=== PATIENT | male | born 1940 | race Caucasian/White ===

== ENCOUNTER → 2017-11-13 16:41 | Outpatient (CLI) | payer MEDICARE, SELFPAY ==
[2017-11-13 18:03] LABS: Alanine Aminotransferase 49 IU/L (21-72); Albumin 4.5 g/dL (3.5-5.0); Albumin Globulin Ratio 1.7 (1.0-2.8); Alkaline Phosphatase 69 U/L (38-126); Aspartate Aminotransferase 45 IU/L (17-59); Bilirubin Total 0.6 mg/dL (0.2-1.3); Blood Urea Nitrogen 28 mg/dL (9-20); Calcium 9.8 mg/dL (8.4-10.2); Carbon Dioxide 28 mmol/L (22-32); Chloride 100 mmol/L (98-107); Cholesterol 135 mg/dL (140-199); Estimated Glomerular Filt Rate > 60.0 mL/min (>60); Globulin 2.6 g/dL (1.7-4.1); Glucose 83 mg/dL (80-110); HDL Cholesterol 57 mg/dL (40-60); HEMOLYSIS < 15 (0-50); LDL Cholesterol Calculated 62 mg/dL (<100); Potassium 4.9 mmol/L (3.4-5.1); Sodium 139 mmol/L (137-145); Total Protein 7.1 g/dL (6.3-8.2); Triglycerides 79 mg/dL (35-150)
[2017-11-13 18:20] LABS: Free T3, Triiodothyronine Free 5.54 pg/mL (2.77-5.27); Free T4, Direct Thyroxine 0.12 ng/dL (0.78-2.19)
[2017-11-13 18:34] LABS: Thyroid Stimulating Hormone < 0.02 uIU/mL (0.47-4.68)
[2017-11-13 18:36] LABS: Prostate Specific Antigen Scrn 1.91 ng/mL (0.1-4.0)
== END ==
PROVIDERS: Family Provider Internal Medicine; PCP Internal Medicine; Visit Provider Internal Medicine
DX: E03.9 Hypothyroidism, unspecified (principal); E78.00 Pure hypercholesterolemia, unspecified
CPT/HCPCS: 36415; 80053; 80061; 84439; 84443; 84481; G0103

== ENCOUNTER → 2018-01-22 10:06 | Outpatient (CLI) | payer MEDICARE, SELFPAY ==
--- NOTE | 2018-01-22 | DI.RAD.S_ITS ---
This blank DEXA report has been sent in error by the PACS system. The correct and complete report will be forthcoming in 1-2 days. Thank you for your patience and understanding. Dictated by: Laury Cormier MD, PhD on 01/22/2018 at 12:45 Approved by: Laury Cormier MD, PhD on 01/22/2018 at 12:46
--- NOTE | 2018-01-22 | DI.MRI.S_ITS ---
PROCEDURE: MR CERVICAL SPINE WO CON INDICATIONS: Other abnormalities of gait and mobility TECHNIQUE: Noncontrast sagittal T1 spin echo and T2 fast spin echo, sagittal STIR, foraminal oblique sagittal T2 fast spin echo, and axial gradient echo or T2 fast spin echo through the cervical spine. COMPARISON: None. FINDINGS: Image quality: Excellent. Alignment and Curvature: There is trace C7-T1 anterolisthesis.. Bone Marrow: Mild reactive endplate changes noted adjacent to the C3-C4, C4-C5, C5-C6, C6-C7 and C7-T1 discs. Spinal Cord: Visualized spinal cord has normal size and signal. No cerebellar tonsillar herniation. Paraspinous Soft Tissues: No paravertebral masses. Prevertebral soft tissues are normal in thickness. C2-C3: Loss of disc signal. Mild, diffuse disc bulge. Mild right and moderate left facet hypertrophy. No central stenosis. Mild right and moderate left neural foraminal narrowing. No neural impingement. C3-C4: Loss of disc signal and height. Moderate, diffuse disc bulge. Moderate narrowing of the central canal. Mild bilateral facet hypertrophy. Moderate bilateral uncovertebral joint hypertrophy. Severe bilateral neural foraminal narrowing with flattening deformity exiting C4 nerve roots. C4-C5: Loss of disc signal and height. Mild, diffuse disc bulge. Mild narrowing of the central canal. Mild right and moderate left facet hypertrophy. Mild bilateral uncovertebral joint hypertrophy. Severe bilateral neural foraminal narrowing with flattening deformity of the exiting C5 nerve roots. C5-C6: Loss of disc signal and height. Moderate, diffuse disc bulge. Moderate narrowing of the central canal. Mild right and moderate left facet hypertrophy. Mild bilateral uncovertebral joint hypertrophy. Severe bilateral neural foraminal narrowing with flattening deformity of the exiting C6 nerve roots. C6-C7: Loss of disc signal and height. Mild diffuse disc bulge. Mild narrowing of the central canal. Mild bilateral facet hypertrophy. Mild left uncovertebral joint hypertrophy. Moderate right and severe left neural foraminal narrowing with flattening deformity of the exiting left C7 nerve root. C7-T1: Loss of disc signal. Minimal, diffuse disc bulge. No central stenosis. No neural foraminal narrowing. No neural impingement. IMPRESSION: 1. Multilevel degenerative disc disease. 2. Multilevel facet arthropathy and uncovertebral joint hypertrophy. 3. Moderate C3-C4 and C5-C6 central canal narrowing. Mild C4-C5 and C6-C7 central canal narrowing. 4. Severe bilateral C3-C4, C4-C5 and C5-C6 neural foraminal narrowing. Severe left and moderate right C6-C7 neural foraminal narrowing. Mild right and moderate left C2-C3 neural foraminal narrowing. 5. Flattened deformity of the exiting bilateral C4 nerve roots, the exiting bilateral C5 nerve roots, the exiting bilateral C6 nerve roots and the exiting left C7 nerve root secondary to neural foraminal narrowing. Please correlate with clinical data. Dictated by: Laury Cormier MD, PhD on 01/22/2018 at 12:24 Approved by: Laury Cormier MD, PhD on 01/22/2018 at 12:41
--- NOTE | 2018-01-22 | DI.MRI.S_ITS ---
PROCEDURE: MR LUMBAR SPINE WO CON INDICATIONS: Other abnormalities of gait and mobility TECHNIQUE: Noncontrast sagittal T1 spin echo and T2 fast echo, sagittal STIR, axial T1 and T2 fast spin echo through the lumbar spine. In cases with scoliosis, additional coronal T2 fast spin echo may be performed. COMPARISON: None. FINDINGS: Image quality: Excellent. Alignment and Curvature: There is normal bony alignment. Mild, approximately 10? of convex right thoracolumbar spine curvature noted. Bone Marrow: Reactive endplate change is noted adjacent to the L1-L2, L2-L3, L3-L4, L4-L5 and L5-S1 discs. No acute vertebral body compression fractures. Spinal Cord: Conus medullaris terminates at the L2 level. Visualized cord demonstrates normal signal and size. Paraspinous Soft Tissues: No paravertebral masses. L1-L2: Loss of disc signal. Moderate, diffuse disc bulge. Mild bilateral facet hypertrophy. Moderate narrowing of the central canal. Moderate bilateral neural foraminal narrowing. No neural impingement. L2-L3: Loss of disc signal and slight loss of disc height. Mild, diffuse disc bulge. Mild bilateral facet hypertrophy. Mild to moderate narrowing of the central canal. Moderate right and severe left neural foraminal narrowing with slight flattening deformity of the exiting left L2 nerve root. L3-L4: Loss of disc signal and slight loss of disc height. Mild, diffuse disc bulge. Mild facet and mild ligamentum flavum hypertrophy. Moderate narrowing of the central canal. Moderate bilateral neural foraminal narrowing. No neural impingement. L4-L5: Loss of disc signal and slight loss of disc height. Mild, diffuse disc bulge. Mild bilateral facet hypertrophy. Mild ligamentum flavum hypertrophy. Moderate narrowing of the central canal. Severe bilateral neural foraminal narrowing with flattening deformity of the exiting L4 nerve roots. L5-S1: Loss of disc signal and height. Mild, diffuse disc bulge. Mild bilateral facet hypertrophy. Mild narrowing of the central canal. Severe right and mild left neural foraminal narrowing with flattening deformity the exiting right L5 nerve root. IMPRESSION: 1. Multilevel degenerative disc disease. 2. Multilevel facet arthropathy. 3. Moderate L1-L2, L3-L4 and L4-L5 central canal narrowing. Mild to moderate L2-L3 central canal narrowing. 4. Severe bilateral L4-L5 neural foraminal narrowing. Severe right and mild left L5-S1 neural foraminal narrowing. Mild right and severe left L2-L3 neural foraminal narrowing. Moderate bilateral L1-L2 at L3-L4 neural foraminal narrowing. 5. Flattened deformity of the exiting left L2 nerve root, the exiting bilateral L4 nerve roots and the exiting right L5 nerve root secondary to neural foraminal narrowing. Please correlate with clinical data. Dictated by: Laury Cormier MD, PhD on 01/22/2018 at 12:48 Approved by: Laury Cormier MD, PhD on 01/22/2018 at 12:55
== END ==
PROVIDERS: Family Provider Internal Medicine; PCP Internal Medicine; Visit Provider Internal Medicine
DX: M50.31 Other cervical disc degeneration, high cervical region (principal); M47.812 Spondylosis without myelopathy or radiculopathy, cervical region; M48.061 Spinal stenosis, lumbar region without neurogenic claudication; M85.832 Other specified disorders of bone density and structure, left forearm; M51.36 Other intervertebral disc degeneration, lumbar region; M51.37 Other intervertebral disc degeneration, lumbosacral region; M48.07 Spinal stenosis, lumbosacral region; M47.816 Spondylosis without myelopathy or radiculopathy, lumbar region; R26.89 Other abnormalities of gait and mobility; R39.15 Urgency of urination; Z82.62 Family history of osteoporosis
CPT/HCPCS: 72141; 72148; 77080; 77081

== ENCOUNTER 2018-02-06 09:19 | Emergency (ER) | payer MEDICARE, SELFPAY ==
[2018-02-06 09:23] VITALS: BP 121/71; PULSE 88; RESP 14; TEMP 36.3; O2SAT 100
--- NOTE | 2018-02-06 09:43 | DI.RAD.S_ITS ---
PROCEDURE: XR ACUTE ABDOMEN SERIES INDICATIONS: states no bowel movement x 2 weeks. TECHNIQUE: One view chest and two views of the abdomen were acquired. COMPARISON: None. FINDINGS: Surgical changes and devices: Right dynamic hip screw in left hip arthroplasty are noted with extensive heterotopic ossification bilaterally. Severe degenerative changes present within the thoracolumbar spine. Chest: Lungs are clear. Heart size is normal. No pleural effusions. No pneumoperitoneum. The lung volumes are large and the diaphragms are flattened suggesting emphysema. Abdomen: Bowel gas pattern is normal. No suspicious calcifications. Visualized solid organ contours appear normal. Bones: No suspicious bony lesions. IMPRESSION: 1. Emphysematous change. No acute cardiopulmonary findings. 2. No acute intra-abdominal findings. Dictated by: Linda Tarango M.D. on 02/06/2018 at 10:04 Approved by: Linda Tarango M.D. on 02/06/2018 at 10:04
--- NOTE | 2018-02-06 12:32 | ED.ABDPAIN ---
HPI - Abdominal Pain <Karen Braun, DRAFTING CLERK-BC - Last Filed: 02/06/18 15:01> General Chief Complaint: Abdominal Pain Stated Complaint: HASN'T POOPED IN 2 WEEKS Time Seen by Provider: 02/06/18 12:19 Source: patient and family Mode of arrival: ambulatory Limitations: no limitations History of Present Illness HPI narrative: Patient presents with chief complaint of not having had a bowel movement for 2 weeks. He states he usually has a bowel movement every 3 days or so. He states he is still passing gas, denies severe abdominal pain but does complain of slight abdominal cramping. He denies any nausea, vomiting, chest pain, shortness of breath fever or chills. Upon further increased, the patient states he had small ?rabbit turds? approximately 3-4 days ago. He states he is passing lots of gas, and states that his bowels were ?very gurgly and gassy? 2-3 days ago. also states that patient is not urinating as much as usual. Patient states he had a good urination when he arrived in the ER. Patient denies any burning frequency or urgency. Related Data Home Medications Medication Instructions Recorded Confirmed alendronate 70 mg PO TU 02/06/18 02/06/18 aspirin 81 mg PO BEDTIME 02/06/18 02/06/18 calcium carb-D3-mag ox-zinc ox 1 tab PO QPM 02/06/18 02/06/18 cholecalciferol (vitamin D3) 4,000 unit PO DAILY 02/06/18 02/06/18 [Vitamin D3] cyanocobalamin (vitamin B-12) 1,000 mcg PO QPM 02/06/18 02/06/18 [Vitamin B-12] liothyronine 75 mcg PO DAILY 02/06/18 02/06/18 mirabegron [Myrbetriq] 1 tab PO BEDTIME 02/06/18 02/06/18 multivitamin 1 tab PO QAM 02/06/18 02/06/18 nortriptyline 100 mg PO QPM 02/06/18 02/06/18 risperidone 1 mg PO BEDTIME 02/06/18 02/06/18 s-adenosylmethionine [Zurdo-E] 1 tab PO QNOON 02/06/18 02/06/18 s-adenosylmethionine [Zurdo-E] 2 tab PO QAM 02/06/18 02/06/18 sertraline 150 mg PO QAM 02/06/18 02/06/18 simvastatin 20 mg PO BEDTIME 02/06/18 02/06/18 vitamin E 400 unit PO QAM 02/06/18 02/06/18 Allergies Allergy/AdvReac Type Severity Reaction Status Date / Time No Known Drug Allergies Allergy Verified 02/06/18 09:25 Review of Systems <LAWSON Ablert - Last Filed: 02/06/18 15:01> Review of Systems GENERAL: Denies chills, fatigue, malaise, fever, sweats. HEENT: Denies sinus pain, ear pain, sore throat, difficulty swallowing, dizziness. RESPIRATORY: Denies dyspnea, cough, wheezing, hemoptysis, sputum. CARDIOVASCULAR: Denies chest pain, palpitations, orthopnea, edema, GASTROINTESTINAL: See HPI : Denies dysuria, frequency, incontinence, hematuria, urinary retention. MUSCULOSKELETAL: denies weakness, joint pain, or bony pain SKIN: Denies rash, skin lesions, or other NEUROLOGIC: Denies weakness, headache, numbness, change in speech, confusion, seizures, incoordination. PSYCHIATRIC: No concerning psychosocial issues. 12 point review of systems is negative except for those stated above Exam <PUJA AlbertBC - Last Filed: 02/06/18 15:01> Narrative Exam Narrative: GENERAL: Elderly male, at bedside. HEAD: Atraumatic. Normocephalic. No temporal or scalp tenderness. EYES: Pupils equal round and reactive. Extraocular motions intact. No scleral icterus. No injection or drainage. ENT: Nose without bleeding, purulent drainage or septal hematoma. Throat without erythema, tonsillar hypertrophy or exudate. Uvula midline. Airway patent. NECK: Trachea midline. No JVD or lymphadenopathy. Supple, nontender, no meningeal signs. CARDIOVASCULAR: Regular rate and rhythm RESPIRATORY: Clear to auscultation. Breath sounds equal bilaterally. No wheezes, rales, or rhonchi. No increased respiratory effort. No cough on exam. GASTROINTESTINAL: Abdomen soft, slight general tenderness, nondistended. No hepato-splenomegaly, or palpable masses. No guarding. No rigidity. Active bowel sounds all 4 quadrants. No pain at McBurney's point. Negative Paz sign. EXTREMITIES: No clubbing, cyanosis, or edema. No joint tenderness, effusion, or edema noted. BACK: Nontender without deformity or crepitance. No flank tenderness. NEURO: AOx3. Patient is noted to answer questions differently regarding his bowel habits every time I go into the room SKIN: No rash or erythema. Initial Vital Signs Initial Vital Signs: Vital Signs Temperature 97.4 F L 02/06/18 09:23 Pulse Rate 88 02/06/18 09:23 Respiratory Rate 14 02/06/18 09:23 Blood Pressure 121/71 02/06/18 09:23 Pulse Oximetry 100 02/06/18 09:23 <Kathy Love MD - Last Filed: 02/06/18 18:58> Initial Vital Signs Initial Vital Signs: Vital Signs Temperature 97.4 F L 02/06/18 09:23 Pulse Rate 88 02/06/18 09:23 Respiratory Rate 14 02/06/18 09:23 Blood Pressure 121/71 02/06/18 09:23 Pulse Oximetry 100 02/06/18 09:23 Course <LAWSON Albert - Last Filed: 02/06/18 15:01> Orders Ordered: Discontinued Medications Sodium Biphosphate/Sodium Phosphate (Fleet Enema) 1 each MI NOW ONE Stop: 02/06/18 12:45 I checked on the patient several times throughout his stay in the emergency department. Given the 's concern about urinary retention, a bladder scan and postvoid residual was also obtained. It was found to be 100 cc postvoid. Vital Signs - 8 hr 02/06/18 13:32 Temperature 98.1 F Pulse Rate 65 Respiratory Rate 17 Blood Pressure 126/69 Pulse Oximetry 98 <Kathy Love MD - Last Filed: 02/06/18 18:58> Orders Ordered: Discontinued Medications Sodium Biphosphate/Sodium Phosphate (Fleet Enema) 1 each MI NOW ONE Stop: 02/06/18 12:45 Vital Signs - 8 hr 02/06/18 13:32 Temperature 98.1 F Pulse Rate 65 Respiratory Rate 17 Blood Pressure 126/69 Pulse Oximetry 98 MDM - Abdominal Pain <LAWSON Albert - Last Filed: 02/06/18 15:01> Imaging Data abd xray: Radiologist's impression: [address] [address] XRay Report Signed Patient: Zachary Keane [facility]#: [id number] : 1940Acct:[id number] Age/Sex: 77 / MDate of Service: 02/06/18 Loc: ED Accession Number: [id number] Procedure: XR acute abdomen series Ordering Provider: Kathy Love MD PROCEDURE: XR ACUTE ABDOMEN SERIES INDICATIONS: states no bowel movement x 2 weeks. TECHNIQUE: One view chest and two views of the abdomen were acquired. COMPARISON: None. FINDINGS: Surgical changes and devices: Right dynamic hip screw in left hip arthroplasty are noted with extensive heterotopic ossification bilaterally. Severe degenerative changes present within the thoracolumbar spine. Chest: Lungs are clear. Heart size is normal. No pleural effusions. No pneumoperitoneum. The lung volumes are large and the diaphragms are flattened suggesting emphysema. Abdomen: Bowel gas pattern is normal. No suspicious calcifications. Visualized solid organ contours appear normal. Bones: No suspicious bony lesions. IMPRESSION: 1. Emphysematous change. No acute cardiopulmonary findings. 2. No acute intra-abdominal findings. Dictated by: Linda Tarango M.D. on 02/06/2018 at 10:04 Approved by: Linda Tarango M.D. on 02/06/2018 at 10:04 [facility] Narrative Medical decision making narrative: Patient presents with chief complaint of no bowel movement for 4 days. However he has a relatively benign abdominal exam, active bowel sounds and states he is passing gas. Further increase states he had some hard bowel movement to 3-4 days ago. His x-ray does not show any obstruction and shows a normal gas pattern. The abdomen is soft, nondistended. I question whether not the patient had a bowel movement and failed to remember having it, or had a bowel movement that his was not made aware of. I discussed at length a bowel regimen with the patient and his as well as return precautions to the emergency department including abdominal pain, not passing gas, etc. Discharge Plan Departure Patient Disposition: Home Clinical Impression: Constipation Discharge Date/Time: 02/06/18 13:34 Interventions: ED Discharge Assessment Last Done: 02/06/18 13:32 Instructions: Constipation (Alternative Therapy), DI for Constipation Activity Restrictions/Additional Instructions: Your abdominal x-ray showed a normal gas pattern today. Your abdominal exam is relatively benign overall. I suggest use of laxatives as needed. This can include senna which is a laxative, Colace as a stool softener. Magnesium citrate and enemas can also be purchased [id number]. I suggest a high-fiber high water diet. You may need to follow up with her primary care for continued management of her constipation. Come back to the emergency department if you and unable to take down fluids, are vomiting, or have severe abdominal pain. Prescriptions: No Action alendronate 70 mg tablet 70 mg PO TU RF: 0 sertraline 100 mg tablet 150 mg PO QAM RF: 0 risperidone 2 mg tablet 1 mg PO BEDTIME RF: 0 simvastatin 20 mg tablet 20 mg PO BEDTIME RF: 0 liothyronine 50 mcg tablet 75 mcg PO DAILY RF: 0 mirabegron [Myrbetriq] 25 mg tablet extended release 24 hr 1 tab PO BEDTIME RF: 0 multivitamin Tablet 1 tab PO QAM RF: 0 cyanocobalamin (vitamin B-12) [Vitamin B-12] 1,000 mcg Tablet 1,000 mcg PO QPM RF: 0 aspirin 81 mg Tablet,Delayed Release (Dr/Ec) 81 mg PO BEDTIME RF: 0 vitamin E 400 unit Capsule 400 unit PO QAM RF: 0 nortriptyline 50 mg Capsule 100 mg PO QPM RF: 0 s-adenosylmethionine [Zurdo-E] 400 mg Tablet 2 tab PO QAM RF: 0 s-adenosylmethionine [Zurdo-E] 400 mg Tablet 1 tab PO QNOON RF: 0 cholecalciferol (vitamin D3) [Vitamin D3] 2,000 unit Capsule 4,000 unit PO DAILY RF: 0 calcium carb-D3-mag ox-zinc ox 333 mg-133 unit -133 mg-5 mg Tablet 1 tab PO QPM RF: 0 Referrals: Aaron Alexis MD [Primary Care Provider] -
--- NOTE | 2018-02-06 13:12 | ED_ITS ---
HPI - Abdominal Pain <Karen Braun, ORTHOTIST/PROSTHETIST-BC - Last Filed: 02/06/18 15:01> General Chief Complaint: Abdominal Pain Stated Complaint: HASN'T POOPED IN 2 WEEKS Time Seen by Provider: 02/06/18 12:19 Source: patient and family Mode of arrival: ambulatory Limitations: no limitations History of Present Illness HPI narrative: Patient presents with chief complaint of not having had a bowel movement for 2 weeks. He states he usually has a bowel movement every 3 days or so. He states he is still passing gas, denies severe abdominal pain but does complain of slight abdominal cramping. He denies any nausea, vomiting, chest pain, shortness of breath fever or chills. Upon further increased, the patient states he had small ?rabbit turds? approximately 3-4 days ago. He states he is passing lots of gas, and states that his bowels were ?very gurgly and gassy? 2-3 days ago. also states that patient is not urinating as much as usual. Patient states he had a good urination when he arrived in the ER. Patient denies any burning frequency or urgency. Related Data Home Medications Medication Instructions Recorded Confirmed alendronate 70 mg PO TU 02/06/18 02/06/18 aspirin 81 mg PO BEDTIME 02/06/18 02/06/18 calcium carb-D3-mag ox-zinc ox 1 tab PO QPM 02/06/18 02/06/18 cholecalciferol (vitamin D3) 4,000 unit PO DAILY 02/06/18 02/06/18 [Vitamin D3] cyanocobalamin (vitamin B-12) 1,000 mcg PO QPM 02/06/18 02/06/18 [Vitamin B-12] liothyronine 75 mcg PO DAILY 02/06/18 02/06/18 mirabegron [Myrbetriq] 1 tab PO BEDTIME 02/06/18 02/06/18 multivitamin 1 tab PO QAM 02/06/18 02/06/18 nortriptyline 100 mg PO QPM 02/06/18 02/06/18 risperidone 1 mg PO BEDTIME 02/06/18 02/06/18 s-adenosylmethionine [Zurdo-E] 1 tab PO QNOON 02/06/18 02/06/18 s-adenosylmethionine [Zurdo-E] 2 tab PO QAM 02/06/18 02/06/18 sertraline 150 mg PO QAM 02/06/18 02/06/18 simvastatin 20 mg PO BEDTIME 02/06/18 02/06/18 vitamin E 400 unit PO QAM 02/06/18 02/06/18 Allergies Allergy/AdvReac Type Severity Reaction Status Date / Time No Known Drug Allergies Allergy Verified 02/06/18 09:25 Review of Systems <LAWSON Albert - Last Filed: 02/06/18 15:01> Review of Systems GENERAL: Denies chills, fatigue, malaise, fever, sweats. HEENT: Denies sinus pain, ear pain, sore throat, difficulty swallowing, dizziness. RESPIRATORY: Denies dyspnea, cough, wheezing, hemoptysis, sputum. CARDIOVASCULAR: Denies chest pain, palpitations, orthopnea, edema, GASTROINTESTINAL: See HPI : Denies dysuria, frequency, incontinence, hematuria, urinary retention. MUSCULOSKELETAL: denies weakness, joint pain, or bony pain SKIN: Denies rash, skin lesions, or other NEUROLOGIC: Denies weakness, headache, numbness, change in speech, confusion, seizures, incoordination. PSYCHIATRIC: No concerning psychosocial issues. 12 point review of systems is negative except for those stated above Exam <PUJA AlbertBC - Last Filed: 02/06/18 15:01> Narrative Exam Narrative: GENERAL: Elderly male, at bedside. HEAD: Atraumatic. Normocephalic. No temporal or scalp tenderness. EYES: Pupils equal round and reactive. Extraocular motions intact. No scleral icterus. No injection or drainage. ENT: Nose without bleeding, purulent drainage or septal hematoma. Throat without erythema, tonsillar hypertrophy or exudate. Uvula midline. Airway patent. NECK: Trachea midline. No JVD or lymphadenopathy. Supple, nontender, no meningeal signs. CARDIOVASCULAR: Regular rate and rhythm RESPIRATORY: Clear to auscultation. Breath sounds equal bilaterally. No wheezes , rales, or rhonchi. No increased respiratory effort. No cough on exam. GASTROINTESTINAL: Abdomen soft, slight general tenderness, nondistended. No hepato-splenomegaly, or palpable masses. No guarding. No rigidity. Active bowel sounds all 4 quadrants. No pain at McBurney's point. Negative Paz sign. EXTREMITIES: No clubbing, cyanosis, or edema. No joint tenderness, effusion, or edema noted. BACK: Nontender without deformity or crepitance. No flank tenderness. NEURO: AOx3. Patient is noted to answer questions differently regarding his bowel habits every time I go into the room SKIN: No rash or erythema. Initial Vital Signs Initial Vital Signs: Vital Signs Temperature 97.4 F L 02/06/18 09:23 Pulse Rate 88 02/06/18 09:23 Respiratory Rate 14 02/06/18 09:23 Blood Pressure 121/71 02/06/18 09:23 Pulse Oximetry 100 02/06/18 09:23 <Kathy Love MD - Last Filed: 02/06/18 18:58> Initial Vital Signs Initial Vital Signs: Vital Signs Temperature 97.4 F L 02/06/18 09:23 Pulse Rate 88 02/06/18 09:23 Respiratory Rate 14 02/06/18 09:23 Blood Pressure 121/71 02/06/18 09:23 Pulse Oximetry 100 02/06/18 09:23 Course <LAWSON Albert - Last Filed: 02/06/18 15:01> Orders Ordered: Discontinued Medications Sodium Biphosphate/Sodium Phosphate (Fleet Enema) 1 each RI NOW ONE Stop: 02/06/18 12:45 I checked on the patient several times throughout his stay in the emergency department. Given the 's concern about urinary retention, a bladder scan and postvoid residual was also obtained. It was found to be 100 cc postvoid. Vital Signs - 8 hr 02/06/18 13:32 Temperature 98.1 F Pulse Rate 65 Respiratory Rate 17 Blood Pressure 126/69 Pulse Oximetry 98 <Kathy Love MD - Last Filed: 02/06/18 18:58> Orders Ordered: Discontinued Medications Sodium Biphosphate/Sodium Phosphate (Fleet Enema) 1 each RI NOW ONE Stop: 02/06/18 12:45 Vital Signs - 8 hr 02/06/18 13:32 Temperature 98.1 F Pulse Rate 65 Respiratory Rate 17 Blood Pressure 126/69 Pulse Oximetry 98 MDM - Abdominal Pain <LAWSON Albert - Last Filed: 02/06/18 15:01> Imaging Data abd xray: Radiologist's impression: [address] [address] XRay Report Signed Patient: Zachary Keane [facility]#: [id number] : 1940Acct:[id number] Age/Sex: 77 / MDate of Service: 02/06/18 Loc: ED Accession Number: [id number] Procedure: XR acute abdomen series Ordering Provider: Kathy Love MD PROCEDURE: XR ACUTE ABDOMEN SERIES INDICATIONS: states no bowel movement x 2 weeks. TECHNIQUE: One view chest and two views of the abdomen were acquired. COMPARISON: None. FINDINGS: Surgical changes and devices: Right dynamic hip screw in left hip arthroplasty are noted with extensive heterotopic ossification bilaterally. Severe degenerative changes present within the thoracolumbar spine. Chest: Lungs are clear. Heart size is normal. No pleural effusions. No pneumoperitoneum. The lung volumes are large and the diaphragms are flattened suggesting emphysema. Abdomen: Bowel gas pattern is normal. No suspicious calcifications. Visualized solid organ contours appear normal. Bones: No suspicious bony lesions. IMPRESSION: 1. Emphysematous change. No acute cardiopulmonary findings. 2. No acute intra-abdominal findings. Dictated by: Linda Tarango M.D. on 02/06/2018 at 10:04 Approved by: Linda Tarango M.D. on 02/06/2018 at 10:04 [facility] Narrative Medical decision making narrative: Patient presents with chief complaint of no bowel movement for 4 days. However he has a relatively benign abdominal exam, active bowel sounds and states he is passing gas. Further increase states he had some hard bowel movement to 3-4 days ago. His x-ray does not show any obstruction and shows a normal gas pattern. The abdomen is soft, nondistended. I question whether not the patient had a bowel movement and failed to remember having it, or had a bowel movement that his was not made aware of. I discussed at length a bowel regimen with the patient and his as well as return precautions to the emergency department including abdominal pain, not passing gas, etc. Discharge Plan Departure Patient Disposition: Home Clinical Impression: Constipation Discharge Date/Time: 02/06/18 13:34 Interventions: ED Discharge Assessment Last Done: 02/06/18 13:32 Instructions: Constipation (Alternative Therapy), DI for Constipation Activity Restrictions/Additional Instructions: Your abdominal x-ray showed a normal gas pattern today. Your abdominal exam is relatively benign overall. I suggest use of laxatives as needed. This can include senna which is a laxative, Colace as a stool softener. Magnesium citrate and enemas can also be purchased [id number]. I suggest a high- fiber high water diet. You may need to follow up with her primary care for continued management of her constipation. Come back to the emergency department if you and unable to take down fluids, are vomiting, or have severe abdominal pain. Prescriptions: No Action alendronate 70 mg tablet 70 mg PO TU RF: 0 sertraline 100 mg tablet 150 mg PO QAM RF: 0 risperidone 2 mg tablet 1 mg PO BEDTIME RF: 0 simvastatin 20 mg tablet 20 mg PO BEDTIME RF: 0 liothyronine 50 mcg tablet 75 mcg PO DAILY RF: 0 mirabegron [Myrbetriq] 25 mg tablet extended release 24 hr 1 tab PO BEDTIME RF: 0 multivitamin Tablet 1 tab PO QAM RF: 0 cyanocobalamin (vitamin B-12) [Vitamin B-12] 1,000 mcg Tablet 1,000 mcg PO QPM RF: 0 aspirin 81 mg Tablet,Delayed Release (Dr/Ec) 81 mg PO BEDTIME RF: 0 vitamin E 400 unit Capsule 400 unit PO QAM RF: 0 nortriptyline 50 mg Capsule 100 mg PO QPM RF: 0 s-adenosylmethionine [Zurdo-E] 400 mg Tablet 2 tab PO QAM RF: 0 s-adenosylmethionine [Zurdo-E] 400 mg Tablet 1 tab PO QNOON RF: 0 cholecalciferol (vitamin D3) [Vitamin D3] 2,000 unit Capsule 4,000 unit PO DAILY RF: 0 calcium carb-D3-mag ox-zinc ox 333 mg-133 unit -133 mg-5 mg Tablet 1 tab PO QPM RF: 0 Referrals: Aaron Alexis MD [Primary Care Provider] -
--- NOTE | 2018-02-06 13:21 | PC.NURSE ---
Bladder scan pre void is 400 cc post void is less than 100 cc
[2018-02-06 13:32] VITALS: BP 126/69; PULSE 65; RESP 17; TEMP 36.7; O2SAT 98
== END 2018-02-06 13:34 | disposition home or self-care (01) ==
PROVIDERS: Emergency Provider Nurse Practitioner Family; Family Provider Internal Medicine; PCP Internal Medicine
DX: K59.00 Constipation, unspecified (principal)
CPT/HCPCS: 74022; 99282; 99283

== ENCOUNTER → 2018-03-27 06:55 | Outpatient (CLI) | payer MEDICARE, SELFPAY ==
--- NOTE | 2018-03-27 | DI.MRI.S_ITS ---
PROCEDURE: MR LUMBAR SPINE WO CON INDICATIONS: IMPAIRED GAIT AND MOBILITY TECHNIQUE: Noncontrast sagittal T1 spin echo and T2 fast echo, sagittal STIR, axial T1 and T2 fast spin echo through the lumbar spine. In cases with scoliosis, additional coronal T2 fast spin echo may be performed. COMPARISON: [facility], MR, MR LUMBAR SPINE WO CON, 01/22/2018, 10:44. FINDINGS: Image quality: Excellent. Alignment and Curvature: Straightening of the normal lumbar lordosis with trace retrolisthesis of L5 on S1. Bone Marrow: Diffuse endplate spurring and degenerative signal changes. There are scattered small Schmorl's nodes as before with mild adjacent marrow edema at the inferior endplate of L2, the superior and inferior endplate of L3 and the superior and inferior plate of L4. Chronic appearing Schmorl's node at the inferior endplate of L1, and T12. These are grossly unchanged since 01/22/18 No acute vertebral body compression fractures. Spinal Cord: Conus medullaris terminates at the L2-L3 level. Visualized cord demonstrates normal signal and size. Paraspinous Soft Tissues: No paravertebral masses. L1-L2: Broad-based posterior disc bulge and mild canal narrowing appears grossly unchanged. Partial effacement of the lateral recesses although left greater than right. This is likely unchanged. Moderate right and left foraminal narrowing with unchanged appearance L2-L3: Broad-based posterior disc bulge and bilateral facet arthropathy. Mild canal narrowing which appears unchanged. There is also symmetric partial effacement of the lateral recesses also unchanged. Moderate bilateral foraminal stenoses, as before. L3-L4: Broad-based posterior disc bulge bilateral facet arthropathy. Mild canal narrowing. Symmetric partial effacement of the left and right lateral recesses. Moderate left and mild right foraminal narrowing. L4-L5: Broad-based posterior disc bulge bilateral facet disease. Ligamentum flavum hypertrophy. Mild/moderate central canal narrowing, which is slightly progressed since the prior study. Bilaterally symmetric appearing partial effacement of the lateral recesses. Moderate bilateral foraminal narrowing, grossly unchanged L5-S1: Broad-based posterior disc bulge bilateral facet disease. Mild central canal narrowing. There is asymmetric partial effacement of the lateral recesses, right greater than left however the appearance is similar to the 01/22/18 examination. Severe right and no definite left foraminal stenosis. No interval change IMPRESSION: Slight progression in central canal narrowing at the L4-L5 level otherwise, remainder the examination appears grossly unchanged as detailed above by spinal level. Redemonstration of bilateral asymmetric subarticular narrowing at L5-S1, right greater than left although this appears unchanged. Multiple small Schmorl's nodes as detailed above. These also appear unchanged. Dictated by: Eugene De Santiago M.D. on 03/27/2018 at 9:45 Approved by: Eugene De Santiago M.D. on 03/27/2018 at 9:56
--- NOTE | 2018-03-27 | DI.MRI.S_ITS ---
PROCEDURE: MR CERVICAL SPINE WO CON INDICATIONS: IMPAIRED GAIT AND MOBILITY TECHNIQUE: Noncontrast sagittal T1 spin echo and T2 fast spin echo, sagittal STIR, foraminal oblique sagittal T2 fast spin echo, and axial gradient echo or T2 fast spin echo through the cervical spine. COMPARISON: [facility], MR, MR CERVICAL SPINE WO CON, 01/22/2018, 10:13. FINDINGS: Image quality: Degraded by motion artifact. Alignment and Curvature: There is normal bony alignment. Bone Marrow: Marrow demonstrates normal overall signal. There is mild reactive signal within the endplates adjacent to the C3-C4, C4-C5, C5-C6, C6-C7, and C7-T1 intervertebral discs. Spinal Cord: Visualized spinal cord has normal size and signal. No cerebellar tonsillar herniation. Paraspinous Soft Tissues: No paravertebral masses. Prevertebral soft tissues are normal in thickness. C2-C3: Mild disc height loss. Moderate disc desiccation. Mild diffuse disc bulge. Bilateral facet and uncovertebral hypertrophy. Moderate left and mild right foraminal stenosis. Mild canal stenosis. No change. C3-C4: Moderate disc height loss and desiccation. Mild diffuse disc bulge. Left greater than right facet and uncovertebral hypertrophy. Moderate canal stenosis. Moderate bilateral foraminal stenosis. No change. C4-C5: Moderate disc desiccation. Mild disc height loss. Mild diffuse disc bulge. Left greater than right facet and uncovertebral hypertrophy. Mild canal stenosis. Severe left and moderate right foraminal stenosis. Flattening of the left C5 nerve root. Suboptimal evaluation of the right C5 nerve root. No change. C5-C6: Moderate disc height loss and desiccation. Mild diffuse disc bulge/osteophyte. Bilateral facet and uncovertebral hypertrophy. Moderate canal stenosis. Severe bilateral foraminal stenosis with bilateral C6 nerve root flattening. No change. C6-C7: Severe disc loss and desiccation. Mild diffuse disc bulge/osteophyte with superimposed broad-based left far lateral protrusion/osteophyte. Bilateral facet and uncovertebral hypertrophy. Moderate canal stenosis. Severe left and mild right foraminal stenosis. Flattening deformity of the left C7 nerve root within the neural foramen. No change. C7-T1: Moderate disc desiccation. Mild diffuse disc bulge. Mild bilateral facet and uncovertebral hypertrophy. Mild canal stenosis. Mild bilateral foraminal stenosis. No change. IMPRESSION: 1. Multilevel degenerative disc and facet disease, as well as uncovertebral hypertrophy. 2. Multilevel canal stenoses, worst at C3-C4, C5-C6, and C6-C7, where there are moderate canal stenoses present. 3. Multilevel foraminal stenoses, worst at C4-C5 on the left, at C6-C7 bilaterally, and at C6-C7 on the left, where there is associated intraforaminal neural flattening as described above. Recommend correlation with clinical symptoms to ascertain relevance of these findings. Dictated by: Lio Camarillo M.D. on 03/27/2018 at 8:43 Approved by: Lio Camarillo M.D. on 03/27/2018 at 8:49
== END ==
PROVIDERS: Family Provider Internal Medicine; PCP Internal Medicine; Visit Provider Internal Medicine Endocrinology, Diabetes & Metabolism
DX: R26.89 Other abnormalities of gait and mobility (principal); R39.15 Urgency of urination; M50.31 Other cervical disc degeneration, high cervical region; M48.061 Spinal stenosis, lumbar region without neurogenic claudication; M51.26 Other intervertebral disc displacement, lumbar region; M51.27 Other intervertebral disc displacement, lumbosacral region; M48.07 Spinal stenosis, lumbosacral region; M51.46 Schmorl's nodes, lumbar region; M51.44 Schmorl's nodes, thoracic region
CPT/HCPCS: 72141; 72148

== ENCOUNTER 2018-06-10 12:30 | Outpatient (RCR) | payer MEDICARE, SELFPAY ==
--- NOTE | 2018-04-16 14:54 | ST.OPIE ---
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 Peña Pascual, Neurosurgery Reason for Referral Dementia, newly diagnosed Evaluation Assessment Type Cognitive Communication Past Medical History Patient History 77-yr-old right-handed male with history of ventriculomegaly and memory problems. MRI was conducted on 08/22/17 (see pt chart for details), and MoCA administrated on 12/14/17 with score of 24/30, below normal limits. The pt was referred to Dr. Tino Sharma, Clinical Psychologist, at [facility] , and was seen for neuropsychological testing on 03/14/18. This case history is compiled from Dr. Sharma's evaluation report. Test findings indicated moderate-severe deficits in verbal and visual memory, semantic verbal fluency, speed of mental processing; mild deficits in basic auditory attention, phonemic verbal fluency, higher-level visuospatial processing, and, possibly, abstract verbal and nonverbal reasoning. The pt scored at or very near expected historical baseline on confrontation object naming test; fund of information and word knowledge were in the superior range (91st percentile). The pt had undergone similar testing in 2007, and general comparisons between that and the current evaluation indicated mild to moderate declines in performances, with greater decline seen on tests of verbal and visual memory. Per medical records, ... elements in [the pt's] cognitive findings, when combined with the declines seen in test performances since the 2007 evaluation, raise concerns for the possible presence of a neurodegenerative disorder, e. g., Alzheimer's. The pt has a hx of emotional factors, including depression and anxiety; however, they were not throught to be sufficient to account for a substantial portion of current cognitive functioning. Speech Therapy was recommended , focusing on the development and use of compensatory systems/strategies to enhance [the pt's] everyday memory. Examination of executive functions in his everyday life is recommended as part of treatment, with particular focus given to problem-solving and organization and planning of complex tasks. The pt provided supplemental case history including difficulty formulating thoughts, taking in what I hear, following directions, remembering names and parts of stories, and recalling sequences of tasks. He also reported getting stuck on something, which was consistent with reports of difficulty transitioning to new tasks during neuropsychological evaluation, perseverating on the previous task instructions. The pt identified his goals: Being able to respond faster, to follow directions, and to be more independent than he is now. To compensate for cognitive difficulties, the pt uses his phone calendar to track appointments and events, a pill box and routine to self- manage his medications, and written To-Do lists to complete tasks. [place] Language Language(s) Spoken in the Home [place] Educational Status Education Level Master's degree in law without passing bar Occupational Status Occupation Status Retired Previous Therapy Previous Speech-Language Therapy No Subjective Subjective The pt arrived on time unaccompanied. 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 He provided case history information supplemental to medical records. - Formal Assessment Standardized Test Scales of Cognitive & Communicative Ability for Neurorehabilitation (SCCAN) Administration Initiated Incomplete Results Raw scores for Sub-Tests Administered: Oral Expression/Repetition & Immediate Recall, 4/5 Orientation, /12 Speech Comprehension, / Oral Expression/Naming, 5/6 Connected Speech & Problem Solving, 8/8 Immediate Recall, 0/3 Attention, 7/7 Visual Problem Solving, 2/3 Numeric Problem Solving, 6/6 Delayed Recall, 4/6 (Sub-Test not administered in completion ) The following Sub-Tests will be administered in the next session to complete the exam: Reading, Writing, Delayed Recall - Cognition Orientation Skill Level WNL Attention Skill Level Mildly Impaired Problem Solving/Reasoning/Judgment Skill Level WFL Category Naming/Identification Skill Level Mildly Impaired Clock Drawing Skill Level WNL Cognitive Assessment Cognitive Assessment The pt presents with apparent deficits in areas of attention and short-term and working memory, per pt report, medical records, and results of testing completed to date. The pt reports difficulty with processing speeds, as well, which will be further evaluated at the next session. Testing results and pt complaints are consistent with diagnosis of dementia and interfere with the pt's ability to perform ADLs and interact with others as desired and as per PLOF. Skilled intervention is medically necessary to establish modifications in the pt's functional environment and training in skills and compensatory strategies to assist him to maintain highest level of independence and quality of life in the presence of a progressive disease. - Memory Short Term Memory Skill Level Moderately Impaired Immediate Recall Skill Level Moderately Impaired Word Recall Skill Level Mildly Impaired Comment 4 animals in 60 sec; 9 words beginning with F in 60 sec Long-Term Memory Comment Not tested; appears to be WFL in conversation. Memory Assessment Memory Assessment The pt exhibited greatest difficulty with memory items on sub-tests administered today. Simple repetition of information or task had little benefit. Skilled intervention to target memory training via errorless learning technique, use of compensatory strategies, memory notebook and environmental adaptations. - Treatment Goals Short Term Goals 1. The pt will participate in further assessment of cognitive communication skills to identify deficits and strengths and guide POC. 2. The pt will participate in establishment of a memory notebook and other external memory tools to increase his independence and maintain highest quality of life in presence of progressive disease. Renal Dialysis Rn Goals 1. The pt will use external memory tools, including memory notebook, with 80% accuracy to increase his independence and maintain highest quality of life in presence of progressive disease. 2. The pt will perform ADLs that are important to him and to his in 80% of opportunities with use of modifications to his functional environment and verbal cues, as measured by pt /family reports and clinical judgement. Total Time Full Evaluation Time 90
== END 2018-09-17 11:56 ==
LOC: SP 12:30
PROVIDERS: Family Provider Internal Medicine; PCP Internal Medicine; Visit Provider Internal Medicine Endocrinology, Diabetes & Metabolism
DX: F03.90 Unspecified dementia, unspecified severity, without behavioral disturbance, psychotic disturbance, mood disturbance, and anxiety (principal)
CPT/HCPCS: 96125

== ENCOUNTER → 2018-10-18 11:24 | Outpatient (CLI) | payer MEDICARE, SELFPAY ==
[2018-10-18 11:33] LABS: Bacteria Urine None Seen; WBC Urine None Seen (0-5/HPF)
[2018-10-18 11:53] LABS: Appearance Urine UA CLEAR; Bilirubin Urine UA NEGATIVE (NEGATIVE); Color Urine UA YELLOW; Glucose Urine UA NEGATIVE (Negative); Ketones Urine UA NEGATIVE (NEGATIVE); Leukocyte Esterase Urine UA NEGATIVE (NEGATIVE); Nitrite Urine UA NEGATIVE (Negative); Occult Blood Urine UA TRACE-INTACT (Negative); Protein Urine UA NEGATIVE (Negative); Urobilinogen Urine UA 0.2 E.U./dL (0.2); pH Urine UA 5.5 (4.5-8.0)
[2018-10-18 12:11] LABS: RBC Urine 1-5/HPF (0-5/HPF)
== END ==
PROVIDERS: PCP Internal Medicine; Visit Provider Psychiatry & Neurology Psychiatry
DX: N39.0 Urinary tract infection, site not specified (principal)
CPT/HCPCS: 81001

== ENCOUNTER 2019-01-06 15:17 | Emergency (ER) | payer MEDICARE, SELFPAY ==
[2019-01-06 15:23] VITALS: BP 139/72; PULSE 70; RESP 16; TEMP 36.4; O2SAT 96; BMI 23.7
--- NOTE | 2019-01-06 15:33 | ED.FALL ---
HPI - Fall General Chief Complaint: Fall Stated Complaint: GLF, head lac Time Seen by Provider: 01/06/19 15:17 Source: patient and EMS Mode of arrival: EMS Limitations: no limitations History of Present Illness HPI Narrative: 78-year-old male. Not on blood thinners. 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 Also has balance issues was standing at the grocery store unloading his cart into his car when he slipped on a empty plastic grocery bag that was on the ground. He fell backwards hitting his head. There was no loss of consciousness. He reports no other injuries from the event. He states that he remembers the entire event. Does have bleeding to the back of his head. Arrive not on a backboard not in a cervical collar by EMS. Related Data Home Medications Medication Instructions Recorded Confirmed alendronate 70 mg PO TU 02/06/18 02/06/18 aspirin 81 mg PO BEDTIME 02/06/18 02/06/18 calcium carb-D3-mag ox-zinc ox 1 tab PO QPM 02/06/18 02/06/18 cholecalciferol (vitamin D3) 4,000 unit PO DAILY 02/06/18 02/06/18 [Vitamin D3] cyanocobalamin (vitamin B-12) 1,000 mcg PO QPM 02/06/18 02/06/18 [Vitamin B-12] liothyronine 75 mcg PO DAILY 02/06/18 02/06/18 mirabegron [Myrbetriq] 1 tab PO BEDTIME 02/06/18 02/06/18 multivitamin 1 tab PO QAM 02/06/18 02/06/18 nortriptyline 100 mg PO QPM 02/06/18 02/06/18 risperidone 1 mg PO BEDTIME 02/06/18 02/06/18 s-adenosylmethionine [Zurdo-E] 1 tab PO QNOON 02/06/18 02/06/18 s-adenosylmethionine [Zurdo-E] 2 tab PO QAM 02/06/18 02/06/18 sertraline 150 mg PO QAM 02/06/18 02/06/18 simvastatin 20 mg PO BEDTIME 02/06/18 02/06/18 vitamin E 400 unit PO QAM 02/06/18 02/06/18 Allergies Allergy/AdvReac Type Severity Reaction Status Date / Time No Known Drug Allergies Allergy Verified 02/06/18 09:25 Review of Systems Constitutional Constitutional: Denies fever(s) and Denies headache(s) Eyes Eyes: Denies change in vision and Denies loss of vision ENT Ears, Nose, Mouth, and Throat: Denies vertigo, Denies dizziness, Denies headache(s) and Reports disequilibrium Cardiovascular Cardiovascular: Denies chest pain, Denies palpitations and Denies dyspnea Respiratory Respiratory: Denies dyspnea Gastrointestinal Gastrointestinal: Denies abdominal pain, Denies nausea and Denies vomiting Musculoskeletal Musculoskeletal: Denies myalgias, Denies arthralgias, Denies numbness and Denies tingling Integumentary/Breasts Comments: Bleeding to back of head Neurologic Neurologic: Denies behavioral changes, Denies confusion, Denies vertigo, Denies dizziness, Denies headache(s), Denies loss of vision, Denies numbness, Denies tingling and Reports disequilibrium Psychiatric Psychiatric: Denies behavioral changes and Denies confusion Endocrine Endocrine: Denies palpitations Hematologic/Lymphatic Hematologic/Lymphatic: Denies easy bleeding and Denies easy bruising Exam Initial Vital Signs Initial Vital Signs: Vital Signs Temperature 97.6 F 01/06/19 15:23 Pulse Rate 70 01/06/19 15:23 Respiratory Rate 16 01/06/19 15:23 Blood Pressure 139/72 01/06/19 15:23 Pulse Oximetry 96 01/06/19 15:23 Const General: cooperative and well developed Orientation: alert, awake and oriented x3 HENMT Head: abrasion Nose: external nose normal Face and sinus: normal facial exam Mouth: oral mucosae normal Resp Effort & Inspection: normal respiratory effort Cardio Rate: regular rate GI Inspection: non-distended Palpation: soft Skin Other: Patient with a quarter-size abrasion to the occipital portion of his scalp. No active bleeding. Neuro General: alert, awake and oriented x3 Cognition: normal cognition Speech: speech normal Motor: muscle tone normal throughout Sensory Exam: no sensory deficits noted Extrem General: normal to inspection and capillary refill normal Psych Appearance: grossly normal and well ket [facility] Medical History BPH (benign prostatic hyperplasia) (Inactive) Social History Smoking Status: Never smoker Social History Smoking Status: Never smoker Course Orders Ordered: ED Orders 01/06/19 15:32 CT head/brain wo con Stat Vital Signs Vital signs: Vital Signs - 8 hr 01/06/19 15:23 Temperature 97.6 F Pulse Rate 70 Respiratory Rate 16 Blood Pressure 139/72 Pulse Oximetry 96 MDM - Fall Imaging Data CT scan - head: Radiologist's impression: [address] [address] [address] Scan Report Signed Patient: Zachary Keane [facility]#: [id number] : 1940Acct:[id number] Age/Sex: 78 / MDate of Service: 01/06/19 Loc: ED Accession Number: [id number] Procedure: CT head/brain wo con Ordering Provider: Peña Devine D.O. PROCEDURE: CT HEAD/BRAIN WO CON INDICATIONS: Fall, not on blood thinners, occipital contusion TECHNIQUE: Noncontrast 4.5 mm thick angled axial sections acquired from the foramen magnum to the vertex, with coronal and sagittal reformats. For radiation dose reduction, the following was used: automated exposure control, adjustment of mA and/or kV according to patient size. COMPARISON: [facility], MR, BRAIN WITH AND WITHOUT CONTRAS, 02/07/2008, 13:21. FINDINGS: Image quality: Excellent. CSF spaces: Basal cisterns are patent. No extra-axial fluid collections. The ventricles are symmetric in size and shape. Brain: No intracranial bleeds or masses. There is cerebral volume loss for age, with resultant ventricular and sulcal prominence. There are periventricular and deep white matter chronic small vessel ischemic changes. There is intracranial internal carotid artery atherosclerosis. Skull and face: There is a mild scalp hematoma seen posteriorly and superiorly, just to the right of the midline. No underlying calvarial fracture is seen. Calvarium and visualized facial bones appear intact, without suspicious lesions. Sinuses: Moderate mucosal thickening is seen within the ethmoid air cells. The paranasal sinuses are otherwise unremarkable. No abnormal fluid is seen within the mastoid air cells or within the middle ear cavities. IMPRESSION: No acute intracranial hemorrhage is seen. Right posterior superior scalp contusion, without an underlying calvarial fracture. Note is made of age-appropriate brain parenchymal volume loss and chronic small vessel ischemic changes. Dictated by: Washington Tillman M.D. on 01/06/2019 at 15:02 Approved by: Washington Tillman M.D. on 01/06/2019 at 15:05 [facility] Narrative Medical decision making narrative: Patient is up-to-date on his tetanus. The CT scan shows no signs of skull fracture or intracranial hemorrhage. The wound on the back of his head is an abrasion. There is no need for intervention here in the emergency department. We discussed care instructions and return precautions. No other injuries reported from the event or found on his exam. Will hold on further radiologic studies for now. Patient is expressed understanding and agreement plan Discharge Plan Departure Patient Disposition: Home Clinical Impression: Abrasion of scalp Qualifiers: Encounter type: initial encounter Qualified Code(s): S00.01XA - Abrasion of scalp, initial encounter Fall Qualifiers: Encounter type: initial encounter Qualified Code(s): W19.XXXA - Unspecified fall, initial encounter Instructions: How to Prevent Falls, DI for Abrasion Activity Restrictions/Additional Instructions: You can shower like normal. You can use soap and water like normal. Do not scrub the back of your head because it may cause some bleeding. Return to the emergency department for any new or worsening symptoms. You can continue all of your medications as directed Prescriptions: No Action alendronate 70 mg tablet 70 mg PO TU RF: 0 sertraline 100 mg tablet 150 mg PO QAM RF: 0 risperidone 2 mg tablet 1 mg PO BEDTIME RF: 0 simvastatin 20 mg tablet 20 mg PO BEDTIME RF: 0 liothyronine 50 mcg tablet 75 mcg PO DAILY RF: 0 mirabegron [Myrbetriq] 25 mg tablet extended release 24 hr 1 tab PO BEDTIME RF: 0 multivitamin Tablet 1 tab PO QAM RF: 0 cyanocobalamin (vitamin B-12) [Vitamin B-12] 1,000 mcg Tablet 1,000 mcg PO QPM RF: 0 aspirin 81 mg Tablet,Delayed Release (Dr/Ec) 81 mg PO BEDTIME RF: 0 vitamin E 400 unit Capsule 400 unit PO QAM RF: 0 nortriptyline 50 mg Capsule 100 mg PO QPM RF: 0 s-adenosylmethionine [Zurdo-E] 400 mg Tablet 2 tab PO QAM RF: 0 s-adenosylmethionine [Zurdo-E] 400 mg Tablet 1 tab PO QNOON RF: 0 cholecalciferol (vitamin D3) [Vitamin D3] 2,000 unit Capsule 4,000 unit PO DAILY RF: 0 calcium carb-D3-mag ox-zinc ox 333 mg-133 unit -133 mg-5 mg Tablet 1 tab PO QPM RF: 0 Referrals: Aaron Alexis MD [Primary Care Provider] -
[2019-01-06 16:27] VITALS: BP 144/81; PULSE 70; RESP 18; TEMP 37; O2SAT 95
== END 2019-01-06 16:28 | disposition home or self-care (01) ==
PROVIDERS: Emergency Provider Emergency Medicine; PCP Internal Medicine
DX: S00.01XA Abrasion of scalp, initial encounter (principal); W01.0XXA Fall on same level from slipping, tripping and stumbling without subsequent striking against object, initial encounter
CPT/HCPCS: 70450; 99282; 99284

== ENCOUNTER → 2020-02-12 15:38 | Outpatient (ROUT) | payer MEDICARE, SELFPAY ==
[2020-02-12 16:03] LABS: Add Manual Diff / Slide Review NO; Basophils Absolute Auto 0 /uL (0-100); Basophils Percent Auto 0.2 % (0-2); Eosinophils Absolute Auto 100 /uL (0-450); Eosinophils Percent Auto 1.7 % (2-4); Hematocrit 37.9 % (41-53); Hemoglobin 12.8 g/dL (13.5-17.5); Lymphocytes Absolute Auto 800 /uL (1100-4500); Lymphocytes Percent Auto 19.1 % (25-40); Mean Corpuscular HGB Conc 33.9 % (30-36); Mean Corpuscular Hemoglobin 30.9 PG (26-34); Mean Corpuscular Volume 91.4 fL (80-100); Monocytes Absolute Auto 400 /uL (0-900); Neutrophils Absolute Auto 2800 /uL (1500-7000); Platelet Count 144 X10^3/uL (150-400); Red Blood Cell Count 4.15 X10^6/uL (4.5-5.9); Red Cell Distribution Width 13.6 % (11.6-14.8)
[2020-02-12 16:17] LABS: Alanine Aminotransferase 25 IU/L (<50); Albumin 4.2 g/dL (3.5-5.0); Albumin Globulin Ratio 1.5 (1.0-2.8); Alkaline Phosphatase 75 U/L (38-126); Aspartate Aminotransferase 41 IU/L (17-59); BUN Creatinine Ratio 26.3 (6-22); Bilirubin Total 0.6 mg/dL (0.2-1.3); Blood Urea Nitrogen 26 mg/dL (9-20); Calcium 9.3 mg/dL (8.4-10.2); Carbon Dioxide 31 mmol/L (22-32); Chloride 101 mmol/L (98-107); Cholesterol 129 mg/dL (140-199); Estimated Glomerular Filt Rate > 60.0 mL/min (>60); Globulin 2.8 g/dL (1.7-4.1); Glucose 84 mg/dL (80-110); HDL Cholesterol 59 mg/dL (40-60); HEMOLYSIS < 15 (0-50); LDL Cholesterol Calculated 57 mg/dL (<100); Sodium 137 mmol/L (137-145); Triglycerides 67 mg/dL (35-150)
[2020-02-12 16:47] LABS: TSH w/ Reflex to FT4 < 0.02 uIU/mL (0.47-4.68)
[2020-02-12 17:37] LABS: Free T4, Direct Thyroxine 0.14 ng/dL (0.78-2.19)
== END ==
PROVIDERS: PCP Internal Medicine; Visit Provider Internal Medicine
DX: F31.9 Bipolar disorder, unspecified (principal); E78.2 Mixed hyperlipidemia
CPT/HCPCS: 80053; 80061; 84439; 84443; 85025

== ENCOUNTER → 2020-02-26 13:23 | Outpatient (ROUT) | payer MEDICARE, SELFPAY ==
[2020-02-26 14:00] LABS: Free T3, Triiodothyronine Free 9.69 pg/mL (2.77-5.27); Free T4, Direct Thyroxine 0.13 ng/dL (0.78-2.19); T4 Total Thyroxine 1.09 ug/dL (5.5-11.0); T7 (Free Thyroxine Index) 0.35 (1.65-3.89); Triiodothryronine T3 Uptake 32.1 % (23.5-40.5)
[2020-02-26 14:14] LABS: TSH w/ Reflex to FT4 < 0.02 uIU/mL (0.47-4.68)
== END ==
PROVIDERS: PCP Internal Medicine; Visit Provider Physician Assistant
DX: R94.6 Abnormal results of thyroid function studies (principal)
CPT/HCPCS: 84436; 84439; 84443; 84479; 84481

== ENCOUNTER → 2020-08-19 16:09 | Outpatient (ROUT) | payer MEDICARE, SELFPAY ==
[2020-08-19 16:36] LABS: Add Manual Diff / Slide Review NO; Basophils Absolute Auto 0 /uL (0-100); Basophils Percent Auto 0.2 % (0-2); Eosinophils Absolute Auto 100 /uL (0-450); Eosinophils Percent Auto 3.5 % (2-4); Hematocrit 38.6 % (41-53); Hemoglobin 12.8 g/dL (13.5-17.5); Lymphocytes Absolute Auto 900 /uL (1100-4500); Lymphocytes Percent Auto 25.6 % (25-40); Mean Corpuscular HGB Conc 33.1 % (30-36); Mean Corpuscular Hemoglobin 29.4 PG (26-34); Mean Corpuscular Volume 88.9 fL (80-100); Monocytes Absolute Auto 400 /uL (0-900); Monocytes Percent Auto 11.9 % (3-14); Neutrophils Absolute Auto 2100 /uL (1500-7000); Neutrophils Percent Auto 58.8 % (50-75); Platelet Count 147 X10^3/uL (150-400); Red Blood Cell Count 4.34 X10^6/uL (4.5-5.9); Red Cell Distribution Width 13.8 % (11.6-14.8); White Blood Cell Count 3.6 X10^3/uL (4.5-11.0)
[2020-08-19 16:43] LABS: Alanine Aminotransferase 22 IU/L (<50); Albumin 4.1 g/dL (3.5-5.0); Albumin Globulin Ratio 1.5 (1.0-2.8); Alkaline Phosphatase 68 U/L (38-126); Aspartate Aminotransferase 35 IU/L (17-59); BUN Creatinine Ratio 24.2 (6-22); Bilirubin Total 0.4 mg/dL (0.2-1.3); Blood Urea Nitrogen 24 mg/dL (9-20); Calcium 9.7 mg/dL (8.4-10.2); Carbon Dioxide 30 mmol/L (22-32); Chloride 101 mmol/L (98-107); Estimated Glomerular Filt Rate > 60.0 mL/min (>60); Globulin 2.8 g/dL (1.7-4.1); Glucose 97 mg/dL (80-110); HEMOLYSIS < 15 (0-50); Potassium 4.7 mmol/L (3.4-5.1); Sodium 136 mmol/L (137-145); Total Protein 6.9 g/dL (6.3-8.2)
[2020-08-19 16:52] LABS: Hemoglobin A1C% w Est Avg Glu 5.3 % (4.0-6.0)
[2020-08-19 17:00] LABS: Free T4, Direct Thyroxine 0.14 ng/dL (0.78-2.19); T4 Total Thyroxine 1.09 ug/dL (5.5-11.0)
[2020-08-19 17:34] LABS: Vitamin B12 > 1000 pg/mL (239-931)
[2020-08-23 15:08] LABS: Albumin 3.8 g/dL (2.9-4.4); Alpha 1 Globulin 0.2 g/dL (0.0-0.4); Alpha 2 Globulin 0.8 g/dL (0.4-1.0); Beta 1 Globulin 1.1 g/dL (0.7-1.3); Gamma Globulin 0.9 g/dL (0.4-1.8); Protein, Total 6.8 g/dL (6.0-8.5)
== END ==
PROVIDERS: PCP Internal Medicine; Visit Provider Internal Medicine
DX: R94.6 Abnormal results of thyroid function studies (principal); R63.4 Abnormal weight loss
CPT/HCPCS: 80053; 82607; 83036; 84155; 84165; 84436; 84439; 84443; 85025

== ENCOUNTER → 2020-11-17 09:33 | Outpatient (CLI) | payer MEDICARE, SELFPAY ==
--- NOTE | 2020-11-17 | DI.MRI.S_ITS ---
PROCEDURE: MR HEAD/BRAIN WO CON INDICATIONS: Other frontotemporal dementia TECHNIQUE: Non-contrast axial T1 spin echo, axial T2 fast spin echo, sagittal and axial FLAIR, coronal T2 fast spin echo, axial gradient echo, axial diffusion and ADC through the brain. COMPARISON: [facility], MR, BRAIN WITHOUT CONTRAST, 11/09/2006, 13:34. CT, HEAD WITHOUT CONTRAST, 08/22/2007, 10:02. [facility], CT, CT HEAD/BRAIN WO CON, 01/06/2019, 15:33. MR, BRAIN WITH AND WITHOUT CONTRAS, 02/07/2008, 13:21. FINDINGS: Image quality: Excellent. CSF spaces: Ventricles appear symmetric in size and shape. Basal cisterns are patent. No extra-axial fluid collections. Brain: No intracranial bleeds or mass effects. There is mild, diffuse cerebral volume loss for age. There are moderate periventricular and deep white matter chronic small vessel ischemic changes. Brainstem appears normal. Diffusion-weighted images show no acute ischemic insults. Small chronic lacunar infarct in the left cerebellar hemisphere. Normal intravascular flow voids are present. Skull and face: Calvarial bone marrow is normal in signal. Orbits are normal. Sinuses: Mucous retention cyst versus polyp noted in the right maxillary sinus. Mild mucosal thickening in the maxillary sinuses bilaterally, ethmoid air cells bilaterally and right frontal sinus. The mastoids are clear. IMPRESSION: 1. No acute intracranial disease process. 2. Chronic, small left cerebellar hemisphere lacunar infarct. 3. No abnormal intracranial mass or mass effect. 4. Mild, diffuse cerebral volume loss. Volume loss is symmetric without preferential frontal-temporal volume loss 5. Moderate periventricular and subcortical white matter chronic microvascular ischemic changes. Dictated by: Laury Cormier MD, PhD on 11/17/2020 at 10:17 Approved by: Laury Cormier MD, PhD on 11/17/2020 at 10:37
== END ==
PROVIDERS: PCP Internal Medicine; Referring Provider Internal Medicine; Visit Provider Internal Medicine
DX: G31.09 Other frontotemporal neurocognitive disorder (principal); I63.81 Other cerebral infarction due to occlusion or stenosis of small artery
CPT/HCPCS: 70551

== ENCOUNTER 2020-12-29 12:30 | Outpatient (RCR) | payer MEDICARE, SELFPAY ==
--- NOTE | 2020-11-03 17:09 | ST.OPIE ---
Visit Care Team Role Provider Type Neeraj Pearce MD Attending Provider Physician Primary Care Provider Referring Provider Specialty: Internal Medicine Address: [address] [place] [address], [id number] Email: [email or web address] Speech-Language Pathology Initial Evaluation [facility] Adult Cognitive Linguistic Eval Start: 11/03/20 17:47 Freq: Status: Active Protocol: Document 11/03/20 17:47 OLIVE (Rec: 11/03/20 17:53 OLIVE [email or web address]) Adult Cognitive Linguistic Evaluation Session Time Visit Start Time 08:30 Visit Stop Time 09:30 Total Visit Minutes 60 Visit Information Visit Number Initial Evaluation Plan of Care Dates 11/03/20 - 02/03/21 Insurance Information Medicare Referral Referring Provider Dr. Neeraj Pearce Reason for Referral Dysarthria Setting Assessment Location Outpatient Care Visit Type Note Type Initial evaluation Next Note Type Next Note Type Treatment Note Patient Information Medical History The pt is an 79-yr-old male familiar to this C[place] HOISTER from previous treatment targeting cognitive communication skills , primarily memory. The pt returns with c/o slowed speech . Upon further interviewing, pt also noted slowed expressive language processing , difficulty formulating thoughts into verbal expression, and word recall challenges. These impairments have caused him to be less participatory in conversation and less likely to initiate conversations. Symptoms were first noticed by the pt's , Mary Kate, which brought them to the pt's awareness. Language(s) Spoken in the Home [place] Education Level College degree Occupation Status Retired Hearing Hearing Level Impaired Vision Vision Status Impaired Comments wears glasses Previous Therapy Previous Speech-Language Therapy Yes: targeting memory/ cognitive communication Subjective Patient Report The pt arrived on time and provided case history. Assessment Oral Motor Examination Completed No Informal Assessment Receptive Language Normal No: slowed processing Expressive Language Normal No: Slowed processing Pragmatic Language Normal Yes Speech Normal No Speech Impairment(s) Slow speech rate,Decreased volume/intensity,Poor breath support Cognition Normal Did not assess; Hx of deficits Cognitive Impairment(s) Short-term memory,Thought organization Findings/Results Language Function Mildly impaired Findings SPEECH: The pt presents with mild dysarthria secondary to mildly weak oral motor musculature and respiratory support for speech. Speech was 100% intelligible but characterized by slow rate, reduced breath support (~4-6 words/breath) and decreased loudness. Mildly monotone voice was also noted. LANGUAGE: Pt presents with mild expressive and receptive language deficits primarily characterized by slow processing skills that impact word recall and ability to participate in conversations. The pt reports that his has noticed he does not initiate conversations, and the pt agrees with this observation. As a result, he has become more isolated and withdrawn. During assessment, the pt scored within normal or functional limits in following yes/no questions; discriminating left and right body parts; picture identification and confrontational naming; automatic speech (counting, alphabet, etc.); phrase completion; imitation of words and sentences; responsive naming; and following 1- and 2-step directions. Mildly extended time consistently was required for responses, indicating reduced language processing, both expressively and receptively. Cognitive Communication Deficits Self-awareness of Cognitive- Situational awareness ( Communication Deficits recognition of problem in context;in real time) Impact on Functioning Activity Limits/Particip.Rest. Mild: Household Tasks Mod: General Tasks and Demands Interpersonal Interactions Community Prognosis Prognosis Good Based on Family support,Comorbidities, Duration of symptoms/severity, Time since onset Plan of Care Speech-Language Treatment Yes Frequency 1x/wk Duration 12 wks Patient/Caregiver Education Described results of evaluation,Patient expressed understanding of evaluation, Patient expressed agreement with goals and treatment plans Short Term Goals 1. The pt will perform exercises to increase breath support for speech with min prompt to increase pt's ability to be heard and understood by others. 2. The pt will will name 12 or more items in concrete categories in 60 seconds to improve word recall and expressive language processing speeds. 3. The pt will answer open- ended questions related to familiar topics with response latency of 5 sec or less to increase receptive language processing speeds necessary to effectively participate in functional conversations. 4. The pt will complete picture description tasks with 80% accuracy of appropriate content and latency of responses to improve word recall and expressive language processing speeds. [employer] Direction Specialist Goals 1. The pt will demonstrate improved breath support for speech by producing 10 or more words per breath in spontaneous conversation to increase his ability to effectively participate in functional/social conversations. 2. The pt will name 8 or more items in abstract categories to improve word recall and expressive language processing speeds. 3. The pt will demonstrate response times WFL in conversation about familiar topics to increase his ability to participate in functional conversations and improve quality of life.
--- NOTE | 2020-11-24 17:26 | ST.OPTN ---
Visit Care Team Role Provider Type Neeraj Pearce MD Attending Provider Physician Primary Care Provider Referring Provider Address: [address] [place] [address], [id number] AUTOMOTIVE DRIVABILITY TECHNICIAN Treatment Note AUTOMOTIVE DRIVABILITY TECHNICIAN Treatment Note Start: 11/03/20 17:47 Freq: Status: Active Protocol: Document 11/24/20 17:07 OLIVE (Rec: 11/24/20 17:22 OLIVE [email or web address]) Speech Pathology Treatment Note Session Time Visit Start Time 12:30 Visit Stop Time 13:15 Total Visit Minutes 45 Visit Information Visit Number 05/16 Plan of Care Dates 11/03/20 - 02/03/21 Insurance Information Medicare Setting Treatment Setting Outpatient Care Visit Type Note Type Treatment Note Next Note Type Next Note Type Treatment Note General Information General Information The pt is an 79-yr-old male familiar to this AUTOMOTIVE DRIVABILITY TECHNICIAN from previous treatment targeting cognitive communication skills , primarily memory. The pt returns with c/o slowed speech . Upon further interviewing, pt also noted slowed expressive language processing , difficulty formulating thoughts into verbal expression, and word recall challenges. These impairments have caused him to be less participatory in conversation and less likely to initiate conversations. Symptoms were first noticed by the pt's , Mary Kate, which brought them to the pt's awareness. Subjective Observations/Patient Presentation The pt arrived on time. No new complaints. Review of medical records after the session revealed recent brain MRI that showed: 1. No acute intracranial disease process; 2. Chronic, small left cerebellar hemisphere lacunar infarct; 3. No abnormal intracranial mass or mass effect; 4. Mild, diffuse cerebral volume loss. Volume loss is symmetric without preferential frontal- temporal volume loss; 5. Moderate periventricular and subcortical white matter chronic microvascular ischemic changes. Chief Complaint(s) Speech,Language,Cognitive Rehab Expectation/Goals: Patient Goals Improve ability to put thoughts into words and participate in conversations Patient Knowledge/Awareness of AUTOMOTIVE DRIVABILITY TECHNICIAN Role Good in Treatment Objective Short Term Goals 1. The pt will perform exercises to increase breath support for speech with min prompt to increase pt's ability to be heard and understood by others. 2. The pt will will name 12 or more items in concrete categories in 60 seconds to improve word recall and expressive language processing speeds. 3. The pt will answer open- ended questions related to familiar topics with response latency of 5 sec or less to increase receptive language processing speeds necessary to effectively participate in functional conversations. 4. The pt will complete picture description tasks with 80% accuracy of appropriate content and latency of responses to improve word recall and expressive language processing speeds. 5. With AUTOMOTIVE DRIVABILITY TECHNICIAN collaboration, the pt will develop and recite scripts for initiating conversations about familiar topics with 80% accuracy. Medical Assistant Dermatology Goals 1. The pt will demonstrate improved breath support for speech by producing 10 or more words per breath in spontaneous conversation to increase his ability to effectively participate in functional/social conversations. 2. The pt will name 8 or more items in abstract categories to improve word recall and expressive language processing speeds. 3. The pt will employ conversation starter scripts in 75% of opportunities in functional conversations, using visual aids as needed. 4. The pt will demonstrate response times WFL in conversation about familiar topics to increase his ability to participate in functional conversations and improve quality of life. Treatment Activities Consulted with pt in development of goals. Pt identified common topics of conversation with which he would like to be more engaged with his as: kids, grandkids, and movies they have watched together. He again expressed desire to read aloud better to increase his ability to participate with his [employer] study small group. Given written text from the Bible (~4 short paragraphs), the pt read the text with 4 errors (e.g., in for on, beach for boat). Reading rate was mildly slow. Vocal loudness was significantly reduced (not instrumentally measured), which would impede his ability to be heard by other senior small group participants in a home and group environment. After reading the text, the pt assessed his reading as disjointed and not very smooth. He reported moderate effort required to complete the task. Initiated training of oral motor exercises to improve speech articulation, as well as sustained phonation and breathing tasks to increase breath support for speech intelligibility. The pt returned demonstration of all exercises and verbalized understanding. Instructions were provided in writing for home practice. Assessment Patient Response to Treatment Good Rehab Potential Good Impairments Identified Auditory Processing,Cognitive- Linguistic Skills,Dementia, Dysarthria,Expressive Language ,Memory - Short Term,Memory - Working,Oral Motor,Receptive Language,Speech Intelligibility,Vocal Quality Assessment of Improvement The pt presented with significantly reduced breath support for speech, demonstrated by low vocal loudness and varying numbers of words per breath. Reading rate was mildly slow. Expressive and receptive language processing was slow throughout all conversation and in responses to tasks. The pt was participatory in goal development and receptive to all treatment activities and feedback. He performed oral motor and breathing exercises as instructed. Reviewed with Patient Goals,Progress Being Made,Home Exercise Program Patient/Caregiver Understanding Good Plan Treatment Emphasis Next Session Oral motor exercise training for speech; Scripts for initiating conversation Therapeutic Contents Client Education,Cognitive- Linguistic Training,Expressive Language Training,Home Exercise Program,Information Processing,Intelligibility, Oral Motor Training,Receptive Language Training,Voice Training Provided Patient/Caregiver Instruction Home Exercise Program,Plan of Care,Questions/Concerns Therapy Recommendations Continue with Current Program
--- NOTE | 2020-12-01 13:25 | ST.OPTN ---
Visit Care Team Role Provider Type Neeraj Pearce MD Attending Provider Physician Primary Care Provider Referring Provider Address: [address] [place] [address], [id number] HIGH SCHOOL HISTORY TEACHER Treatment Note HIGH SCHOOL HISTORY TEACHER Treatment Note Start: 11/03/20 17:47 Freq: Status: Active Protocol: Document 12/01/20 09:09 OLIVE (Rec: 12/02/20 09:13 OLIVE [email or web address]) Speech Pathology Treatment Note Session Time Visit Start Time 12:30 Visit Stop Time 13:20 Total Visit Minutes 50 Visit Information Visit Number 06/16 Plan of Care Dates 11/03/20 - 02/03/21 Insurance Information Medicare Setting Treatment Setting Outpatient Care Visit Type Note Type Treatment Note Next Note Type Next Note Type Treatment Note General Information General Information The pt is an 79-yr-old male familiar to this HIGH SCHOOL HISTORY TEACHER from previous treatment targeting cognitive communication skills , primarily memory. The pt returns with c/o slowed speech . Upon further interviewing, pt also noted slowed expressive language processing , difficulty formulating thoughts into verbal expression, and word recall challenges. These impairments have caused him to be less participatory in conversation and less likely to initiate conversations. Symptoms were first noticed by the pt's , Mary Kate, which brought them to the pt's awareness. Subjective Others Present Student Observations/Patient Presentation The pt arrived on time. No new complaints. No questions RE HEP, has been completing as prescribed. Chief Complaint(s) Speech,Language,Cognitive Rehab Expectation/Goals: Patient Goals Improve ability to put thoughts into words and participate in conversations Patient Knowledge/Awareness of HIGH SCHOOL HISTORY TEACHER Role Good in Treatment Objective Short Term Goals 1. The pt will perform exercises to increase breath support for speech with min prompt to increase pt's ability to be heard and understood by others. 2. The pt will will name 12 or more items in concrete categories in 60 seconds to improve word recall and expressive language processing speeds. 3. The pt will answer open- ended questions related to familiar topics with response latency of 5 sec or less to increase receptive language processing speeds necessary to effectively participate in functional conversations. 4. The pt will complete picture description tasks with 80% accuracy of appropriate content and latency of responses to improve word recall and expressive language processing speeds. 5. With HIGH SCHOOL HISTORY TEACHER collaboration, the pt will develop and recite scripts for initiating conversations about familiar topics with 80% accuracy. Jail Goals 1. The pt will demonstrate improved breath support for speech by producing 10 or more words per breath in spontaneous conversation to increase his ability to effectively participate in functional/social conversations. 2. The pt will name 8 or more items in abstract categories to improve word recall and expressive language processing speeds. 3. The pt will employ conversation starter scripts in 75% of opportunities in functional conversations, using visual aids as needed. 4. The pt will demonstrate response times WFL in conversation about familiar topics to increase his ability to participate in functional conversations and improve quality of life. Treatment Activities Pt completed oral motor exercises with min assist. MPT = 13 sec Initiated training of pacing board use to improve speech intelligibility and rate of speech/reading aloud. Given short to moderate-length sentences written on pacing board, the pt read sentences while tapping at each word. Readings were recorded and played back for pt, who evaluated performance, frequently noting reduced loudness and prosodic features . He repeated trials until he was satisfied with loudness, inflection, and clarity of articulation, demonstrating good awareness and ability to self-monitor and correct. By end of session, he maintained improved speech intelligibility without use of tapping; however, tapping will be continued to reinforce rate and clarity of speech and promote carryover in functional speaking tasks. Assessment Patient Response to Treatment Good Rehab Potential Good Impairments Identified Auditory Processing,Cognitive- Linguistic Skills,Dementia, Dysarthria,Expressive Language ,Memory - Short Term,Memory - Working,Oral Motor,Receptive Language,Speech Intelligibility,Vocal Quality Progress Towards Goals Good Progress Assessment of Overall Progress Improving Assessment of Improvement Pt exhibited mildly improved MPT, particularly with HIGH SCHOOL HISTORY TEACHER coaching during task. Speech intelligibility and loudness improved with use of pacing board. The pt was highly responsive to this tool and exhibited good self-monitoring and correcting skills. He demonstrated good understanding and ability to perform oral motor exercises, which appear to be improving speech intelligibility, as well, as the pt's conversational speech was perceived by HIGH SCHOOL HISTORY TEACHER and student HIGH SCHOOL HISTORY TEACHER to be mildly improved. Reviewed with Patient Goals,Progress Being Made,Home Exercise Program Patient/Caregiver Understanding Good Plan Amount of Therapy Recommended 2-3 Months Frequency of Treatment Once a Week Length of Session 45 Minutes Treatment Emphasis Next Session Cont pacing board; Scripts for initiating conversation Therapeutic Contents Client Education,Cognitive- Linguistic Training,Expressive Language Training,Home Exercise Program,Information Processing,Intelligibility, Oral Motor Training,Receptive Language Training,Voice Training Provided Patient/Caregiver Instruction Home Exercise Program,Plan of Care,Questions/Concerns Therapy Recommendations Continue with Current Program
--- NOTE | 2020-12-08 15:28 | ST.OPTN ---
Visit Care Team Role Provider Type Neeraj Pearce MD Attending Provider Physician Primary Care Provider Referring Provider Address: [address] [place] [address], [id number] ROUTE SALES ASSOCIATE Treatment Note ROUTE SALES ASSOCIATE Treatment Note Start: 11/03/20 17:47 Freq: Status: Active Protocol: Document 12/08/20 15:04 OLIVE (Rec: 12/08/20 15:28 OLIVE [email or web address]) Speech Pathology Treatment Note Session Time Visit Start Time 12:30 Visit Stop Time 13:20 Total Visit Minutes 50 Visit Information Visit Number 07/14 Plan of Care Dates 11/03/20 - 02/03/21 Insurance Information Medicare Setting Treatment Setting Outpatient Care Visit Type Note Type Treatment Note Next Note Type Next Note Type Treatment Note General Information General Information The pt is an 79-yr-old male familiar to this ROUTE SALES ASSOCIATE from previous treatment targeting cognitive communication skills , primarily memory. The pt returns with c/o slowed speech . Upon further interviewing, pt also noted slowed expressive language processing , difficulty formulating thoughts into verbal expression, and word recall challenges. These impairments have caused him to be less participatory in conversation and less likely to initiate conversations. Symptoms were first noticed by the pt's , Mary Kate, which brought them to the pt's awareness. Subjective Others Present Student Observations/Patient Presentation The pt arrived on time. No new complaints. No questions RE HEP, has been completing as prescribed. Chief Complaint(s) Speech,Language,Cognitive Rehab Expectation/Goals: Patient Goals Improve ability to put thoughts into words and participate in conversations Patient Knowledge/Awareness of ROUTE SALES ASSOCIATE Role Good in Treatment Objective Short Term Goals 1. The pt will perform exercises to increase breath support for speech with min prompt to increase pt's ability to be heard and understood by others. 2. The pt will will name 12 or more items in concrete categories in 60 seconds to improve word recall and expressive language processing speeds. 3. The pt will answer open- ended questions related to familiar topics with response latency of 5 sec or less to increase receptive language processing speeds necessary to effectively participate in functional conversations. 4. The pt will complete picture description tasks with 80% accuracy of appropriate content and latency of responses to improve word recall and expressive language processing speeds. 5. With ROUTE SALES ASSOCIATE collaboration, the pt will develop and recite scripts for initiating conversations about familiar topics with 80% accuracy. Residential Goals 1. The pt will demonstrate improved breath support for speech by producing 10 or more words per breath in spontaneous conversation to increase his ability to effectively participate in functional/social conversations. 2. The pt will name 8 or more items in abstract categories to improve word recall and expressive language processing speeds. 3. The pt will employ conversation starter scripts in 75% of opportunities in functional conversations, using visual aids as needed. 4. The pt will demonstrate response times WFL in conversation about familiar topics to increase his ability to participate in functional conversations and improve quality of life. Treatment Activities Continued training speech intelligibility with use of pacing board. Sentences were used that allowed for a variety of inflection. Recordings of the pt's performances were made for playback for pt self- assessment. Visual data of pitch inflection and loudness levels were also used for training and feedback purposes . The pt read sentences while tapping his finger with each word, first on the pacing board directly, then tapering to table and then leg. Accuracy with tapping decreased across tasks but the pt did self-employ the strategy when unhappy with his performance with positive results, demonstrating benefit of the strategy. The pt provided good self-assessments , noting when vocal loudness declined. Loudness was measured objectively with averages ranging from 66-69 dB during picture description tasks, and 62 dB initially in conversation, then increasing to 64 dB with visual biofeedback (Voice Wound Care Technician basil ). Skilled feedback and education provided RE home practice, particularly RE sustained phonation. MPT today was 11.47 sec with max verbal prompting. Assessment Patient Response to Treatment Good Rehab Potential Good Impairments Identified Auditory Processing,Cognitive- Linguistic Skills,Dementia, Dysarthria,Expressive Language ,Memory - Short Term,Memory - Working,Oral Motor,Receptive Language,Speech Intelligibility,Vocal Quality Progress Towards Goals Good Progress Assessment of Overall Progress Improving Assessment of Improvement Significant improvement in speech intelligibility noted with use of finger tapping with and without pacing board, and with visual and audio biofeedback. The pt exhibits good self-monitoring and - correcting skills in structured tasks, especially, and is able to increase loudness, which naturally improves enunciation. Loudness and intelligibility drop notably in conversation, but again the pt was responsive to biofeedback, which will be continued. Mild improvement made in sustained phonation time. Reviewed with Patient Goals,Progress Being Made,Home Exercise Program Patient/Caregiver Understanding Good Plan Amount of Therapy Recommended 2-3 Months Frequency of Treatment Once a Week Length of Session 45 Minutes Treatment Emphasis Next Session Cont pacing board & v/a biofeedback; Scripts for initiating conversation Therapeutic Contents Client Education,Cognitive- Linguistic Training,Expressive Language Training,Home Exercise Program,Information Processing,Intelligibility, Oral Motor Training,Receptive Language Training,Voice Training Provided Patient/Caregiver Instruction Home Exercise Program,Plan of Care,Questions/Concerns Therapy Recommendations Continue with Current Program
--- NOTE | 2020-12-15 13:45 | ST.OPTN ---
Visit Care Team Role Provider Type Neeraj Pearce MD Attending Provider Physician Primary Care Provider Referring Provider Address: [address] [place] [address], [id number] GIS ANALYST DEVELOPER Treatment Note GIS ANALYST DEVELOPER Treatment Note Start: 11/03/20 17:47 Freq: Status: Active Protocol: Document 12/15/20 13:36 OLIVE (Rec: 12/15/20 13:45 OLIVE [email or web address]) Speech Pathology Treatment Note Session Time Visit Start Time 12:30 Visit Stop Time 13:20 Total Visit Minutes 50 Visit Information Visit Number 08/14 Plan of Care Dates 11/03/20 - 02/03/21 Insurance Information Medicare Setting Treatment Setting Outpatient Care Visit Type Note Type Treatment Note Next Note Type Next Note Type Treatment Note General Information General Information The pt is an 79-yr-old male familiar to this GIS ANALYST DEVELOPER from previous treatment targeting cognitive communication skills , primarily memory. The pt returns with c/o slowed speech . Upon further interviewing, pt also noted slowed expressive language processing , difficulty formulating thoughts into verbal expression, and word recall challenges. These impairments have caused him to be less participatory in conversation and less likely to initiate conversations. Symptoms were first noticed by the pt's , Mary Kate, which brought them to the pt's awareness. Subjective Observations/Patient Presentation The pt arrived on time. No new complaints. No questions RE HEP, has been completing as prescribed. Chief Complaint(s) Speech,Language,Cognitive Rehab Expectation/Goals: Patient Goals Improve ability to put thoughts into words and participate in conversations Patient Knowledge/Awareness of GIS ANALYST DEVELOPER Role Good in Treatment Objective Short Term Goals 1. The pt will perform exercises to increase breath support for speech with min prompt to increase pt's ability to be heard and understood by others. 2. The pt will will name 12 or more items in concrete categories in 60 seconds to improve word recall and expressive language processing speeds. 3. The pt will answer open- ended questions related to familiar topics with response latency of 5 sec or less to increase receptive language processing speeds necessary to effectively participate in functional conversations. 4. The pt will complete picture description tasks with 80% accuracy of appropriate content and latency of responses to improve word recall and expressive language processing speeds. 5. With GIS ANALYST DEVELOPER collaboration, the pt will develop and recite scripts for initiating conversations about familiar topics with 80% accuracy. [facility] Goals 1. The pt will demonstrate improved breath support for speech by producing 10 or more words per breath in spontaneous conversation to increase his ability to effectively participate in functional/social conversations. 2. The pt will name 8 or more items in abstract categories to improve word recall and expressive language processing speeds. 3. The pt will employ conversation starter scripts in 75% of opportunities in functional conversations, using visual aids as needed. 4. The pt will demonstrate response times WFL in conversation about familiar topics to increase his ability to participate in functional conversations and improve quality of life. Treatment Activities Pt performed sustained phonation with MPT = 14.5, avg loudness across 3 trials was 72.7 dB (range = 65-77 dB). Prompts were made for increased loudness and open throat for laryngeal relaxation and to reduce vocal strain. Trained pt in yawn/ sigh, which assissted in reducing strain. Continued training of vocal loudness and speech intelligibility using counting aloud, reciting familiar poems, and reading aloud, often accompanied by visual biofeedback via Voice Instructional Technology Director basil, which measured loudness. Avg loudness in countin.5 dB; readin dB; and conversation: 67 dB Assessment Patient Response to Treatment Good Rehab Potential Good Impairments Identified Auditory Processing,Cognitive- Linguistic Skills,Dementia, Dysarthria,Expressive Language ,Memory - Short Term,Memory - Working,Oral Motor,Receptive Language,Speech Intelligibility,Vocal Quality Progress Towards Goals Good Progress Assessment of Overall Progress Improving Assessment of Improvement Significant improvement in speech intelligibility noted with increased loudness. Pt benefits from visual biofeedback and intentionally maintains appropriate prosodic features. Reviewed with Patient Goals,Progress Being Made,Home Exercise Program Patient/Caregiver Understanding Good Plan Amount of Therapy Recommended 2-3 Months Frequency of Treatment Once a Week Length of Session 45 Minutes Treatment Emphasis Next Session Categorical naming; Scripts for initiating conversation Therapeutic Contents Client Education,Cognitive- Linguistic Training,Expressive Language Training,Home Exercise Program,Information Processing,Intelligibility, Oral Motor Training,Receptive Language Training,Voice Training Provided Patient/Caregiver Instruction Home Exercise Program,Plan of Care,Questions/Concerns Therapy Recommendations Continue with Current Program
--- NOTE | 2020-12-22 13:30 | ST.OPTN ---
Visit Care Team Role Provider Type Neeraj Pearce MD Attending Provider Physician Primary Care Provider Referring Provider Address: [address] [place] [address], [id number] STEAM SHOVEL OPERATOR Treatment Note STEAM SHOVEL OPERATOR Treatment Note Start: 11/03/20 17:47 Freq: Status: Active Protocol: Document 12/22/20 13:22 OLIVE (Rec: 12/22/20 13:30 OLIVE [email or web address]) Speech Pathology Treatment Note Session Time Visit Start Time 12:30 Visit Stop Time 13:15 Total Visit Minutes 45 Visit Information Visit Number 09/13 Plan of Care Dates 11/03/20 - 02/03/21 Insurance Information Medicare Setting Treatment Setting Outpatient Care Visit Type Note Type Treatment Note Next Note Type Next Note Type Treatment Note General Information General Information The pt is an 79-yr-old male familiar to this STEAM SHOVEL OPERATOR from previous treatment targeting cognitive communication skills , primarily memory. The pt returns with c/o slowed speech . Upon further interviewing, pt also noted slowed expressive language processing , difficulty formulating thoughts into verbal expression, and word recall challenges. These impairments have caused him to be less participatory in conversation and less likely to initiate conversations. Symptoms were first noticed by the pt's , Mary Kate, which brought them to the pt's awareness. Subjective Observations/Patient Presentation The pt arrived on time. No new complaints. Noted at end of session that spouse has not observed improvement in inflection. Pt requested to work on this next session. STEAM SHOVEL OPERATOR in agreement. Chief Complaint(s) Speech,Language,Cognitive Rehab Expectation/Goals: Patient Goals Improve ability to put thoughts into words and participate in conversations Patient Knowledge/Awareness of STEAM SHOVEL OPERATOR Role Good in Treatment Objective Short Term Goals 1. The pt will perform exercises to increase breath support for speech with min prompt to increase pt's ability to be heard and understood by others. 2. The pt will will name 12 or more items in concrete categories in 60 seconds to improve word recall and expressive language processing speeds. 3. The pt will answer open- ended questions related to familiar topics with response latency of 5 sec or less to increase receptive language processing speeds necessary to effectively participate in functional conversations. 4. The pt will complete picture description tasks with 80% accuracy of appropriate content and latency of responses to improve word recall and expressive language processing speeds. 5. With STEAM SHOVEL OPERATOR collaboration, the pt will develop and recite scripts for initiating conversations about familiar topics with 80% accuracy. [facility]way Goals 1. The pt will demonstrate improved breath support for speech by producing 10 or more words per breath in spontaneous conversation to increase his ability to effectively participate in functional/social conversations. 2. The pt will name 8 or more items in abstract categories to improve word recall and expressive language processing speeds. 3. The pt will employ conversation starter scripts in 75% of opportunities in functional conversations, using visual aids as needed. 4. The pt will demonstrate response times WFL in conversation about familiar topics to increase his ability to participate in functional conversations and improve quality of life. Treatment Activities Collaborated with pt to generate conversation starter scripts to increase pt's participation in and initiation of conversations and to reduce cognitive demands for such in real time. Thirty-one starter scripts were developed for 6 functional settings (e.g., general conversation, conversations about books/ movies, at Bible study, etc.). Instructed pt to practice reading scripts aloud with a strong voice with good inflection to target both speedy recall of scripts as well as vocal loudness and prosody. Also instructed pt to review lists and choose 1-3 starters prior to entering a targeted conversation setting and intentionally use them. He is to report back next week on at least one such intentional use of scripts between today and next session . Pt agreeable. Assessment Patient Response to Treatment Good Rehab Potential Good Impairments Identified Auditory Processing,Cognitive- Linguistic Skills,Dementia, Dysarthria,Expressive Language ,Memory - Short Term,Memory - Working,Oral Motor,Receptive Language,Speech Intelligibility,Vocal Quality Progress Towards Goals Good Progress Assessment of Overall Progress Improving Assessment of Improvement Pt was participatory and engaged with script generation and agreeable to home practice with functional use. Reviewed with Patient Goals,Progress Being Made,Home Exercise Program Patient/Caregiver Understanding Good Plan Amount of Therapy Recommended 2-3 Months Frequency of Treatment Once a Week Length of Session 45 Minutes Treatment Emphasis Next Session Read scripts w/ optimal voicing; Prosody & exp lang processing exercises Therapeutic Contents Client Education,Cognitive- Linguistic Training,Expressive Language Training,Home Exercise Program,Information Processing,Intelligibility, Oral Motor Training,Receptive Language Training,Voice Training Provided Patient/Caregiver Instruction Home Exercise Program,Plan of Care,Questions/Concerns Therapy Recommendations Continue with Current Program
--- NOTE | 2020-12-29 17:03 | ST.OPDS ---
Visit Care Team Role Provider Type Neeraj Pearce MD Attending Provider Physician Primary Care Provider Referring Provider Address: [address] [place] [address], [id number] ENGRAVER LETTERING Treatment Note ENGRAVER LETTERING Treatment Note Start: 11/03/20 17:47 Freq: Status: Active Protocol: Document 12/29/20 16:45 OLIVE (Rec: 12/29/20 17:03 OLIVE [id number]) Speech Pathology Treatment Note Session Time Visit Start Time 12:30 Visit Stop Time 13:25 Total Visit Minutes 55 Visit Information Visit Number [id number] Plan of Care Dates 11/03/20 - 02/03/21 Insurance Information Medicare Setting Treatment Setting Outpatient Care Visit Type Note Type Discharge Summary General Information General Information The pt is a now 80-yr-old male familiar to this ENGRAVER LETTERING from previous treatment targeting cognitive communication skills , primarily memory. The pt returns with c/o slowed speech . Upon further interviewing, pt also noted slowed expressive language processing , difficulty formulating thoughts into verbal expression, and word recall challenges. These impairments have caused him to be less participatory in conversation and less likely to initiate conversations. Symptoms were first noticed by the pt's , Mary Kate, which brought them to the pt's awareness. Subjective Observations/Patient Presentation The pt arrived on time. No new complaints. Pt stated he found conversation starter scripts developed at last session to be helpful and requested more to be developed . Chief Complaint(s) Speech,Language,Cognitive Rehab Expectation/Goals: Patient Goals Improve ability to put thoughts into words and participate in conversations Patient Knowledge/Awareness of ENGRAVER LETTERING Role Good in Treatment Objective Short Term Goals 1. The pt will perform exercises to increase breath support for speech with min prompt to increase pt's ability to be heard and understood by others. GOAL MET 2. The pt will will name 12 or more items in concrete categories in 60 seconds to improve word recall and expressive language processing speeds. PROGRESS MADE; GOAL NOT MET 3. The pt will answer open- ended questions related to familiar topics with response latency of 5 sec or less to increase receptive language processing speeds necessary to effectively participate in functional conversations. GOAL MET 4. The pt will complete picture description tasks with 80% accuracy of appropriate content and latency of responses to improve word recall and expressive language processing speeds. GOAL MET 5. With ENGRAVER LETTERING collaboration, the pt will develop and recite scripts for initiating conversations about familiar topics with 80% accuracy. GOAL MET 6. Pt will demonstrate appropriate and varied prosodic features in structured tasks to improve expressive communication skills. GOAL MET Stamp Classifier Goals 1. The pt will demonstrate improved breath support for speech by producing 10 or more words per breath in spontaneous conversation to increase his ability to effectively participate in functional/social conversations. GOAL MET 2. The pt will name 8 or more items in abstract categories to improve word recall and expressive language processing speeds. PROGRESS MADE; GOAL NOT MET 3. The pt will employ conversation starter scripts in 75% of opportunities in functional conversations, using visual aids as needed. GOAL MET IN LIMITED NUMBER OF OPPORTUNITIES 4. The pt will demonstrate response times WFL in conversation about familiar topics to increase his ability to participate in functional conversations and improve quality of life. GOAL MET IN STRUCTURED TASKS Treatment Activities Continued to develop conversation starters, in collaboration with the pt. An extensive list was generated. The pt then read the starters targeting loud voice (avg loudness improved from 67 dB to 72 dB) and varied intonation. A set of the starters was provided in writing with multiple presentations of each sentence with different words bolded in each example, indicating emphasis. The pt read sentences with targeted emphasis, frequently adding appropriate facial expression, as well. Skilled feedback was provided. POC and HEP were discussed. The pt expressed being pleased with progress made to date and with HEP tasks and requested to be discharged from skilled intervention. ENGRAVER LETTERING in agreement. Assessment Patient Response to Treatment Good Rehab Potential Good Impairments Identified Auditory Processing,Cognitive- Linguistic Skills,Dementia, Dysarthria,Expressive Language ,Memory - Short Term,Memory - Working,Oral Motor,Receptive Language,Speech Intelligibility,Vocal Quality Progress Towards Goals Good Progress Assessment of Overall Progress Improving Assessment of Improvement Over the course of treatment, the pt has demonstrated improved vocal loudness and greater range of intonation in structured tasks. He exhibits good awareness of deficits and ability to self-monitor and correct. He has been participatory in all tasks and has demonstrated motivation to improve and a proactive attitude toward improving skills. He has been responsive to prompts and strategies to improve communication skills and speech intelligibility, good compliance with HEP tasks and implementation of strategies into functional opportunities. While not all goals have been met, the pt has expressed satisfaction with treatment progress and outcomes and is appropriate for discharge at this time. Reviewed with Patient Goals,Progress Being Made,Home Exercise Program Patient/Caregiver Understanding Good Plan Frequency of Treatment No Further Therapy Therapeutic Contents Client Education,Cognitive- Linguistic Training,Expressive Language Training,Home Exercise Program,Information Processing,Intelligibility, Oral Motor Training,Receptive Language Training,Voice Training Provided Patient/Caregiver Instruction Home Exercise Program,Plan of Care,Questions/Concerns Therapy Recommendations Discharge from Speech Therapy
== END 2020-12-30 08:37 | disposition home or self-care (01) ==
LOC: SP 12:30
PROVIDERS: PCP Internal Medicine; Referring Provider Internal Medicine; Visit Provider Internal Medicine
DX: R47.1 Dysarthria and anarthria (principal)
CPT/HCPCS: 92507; 92523

== ENCOUNTER 2020-12-31 17:21 | Emergency (ER) | payer MEDICARE, SELFPAY ==
[2020-12-31 17:36] VITALS: BP 141/75; PULSE 76; RESP 18; TEMP 36.6; O2SAT 96; BMI 21.7
--- NOTE | 2020-12-31 18:06 | DI.CT.S_ITS ---
PROCEDURE: CT HEAD/BRAIN WO CON INDICATIONS: GLF head injury TECHNIQUE: Noncontrast 4.5 mm thick angled axial sections acquired from the foramen magnum to the vertex, with coronal and sagittal reformats. For radiation dose reduction, the following was used: automated exposure control, adjustment of mA and/or kV according to patient size. COMPARISON: [facility], CT, CT HEAD/BRAIN WO CON, 01/06/2019, 15:33. FINDINGS: Image quality: Excellent. CSF spaces: Basal cisterns are patent. No extra-axial fluid collections. The ventricles are symmetric in size and shape. Brain: No intracranial bleeds or masses. There is cerebral volume loss for age, with resultant ventricular and sulcal prominence. There are periventricular and deep white matter chronic small vessel ischemic changes. There is intracranial internal carotid artery atherosclerosis. Skull and face: Calvarium and visualized facial bones appear intact, without suspicious lesions. Sinuses: Visualized sinuses and mastoids are clear. IMPRESSION: No acute intracranial disease process. Dictated by: Laury Cormier MD, PhD on 12/31/2020 at 18:31 Approved by: Laury Cormier MD, PhD on 12/31/2020 at 18:33
--- NOTE | 2020-12-31 19:12 | ED_ITS ---
HPI - Head Injury <Huan Hines PA-C - Last Filed: 12/31/20 19:21> General Chief complaint: Head Injury Stated complaint: Fall, Head Laceration Time Seen by Provider: 12/31/20 18:06 Source: patient and family Mode of arrival: Ambulatory Limitations: no limitations History of Present Illness HPI Narrative: Zachary presents today with his for chief complaint of ground level fall that occurred earlier this afternoon while he was going to the [facility]. He reports that he tripped over the curb after he got out of his car and fell forward hitting the side of his head on the cement. He denies any loss of consciousness, headache, vision changes, chest pain, shortness of breath, palpitations, abdominal pain, upper back pain, neck pain, neck stiffness or any other acute concerns or complaints at this time. He takes a baby aspirin daily. Related Data Home Medications Medication Instructions Recorded Confirmed alendronate 70 mg tablet 70 mg PO TU 02/06/18 02/06/18 aspirin 81 mg tablet,delayed 81 mg PO BEDTIME 02/06/18 02/06/18 release calcium carb 333 mg-vit D3 133 1 tab PO QPM 02/06/18 02/06/18 unit-mag ox 133 mg-zinc oxide 5 mg tab cholecalciferol (vitamin D3) 50 4,000 unit PO DAILY 02/06/18 02/06/18 mcg (2,000 unit) capsule (Vitamin D3) cyanocobalamin (vitamin B-12) 1,000 mcg PO QPM 02/06/18 02/06/18 1,000 mcg tablet (Vitamin B-12) liothyronine 50 mcg tablet 75 mcg PO DAILY 02/06/18 02/06/18 mirabegron 25 mg tablet,extended 1 tab PO BEDTIME 02/06/18 02/06/18 release 24 hr multivitamin 1 tab PO QAM 02/06/18 02/06/18 nortriptyline 50 mg capsule 100 mg PO QPM 02/06/18 02/06/18 risperidone 2 mg tablet 1 mg PO BEDTIME 02/06/18 02/06/18 s-adenosylmethionine 400 mg tablet 1 tab PO QNOON 02/06/18 02/06/18 (Zurdo-E) s-adenosylmethionine 400 mg tablet 2 tab PO QAM 02/06/18 02/06/18 (Zurdo-E) sertraline 100 mg tablet 150 mg PO QAM 02/06/18 02/06/18 simvastatin 20 mg tablet 20 mg PO BEDTIME 02/06/18 02/06/18 vitamin E 400 unit capsule 400 unit PO QAM 02/06/18 02/06/18 Allergies Allergy/AdvReac Type Severity Reaction Status Date / Time No Known Drug Allergies Allergy Verified 02/06/18 09:25 Review of Systems <Huan Hines PA-C - Last Filed: 12/31/20 19:21> Review of Systems Narrative: As per HPI Patient History <Huan Hines PA-C - Last Filed: 12/31/20 19:21> Medical History (Updated 12/31/20 @ 19:20 by Huan Hines PA-C) BPH (benign prostatic hyperplasia) Social History Smoking Status: Never smoker Smoking Status: Never smoker alcohol intake frequency: holidays/special occasions only Substance Use Type: does not use Exam <Huan Hines PA-C - Last Filed: 12/31/20 19:21> Narrative Exam Narrative: Exam Narrative: Const General: cooperative, healthy appearing, comfortable, no acute distress, well developed and well groomed Nutritional Appearance: average body habitus Orientation: alert and oriented x3 HENOH Head: normal to inspection , small abrasion noted with some bruising to the right forehead. No significant underlying bony tenderness noted. no bony step- offs or crepitus. Ears: hearing grossly normal bilaterally, no hemotympanum Nose: external nose normal and nares normal Face and sinus: normal facial exam, normal jaw movement with no tenderness. Eyes: PERRLA, EOMI bilaterally. No conjunctival injection. Neck Neck: normal visual inspection and supple, no midline spinal tenderness. Resp Effort & Inspection: normal respiratory effort, able to speak in complete sentences, no audible wheezes, not labored, no nasal flaring and no respiratory distress Neuro General: alert, oriented x3, gait normal, tone normal and moves all extremities Cognition: normal cognition Speech: speech normal Gait: normal gait Psych Appearance: grossly normal and well kempt Mental Status: mental status grossly normal Speech and Movement: speech and movement normal Mood: congruent mood Affect: normal affect Initial Vital Signs Initial Vital Signs: Vital Signs Temperature 98 F 12/31/20 17:36 Pulse Rate 76 12/31/20 17:36 Respiratory Rate 18 12/31/20 17:36 Blood Pressure 141/75 H 12/31/20 17:36 Pulse Oximetry 96 12/31/20 17:36 <DO Marina Jean Baptiste Last Filed: 01/01/21 04:04> Initial Vital Signs Initial Vital Signs: Vital Signs Temperature 98 F 12/31/20 17:36 Pulse Rate 76 12/31/20 17:36 Respiratory Rate 18 12/31/20 17:36 Blood Pressure 141/75 H 12/31/20 17:36 Pulse Oximetry 96 12/31/20 17:36 Course <Huan Hines PA-C - Last Filed: 12/31/20 19:21> Orders Ordered: ED Orders 12/31/20 18:06 CT head/brain wo con Stat Vital Signs Vital signs: Vital Signs - 8 hr 12/31/20 17:36 Temperature 98 F Pulse Rate 76 Respiratory Rate 18 Blood Pressure 141/75 H Pulse Oximetry 96 <DO Marina Jean Baptiste Last Filed: 01/01/21 04:04> Orders Ordered: ED Orders 12/31/20 18:06 CT head/brain wo con Stat Vital Signs Vital signs: Vital Signs - 8 hr 12/31/20 17:36 Temperature 98 F Pulse Rate 76 Respiratory Rate 18 Blood Pressure 141/75 H Pulse Oximetry 96 MDM - Head Injury <KIMBERLY Rose Last Filed: 12/31/20 19:21> MDM Narrative Medical decision making narrative: Physical examination is reassuring at this time. Differentials considered includes facial fracture, subdural hematoma, epidural hematoma, basilar skull fracture, syncope, seizure. Patient denies any loss of consciousness, headache, vision changes, palpitations, chest pain or any preceding symptoms prior to his fall. History is convincing for mechanical fall. CT scan is reassuring for no significant bleed or other intracranial abnormality. He does not have any significant bony tenderness as on palpation of his face. Strict ER return precautions were discussed with the patient. Patient verbalizes understanding and agrees to plan and has no further concerns at this time. Thank you A [id number] system was used with the dictation of this note. Please disregard any spelling or grammatical errors. Discharge Plan Departure Patient Disposition: Home Clinical Impression: Fall Qualifiers: Encounter type: initial encounter Qualified Code(s): W19.XXXA - Unspecified fall, initial encounter Contusion of face Qualifiers: Encounter type: initial encounter Qualified Code(s): S00.83XA - Contusion of other part of head, initial encounter Instructions: DI for Closed Head Injury Activity Restrictions/Additional Instructions: It was very nice to meet you both this evening. Please give your PCP a call on Sunday to schedule a follow-up. If you experience worsening headache, confusion, vision changes, neck pain or any other acute concerns or complaints do not hesitate to return immediately for re-evaluation. Thank you Huan Hines PA-C Prescriptions: No Action alendronate 70 mg tablet 70 mg PO TU RF: 0 sertraline 100 mg tablet 150 mg PO QAM RF: 0 risperidone 2 mg tablet 1 mg PO BEDTIME RF: 0 simvastatin 20 mg tablet 20 mg PO BEDTIME RF: 0 liothyronine 50 mcg tablet 75 mcg PO DAILY RF: 0 mirabegron [Myrbetriq] 25 mg tablet extended release 24 hr 1 tab PO BEDTIME RF: 0 multivitamin Tablet 1 tab PO QAM RF: 0 cyanocobalamin (vitamin B-12) [Vitamin B-12] 1,000 mcg Tablet 1,000 mcg PO QPM RF: 0 aspirin 81 mg Tablet,Delayed Release (Dr/Ec) 81 mg PO BEDTIME RF: 0 vitamin E 400 unit Capsule 400 unit PO QAM RF: 0 nortriptyline 50 mg Capsule 100 mg PO QPM RF: 0 s-adenosylmethionine [Zurdo-E] 400 mg Tablet 2 tab PO QAM RF: 0 s-adenosylmethionine [Zurdo-E] 400 mg Tablet 1 tab PO QNOON RF: 0 cholecalciferol (vitamin D3) [Vitamin D3] 2,000 unit Capsule 4,000 unit PO DAILY RF: 0 calcium carb-D3-mag ox-zinc ox 333 mg-133 unit -133 mg-5 mg Tablet 1 tab PO QPM RF: 0 Referrals: Neeraj Pearce MD [Primary Care Provider] - <Seven Hewitt DO - Last Filed: 01/01/21 04:04> Cosign ED Attending Darekature Attestation: I was immediately available in the department for consultation. This documentation has been reviewed and I agree with assessment and plan. Supervised by Seven Hewitt DO
[2020-12-31 19:59] VITALS: BP 136/63; PULSE 72; RESP 16; O2SAT 99
== END 2020-12-31 20:00 | disposition home or self-care (01) ==
PROVIDERS: Emergency Provider Physician Assistant; PCP Internal Medicine
DX: S00.83XA Contusion of other part of head, initial encounter (principal); W19.XXXA Unspecified fall, initial encounter
CPT/HCPCS: 70450; 99281; 99284

== ENCOUNTER → 2021-07-06 10:44 | Outpatient (CLI) | payer OTHER, SELFPAY ==
[2021-07-06 12:36] LABS: Add Manual Diff / Slide Review NO; Basophils Absolute Auto 0 /uL (0-100); Basophils Percent Auto 0.3 % (0-2); Eosinophils Absolute Auto 100 /uL (0-450); Eosinophils Percent Auto 2.6 % (2-4); Hematocrit 40.1 % (41-53); Hemoglobin 13.7 g/dL (13.5-17.5); Lymphocytes Absolute Auto 1000 /uL (1100-4500); Lymphocytes Percent Auto 25.2 % (25-40); Mean Corpuscular HGB Conc 34.1 % (30-36); Mean Corpuscular Hemoglobin 31.2 PG (26-34); Mean Corpuscular Volume 91.5 fL (80-100); Monocytes Absolute Auto 400 /uL (0-900); Monocytes Percent Auto 10.1 % (3-14); Neutrophils Absolute Auto 2400 /uL (1500-7000); Neutrophils Percent Auto 61.8 % (50-75); Platelet Count 157 X10^3/uL (150-400); Red Blood Cell Count 4.39 X10^6/uL (4.5-5.9); White Blood Cell Count 3.9 X10^3/uL (4.5-11.0)
[2021-07-06 12:53] LABS: Alanine Aminotransferase 26 IU/L (<50); Albumin 4.4 g/dL (3.5-5.0); Albumin Globulin Ratio 1.3 (1.0-2.8); Alkaline Phosphatase 91 U/L (38-126); Aspartate Aminotransferase 40 IU/L (17-59); BUN Creatinine Ratio 28.3 (6-22); Bilirubin Total 0.7 mg/dL (0.2-1.3); Blood Urea Nitrogen 32 mg/dL (9-20); Calcium 9.4 mg/dL (8.4-10.2); Carbon Dioxide 30 mmol/L (22-32); Chloride 99 mmol/L (98-107); Cholesterol 163 mg/dL (140-199); Estimated Glomerular Filt Rate > 60.0 mL/min (>60); Globulin 3.4 g/dL (1.7-4.1); Glucose 82 mg/dL (80-110); HDL Cholesterol 67 mg/dL (40-60); HEMOLYSIS < 15 (0-50); LDL Cholesterol Calculated 82 mg/dL (<100); Potassium 4.2 mmol/L (3.4-5.1); Sodium 135 mmol/L (137-145); Total Protein 7.8 g/dL (6.3-8.2); Triglycerides 68 mg/dL (35-150)
[2021-07-06 13:08] LABS: Free T3, Triiodothyronine Free 3.05 pg/mL (2.77-5.27); Free T4, Direct Thyroxine 1.01 ng/dL (0.78-2.19)
[2021-07-06 13:21] LABS: Thyroid Stimulating Hormone 1.89 uIU/mL (0.47-4.68)
== END ==
PROVIDERS: PCP Internal Medicine; Referring Provider Internal Medicine; Visit Provider Internal Medicine
DX: D64.9 Anemia, unspecified (principal); E78.5 Hyperlipidemia, unspecified; E03.9 Hypothyroidism, unspecified; F32.A Depression, unspecified; F41.9 Anxiety disorder, unspecified
CPT/HCPCS: 36415; 80053; 80061; 84439; 84443; 84481; 85025

== ENCOUNTER → 2022-05-18 16:15 | Outpatient (CLI) | payer MEDICARE, SELFPAY ==
[2022-05-18 18:23] LABS: Alanine Aminotransferase 25 IU/L (<50); Albumin 4.3 g/dL (3.5-5.0); Albumin Globulin Ratio 1.4 (1.0-2.8); Alkaline Phosphatase 67 U/L (38-126); Aspartate Aminotransferase 35 IU/L (17-59); Bilirubin Total 0.6 mg/dL (0.2-1.3); Blood Urea Nitrogen 33 mg/dL (9-20); Calcium 9.2 mg/dL (8.4-10.2); Carbon Dioxide 29 mmol/L (22-32); Chloride 101 mmol/L (98-107); Estimated Glomerular Filt Rate > 60 mL/min (>60); Globulin 3.1 g/dL (1.7-4.1); Glucose 102 mg/dL (80-110); HEMOLYSIS < 15 (0-50); Potassium 4.5 mmol/L (3.4-5.1); Sodium 141 mmol/L (137-145); Total Protein 7.4 g/dL (6.3-8.2)
[2022-05-18 18:42] LABS: Free T4, Direct Thyroxine 1.11 ng/dL (0.78-2.19)
[2022-05-18 18:56] LABS: Thyroid Stimulating Hormone 1.15 uIU/mL (0.47-4.68)
== END ==
PROVIDERS: PCP Internal Medicine; Referring Provider Internal Medicine; Visit Provider Internal Medicine
DX: E03.9 Hypothyroidism, unspecified (principal); E78.2 Mixed hyperlipidemia
CPT/HCPCS: 36415; 80053; 84439; 84443

== ENCOUNTER 2022-07-04 10:21 | Emergency (ER) | payer MEDICARE, SELFPAY ==
[2022-07-04 10:32] VITALS: BP 160/76; PULSE 81; RESP 19; TEMP 36.5; O2SAT 97; BMI 24.1
[2022-07-04] MEDS: LIDOCAINE 2% (GLYDO) 6 ML GEL TOP (10:59)
[2022-07-04 11:06] LABS: Add Manual Diff / Slide Review NO; Appearance Urine UA CLEAR; Basophils Absolute Auto 0 /uL (0-100); Basophils Percent Auto 0.3 % (0-2); Bilirubin Urine UA NEGATIVE (NEGATIVE); Color Urine UA YELLOW; Eosinophils Absolute Auto 0 /uL (0-450); Eosinophils Percent Auto 0.4 % (2-4); Glucose Urine UA NEGATIVE (Negative); Hemoglobin 14.7 g/dL (13.5-17.5); Ketones Urine UA TRACE (NEGATIVE); Leukocyte Esterase Urine UA NEGATIVE (NEGATIVE); Lymphocytes Absolute Auto 900 /uL (1100-4500); Lymphocytes Percent Auto 9.1 % (25-40); Mean Corpuscular HGB Conc 34.2 % (30-36); Mean Corpuscular Hemoglobin 31.1 PG (26-34); Mean Corpuscular Volume 90.8 fL (80-100); Monocytes Absolute Auto 800 /uL (0-900); Monocytes Percent Auto 7.8 % (3-14); Neutrophils Absolute Auto 8400 /uL (1500-7000); Neutrophils Percent Auto 82.4 % (50-75); Nitrite Urine UA NEGATIVE (Negative); Occult Blood Urine UA NEGATIVE (Negative); Platelet Count 154 X10^3/uL (150-400); Protein Urine UA NEGATIVE (Negative); Red Blood Cell Count 4.74 X10^6/uL (4.5-5.9); Red Cell Distribution Width 13.4 % (11.6-14.8); Specific Gravity Urine UA 1.015 (1.000-1.035); Urobilinogen Urine UA 0.2 E.U./dL (0.2); White Blood Cell Count 10.2 X10^3/uL (4.5-11.0)
[2022-07-04 11:11] LABS: Alanine Aminotransferase 28 IU/L (<50); Albumin 4.4 g/dL (3.5-5.0); Albumin Globulin Ratio 1.3 (1.0-2.8); Alkaline Phosphatase 72 U/L (38-126); Aspartate Aminotransferase 50 IU/L (17-59); BUN Creatinine Ratio 24.5 (6-22); Bilirubin Total 0.8 mg/dL (0.2-1.3); Blood Urea Nitrogen 24 mg/dL (9-20); Calcium 8.9 mg/dL (8.4-10.2); Carbon Dioxide 25 mmol/L (22-32); Chloride 99 mmol/L (98-107); Estimated Glomerular Filt Rate > 60 mL/min (>60); Globulin 3.4 g/dL (1.7-4.1); Glucose 117 mg/dL (80-110); HEMOLYSIS 43 (0-50); Lipase 36 U/L (23-300); Potassium 4.3 mmol/L (3.4-5.1); Sodium 136 mmol/L (137-145); Total Protein 7.8 g/dL (6.3-8.2)
[2022-07-04 11:15] LABS: Bacteria Urine None Seen; Culture Indicated Urine Cult Not Indicated; RBC Urine None Seen (0-5/HPF); Squamous Epithelial Cell Urine None Seen (0-5/HPF); WBC Urine None Seen (0-5/HPF)
--- NOTE | 2022-07-04 11:35 | DI.CT.S_ITS ---
PROCEDURE: CT ABDOMEN PELVIS W CON INDICATIONS: IV contrast only/lower abdominal pain/constipation TECHNIQUE: After the administration of intravenous contrast, axial sections acquired from the lung bases to the pubic symphysis. Coronal and sagittal reformats were performed. For radiation dose reduction, the following was used: automated exposure control, adjustment of mA and/or kV according to patient size. COMPARISON: None. FINDINGS: Image quality: Excellent. Lung bases: Bibasilar dependent atelectasis is seen.. Heart: Heart size is mildly enlarged, no pericardial effusion. ABDOMEN: Liver: Small calcified granuloma are seen in posterior segment of right hepatic lobe. Mild hepatic steatosis is also seen. No discrete hepatic lesion.. Gallbladder: Unremarkable. Biliary ducts: Unremarkable. Pancreas: Unremarkable. Spleen: Unremarkable. Adrenal Glands: Unremarkable. Kidneys and Ureters: Bilateral kidneys are normal in size and show normal enhancement. Bilateral extrarenal pelvis is seen. No renal stones or hydronephrosis. No hydroureter. Stomach and Bowel: There is no evidence of bowel obstruction. Moderate amount of fecal matter is seen throughout the colon with large amount of fecal matter distending distal sigmoid colon and rectum. No abnormal bowel wall thickening or mesenteric fat stranding is seen. Appendix is visualized and is within normal limits. No abscess collection. Peritoneum: No abnormal intraperitoneal fluid. No free air. Ventral Wall: No hernias. Abdominal Nodes: No retroperitoneal or mesenteric adenopathy by size criteria. Vessels: Aorta and inferior vena cava are normal in size. Tortuous thoracic aorta is seen with moderate atherosclerotic disease. PELVIS: Pelvic Organs: Unremarkable. Bladder: Daomn catheter is seen in a decompressed urinary bladder.. Pelvic Nodes: No enlarged lymph nodes. Miscellaneous: No hernias are seen. Bones: Patient is status post prior left total hip arthroplasty and prior right femoral neck fixation. Significant beam hardening artifacts are seen. No gross suspicious bony lesions or acute vertebral body compression fracture. Degenerative disc disease throughout lumbar spine is seen. IMPRESSION: 1. Suggestion of moderate to severe constipation and fecal impaction. No gross free air. No abnormal bowel wall thickening. No abscess collection. 2. Bilateral extrarenal pelvis. No renal stones or hydronephrosis. No hydroureter. Damon catheter in decompressed urinary bladder. 3. Hepatic steatosis. No discrete hepatic lesion. 4. Prior bilateral hip surgery with postsurgical changes and beam hardening artifacts. No suspicious bony lesions. No acute vertebral body compression fracture. Dictated by: Jay Gaspar M.D. on 07/04/2022 at 12:15 Approved by: Jay Gaspar M.D. on 07/04/2022 at 12:27
--- NOTE | 2022-07-04 11:36 | ED.MALEGU ---
HPI - Male Genitourinary General Chief complaint: Abdominal Pain Stated complaint: ingrown hernia Time Seen by Provider: 07/04/22 10:53 Source: patient Mode of arrival: Family Vehicle History of Present Illness HPI Narrative: Patient here with for complaints of urinary retention and constipation. Patient states last urination was over 24 hours ago. Never had this problem before. Patient had a TURP done 6 years ago. Has been doing well. Patient usually has problems with constipation with hard stools but in the last 24 hours has had watery stools and now with urinary retention. Patient had 1.5 L of urine out on Damon catheterization. Damon catheter in place. Patient does feel better with suprapubic discomfort. Related Data Home Medications Medication Instructions Recorded Confirmed aspirin 81 mg tablet,delayed 81 mg PO BEDTIME 02/06/18 05/18/22 release cholecalciferol (vitamin D3) 50 4,000 unit PO DAILY 02/06/18 05/18/22 mcg (2,000 unit) capsule (Vitamin D3) cyanocobalamin (vitamin B-12) 1,000 mcg PO QPM 02/06/18 05/18/22 1,000 mcg tablet (Vitamin B-12) multivitamin 1 tab PO QAM 02/06/18 05/18/22 nortriptyline 50 mg capsule 100 mg PO QPM 02/06/18 05/18/22 s-adenosylmethionine 400 mg tablet 2 tab PO QAM 02/06/18 05/18/22 (Zurdo-E) sertraline 100 mg tablet 150 mg PO QAM 02/06/18 05/18/22 vitamin E 268 mg (400 unit) capsule 400 unit PO QAM 02/06/18 05/18/22 Magnesium 1 tab PO DAILY 06/24/21 05/18/22 Zinc 1 tab PO DAILY 06/24/21 05/18/22 alendronate 70 mg tablet 70 mg PO QWEEK 06/24/21 05/18/22 ascorbate calcium (vitamin C) 500 500 mg PO DAILY 06/24/21 05/18/22 mg tablet dorzolamide 2 % eye drops 1 drp EYE-BOTH QPM 06/24/21 05/18/22 latanoprost 0.005 % eye drops 1 drp EYE-BOTH DAILY 06/24/21 05/18/22 Previous Rx's Medication Instructions Recorded triamcinolone acetonide 0.1 % 1 applic topical BID #60 mL 11/06/21 lotion levothyroxine 50 mcg tablet 50 mcg PO DAILY #90 tabs 12/08/21 Disabled Parking #1 ea 01/05/22 simvastatin 20 mg tablet 20 mg PO BEDTIME #90 tabs 06/26/22 docusate sodium 100 mg capsule 100 mg PO BID #30 caps 07/04/22 (Colace) Allergies Allergy/AdvReac Type Severity Reaction Status Date / Time No Known Drug Allergies Allergy Verified 07/04/22 10:30 Review of Systems Review of Systems Narrative: GENERAL: negative chills, fatigue, malaise, fever, sweats. HEENT: negative sinus pain, ear pain, sore throat RESPIRATORY: negative dyspnea, cough CARDIOVASCULAR: negative chest pain, palpitations GASTROINTESTINAL: negative nausea, vomiting, positive abdominal pain : negative dysuria, frequency, hematuria, positive urinary retention MUSCULOSKELETAL: negative muscle or bony pain SKIN: negative rash, skin lesions NEUROLOGIC: negative weakness, numbness ROS Unobtainable: All systems reviewed & are unremarkable except as noted in HPI and below Patient History Medical History Anemia Anxiety and depression Bipolar affective disorder in remission BPH (benign prostatic hyperplasia) Cataracts, bilateral (~2001) GERD with esophagitis Glaucoma (~2019) Hearing loss (~2014) Hyperlipidemia Hypothyroidism Osteoporosis Retinal detachment (~1960) Slow transit constipation Unspecified abnormalities of gait and mobility Vision disorder Surgical History Anesthesia History of foot surgery (~11/1959) History of hip surgery (~10/2014) History of hip surgery (~03/2011) S/P total knee arthroplasty (~08/2015) S/P TURP (~12/2013) Tibia fracture (~08/1974) Family History Father Cancer Mother Congestive heart failure Brother Stroke Grandmother History of heart disease Grandmother History of heart disease Social History Smoking Status: Former smoker Smoking Status: Former smoker tobacco type: cigarettes alcohol intake frequency: holidays/special occasions only Substance Use Type: does not use Exam Narrative Exam Narrative: GENERAL: in no distress, not toxic not dyspneic HEAD: Normocephalic. EYES: Pupils equal round ENT: Mucous membranes moist. NECK: Trachea midline. CARDIOVASCULAR: Regular rate and rhythm without murmurs RESPIRATORY: Clear to auscultation. Breath sounds equal bilaterally. No wheezes, rales, or rhonchi. GASTROINTESTINAL: Abdomen soft, non-tender, no peritoneal signs, patient is tympanic on percussion. No pain out of proportion to exam. Bowel sounds are present. EXTREMITIES: No gross deformities. BACK: No flank tenderness. NEURO: AOx4. SKIN: Warm and dry PSYCH: Not anxious, is cooperative Initial Vital Signs Initial Vital Signs: Vital Signs Temperature 97.7 F 07/04/22 10:32 Pulse Rate 81 07/04/22 10:32 Respiratory Rate 19 07/04/22 10:32 Blood Pressure 160/76 H 07/04/22 10:32 Pulse Oximetry 97 07/04/22 10:32 Oxygen Delivery Method 07/04/22 10:32 Course Orders Ordered: ED Orders 07/04/22 10:45 Complete Blood Count AUTO DIFF Stat Comprehensive Metabolic Panel Stat Lipase Stat Urinalysis and Microscopic Stat 07/04/22 11:35 CT abdomen pelvis w con Stat Discontinued Medications Sodium Chloride (Normal Saline 0.9%) 500 mls @ 1,000 mls/hr IV BOLUS ONE Stop: 07/04/22 12:04 Last Infusion: 07/04/22 12:54 Dose: 0 mls/hr Documented By: Admin: 07/04/22 12:12 Dose: 1,000 mls/hr Documented By: NR Lidocaine HCl (Lidocaine 2% (Glydo) 6 Ml Gel) 6 ml TOP NOW ONE Stop: 07/04/22 10:37 Last Admin: 07/04/22 10:59 Dose: 6 ml Documented By: KLS Polyethylene Glycol/Electrolytes ([id number]/Sod Sulf,Bicarb,Cl/Kcl 4,000 Ml Solution) 2,000 ml PO NOW ONE Stop: 07/04/22 13:11 Last Admin: 07/04/22 14:04 Dose: 2,000 ml Documented By: NR Vital Signs Vital signs: Vital Signs - 8 hr 07/04/22 10:32 07/04/22 12:04 02/28/23 12:05 Temperature 97.7 F Pulse Rate 81 56 L Respiratory Rate 19 Blood Pressure 160/76 H 119/62 Pulse Oximetry 97 99 Oxygen Delivery Method Room Air 07/04/22 12:05 07/04/22 12:30 07/04/22 12:30 Temperature Pulse Rate 59 L 56 L Respiratory Rate Blood Pressure 135/64 Pulse Oximetry 99 100 Oxygen Delivery Method 07/04/22 13:00 07/04/22 13:00 07/04/22 13:30 Temperature Pulse Rate 61 Respiratory Rate Blood Pressure 125/61 137/61 Pulse Oximetry 99 Oxygen Delivery Method 07/04/22 13:30 Temperature Pulse Rate 58 L Respiratory Rate Blood Pressure Pulse Oximetry 99 Oxygen Delivery Method MDM - Male Genitourinary Lab Data 07/04/22 10:45 07/04/22 10:45 Labs: Lab Results 07/04/22 07/04/22 07/04/22 Range/Units 10:45 10:45 10:45 WBC 10.2 (4.5-11.0) X10^3/uL RBC 4.74 (4.5-5.9) X10^6/uL Hgb 14.7 (13.5-17.5) g/dL Hct 43.0 (41-53) % MCV 90.8 (80-100) fL MCH 31.1 (26-34) PG MCHC 34.2 (30-36) % RDW 13.4 (11.6-14.8) % Plt Count 154 (150-400) X10^3/uL Neut % (Auto) 82.4 H (50-75) % Lymph % (Auto) 9.1 L (25-40) % [place] % (Auto) 7.8 (3-14) % Eos % (Auto) 0.4 L (2-4) % Baso % (Auto) 0.3 (0-2) % Neut # (Auto) 8400 H (6915-1719) /uL Lymph # (Auto) 900 L (7276-7933) /uL [place] # (Auto) 800 (0-900) /uL Eos # (Auto) 0 (0-450) /uL Baso # (Auto) 0 (0-100) /uL Sodium 136 L (137-145) mmol/L Potassium 4.3 (3.4-5.1) mmol/L Chloride 99 (98-107) mmol/L Carbon Dioxide 25 (22-32) mmol/L BUN 24 H (9-20) mg/dL Creatinine 0.98 (0.66-1.25) mg/dL Estimated GFR > 60 (>60) mL/min BUN/Creatinine Ratio 24.5 H (6-22) Glucose 117 H (80-110) mg/dL Calcium 8.9 (8.4-10.2) mg/dL Total Bilirubin 0.8 (0.2-1.3) mg/dL AST 50 (17-59) IU/L ALT 28 (<50) IU/L Alkaline Phosphatase 72 (38-126) U/L Total Protein 7.8 (6.3-8.2) g/dL Albumin 4.4 (3.5-5.0) g/dL Globulin 3.4 (1.7-4.1) g/dL Albumin/Globulin Ratio 1.3 (1.0-2.8) Lipase 36 (23-300) U/L Urine Color Yellow Urine Appearance Clear Urine pH 6.0 (4.5-8.0) Ur Specific [place] 1.015 (1.000-1.035) Urine Protein Negative (Negative) Urine Glucose (UA) Negative (Negative) g/dL Urine Ketones Trace H (NEGATIVE) Urine Occult Blood Negative (Negative) Urine Nitrate Negative (Negative) Urine Bilirubin Negative (NEGATIVE) Urine Urobilinogen 0.2 (0.2) E.U./dL Ur Leukocyte Esterase Negative (NEGATIVE) Urine RBC None seen (0-5/HPF) Urine WBC None seen (0-5/HPF) Ur Squamous Epith Cells None seen (0-5/HPF) Urine Bacteria None seen (None) Ur Culture Indicated? Cult not indicated Imaging Data CT scan - abdomen/pelvis: Radiologist's Impression: [address] [address] [address] Scan Report Signed Patient: Zachary Keane MR#: [id number] : 1940 Acct:[id number] Age/Sex: 81 / M Date of Service: 07/04/22 Loc: ED Accession Number: [id number] ?? Procedure: CT abdomen pelvis w con Ordering Provider: David Samuel MD PROCEDURE:? CT ABDOMEN PELVIS W CON ? INDICATIONS:? IV contrast only/lower abdominal pain/constipation ? TECHNIQUE:? After the administration of intravenous contrast, axial sections acquired from the lung bases to the pubic symphysis.? Coronal and sagittal reformats were performed.? For radiation dose reduction, the following was used:? automated exposure control, adjustment of mA and/or kV according to patient size.? ? COMPARISON:? None. ? FINDINGS:? Image quality:? Excellent.? ? Lung bases:? Bibasilar dependent atelectasis is seen.. Heart:? Heart size is mildly enlarged, no pericardial effusion. ? ABDOMEN: Liver:? Small calcified granuloma are seen in posterior segment of right hepatic lobe.? Mild hepatic steatosis is also seen.? No discrete hepatic lesion..? ? Gallbladder:? Unremarkable. Biliary ducts:? Unremarkable.? ? Pancreas:? Unremarkable.? ? Spleen:? Unremarkable.? ? Adrenal Glands:? Unremarkable.? ? Kidneys and Ureters:? Bilateral kidneys are normal in size and show normal enhancement.? Bilateral extrarenal pelvis is seen.? No renal stones or hydronephrosis.? No hydroureter. ? Stomach and Bowel:? There is no evidence of bowel obstruction.? Moderate amount of fecal matter is seen throughout the colon with large amount of fecal matter distending distal sigmoid colon and rectum.? No abnormal bowel wall thickening or mesenteric fat stranding is seen.? Appendix is visualized and is within normal limits.? No abscess collection. Peritoneum:? No abnormal intraperitoneal fluid.? No free air.? ? Ventral Wall: ? No hernias.? Abdominal Nodes:? No retroperitoneal or mesenteric adenopathy by size criteria.? Vessels:? Aorta and inferior vena cava are normal in size.? Tortuous thoracic aorta is seen with moderate atherosclerotic disease.? ? PELVIS: Pelvic Organs:? Unremarkable. Bladder:? Damon catheter is seen in a decompressed urinary bladder..? ? Pelvic Nodes: No enlarged lymph nodes.? Miscellaneous: No hernias are seen. ? ? ? Bones:? Patient is status post prior left total hip arthroplasty and prior right femoral neck fixation.? Significant beam hardening artifacts are seen.? No gross suspicious bony lesions or acute vertebral body compression fracture.? Degenerative disc disease throughout lumbar spine is seen. ? ? IMPRESSION:? 1. Suggestion of moderate to severe constipation and fecal impaction.? No gross free air. ?No abnormal bowel wall thickening.? No abscess collection. ? 2. Bilateral extrarenal pelvis.? No renal stones or hydronephrosis.? No hydroureter.? Damon catheter in decompressed urinary bladder. ? 3. Hepatic steatosis.? No discrete hepatic lesion. ? 4.? Prior bilateral hip surgery with postsurgical changes and beam hardening artifacts.? No suspicious bony lesions.? No acute vertebral body compression fracture.? ? ? Dictated by: Jay Gaspar M.D. on 07/04/2022 at 12:15 ? ? Approved by: Jay Gaspar M.D. on 07/04/2022 at 12:27 ? [facility] Narrative Medical decision making narrative: Patient here with for complaints of urinary retention and constipation. Patient states last urination was over 24 hours ago. Never had this problem before. Patient had a TURP done 6 years ago. Has been doing well. Patient usually has problems with constipation with hard stools but in the last 24 hours has had watery stools and now with urinary retention. Patient had 1.5 L of urine out on Damon catheterization. Damon catheter in place. Patient does feel better with suprapubic discomfort. After history and exam CBC CMP urinalysis CT abdomen pelvis IV fluids ordered MDM CC: Urinary retention/abdominal pain Complicating co-morbidities: History of constipation, however is not on any laxatives daily. Data collected from: Patient and Medical records reviewed: Previous visits here for constipation but not urinary retention Differential considered: Includes but not limited to bowel obstruction constipation urinary retention ischemic bowel Exam documented above, pertinent findings include: Nontender abdomen Lab Test results independently reviewed as above. Pertinent findings: Urinalysis negative leukocytes negative nitrates , WBC 10.2 hemoglobin 14.7 hematocrit 43 platelets 154 Sodium 136 potassium 4.3 BUN 24 creatinine 0.98 GFR greater than 60 Imaging studies independently reviewed: CT abdomen pelvis impression suggests a moderate to severe constipation and fecal impaction. No gross free air. No bowel wall thickening. No hydronephrosis or hydroureter Treatments: IV fluids/Damon catheter/take home GoLYTELY Re-evaluations: 1:15 p.m.. Reviewed results with patient and . Referral for Urology provided. Take home GoLYTELY given. Instructions given for hydration and dietary changes for stool softening and fiber in the diet. Prescription for Colace provided. Return precautions reviewed with him. They desire discharge home. Discussion: Appropriate for discharge home. Patient likely had urinary retention secondary to large stool volume that may have caused mechanical obstruction for urinary outflow. Patient feeling much better after Damon catheter. Urology referral given. Return precautions reviewed. Patient prefers home treatment with GoLYTELY for constipation relief. Not toxic at discharge. Urinalysis reassuring. No antibiotics indicated this time. Diagnosis: Constipation urinary retention Discharge Plan Departure Patient Disposition: Home Clinical Impression: Constipation, Acute urinary retention Instructions: How to Care for Your Damon Catheter -- Male, DI for Constipation, DI for Urinary Retention in Men Activity Restrictions/Additional Instructions: Please take provided oral laxative to help for bowel movement. Prescription for Colace stool softener has been sent to your [facility] pharmacy. Please see family doctor this week for re-evaluation and the schedule for outpatient scheduling of colonoscopy. Please call provided urology office regarding urinary retention and your Damon catheter removal this week. Keep well hydrated. Return if worse or for any questions or concerns Prescriptions: New docusate sodium [Colace] 100 mg capsule 100 mg PO BID Qty: 30 0RF No Action triamcinolone acetonide 0.1 % lotion 1 applic topical BID Qty: 60 0RF Rx Instructions: apply to affected area for up to 2 weeks levothyroxine 50 mcg tablet 50 mcg PO DAILY Qty: 90 3RF (DME) Disabled Parking See Rx Instructions .ROUTE .MEDSUPPLY Qty: 1 0RF Rx Instructions: Patient qualifies for disabled parking as per the attached form. simvastatin 20 mg tablet 20 mg PO BEDTIME Qty: 90 3RF dorzolamide 2 % drops 1 drp EYE-BOTH QPM latanoprost 0.005 % drops 1 drp EYE-BOTH DAILY ascorbate calcium (vitamin C) 500 mg tablet 500 mg PO DAILY Zinc 10 mg 1 tab PO DAILY Magnesium 80 mg 1 tab PO DAILY sertraline 100 mg tablet 150 mg PO QAM multivitamin Tablet 1 tab PO QAM cyanocobalamin (vitamin B-12) [Vitamin B-12] 1,000 mcg Tablet 1,000 mcg PO QPM aspirin 81 mg Tablet,Delayed Release (Dr/Ec) 81 mg PO BEDTIME vitamin E 400 unit Capsule 400 unit PO QAM nortriptyline 50 mg Capsule 100 mg PO QPM Label Comments: dinner s-adenosylmethionine [Zurdo-E] 400 mg Tablet 2 tab PO QAM Label Comments: breakfast cholecalciferol (vitamin D3) [Vitamin D3] 2,000 unit Capsule 4,000 unit PO DAILY alendronate 70 mg tablet 70 mg PO QWEEK Label Comments: once a week on sunday Rx Instructions: once a week on sunday Referrals: Saulo Diane MD [Primary Care Provider] - David Rene MD [Physician] - Stand Alone Forms: Patient Portal/API
[2022-07-04 12:04] VITALS: PULSE 56; O2SAT 99
[2022-07-04 12:05] VITALS: BP 119/62; PULSE 59; O2SAT 99
[2022-07-04] MEDS: SODIUM CHLORIDE 0.9% 500 ML 1000 ML IV (12:12)
[2022-07-04 12:30] VITALS: BP 135/64; PULSE 56; O2SAT 100
[2022-07-04 13:00] VITALS: BP 125/61; PULSE 61; O2SAT 99
[2022-07-04 13:30] VITALS: BP 137/61; PULSE 58; O2SAT 99
[2022-07-04] MEDS: PEG3350/SOD SULF,BICARB,CL/KCL 4,000 ML SOLUTION 2000 ML PO (14:04)
== END 2022-07-04 14:07 | disposition home or self-care (01) ==
PROVIDERS: Emergency Provider Emergency Medicine; PCP Internal Medicine
DX: R33.8 Other retention of urine (principal); K59.00 Constipation, unspecified
CPT/HCPCS: 36415; 51798; 74177; 80053; 81001; 83690; 85025; 99284; 99285

== ENCOUNTER 2022-07-08 08:48 | Emergency (ER) | payer MEDICARE, SELFPAY ==
[2022-07-08 08:50] VITALS: BP 152/67; PULSE 59; RESP 18; TEMP 36.6; O2SAT 96; BMI 24.4
[2022-07-08 08:59] VITALS: PULSE 63; O2SAT 98
[2022-07-08 09:00] VITALS: BP 152/67; PULSE 64; O2SAT 98
[2022-07-08 09:30] VITALS: BP 115/56; PULSE 65; RESP 18; O2SAT 97
[2022-07-08 09:31] LABS: Appearance Urine UA CLOUDY; Bilirubin Urine UA NEGATIVE (NEGATIVE); Color Urine UA RED; Glucose Urine UA NEGATIVE (Negative); Ketones Urine UA TRACE (NEGATIVE); Leukocyte Esterase Urine UA 1+ (NEGATIVE); Nitrite Urine UA NEGATIVE (Negative); Occult Blood Urine UA 3+ (Negative); Protein Urine UA 2+ (Negative)
[2022-07-08 09:37] LABS: Culture Indicated Urine Specimen Cultured
[2022-07-08 09:39] LABS: Bacteria Urine None Seen; RBC Urine >100/HPF (0-5/HPF); Squamous Epithelial Cell Urine 0-1 /HPF (0-5/HPF); WBC Urine 0-1/HPF (0-5/HPF)
[2022-07-08 10:00] VITALS: BP 135/65; PULSE 58; RESP 18; O2SAT 95
--- NOTE | 2022-07-08 10:23 | ED_ITS ---
HPI - Male Genitourinary General Chief complaint: Urogenital-Male Stated complaint: Catheter issue - was placed on Sunday Time Seen by Provider: 07/08/22 09:06 Source: patient and family Mode of arrival: Ambulatory History of Present Illness HPI Narrative: Patient is an 81-year-old male history of some cognitive disorder, hyperlipidemia girl presenting today with Damon catheter problem for proper placed on 07/04/2022 for urinary retention. Thought to be secondary to constipation. Reports that he had a large bowel movement after some laxative he is only had a couple small bowel movements after that. No nausea vomiting no fever no change in behavior. is at bedside she is the primary historian she reports that she would difficulty getting the catheter to work she came here to have it checked out. She is noticed that it has been quite pink but no blood. He is not on any antiplatelet or anticoagulation medication. He reports no significant abdominal pain or vomiting. Related Data Home Medications Medication Instructions Recorded Confirmed aspirin 81 mg tablet,delayed 81 mg PO BEDTIME 02/06/18 05/18/22 release cholecalciferol (vitamin D3) 50 4,000 unit PO DAILY 02/06/18 05/18/22 mcg (2,000 unit) capsule (Vitamin D3) cyanocobalamin (vitamin B-12) 1,000 mcg PO QPM 02/06/18 05/18/22 1,000 mcg tablet (Vitamin B-12) multivitamin 1 tab PO QAM 02/06/18 05/18/22 nortriptyline 50 mg capsule 100 mg PO QPM 02/06/18 05/18/22 s-adenosylmethionine 400 mg tablet 2 tab PO QAM 02/06/18 05/18/22 (Zurdo-E) sertraline 100 mg tablet 150 mg PO QAM 02/06/18 05/18/22 vitamin E 268 mg (400 unit) capsule 400 unit PO QAM 02/06/18 05/18/22 Magnesium 1 tab PO DAILY 06/24/21 05/18/22 Zinc 1 tab PO DAILY 06/24/21 05/18/22 alendronate 70 mg tablet 70 mg PO QWEEK 06/24/21 05/18/22 ascorbate calcium (vitamin C) 500 500 mg PO DAILY 06/24/21 05/18/22 mg tablet dorzolamide 2 % eye drops 1 drp EYE-BOTH QPM 06/24/21 05/18/22 latanoprost 0.005 % eye drops 1 drp EYE-BOTH DAILY 06/24/21 05/18/22 Previous Rx's Medication Instructions Recorded triamcinolone acetonide 0.1 % 1 applic topical BID #60 mL 11/06/21 lotion levothyroxine 50 mcg tablet 50 mcg PO DAILY #90 tabs 12/08/21 Disabled Parking #1 ea 01/05/22 simvastatin 20 mg tablet 20 mg PO BEDTIME #90 tabs 06/26/22 docusate sodium 100 mg capsule 100 mg PO BID #30 caps 07/04/22 (Colace) cephalexin 500 mg capsule 500 mg PO BID 7 days #14 caps 07/08/22 Allergies Allergy/AdvReac Type Severity Reaction Status Date / Time No Known Drug Allergies Allergy Verified 07/04/22 10:30 Review of Systems Review of Systems ROS Unobtainable: All systems reviewed & are unremarkable except as noted in HPI and below Patient History Medical History Anemia Anxiety and depression Bipolar affective disorder in remission BPH (benign prostatic hyperplasia) Cataracts, bilateral (~2001) GERD with esophagitis Glaucoma (~2019) Hearing loss (~2014) Hyperlipidemia Hypothyroidism Osteoporosis Retinal detachment (~1960) Slow transit constipation Unspecified abnormalities of gait and mobility Vision disorder Surgical History Anesthesia History of foot surgery (~11/1959) History of hip surgery (~10/2014) History of hip surgery (~03/2011) S/P total knee arthroplasty (~08/2015) S/P TURP (~12/2013) Tibia fracture (~08/1974) Family History Father Cancer Mother Congestive heart failure Brother Stroke Grandmother History of heart disease Grandmother History of heart disease Social History Smoking Status: Former smoker Smoking Status: Former smoker tobacco type: cigarettes alcohol intake frequency: holidays/special occasions only Substance Use Type: does not use Exam Initial Vital Signs Initial Vital Signs: Vital Signs Temperature 98 F 07/08/22 08:50 Pulse Rate 59 L 07/08/22 08:50 Respiratory Rate 18 07/08/22 08:50 Blood Pressure 152/67 H 07/08/22 08:50 Pulse Oximetry 96 07/08/22 08:50 Oxygen Delivery Method Room Air 07/08/22 08:50 GENERAL: Alert pleasant 81-year-old male and in no acute distress. HEENT: Head atraumatic,EOMI, pupils reactive, face symmetric, moist mucous membranes CARDIOVASCULAR: Regular rate and rhythm without murmurs, rubs or gallops. RESPIRATORY: Breath sounds equal bilaterally, no wheezes rales or rhonchi. ABDOMEN: Soft, nontender. Normoactive bowel sounds all 4 quadrants. No guarding or rebound. : No CVA tenderness, Damon catheter draining in place slightly pink serosanguineous no gross blood no blood EXTREMITIES: Normal range of motion, no clubbing or edema. Neurovascularly intact NEUROLOGICAL: Alert and oriented x4. SKIN: Warm, dry, no laceration, no petechiae, no rashes or lesions. Course Orders Ordered: ED Orders 07/08/22 09:10 UA Complete [Urinalysis and Microscopic] Stat Urine Culture Stat Vital Signs Vital signs: Vital Signs - 8 hr 07/08/22 08:50 07/08/22 08:59 07/08/22 09:00 Temperature 98 F Pulse Rate 59 L 63 Respiratory Rate 18 Blood Pressure 152/67 H 152/67 H Pulse Oximetry 96 98 Oxygen Delivery Method Room Air 07/08/22 09:00 07/08/22 09:30 07/08/22 09:30 Temperature Pulse Rate 64 65 Respiratory Rate 18 Blood Pressure 115/56 L Pulse Oximetry 98 97 Oxygen Delivery Method 07/08/22 10:00 07/08/22 10:00 Temperature Pulse Rate 58 L Respiratory Rate 18 Blood Pressure 135/65 Pulse Oximetry 95 Oxygen Delivery Method MDM - Male Genitourinary Lab Data Labs: Lab Results 07/08/22 Range/Units 09:10 Urine Color Red Urine Appearance Cloudy Urine pH 5.0 (4.5-8.0) Ur Specific [place] 1.020 (1.000-1.035) Urine Protein 2+ H (Negative) Urine Glucose (UA) Negative (Negative) g/dL Urine Ketones Trace H (NEGATIVE) Urine Occult Blood 3+ H (Negative) Urine Nitrate Negative (Negative) Urine Bilirubin Negative (NEGATIVE) Urine Urobilinogen 1.0 (0.2) E.U./dL Ur Leukocyte Esterase 1+ H (NEGATIVE) Urine RBC >100/hpf H (0-5/HPF) Urine WBC 0-1/hpf (0-5/HPF) Ur Squamous Epith Cells 0-1 /hpf (0-5/HPF) Urine Bacteria None seen (None) Ur Culture Indicated? Specimen cultured MDM Narrative Medical decision making narrative: Patient 81-year-old male with indwelling Damon catheter recently placed presents today with some mild hematuria. No gross blood. He does have some leukocytes will treat him for UTI. He is not hypotensive tachycardic febrile or feel any other signs of severe sepsis. He is an appointment with his PCP in 2 days. Really has no complaints at this time able to start on antibiotics. Discharge Plan Departure Patient Disposition: Home Clinical Impression: UTI (urinary tract infection) due to urinary indwelling catheter Instructions: How to Care for Your Damon Catheter -- Male, DI for Urinary Tract Infection (UTI) Activity Restrictions/Additional Instructions: *You have been diagnosed with UTI *What to do: At this time please monitor output. [place] is okay. I suspect that the pink color is from an infection. However if there is gross blood or catheter is not working or multiple blood clots you need to return to the emergency department to be evaluated *Continue to take medications as directed Keflex 500 mg twice a day for 7 days-->SENT TO [facility] *Follow up with your primary care provider in 2-3 days or call [phone] *Return to ER if you should have increasing blood, confusion, Damon catheter not working or any new, worsening or concerning symptoms Prescriptions: New cephalexin 500 mg capsule 500 mg PO BID 7 Days Qty: 14 0RF No Action triamcinolone acetonide 0.1 % lotion 1 applic topical BID Qty: 60 0RF Rx Instructions: apply to affected area for up to 2 weeks levothyroxine 50 mcg tablet 50 mcg PO DAILY Qty: 90 3RF (DME) Disabled Parking See Rx Instructions .ROUTE .MEDSUPPLY Qty: 1 0RF Rx Instructions: Patient qualifies for disabled parking as per the attached form. simvastatin 20 mg tablet 20 mg PO BEDTIME Qty: 90 3RF dorzolamide 2 % drops 1 drp EYE-BOTH QPM latanoprost 0.005 % drops 1 drp EYE-BOTH DAILY ascorbate calcium (vitamin C) 500 mg tablet 500 mg PO DAILY Zinc 10 mg 1 tab PO DAILY Magnesium 80 mg 1 tab PO DAILY sertraline 100 mg tablet 150 mg PO QAM multivitamin Tablet 1 tab PO QAM cyanocobalamin (vitamin B-12) [Vitamin B-12] 1,000 mcg Tablet 1,000 mcg PO QPM aspirin 81 mg Tablet,Delayed Release (Dr/Ec) 81 mg PO BEDTIME vitamin E 400 unit Capsule 400 unit PO QAM nortriptyline 50 mg Capsule 100 mg PO QPM Patient Comments: dinner s-adenosylmethionine [Zurdo-E] 400 mg Tablet 2 tab PO QAM Patient Comments: breakfast cholecalciferol (vitamin D3) [Vitamin D3] 2,000 unit Capsule 4,000 unit PO DAILY alendronate 70 mg tablet 70 mg PO QWEEK Patient Comments: once a week on sunday Rx Instructions: once a week on sunday docusate sodium [Colace] 100 mg capsule 100 mg PO BID Qty: 30 0RF Referrals: Saulo Diane MD [Primary Care Provider] - Stand Alone Forms: Patient Portal/API
[2022-07-08 10:30] VITALS: BP 124/59; PULSE 56; RESP 18; O2SAT 95
--- NOTE | 2022-07-08 10:46 | PC.NURSE ---
pt sent home with large catheter bag and leg bag, barber leg strap, pt barber switched back to leg bag and secured barber into [place]. instructed on barber care, draining, and changing bags. RX for cephalexin for uti instructions given by provider.
== END 2022-07-08 10:47 | disposition home or self-care (01) ==
PROVIDERS: Emergency Provider Emergency Medicine; PCP Internal Medicine
DX: R33.8 Other retention of urine (principal); T83.511A Infection and inflammatory reaction due to indwelling urethral catheter, initial encounter
CPT/HCPCS: 81001; 87077; 87086; 87186; 99282

== ENCOUNTER 2022-07-10 19:14 | Inpatient (IN) | payer MEDICARE, SELFPAY ==
--- NOTE | 2022-07-10 19:27 | DI.RAD.S_ITS ---
PROCEDURE: XR CHEST 1V INDICATIONS: suspected sepsis TECHNIQUE: One view of the chest was acquired. COMPARISON: None. FINDINGS: Surgical changes and devices: None. Lungs and pleura: Lungs are clear. No pleural effusions or pneumothorax. Mediastinum: Mediastinal contours appear normal. Heart size is normal. Bones and chest wall: No suspicious bony lesions. Overlying soft tissues appear unremarkable. IMPRESSION: No acute cardiopulmonary disease. Dictated by: Darrel Carcamo M.D. on 07/10/2022 at 20:07 Approved by: Darrel Carcamo M.D. on 07/10/2022 at 20:07
[2022-07-10 19:28] VITALS: BP 137/63; PULSE 73; RESP 24; TEMP 37.7; O2SAT 98; BMI 24.3
--- NOTE | 2022-07-10 19:31 | ED.GENADULT ---
HPI - General Adult General Chief complaint: Weakness Stated complaint: fever, weakness Time Seen by Provider: 07/10/22 19:24 Source: patient, family and EMS Mode of arrival: EMS Limitations: no limitations History of Present Illness HPI narrative: Patient is an 81-year-old male who is brought in for evaluation of a fever and weakness and confusion. Patient's is at bedside. She states that he does have a history of dementia but really only has trouble with remembering year it is. She states he was seen here in the emergency department a couple days ago for urinary retention. Was also diagnosed with a urinary tract infection. Was placed on antibiotics. Was sent home with a Damon catheter in place. She states that today she noticed that he was much more confused and slow to answer questioning. She states this is different from his baseline mental status. He has been taking all of his antibiotics and other medications as directed. Upon my evaluation the patient did not have any specific symptoms. He knew that he was in the hospital. Was little confused as to why he was here in the hospital. He denied any specific discomfort to include chest pain and shortness of breath abdominal pain. There was no reported falls. Related Data Home Medications Medication Instructions Recorded Confirmed aspirin 81 mg tablet,delayed 81 mg PO BEDTIME 02/06/18 07/10/22 release cholecalciferol (vitamin D3) 50 4,000 unit PO DAILY 02/06/18 07/10/22 mcg (2,000 unit) capsule (Vitamin D3) cyanocobalamin (vitamin B-12) 1,000 mcg PO QPM 02/06/18 07/10/22 1,000 mcg tablet (Vitamin B-12) multivitamin 1 tab PO QAM 02/06/18 07/10/22 nortriptyline 50 mg capsule 100 mg PO QPM 02/06/18 07/10/22 s-adenosylmethionine 400 mg tablet 2 tab PO QAM 02/06/18 07/10/22 (Zurdo-E) sertraline 100 mg tablet 150 mg PO QAM 02/06/18 07/10/22 vitamin E 268 mg (400 unit) capsule 400 unit PO QAM 02/06/18 07/10/22 ascorbate calcium (vitamin C) 500 500 mg PO DAILY 06/24/21 07/10/22 mg tablet dorzolamide 2 % eye drops 1 drp EYE-BOTH QPM 06/24/21 07/10/22 latanoprost 0.005 % eye drops 1 drp EYE-BOTH DAILY 06/24/21 07/10/22 Previous Rx's Medication Instructions Recorded levothyroxine 50 mcg tablet 50 mcg PO DAILY #90 tabs 12/08/21 simvastatin 20 mg tablet 20 mg PO BEDTIME #90 tabs 06/26/22 docusate sodium 100 mg capsule 100 mg PO BID #30 caps 07/04/22 (Colace) Allergies Allergy/AdvReac Type Severity Reaction Status Date / Time No Known Drug Allergies Allergy Verified 07/10/22 10:36 Review of Systems Review of Systems ROS Unobtainable: All systems reviewed & are unremarkable except as noted in HPI and below Patient History Medical History Anemia Anxiety and depression Bipolar affective disorder in remission BPH (benign prostatic hyperplasia) Cataracts, bilateral (~2001) GERD with esophagitis Glaucoma (~2019) Hearing loss (~2014) Hyperlipidemia Hypothyroidism Osteoporosis Retinal detachment (~1960) Slow transit constipation Unspecified abnormalities of gait and mobility Vision disorder Surgical History Anesthesia History of foot surgery (~11/1959) History of hip surgery (~10/2014) History of hip surgery (~03/2011) S/P total knee arthroplasty (~08/2015) S/P TURP (~12/2013) Tibia fracture (~08/1974) Family History Father Cancer Mother Congestive heart failure Brother Stroke Grandmother History of heart disease Grandmother History of heart disease Social History household members: spouse Smoking Status: Former smoker alcohol intake: current Smoking Status: Former smoker tobacco type: cigarettes alcohol intake frequency: holidays/special occasions only Substance Use Type: does not use Exam Initial Vital Signs Initial Vital Signs: Vital Signs Temperature 99.9 F H 07/10/22 19:28 Pulse Rate 73 07/10/22 19:28 Respiratory Rate 24 07/10/22 19:28 Blood Pressure 137/63 07/10/22 19:28 Pulse Oximetry 98 07/10/22 19:28 Oxygen Delivery Method Room Air 07/10/22 19:28 Const General: cooperative, comfortable and No ill appearing HENMT Head: normal to inspection and normocephalic Resp Effort & Inspection: normal respiratory effort Auscultation: clear to auscultation bilaterally Cardio Rate: regular rate Rhythm: regular rhythm GI Inspection: normal to inspection Palpation: soft and No tender Other: Damon catheter in place draining clear urine Skin General: no rashes or lesions noted Neuro General: patient alert, patient awake and moves all extremities Speech: speech normal Motor: muscle tone normal throughout Extrem General: normal to inspection and capillary refill normal Psych Appearance: grossly normal and well kempt Scores GCS Dannie coma scale eye opening: Spontaneous Dannie coma scale verbal response: Orientated Dannie coma scale motor response: Obey commands [place] coma scale total score: 15 Course Orders Ordered: ED Orders 07/10/22 19:24 Troponin & CK Cardiac Panel Stat UA Complete [Urinalysis and Microscopic] Stat Urine Culture Stat 07/10/22 19:25 Complete Blood Count AUTO DIFF Stat Comprehensive Metabolic Panel Stat Lactate (Lactic Acid) Stat Lipase Stat PTT Partial Thromboplastin Konrad Stat Procalcitonin Stat Prothrombin Time INR Stat 07/10/22 19:27 XR chest 1V Stat EKG-12 Lead Stat RT Consult Eval and Treat NOW 07/10/22 19:35 CT head/brain wo con Stat 07/10/22 19:40 Blood Culture Stat 07/10/22 19:58 COVID19 -Nasal RAPID Stat Acetaminophen (Acetaminophen 325 Mg Tablet) 650 mg PO Q6H PRN PRN Reason: Fever/Mild Pain (1-3) Aspirin (Aspirin Ec 81 Mg Tablet) 81 mg PO BEDTIME [facility] Atorvastatin Calcium (Atorvastatin 20 Mg Tablet) 10 mg PO BEDTIME [facility] Docusate Sodium (Docusate 100 Mg Capsule) 100 mg PO BID [facility] Enoxaparin Sodium (Enoxaparin 40 Mg/0.4 Ml Syringe) 40 mg SUBCUT DAILY [facility] Sodium Chloride (Normal Saline 0.9%) 1,000 mls @ 100 mls/hr IV CONT NORAH Last Admin: 07/11/22 00:47 Dose: 100 mls/hr Documented By: CT Ceftriaxone Sodium 1,000 mg/ (Sodium Chloride) 100 mls @ 200 mls/hr IV Q24H [facility] Latanoprost (Latanoprost 0.005% Ophth 2.5 Ml) 1 drops EYE-BOTH DAILY [facility] Levothyroxine Sodium (Levothyroxine 50 Mcg Tablet) 50 mcg PO 0600 [facility]AH Naloxone HCl (Naloxone 0.4 Mg/Ml Vial) 0.2 mg IV Q2MIN PRN PRN Reason: Opiate Reversal Ondansetron HCl (Ondansetron 4 Mg/2 Ml Inj) 4 mg IV Q8HR PRN PRN Reason: Nausea And Vomiting Discontinued Medications Sodium Chloride (Normal Saline 0.9%) 1,000 mls @ 1,000 mls/hr IV BOLUS ONE Stop: 07/10/22 20:26 Last Infusion: 07/10/22 21:09 Dose: 0 mls/hr Documented By: Admin: 07/10/22 19:48 Dose: 1,000 mls/hr Documented By: JOHN Ceftriaxone Sodium 1,000 mg/ (Sodium Chloride) 100 mls @ 200 mls/hr IV NOW ONE Stop: 07/10/22 19:37 Last Infusion: 07/10/22 20:45 Dose: 0 mls/hr Documented By: Admin: 07/10/22 19:48 Dose: 200 mls/hr Documented By: JOHN Ondansetron HCl (Ondansetron 4 Mg Odt) 4 mg SL NOW PRN PRN Reason: Nausea And Vomiting Ondansetron HCl (Ondansetron 4 Mg/2 Ml Inj) 4 mg IV NOW PRN PRN Reason: Nausea And Vomiting Medical Decision Making Medical Records Medical records reviewed: Yes I reviewed the patient's medical records. Lab Data Lab results reviewed: Yes I reviewed the patient's lab results. 07/10/22 19:25 07/10/22 19:25 Labs: Lab Results 07/10/22 07/10/22 07/10/22 Range/Units 19:24 19:24 19:25 WBC 13.1 H (4.5-11.0) X10^3/uL RBC 4.57 (4.5-5.9) X10^6/uL Hgb 14.0 (13.5-17.5) g/dL Hct 41.5 (41-53) % MCV 90.8 (80-100) fL MCH 30.7 (26-34) PG MCHC 33.8 (30-36) % RDW 13.6 (11.6-14.8) % Plt Count 134 L (150-400) X10^3/uL Neut % (Auto) 87.7 H (50-75) % Lymph % (Auto) 5.5 L (25-40) % [place] % (Auto) 6.3 (3-14) % Eos % (Auto) 0.3 L (2-4) % Baso % (Auto) 0.2 (0-2) % Neut # (Auto) 13743 H (5288-2443) /uL Lymph # (Auto) 700 L (6627-4122) /uL [place] # (Auto) 800 (0-900) /uL Eos # (Auto) 0 (0-450) /uL Baso # (Auto) 0 (0-100) /uL PT (10.1-12.7) SECONDS INR (0.9-1.3) APTT (26-36) SECONDS Sodium (137-145) mmol/L Potassium (3.4-5.1) mmol/L Chloride (98-107) mmol/L Carbon Dioxide (22-32) mmol/L BUN (9-20) mg/dL Creatinine (0.66-1.25) mg/dL Estimated GFR (>60) mL/min BUN/Creatinine Ratio (6-22) Glucose (80-110) mg/dL Lactate (0.7-2.1) mmol/L Calcium (8.4-10.2) mg/dL Total Bilirubin (0.2-1.3) mg/dL AST (17-59) IU/L ALT (<50) IU/L Alkaline Phosphatase (38-126) U/L Total Creatine Kinase 67 (55-170) U/L CK-MB (CK-2) TNP CK-MB (CK-2) Rel Index TNP Troponin I < 0.012 (0.01-0.034) ng/mL Total Protein (6.3-8.2) g/dL Albumin (3.5-5.0) g/dL Globulin (1.7-4.1) g/dL Albumin/Globulin Ratio (1.0-2.8) Lipase (23-300) U/L Procalcitonin (<0.5) ng/mL Urine Color Yellow Urine Appearance Clear Urine pH 5.0 (4.5-8.0) Ur Specific [place] >=1.030 H (1.000-1.035) Urine Protein 3+ H (Negative) Urine Glucose (UA) Negative (Negative) g/dL Urine Ketones Trace H (NEGATIVE) Urine Occult Blood 3+ H (Negative) Urine Nitrate Positive H (Negative) Urine Bilirubin Negative (NEGATIVE) Urine Urobilinogen 1.0 (0.2) E.U./dL Ur Leukocyte Esterase 1+ H (NEGATIVE) Urine RBC >100/hpf H (0-5/HPF) Urine WBC 5-10/hpf H (0-5/HPF) Urine Bacteria Occasional (0-1) (None) Ur Culture Indicated? Specimen cultured SARS-CoV-2 (PCR) (Negative) 07/10/22 07/10/22 07/10/22 Range/Units 19:25 19:25 19:25 WBC (4.5-11.0) X10^3/uL RBC (4.5-5.9) X10^6/uL Hgb (13.5-17.5) g/dL Hct (41-53) % MCV (80-100) fL MCH (26-34) PG MCHC (30-36) % RDW (11.6-14.8) % Plt Count (150-400) X10^3/uL Neut % (Auto) (50-75) % Lymph % (Auto) (25-40) % [place] % (Auto) (3-14) % Eos % (Auto) (2-4) % Baso % (Auto) (0-2) % Neut # (Auto) (1934-0171) /uL Lymph # (Auto) (4277-1487) /uL [place] # (Auto) (0-900) /uL Eos # (Auto) (0-450) /uL Baso # (Auto) (0-100) /uL PT 12.2 (10.1-12.7) SECONDS INR 1.1 (0.9-1.3) APTT 31 (26-36) SECONDS Sodium 134 L (137-145) mmol/L Potassium 4.9 (3.4-5.1) mmol/L Chloride 100 (98-107) mmol/L Carbon Dioxide 26 (22-32) mmol/L BUN 31 H (9-20) mg/dL Creatinine 0.95 (0.66-1.25) mg/dL Estimated GFR > 60 (>60) mL/min BUN/Creatinine Ratio 32.6 H (6-22) Glucose 112 H (80-110) mg/dL Lactate 1.4 (0.7-2.1) mmol/L Calcium 8.9 (8.4-10.2) mg/dL Total Bilirubin 1.0 (0.2-1.3) mg/dL AST 36 (17-59) IU/L ALT 24 (<50) IU/L Alkaline Phosphatase 65 (38-126) U/L Total Creatine Kinase (55-170) U/L CK-MB (CK-2) CK-MB (CK-2) Rel Index Troponin I (0.01-0.034) ng/mL Total Protein 7.4 (6.3-8.2) g/dL Albumin 4.4 (3.5-5.0) g/dL Globulin 3.0 (1.7-4.1) g/dL Albumin/Globulin Ratio 1.5 (1.0-2.8) Lipase 34 (23-300) U/L Procalcitonin 0.08 (<0.5) ng/mL Urine Color Urine Appearance Urine pH (4.5-8.0) Ur Specific [place] (1.000-1.035) Urine Protein (Negative) Urine Glucose (UA) (Negative) g/dL Urine Ketones (NEGATIVE) Urine Occult Blood (Negative) Urine Nitrate (Negative) Urine Bilirubin (NEGATIVE) Urine Urobilinogen (0.2) E.U./dL Ur Leukocyte Esterase (NEGATIVE) Urine RBC (0-5/HPF) Urine WBC (0-5/HPF) Urine Bacteria (None) Ur Culture Indicated? SARS-CoV-2 (PCR) (Negative) 07/10/22 Range/Units 19:58 WBC (4.5-11.0) X10^3/uL RBC (4.5-5.9) X10^6/uL Hgb (13.5-17.5) g/dL Hct (41-53) % MCV (80-100) fL MCH (26-34) PG MCHC (30-36) % RDW (11.6-14.8) % Plt Count (150-400) X10^3/uL Neut % (Auto) (50-75) % Lymph % (Auto) (25-40) % [place] % (Auto) (3-14) % Eos % (Auto) (2-4) % Baso % (Auto) (0-2) % Neut # (Auto) (7393-9082) /uL Lymph # (Auto) (6493-4441) /uL [place] # (Auto) (0-900) /uL Eos # (Auto) (0-450) /uL Baso # (Auto) (0-100) /uL PT (10.1-12.7) SECONDS INR (0.9-1.3) APTT (26-36) SECONDS Sodium (137-145) mmol/L Potassium (3.4-5.1) mmol/L Chloride (98-107) mmol/L Carbon Dioxide (22-32) mmol/L BUN (9-20) mg/dL Creatinine (0.66-1.25) mg/dL Estimated GFR (>60) mL/min BUN/Creatinine Ratio (6-22) Glucose (80-110) mg/dL Lactate (0.7-2.1) mmol/L Calcium (8.4-10.2) mg/dL Total Bilirubin (0.2-1.3) mg/dL AST (17-59) IU/L ALT (<50) IU/L Alkaline Phosphatase (38-126) U/L Total Creatine Kinase (55-170) U/L CK-MB (CK-2) CK-MB (CK-2) Rel Index Troponin I (0.01-0.034) ng/mL Total Protein (6.3-8.2) g/dL Albumin (3.5-5.0) g/dL Globulin (1.7-4.1) g/dL Albumin/Globulin Ratio (1.0-2.8) Lipase (23-300) U/L Procalcitonin (<0.5) ng/mL Urine Color Urine Appearance Urine pH (4.5-8.0) Ur Specific [place] (1.000-1.035) Urine Protein (Negative) Urine Glucose (UA) (Negative) g/dL Urine Ketones (NEGATIVE) Urine Occult Blood (Negative) Urine Nitrate (Negative) Urine Bilirubin (NEGATIVE) Urine Urobilinogen (0.2) E.U./dL Ur Leukocyte Esterase (NEGATIVE) Urine RBC (0-5/HPF) Urine WBC (0-5/HPF) Urine Bacteria (None) Ur Culture Indicated? SARS-CoV-2 (PCR) Negative (Negative) Imaging Data Chest x-ray: Radiologist's Impression: PROCEDURE:? XR CHEST 1V ? INDICATIONS:? suspected sepsis ? TECHNIQUE:? One view of the chest was acquired.? ? COMPARISON:? None. ? FINDINGS:? ? Surgical changes and devices:? None.? ? Lungs and pleura:? Lungs are clear.? No pleural effusions or pneumothorax.? ? Mediastinum:? Mediastinal contours appear normal.? Heart size is normal.? ? Bones and chest wall:? No suspicious bony lesions.? Overlying soft tissues appear unremarkable.? ? IMPRESSION:? No acute cardiopulmonary disease. CT scan - head: Radiologist's Impression: PROCEDURE:? CT HEAD/BRAIN WO CON ? INDICATIONS:? acute confusion ? TECHNIQUE:? Noncontrast 4.5 mm thick angled axial sections acquired from the foramen magnum to the vertex, with coronal and sagittal reformats.? For radiation dose reduction, the following was used:? automated exposure control, adjustment of mA and/or kV according to patient size.? ? COMPARISON:? [facility], CT, CT HEAD/BRAIN WO CON, 01/06/2019, 15:33.? MR, MR HEAD/BRAIN WO CON, 11/17/2020, 9:53.? [facility], CT, CT HEAD/BRAIN WO CON, 12/31/2020, 18:22. ? FINDINGS:? Image quality:? Excellent.? ? CSF spaces:? Basal cisterns are patent.? No extra-axial fluid collections.? The ventricles are symmetric in size and shape.? ? Brain:? No intracranial bleeds or masses.? There is moderate cerebral volume loss for age, with resultant ventricular and sulcal prominence.? There are severe periventricular and deep white matter chronic small vessel ischemic changes.? There is intracranial internal carotid artery atherosclerosis.? ? Skull and face:? Calvarium and visualized facial bones appear intact, without suspicious lesions.? ? Sinuses:? There is a mucous retention cyst or polyp in the right maxillary sinus.? The mastoids are clear.? ? IMPRESSION:? ? 1. No acute intracranial abnormalities. ? 2. Cerebral volume loss and chronic microvascular ischemic changes. ECG Data Attestation: I personally reviewed and interpreted this ECG as follows: Interpretation: Sinus rhythm Ventricular rate is 76 First-degree AV block with a CO interval of 2-4 milliseconds Normal axis No ST T wave changes MDM Narrative Medical decision making narrative: Here in the emergency department the patient was alert to person and place. He was somewhat confused about why he was here. He followed all commands. No respiratory distress. No specific complaints from the patient. His head CT showed no acute pathology. Chest x-ray is unremarkable. Patient does have a leukocytosis. He was not hypotensive. For review of his prior ED visit did show a urinary tract infection however the culture did show bacteria that should have been susceptible to the Keflex he was sent home on. His urinalysis today is now nitrite positive which is new compared to prior. Patient was given Rocephin. Given his age and normal lactate and normal blood pressure there is no indication for 30 cc/kilogram of fluids. Blood cultures were obtained. Patient has failed oral outpatient treatment. I suspect that his symptoms are related to his worsening urinary tract infection. I did discuss the case with Dr. Johnson who is on-call for the patient's primary doctor. We will admit for further evaluation and treatment. Did discuss all this with the patient and his who is at bedside. They expressed understanding and agreement with plan. Discharge Plan Departure Patient Disposition: Admitted As Inpatient Clinical Impression: Urinary tract infection, Acute confusion Admit Date/Time: 07/10/22 21:25 Admit Provider: Saulo Diane
--- NOTE | 2022-07-10 19:35 | DI.CT.S_ITS ---
PROCEDURE: CT HEAD/BRAIN WO CON INDICATIONS: acute confusion TECHNIQUE: Noncontrast 4.5 mm thick angled axial sections acquired from the foramen magnum to the vertex, with coronal and sagittal reformats. For radiation dose reduction, the following was used: automated exposure control, adjustment of mA and/or kV according to patient size. COMPARISON: [facility], CT, CT HEAD/BRAIN WO CON, 01/06/2019, 15:33. MR, MR HEAD/BRAIN WO CON, 11/17/2020, 9:53. [facility], CT, CT HEAD/BRAIN WO CON, 12/31/2020, 18:22. FINDINGS: Image quality: Excellent. CSF spaces: Basal cisterns are patent. No extra-axial fluid collections. The ventricles are symmetric in size and shape. Brain: No intracranial bleeds or masses. There is moderate cerebral volume loss for age, with resultant ventricular and sulcal prominence. There are severe periventricular and deep white matter chronic small vessel ischemic changes. There is intracranial internal carotid artery atherosclerosis. Skull and face: Calvarium and visualized facial bones appear intact, without suspicious lesions. Sinuses: There is a mucous retention cyst or polyp in the right maxillary sinus. The mastoids are clear. IMPRESSION: 1. No acute intracranial abnormalities. 2. Cerebral volume loss and chronic microvascular ischemic changes. Dictated by: Darrel Carcamo M.D. on 07/10/2022 at 20:07 Approved by: Darrel Carcamo M.D. on 07/10/2022 at 20:09
[2022-07-10 19:36] LABS: Add Manual Diff / Slide Review NO; Basophils Absolute Auto 0 /uL (0-100); Basophils Percent Auto 0.2 % (0-2); Eosinophils Absolute Auto 0 /uL (0-450); Eosinophils Percent Auto 0.3 % (2-4); Hematocrit 41.5 % (41-53); Lymphocytes Absolute Auto 700 /uL (1100-4500); Lymphocytes Percent Auto 5.5 % (25-40); Mean Corpuscular HGB Conc 33.8 % (30-36); Mean Corpuscular Hemoglobin 30.7 PG (26-34); Mean Corpuscular Volume 90.8 fL (80-100); Monocytes Absolute Auto 800 /uL (0-900); Monocytes Percent Auto 6.3 % (3-14); Neutrophils Absolute Auto 11500 /uL (1500-7000); Neutrophils Percent Auto 87.7 % (50-75); Platelet Count 134 X10^3/uL (150-400); Red Blood Cell Count 4.57 X10^6/uL (4.5-5.9); Red Cell Distribution Width 13.6 % (11.6-14.8); White Blood Cell Count 13.1 X10^3/uL (4.5-11.0)
[2022-07-10 19:43] LABS: INR 1.1 (0.9-1.3); Prothrombin Time 12.2 SECONDS (10.1-12.7)
[2022-07-10 19:46] LABS: PTT Partial Thromboplastin Tim 31 SECONDS (26-36)
[2022-07-10 19:47] LABS: Appearance Urine UA CLEAR; Bilirubin Urine UA NEGATIVE (NEGATIVE); Color Urine UA YELLOW; Glucose Urine UA NEGATIVE (Negative); Ketones Urine UA TRACE (NEGATIVE); Leukocyte Esterase Urine UA 1+ (NEGATIVE); Nitrite Urine UA POSITIVE (Negative); Occult Blood Urine UA 3+ (Negative); Protein Urine UA 3+ (Negative); Specific Gravity Urine UA >=1.030 (1.000-1.035)
[2022-07-10] MEDS: SODIUM CHLORIDE 0.9% 1,000 ML 1000 ML IV (19:48)
[2022-07-10] MEDS: cefTRIAXone 1,000 MG in SODIUM CHLORIDE 0.9% 100 ML 200 MG IV (19:48)
[2022-07-10 19:57] LABS: Lactate (Lactic Acid) 1.4 mmol/L (0.7-2.1)
[2022-07-10 19:57] LABS: Creatine Kinase 67 U/L (55-170)
[2022-07-10 19:59] LABS: RBC Urine >100/HPF (0-5/HPF); WBC Urine 5-10/HPF (0-5/HPF)
[2022-07-10 20:00] LABS: Bacteria Urine Occasional (0-1); Culture Indicated Urine Specimen Cultured
[2022-07-10 20:02] LABS: Alanine Aminotransferase 24 IU/L (<50); Albumin 4.4 g/dL (3.5-5.0); Albumin Globulin Ratio 1.5 (1.0-2.8); Alkaline Phosphatase 65 U/L (38-126); Aspartate Aminotransferase 36 IU/L (17-59); BUN Creatinine Ratio 32.6 (6-22); Blood Urea Nitrogen 31 mg/dL (9-20); Calcium 8.9 mg/dL (8.4-10.2); Carbon Dioxide 26 mmol/L (22-32); Chloride 100 mmol/L (98-107); Estimated Glomerular Filt Rate > 60 mL/min (>60); Glucose 112 mg/dL (80-110); Lipase 34 U/L (23-300); Sodium 134 mmol/L (137-145); Total Protein 7.4 g/dL (6.3-8.2)
[2022-07-10 20:10] LABS: Troponin I < 0.012 ng/mL (0.01-0.034)
[2022-07-10 20:13] LABS: HEMOLYSIS 53 (0-50); Potassium 4.9 mmol/L (3.4-5.1)
[2022-07-10 20:17] LABS: COVID19 -Nasal RAPID Negative (Negative)
[2022-07-10 20:19] LABS: Procalcitonin 0.08 ng/mL (<0.5)
[2022-07-10 21:40] VITALS: BP 162/70; PULSE 72; RESP 16; O2SAT 99
[2022-07-10 21:58] VITALS: BMI 24.3
[2022-07-10 22:30] VITALS: BP 146/58; PULSE 62; RESP 20; TEMP 37.5; O2SAT 95
[2022-07-11] VITALS (9 sets, daily range): BP systolic 110–127; BP diastolic 49–60; PULSE 62–79; RESP 12–19; TEMP 36.3–37.5; O2SAT 93–100
[2022-07-11] MEDS: SODIUM CHLORIDE 0.9% 1,000 ML 100 ML IV ×2 (00:47→11:41)
[2022-07-11] MEDS: LEVOTHYROXINE 50 MCG TABLET PO (05:18)
[2022-07-11 06:46] LABS: Add Manual Diff / Slide Review NO; Basophils Absolute Auto 0 /uL (0-100); Basophils Percent Auto 0.1 % (0-2); Eosinophils Absolute Auto 100 /uL (0-450); Eosinophils Percent Auto 0.4 % (2-4); Hematocrit 38.2 % (41-53); Hemoglobin 12.8 g/dL (13.5-17.5); Lymphocytes Absolute Auto 700 /uL (1100-4500); Lymphocytes Percent Auto 4.9 % (25-40); Mean Corpuscular HGB Conc 33.5 % (30-36); Mean Corpuscular Hemoglobin 30.5 PG (26-34); Mean Corpuscular Volume 91.2 fL (80-100); Monocytes Absolute Auto 1000 /uL (0-900); Monocytes Percent Auto 6.9 % (3-14); Neutrophils Absolute Auto 12800 /uL (1500-7000); Neutrophils Percent Auto 87.7 % (50-75); Platelet Count 141 X10^3/uL (150-400); Red Blood Cell Count 4.19 X10^6/uL (4.5-5.9); Red Cell Distribution Width 13.4 % (11.6-14.8); White Blood Cell Count 14.6 X10^3/uL (4.5-11.0)
[2022-07-11 06:57] LABS: Alanine Aminotransferase 21 IU/L (<50); Albumin 3.8 g/dL (3.5-5.0); Albumin Globulin Ratio 1.3 (1.0-2.8); Alkaline Phosphatase 70 U/L (38-126); Aspartate Aminotransferase 29 IU/L (17-59); Bilirubin Total 0.8 mg/dL (0.2-1.3); Blood Urea Nitrogen 24 mg/dL (9-20); Carbon Dioxide 22 mmol/L (22-32); Chloride 101 mmol/L (98-107); Estimated Glomerular Filt Rate > 60 mL/min (>60); Globulin 2.9 g/dL (1.7-4.1); Glucose 102 mg/dL (80-110); HEMOLYSIS < 15 (0-50); Potassium 3.9 mmol/L (3.4-5.1); Sodium 132 mmol/L (137-145); Total Protein 6.7 g/dL (6.3-8.2)
--- NOTE | 2022-07-11 07:20 | PM.HP.1 ---
History of Present Illness History of Present Illness Date Patient Seen: 07/11/22 Time Patient Seen: 07:21 Chief complaint: fever, weakness Narrative: 81-year-old male admitted via emergency department with complicated urinary tract infection, possible sepsis. Patient was actually seen in the clinic on day of admission for ER follow-up. He had been seen in the ER initially because of urinary retention had a catheter placed and then developed blood in the urine and returned to the ER for evaluation. Diagnosed with a UTI placed on oral cephalexin. Subsequently cultures grew a Proteus species which was sensitive to the cephalexin. He was seen in follow-up by me on the 10 of July. He was instructed to continue his antibiotic therapy given the sensitivities which were reviewed. Apparently upon returning home spouse noted increasing lethargy and had subjective fever. Patient reports he felt increasingly weak and increasing the unable to do the basics of day-to-day activities. Patient's spouse brought him back to the emergency department for evaluation where he was found to have a leukocytosis as well as persistent abnormalities of the urine and it was elected to admit him to the hospital for parental antibiotics assuming he had failed outpatient oral antibiotic therapy. He had no hemodynamic abnormalities. Renal function remained stable. Patient with a complicated mental health issues including bipolar affective disorder anxiety and depression. Patient on medication for same. The maybe an underlying low-level of dementia or mild cognitive dysfunction all of which seems to be somewhat exacerbated with his current illness Patient History Medical History Anemia Anxiety and depression Bipolar affective disorder in remission BPH (benign prostatic hyperplasia) Cataracts, bilateral (~2001) GERD with esophagitis Glaucoma (~2019) Hearing loss (~2014) Hyperlipidemia Hypothyroidism Osteoporosis Retinal detachment (~1960) Slow transit constipation Unspecified abnormalities of gait and mobility Vision disorder Surgical History Anesthesia History of foot surgery (~11/1959) History of hip surgery (~10/2014) History of hip surgery (~03/2011) S/P total knee arthroplasty (~08/2015) S/P TURP (~12/2013) Tibia fracture (~08/1974) Family & Social History Family History Father Cancer Mother Congestive heart failure Brother Stroke Grandmother History of heart disease Grandmother History of heart disease Social History: household members spouse Prior Living Arrangements House Safety & Behavioral: Feels Safe in Current Yes Environment Been Physically Hurt or No Threatened By a Person Tobacco & Substance use: Smoking Status Former smoker alcohol intake current alcohol intake frequency holiday/special occasion Substance Use Type does not use Meds Home Medications and Allergies Home Medications Medication Instructions Recorded Confirmed Type aspirin 81 mg tablet,delayed 81 mg PO BEDTIME 02/06/18 07/10/22 History release cholecalciferol (vitamin D3) 50 4,000 unit PO DAILY 02/06/18 07/10/22 History mcg (2,000 unit) capsule (Vitamin D3) cyanocobalamin (vitamin B-12) 1,000 mcg PO QPM 02/06/18 07/10/22 History 1,000 mcg tablet (Vitamin B-12) multivitamin 1 tab PO QAM 02/06/18 07/10/22 History nortriptyline 50 mg capsule 100 mg PO QPM 02/06/18 07/10/22 History s-adenosylmethionine 400 mg tablet 2 tab PO QAM 02/06/18 07/10/22 History (Zurdo-E) sertraline 100 mg tablet 150 mg PO QAM 02/06/18 07/10/22 History vitamin E 268 mg (400 unit) capsule 400 unit PO QAM 02/06/18 07/10/22 History ascorbate calcium (vitamin C) 500 500 mg PO DAILY 06/24/21 07/10/22 History mg tablet dorzolamide 2 % eye drops 1 drp EYE-BOTH QPM 06/24/21 07/10/22 History latanoprost 0.005 % eye drops 1 drp EYE-BOTH DAILY 06/24/21 07/10/22 History levothyroxine 50 mcg tablet 50 mcg PO DAILY #90 tabs 12/08/21 07/10/22 Rx simvastatin 20 mg tablet 20 mg PO BEDTIME #90 tabs 06/26/22 07/10/22 Rx docusate sodium 100 mg capsule 100 mg PO BID #30 caps 07/04/22 07/10/22 Rx (Colace) Allergies Allergy/AdvReac Type Severity Reaction Status Date / Time No Known Drug Allergies Allergy Verified 07/10/22 10:36 Review of Systems Review of Systems ROS: Yes All systems reviewed with the patient and are negative except as otherwise documented Exam Vital Signs (past 8 hours): - 07/11/22 00:00 07/11/22 03:00 Temperature 99.4 F Pulse Rate 62 69 Respiratory Rate 19 Blood Pressure 125/55 L Pulse Oximetry 93 Oxygen Flow Rate 0 Oxygen Delivery Method Room Air Oxygen Flow Rate 0 Narrative Exam Narrative: Non acutely ill elderly male sitting in his hospital bed in no obvious distress able to hold normal conversation describing how he felt after I saw him in the clinic yesterday HEENT unremarkable Lungs-clear with good breath sounds Heart-regular rate and rhythm Abdomen-benign Extremities-no cyanosis clubbing or edema Neuro-alert orient x3 no cranial nerve defects no focal findings gait not tested Objective Labs 07/11/22 06:10 07/11/22 06:10 Labs: Laboratory Results - last 24 hr 07/10/22 07/10/22 07/10/22 19:24 19:24 19:25 WBC 13.1 H RBC 4.57 Hgb 14.0 Hct 41.5 MCV 90.8 MCH 30.7 MCHC 33.8 RDW 13.6 Plt Count 134 L Neut % (Auto) 87.7 H Lymph % (Auto) 5.5 L Hock[place] % (Auto) 6.3 Eos % (Auto) 0.3 L Baso % (Auto) 0.2 Neut # (Auto) 84349 H Lymph # (Auto) 700 L [place] # (Auto) 800 Eos # (Auto) 0 Baso # (Auto) 0 PT INR APTT Sodium Potassium Chloride Carbon Dioxide BUN Creatinine Estimated GFR BUN/Creatinine Ratio Glucose Lactate Calcium Total Bilirubin AST ALT Alkaline Phosphatase Total Creatine Kinase 67 CK-MB (CK-2) TNP CK-MB (CK-2) Rel Index TNP Troponin I < 0.012 Total Protein Albumin Globulin Albumin/Globulin Ratio Lipase Procalcitonin Urine Color Yellow Urine Appearance Clear Urine pH 5.0 Ur Specific Simpson >=1.030 H Urine Protein 3+ H Urine Glucose (UA) Negative Urine Ketones Trace H Urine Occult Blood 3+ H Urine Nitrate Positive H Urine Bilirubin Negative Urine Urobilinogen 1.0 Ur Leukocyte Esterase 1+ H Urine RBC >100/hpf H Urine WBC 5-10/hpf H Urine Bacteria Occasional (0-1) Ur Culture Indicated? Specimen cultured SARS-CoV-2 (PCR) 07/10/22 07/10/2207/10/23 19:25 19:25 19:25 WBC RBC Hgb Hct MCV MCH MCHC RDW Plt Count Neut % (Auto) Lymph % (Auto) Hock[place] % (Auto) Eos % (Auto) Baso % (Auto) Neut # (Auto) Lymph # (Auto) [place] # (Auto) Eos # (Auto) Baso # (Auto) PT 12.2 INR 1.1 APTT 31 Sodium 134 L Potassium 4.9 Chloride 100 Carbon Dioxide 26 BUN 31 H Creatinine 0.95 Estimated GFR > 60 BUN/Creatinine Ratio 32.6 H Glucose 112 H Lactate 1.4 Calcium 8.9 Total Bilirubin 1.0 AST 36 ALT 24 Alkaline Phosphatase 65 Total Creatine Kinase CK-MB (CK-2) CK-MB (CK-2) Rel Index Troponin I Total Protein 7.4 Albumin 4.4 Globulin 3.0 Albumin/Globulin Ratio 1.5 Lipase 34 Procalcitonin 0.08 Urine Color Urine Appearance Urine pH Ur Specific Simpson Urine Protein Urine Glucose (UA) Urine Ketones Urine Occult Blood Urine Nitrate Urine Bilirubin Urine Urobilinogen Ur Leukocyte Esterase Urine RBC Urine WBC Urine Bacteria Ur Culture Indicated? SARS-CoV-2 (PCR) 07/10/22 07/11/22 07/11/22 19:58 06:10 06:10 WBC 14.6 H RBC 4.19 L Hgb 12.8 L Hct 38.2 L MCV 91.2 MCH 30.5 MCHC 33.5 RDW 13.4 Plt Count 141 L Neut % (Auto) 87.7 H Lymph % (Auto) 4.9 L H[place] % (Auto) 6.9 Eos % (Auto) 0.4 L Baso % (Auto) 0.1 Neut # (Auto) 89683 H Lymph # (Auto) 700 L [place] # (Auto) 1000 H Eos # (Auto) 100 Baso # (Auto) 0 PT INR APTT Sodium 132 L Potassium 3.9 Chloride 101 Carbon Dioxide 22 BUN 24 H Creatinine 0.89 Estimated GFR > 60 BUN/Creatinine Ratio 27.0 H Glucose 102 Lactate Calcium 8.0 L Total Bilirubin 0.8 AST 29 ALT 21 Alkaline Phosphatase 70 Total Creatine Kinase CK-MB (CK-2) CK-MB (CK-2) Rel Index Troponin I Total Protein 6.7 Albumin 3.8 Globulin 2.9 Albumin/Globulin Ratio 1.3 Lipase Procalcitonin Urine Color Urine Appearance Urine pH Ur Specific Simpson Urine Protein Urine Glucose (UA) Urine Ketones Urine Occult Blood Urine Nitrate Urine Bilirubin Urine Urobilinogen Ur Leukocyte Esterase Urine RBC Urine WBC Urine Bacteria Ur Culture Indicated? SARS-CoV-2 (PCR) Negative Assessment & Plan Assessment & Plan narrative: 1. UTI with altered mental status/metabolic encephalopathy and leukocytosis-patient does indeed seem to have failed oral outpatient antibiotic therapy which was inappropriate therapy based on organism identified with culture and sensitivities. He was placed on third generation cephalosporin in the ER. I am actually going to discontinue that and place him on Zosyn given that he failed a first generation cephalosporin as an outpatient. Culture results and sensitivities do not seem to be fully telling the whole story which is not surprising given the species is Proteus which I find to be somewhat more resistant to treatment than other organisms. Fortunately does not show evidence beyond some encephalopathic changes of any significant illness. Mild leukocytosis but hemodynamically stable. Continue to monitor carefully 2. Metabolic encephalopathy-this is on top of patient's underlying mild cognitive dysfunction/dementia as well as his mental health disorders. Continue patient's usual medications and provide supportive care. Hopefully as we treat his infection this will improve significantly 3. Hypothyroidism-continue patient's usual dose thyroid 4. Constipation-patient longstanding constipation which was a contributing factor to his urinary outlet obstruction. Obviously has catheter in place at this time but will need stool softeners and multiple GI meds available 5. VTE prophylaxis-Lovenox appropriate and has been ordered 6. Code status-patient with POLST form on file stating do not resuscitate. He will be made a no code for the purposes of this hospitalization, which is confirmed with patient I believe patient qualifies for inpatient hospitalization given his failure to be treated as an outpatient with oral antibiotic therapy etcetera. He will more likely than not be in the hospital greater than 48 hours that will span 2 separate midnights COVID-19 COVID-19 status: Negative Result date/Date tested (Pos, Neg/Pending): 07/10/22 Quality VTE Deep Vein Thrombosis/Pulmonary Embolism Present on Admission: No
[2022-07-11] MEDS: PIPERACILLIN/TAZO 4.5 GM in SODIUM CHLORIDE 0.9% 100 ML IV (09:18)
[2022-07-11] MEDS: ACETAMINOPHEN 325 MG TABLET 650 MG PO (09:18)
[2022-07-11] MEDS: SERTRALINE 50 MG TABLET 150 MG PO (09:19)
[2022-07-11] MEDS: DOCUSATE 100 MG CAPSULE 200 MG PO ×2 (09:20→20:30)
[2022-07-11] MEDS: MAGNESIUM HYDROXIDE 30 ML UDC PO (09:21)
[2022-07-11] MEDS: ENOXAPARIN 40 MG/0.4 ML SYRINGE SUBCUT (09:21)
--- NOTE | 2022-07-11 13:45 | PT.IIE ---
Current Diagnoses Urinary tract infection, site not specified (07/10/22) Surgical History (Last Reviewed 07/11/22 @ 07:23 by Saulo Diane MD) Anesthesia History of foot surgery (~11/1959) History of hip surgery (~10/2014) History of hip surgery (~03/2011) S/P total knee arthroplasty (~08/2015) S/P TURP (~12/2013) Tibia fracture (~08/1974) Medical History (Last Reviewed 07/11/22 @ 07:23 by Saulo Diane MD) Anemia Anxiety and depression Bipolar affective disorder in remission BPH (benign prostatic hyperplasia) Cataracts, bilateral (~2001) GERD with esophagitis Glaucoma (~2019) Hearing loss (~2014) Hyperlipidemia Hypothyroidism Osteoporosis Retinal detachment (~1960) Slow transit constipation Unspecified abnormalities of gait and mobility Vision disorder Physical Therapy Inpatient Evaluation/Re-Eval M1 PT/OT-IP Prior Functional Status Start: 07/11/22 08:24 Freq: NEEDED Status: Active Protocol: Document 07/11/22 14:21 [facility] (Rec: 07/11/22 15:22 [facility] [id number]) Medical Review Prior Functional Status Medical History Reviewed Yes Diet/Fluid Consistency Regular Communication KIANA Mobility and Gait Pt typically amb in house w/o AD and uses walking sticks or 4WW for their outdoor walks. pt typically goes to the gym to use the bike during the week w/his Activities of Daily Living and IADL's normally indep w/ADLs Social History Household Members spouse Living Arrangements House Number of Floors (Floors) One Floor Number of Stairs To Enter/Railing? 1 BANDAR Home Environment Standard Height Toilet,Tub/ Shower Home Equipment Four Wheel Walker,Straight Cane,Grab Bars Near Toilet, Grab Bars In Shower Employment Status Retired Additional Social History Comment adjustable bed M2 PT-IP Current Condition Start: 07/11/22 08:24 Freq: NEEDED Status: Active Protocol: Document 07/11/22 14:21 [facility] (Rec: 07/11/22 15:22 [facility] [id number]) Physical Therapy Current Condition Current Condition Evaluation Date 07/11/22 Treatment Diagnosis UTI, weakness, difficulty in walking M3 PT-IP Subjective Start: 07/11/22 08:24 Freq: NEEDED Status: Active Protocol: Document 07/11/22 14:21 [facility] (Rec: 07/11/22 15:22 [facility] [id number]) Subjective Physical Therapy Visit Type Type Initial Evaluation Visit Start Time 13:06 Visit Stop Time 13:40 Total Visit Minutes 34 Number of DIVISION DIRECTOR Visits 0 M4 PT-IP Mobility and Gait Start: 07/11/22 08:24 Freq: NEEDED Status: Active Protocol: Document 07/11/22 14:21 [facility] (Rec: 07/11/22 15:22 [facility] [id number]) PT-Bed Mobility Assessment Supine to Sit Supine to Sit Minimal Assistance,Head of Bed Elevated Scooting Scooting to Edge of Bed Moderate Assistance PT-Transfer Assessment Sit to and From Stand Sit to and from Stand Minimal Assistance,Use of Upper Extremities Equipment Transfer Assistive Device Bed Rail,Front Wheeled Walker Orthotic/Prosthetic Devices or Brace: No Gait Assessment Gait Gait Assistance Required: Minimum Assistance Distance (Feet) 35 Able to Maintain Weight Bearing Status No During Gait Assistive Devices Assistive Device Gait Belt,Front Wheeled Walker Gait Deviations General Gait Pattern Decreased Stride Length, Decreased Feet Clearance, Flexed Trunk Factors Limiting Gait Function Factors Limiting Gait Function Decreased Activity Tolerance, Decreased Strength, Incoordination,Poor Balance Stair Climbing Assessment Comments Stair Climbing Comments n/t PT-Balance Assessment Sitting Balance and Reactions Static Sitting Balance Ability Fair Dynamic Sitting Balance Ability Poor Standing Balance and Reactions Static Standing Balance Ability Poor Dynamic Standing Balance Ability Poor Device Used FWW M5 PT-IP Objective Assessments Start: 07/11/22 08:24 Freq: NEEDED Status: Active Protocol: Document 07/11/22 14:21 [facility] (Rec: 07/11/22 15:22 [facility] [id number]) Orientation Orientation/Cognition Level of Alertness Confusional State Language Function Ability Hard of Hearing Safety Awareness Decreased Safety Awareness Gross Range of Motion Upper Extremity ROM Assessment Within Functional Limits Lower Extremity ROM Assessment Within Functional Limits Strength Upper Extremity Strength Shoulder grossly 4/5 B Lower Extremity Strength Hip R grossly 3/5 LE; L grossly 4- 5/ LLE M6 PT-IP Treatment Start: 07/11/22 08:24 Freq: NEEDED Status: Active Protocol: Document 07/11/22 14:21 [facility] (Rec: 07/11/22 15:22 [facility] [id number]) Physical Therapy Treatment Education Education Provided Safety M7 PT-IP Assessment and Plan Start: 07/11/22 08:24 Freq: NEEDED Status: Active Protocol: Document 07/11/22 14:21 [facility] (Rec: 07/11/22 15:22 [facility] [id number]) PT Summary Assessment and Plan Potential Rehabilitation Potential Good Status of Condition at Evaluation Evolving Summary Impairments Strength,Balance,Bed Mobility, Transfers,Gait,Activity Tolerance Assessment Summary Pt was able to mobilize better w/PT today than he was at home prior to admission per who was present during session. He did requier min A with all mobility though and required max cues throughout gait in order to work on longer strides and not a shuffling gait. At this time, he is a major fall risk and at this current mobility, will require SNF rehab. If he continues to improve w/ hospitalization, he may be able to return home w/ assist and HH. Cont to assess during pt's stay for appropriate DC. Goals Bed Mobility Goal Standby Assistance Transfer Goal Standby Assistance Gait Goal Standby Assistance Gait Distance 150ft Other Goals up/down 1 step SBA Days to Meet Goals 8 Frequency of Treatment Frequency Of Treatment Once a Day Treatment Plan Physical Therapy Treatment Plan Bed Mobility Training,Transfer Training,Gait Training, Therapeutic Exercise,Balance Retraining,Discharge Planning, Neuromuscular Re-ed, Coordination Retraining Recommendations To Nursing Amount of Assist Needed 1 Person Assist Discharge Recommendations PT Discharge Recommendations Home vs SNF Other Discharge Recommendations home w/hh vs SNF rehab Transportation Needs at Discharge Private Vehicle,Wheelchair/ Cabulance
--- NOTE | 2022-07-11 13:45 | CM.DPNOTE ---
DCP Note According to PT Claudine- dispo rec is currently home vs SNF. OT orders requested and placed Patient hopeful to return home w/spouse CM team following closely. Complete assessment of need and discussion w/patient and spouse about dispo options to follow JW
[2022-07-11] MEDS: PIPERACILLIN/TAZO 3.375 GM in SODIUM CHLORIDE 0.9% 100 ML IV ×2 (14:12→20:32)
--- NOTE | 2022-07-11 14:25 | OT.IP.EVAL ---
Current Diagnoses Urinary tract infection, site not specified (07/10/22) Past Medical History (Last Reviewed 07/11/22 @ 07:23 by Saulo Diane MD) Anemia Anxiety and depression Bipolar affective disorder in remission BPH (benign prostatic hyperplasia) Cataracts, bilateral (~2001) GERD with esophagitis Glaucoma (~2019) Hearing loss (~2014) Hyperlipidemia Hypothyroidism Osteoporosis Retinal detachment (~1960) Slow transit constipation Unspecified abnormalities of gait and mobility Vision disorder Surgical History (Last Reviewed 07/11/22 @ 07:23 by Saulo Diane MD) Anesthesia History of foot surgery (~11/1959) History of hip surgery (~10/2014) History of hip surgery (~03/2011) S/P total knee arthroplasty (~08/2015) S/P TURP (~12/2013) Tibia fracture (~08/1974) Occupational Therapy Inpatient Evaluation/Re-Eval M1 PT/OT-IP Prior Functional Status Start: 07/11/22 08:24 Freq: NEEDED Status: Active Protocol: Document 07/11/22 14:21 [facility] (Rec: 07/11/22 15:22 [facility] [id number]) Medical Review Prior Functional Status Medical History Reviewed Yes Diet/Fluid Consistency Regular Communication [facility] Mobility and Gait Pt typically amb in house w/o AD and uses walking sticks or 4WW for their outdoor walks. pt typically goes to the gym to use the bike during the week w/his Activities of Daily Living and IADL's normally indep w/ADLs Social History Household Members spouse Living Arrangements House Number of Floors (Floors) One Floor Number of Stairs To Enter/Railing? 1 BANDAR Home Environment Standard Height Toilet,Tub/ Shower Home Equipment Four Wheel Walker,Straight Cane,Grab Bars Near Toilet, Grab Bars In Shower Employment Status Retired Additional Social History Comment adjustable bed M2 OT-IP Current Condition Start: 07/11/22 15:04 Freq: Status: Active Protocol: Document 07/11/22 14:10 [facility] (Rec: 07/11/22 15:25 [facility] [id number]) Occupational Therapy Current Condition Current Condition Evaluation Date 07/11/22 Treatment Diagnosis UTI Diagnosis Onset Date 07/10/22 M3 OT- IP Subjective and Pain Start: 07/11/22 15:04 Freq: Status: Active Protocol: Document 07/11/22 14:10 [facility] (Rec: 07/11/22 15:25 [facility] [id number]) OT- Subjective Occupational Therapy Visit Type Type Initial Evaluation Visit Start Time 14:10 Visit Stop Time 14:35 Total Visit Minutes 25 Occupational Therapy Visit Comments Patient Comments Pt agreed to get up and pt's in the room. Patient/Caregiver Goals To get better and go home. OT Pain Assessment Pain When Pain Assessed At Rest Pain Present Pain Present Denied Pain M4 OT- IP ADL's Start: 07/11/22 15:04 Freq: Status: Active Protocol: Document 07/11/22 14:10 [facility] (Rec: 07/11/22 15:25 [facility] [id number]) OT [id number] Comments OT Self-Feeding Comments not at meal time OT ADL-Grooming General Evaluation Grooming Ability Standby Assistance Areas Needing Assistance Retrieving/Set-up of Grooming Items Comments OT Grooming Comments set-up assist OT ADL-Oral Care General Eval Oral Care Ability Independent Comments Oral Care Comments set-up to put the toothpaste on the toothbrush OT ADL-Dressing General Eval Lower Body Dressing Ability Minimal Assistance Comments OT Dressing Comments Pt able to bed forwards but needing assist to for his RLE. OT ADL-Toileting General Evaluation Toileting Ability Total Assistance Comments OT Toileting Comments Damon in place. OT ADL-Bathing Comments OT Bathing Comments Not performed. M5 OT- IP IADL's Start: 07/11/22 15:04 Freq: Status: Active Protocol: Document 07/11/22 14:10 [facility] (Rec: 07/11/22 15:25 [facility] [id number]) OT-Instrumental Activities of Daily Living Deficits IADL Deficits Identified Deficits Home Safety Awareness Awareness of Need for Assistance at Home Good Awareness Ability to Problem Solve Emergency Able to Problem Solve Situations Home Safety Comments Pt able to answer home safety questions with good accuracy but forgetful or where he gets his medications filled. Route Sales Associate Route Sales Associate Caregiver Provides Assist Driving Driving Caregiver Provides Assist M6 OT- IP Functional Cognition Start: 07/11/22 15:04 Freq: Status: Active Protocol: Document 07/11/22 14:10 [facility] (Rec: 07/11/22 15:25 [facility] [id number]) Cognitive Factors Limiting Selfcare Function Cognitive Ability Level of Alertness Alert Patient Orientation Name,Place,Situation Attention Span Ability Capable of Focused Attention, Capable of Sustained Attention Ability to Follow Commands Able to Follow One Step Commands Memory Description Short Term Impaired Safety Awareness Underestimates Need for Assistance Cognitive Comments Cognitive Assessment Comments Pt not able to recall name of his pharmacy and thinking the FWW was a 4ww as trying to use the brakes by pushing on closure buttons on the FWW. Pt needing reminders to keep the FWW close to him at all times due to his decreased balance. OT- Vision and Hearing OT- Vision Assessment Vision History Cataracts M7 OT- IP Mobility and Balance Start: 07/11/22 15:04 Freq: Status: Active Protocol: Document 07/11/22 14:10 [facility] (Rec: 07/11/22 15:25 [facility] [id number]) OT-Transfer Assessment Sit to and From Stand Sit to and from Stand Moderate Assistance Transfers Transfer Ability Minimal Assistance,Moderate Assistance Technique Transfer Destination Chair Transfer Technique Stand Step Pivot Devices Transfer Assistive Devices Gait Belt,Front Wheeled Walker Comments Mobility Comments MODA to come to stand from the recliner and once on his fet DACIA with FWW and at the end of the session needing MODA due to assist to help guide the FWW and for his balance as pt tired. OT- Balance Assessment Sitting Balance and Reactions Static Sitting Balance Ability Normal Dynamic Sitting Balance Ability Good Standing Balance and Reactions Static Standing Balance Ability Fair Dynamic Standing Balance Ability Poor Comments Other Balance Tests/Deviations/Treatment Pt leans on his heels while : standing and needing CGA for balance while brushing his teeth. Pt tends to lean to the right as well. M8 OT- IP Objective Assessments Start: 07/11/22 15:04 Freq: Status: Active Protocol: Document 07/11/22 14:10 [facility] (Rec: 07/11/22 15:25 [facility] [id number]) OT Gross Range of Motion Upper Extremity Range of Motion Assessment Bilaterally Impaired ROM Impairments Pt has flexed trunk and neck and therefore decreased AROM for shoulder flexion. OT Strength Comments Strength Comments BUE elbow to distal 4/5 to 4-/ 5 OT- Coordination Assessment Upper Extremity Finger to Nose Test Within Functional Limits OT-Muscle Tone Assessment Muscle Tone WNL Yes M9 OT- IP Assessment and Plan Start: 07/11/22 15:04 Freq: Status: Active Protocol: Document 07/11/22 14:10 [facility] (Rec: 07/11/22 15:25 [facility] [id number]) OT Summary Assessment and Plan Potential Rehabilitation Potential Good Analytic Complexity at Evaluation Moderate Summary OT Impairments Range of Motion,Strength, Balance,Functional Cognition, Functional Mobility,Self- Feeding,Grooming,Dressing, Toileting,Bathing,Toilet Transfers,Shower Transfers, Activity Tolerance Progress Towards Goals Slow Progress due to Medical Issues,Slow Progress due to Activity Tolerance,Slow Progress due to Cognition Assessment Summary Pt MOD complexity and here due to UTI and main barriers are a step , decreased dynamic balance and now needing use of FWW for ambulation needs as prior able to walk in the house without a device and able to take on the trash on his own. Pt now needing steadying balance assist while standing at the sink and for ADl needs. Pt would greatly benefit from skilled rehab at this time. Pt is very motivated and cooperative. Goals Grooming Goal Independent Dressing Goal Independent Toileting Goal Independent Bathing Goal Independent Toilet Transfer Goal Independent Shower Transfer Goal Independent Days to Meet Goals 10 Frequency of Treatment Frequency Of Treatment Once a Day Treatment Plan OT Treatment Plan ADL Training,Functional Cognition Training,Functional Mobility,Patient/Family Education,Discharge Planning Other Treatment Recommendations and Next shower Treatment Focus Discharge Recommendations OT Discharge Recommendations SNF Rehab Transportation Needs at Discharge Wheelchair/Cabulance
--- NOTE | 2022-07-11 17:12 | CM.DANOTE ---
DCP/Assessment: Reviewed chart. Patient is a 81yrold male admitted with UTI/confusion. PCP is Dr. Diane. Primary payor is 1) [employer]. Patient seen by therapy and current recommendation is SNF. Met with patient and spouse/Mary Kate at bedside. First choice is [facility]. Placed call to October at [facility] to review for admit. Authorization will need to be obtained for SNF. P: Pending. KJS Discharge Planning/Care Management Advanced directive, confirm from FAMILY Start: 07/10/22 22:51 Freq: Q24H Status: Active Protocol: Document 07/10/22 22:51 [facility] (Rec: 07/10/22 22:57 [facility] [id number]) Advance Directive, confirm on record Time 22:57 Person contacted Mary Kate (spouse) Copy received No CM Discharge Assessment Start: 07/11/22 17:09 Freq: Status: Active Protocol: Document 07/11/22 17:09 [facility] (Rec: 07/11/22 17:12 [facility] [id number]) Discharge Planning Assessment Assigned Detective And Intelligence Analyst PREET Duong Contact Information Mary Kate Keane () # [phone] Advance Directives? Yes Advance Directives on File No History Provided By Patient,Family Member,Medical Record Prior Living Arrangements House Household Members spouse Type of transporation used prior to Relies on Others admit Caregiver for Another No Patient/Family Preference Care Home Facility Discharge Plan Care Home Facility Transportation Arrangement Accepting agency when medically stable. Referrals Initiated Care Home Medicare Choice List Provided Yes SNF/HH Preference First SNF choice is [facility]. Referral provided to October at [facility]. Authorization will need to be obtained prior to acceptance. Has Agency SNF been contacted Yes Whiteboard Updated in Patient Room with Yes name and ext. # of Detective And Intelligence Analyst Review Status In Process Next Review Type Continued Stay Review
[2022-07-11] MEDS: CYANOCOBALAMIN (VITAMIN B-12) 500 MCG TABLET 1000 MCG PO (17:50)
[2022-07-11] MEDS: NORTRIPTYLINE HCL 25 MG CAPSULE 100 MG PO (17:50)
[2022-07-11] MEDS: DORZOLAMIDE 2% OPHTH 10 ML 1 DROPS EYE-BOTH (17:54)
[2022-07-11] MEDS: ASPIRIN EC 81 MG TABLET PO (20:28)
[2022-07-11] MEDS: ATORVASTATIN 20 MG TABLET 10 MG PO (20:29)
[2022-07-11] MEDS: SENNOSIDES 8.6 MG TABLET PO (20:30)
[2022-07-12] VITALS (8 sets, daily range): BP systolic 118–138; BP diastolic 52–62; PULSE 57–80; RESP 16–20; TEMP 35.8–37.4; O2SAT 94–99
[2022-07-12] MEDS: SODIUM CHLORIDE 0.9% 1,000 ML 100 ML IV ×2 (00:50→11:10)
[2022-07-12] MEDS: PIPERACILLIN/TAZO 3.375 GM in SODIUM CHLORIDE 0.9% 100 ML IV ×3 (04:33→21:02)
[2022-07-12] MEDS: LEVOTHYROXINE 50 MCG TABLET PO (05:57)
[2022-07-12 06:52] LABS: BUN Creatinine Ratio 20.2 (6-22); Blood Urea Nitrogen 19 mg/dL (9-20); Calcium 7.7 mg/dL (8.4-10.2); Carbon Dioxide 22 mmol/L (22-32); Chloride 105 mmol/L (98-107); Estimated Glomerular Filt Rate > 60 mL/min (>60); Glucose 108 mg/dL (80-110); HEMOLYSIS < 15 (0-50); Potassium 3.7 mmol/L (3.4-5.1); Sodium 133 mmol/L (137-145)
--- NOTE | 2022-07-12 08:05 | PM.PN.1 ---
Subjective Subjective Date Patient Seen: 07/12/22 Time Patient Seen: 08:05 Interval history: Pretty uneventful day yesterday. Patient remained afebrile. Seem to be somewhat stronger than described upon admission for physical therapy but still fairly weak and depending on clinical course fci is probably recommended Patient reports this morning he feels like his thinking is some better. Realizes now that he was kind of out of it. He talks about how surprised he was he was too weak to even get up out of bed but feels like he is better Exam Vital Signs (past 8 hours): - 07/12/22 00:22 07/12/22 05:00 Temperature 99.3 F 98.6 F Pulse Rate 79 80 Respiratory Rate 16 18 Blood Pressure 118/55 L 138/58 L Pulse Oximetry 95 95 Oxygen Flow Rate 0 0 Oxygen Delivery Method Room Air Oxygen Flow Rate 0 Objective Labs 07/11/22 06:10 07/12/22 06:15 Labs: Laboratory Results - last 24 hr 07/12/22 06:15 Sodium 133 L Potassium 3.7 Chloride 105 Carbon Dioxide 22 BUN 19 Creatinine 0.94 Estimated GFR > 60 BUN/Creatinine Ratio 20.2 Glucose 108 Calcium 7.7 L [facility] Medical History Anemia Anxiety and depression Bipolar affective disorder in remission BPH (benign prostatic hyperplasia) Cataracts, bilateral (~2001) GERD with esophagitis Glaucoma (~2019) Hearing loss (~2014) Hyperlipidemia Hypothyroidism Osteoporosis Retinal detachment (~1960) Slow transit constipation Unspecified abnormalities of gait and mobility Vision disorder Surgical History Anesthesia History of foot surgery (~11/1959) History of hip surgery (~10/2014) History of hip surgery (~03/2011) S/P total knee arthroplasty (~08/2015) S/P TURP (~12/2013) Tibia fracture (~08/1974) Family History Father Cancer Mother Congestive heart failure Brother Stroke Grandmother History of heart disease Grandmother History of heart disease Social History household members: spouse Smoking Status: Former smoker alcohol intake: current Assessment & Plan Assessment & Plan narrative: 1. Complicated UTI-patient remains on parental antibiotics tailored to his organism identified as an outpatient. Continue with parental antibiotics until patient ready for discharge 2. Metabolic encephalopathy-seem somewhat improved. Much more alert oriented for me and seemingly gaining some strength. Continue to monitor, and expect improvement to continue 3. Hypothyroidism-continues on usual medication 4. Constipation-continue with GI meds 5. Disposition-depending on clinical course who the day today maybe able to go home with home health services verses fci. Discussion with spouse yesterday suggested she would prefer fci unless patient improved significantly which may well happened but is yet to be determined COVID-19 COVID-19 status: Negative Result date/Date tested (Pos, Neg/Pending): 07/10/22 Quality VTE Deep Vein Thrombosis/Pulmonary Embolism Present on Admission: No
[2022-07-12] MEDS: DOCUSATE 100 MG CAPSULE 200 MG PO ×2 (08:46→21:01)
[2022-07-12] MEDS: ENOXAPARIN 40 MG/0.4 ML SYRINGE SUBCUT (08:47)
[2022-07-12] MEDS: SERTRALINE 50 MG TABLET 150 MG PO (08:47)
--- NOTE | 2022-07-12 10:16 | PT.IPTN ---
Current Diagnoses Urinary tract infection, site not specified (07/10/22) Physical Therapy Treatment Note M2 PT-IP Current Condition Start: 07/11/22 08:24 Freq: NEEDED Status: Active Protocol: Document 07/11/22 14:21 [facility] (Rec: 07/11/22 15:22 [facility] [id number]) Physical Therapy Current Condition Current Condition Evaluation Date 07/11/22 Treatment Diagnosis UTI, weakness, difficulty in walking M3 PT-IP Subjective Start: 07/11/22 08:24 Freq: NEEDED Status: Active Protocol: Document 07/12/22 10:09 [facility] (Rec: 07/12/22 10:16 [facility] [id number]) Subjective Physical Therapy Visit Type Type Treatment Note Visit Start Time 09:25 Visit Stop Time 10:04 Total Visit Minutes 38 Number of HAIR CLIPPER POWER Visits 0 Physical Therapy Visit Comments Patient Comments Patient supine in bed, Mary Kate in the room. Patient reports feeling a little better, willing to work with PT. Therapy Pain Assessment Pain When Pain Assessed At Rest Pain Present Pain Present Denied Pain M4 PT-IP Mobility and Gait Start: 07/11/22 08:24 Freq: NEEDED Status: Active Protocol: Document 07/12/22 10:09 [facility] (Rec: 07/12/22 10:16 [facility] [id number]) PT-Bed Mobility Assessment Supine to Sit Supine to Sit Minimal Assistance,Head of Bed Elevated Scooting Scooting to Edge of Bed Minimal Assistance PT-Transfer Assessment Sit to and From Stand Sit to and from Stand Minimal Assistance,Use of Upper Extremities Equipment Transfer Assistive Device Bed Rail,Front Wheeled Walker Orthotic/Prosthetic Devices or Brace: No Gait Assessment Gait Gait Assistance Required: Minimum Assistance Distance (Feet) 40 Able to Maintain Weight Bearing Status No During Gait Assistive Devices Assistive Device Gait Belt,Front Wheeled Walker Gait Deviations General Gait Pattern Decreased Stride Length, Decreased Feet Clearance, Flexed Trunk Factors Limiting Gait Function Factors Limiting Gait Function Decreased Activity Tolerance, Decreased Strength, Incoordination,Poor Balance, Poor Safety Awareness Stair Climbing Assessment Comments Stair Climbing Comments n/t PT-Balance Assessment Sitting Balance and Reactions Static Sitting Balance Ability Fair Dynamic Sitting Balance Ability Fair Standing Balance and Reactions Static Standing Balance Ability Fair Dynamic Standing Balance Ability Poor Device Used FWW M5 PT-IP Objective Assessments Start: 07/11/22 08:24 Freq: NEEDED Status: Active Protocol: Document 07/12/22 10:09 [facility] (Rec: 07/12/22 10:16 [facility] [id number]) Orientation Orientation/Cognition Level of Alertness Alert Orientation Name,Situation Language Function Ability Hard of Hearing Safety Awareness Decreased Safety Awareness M6 PT-IP Treatment Start: 07/11/22 08:24 Freq: NEEDED Status: Active Protocol: Document 07/12/22 10:09 [facility] (Rec: 07/12/22 10:16 [facility] [id number]) Physical Therapy Treatment Other Treatments Other Treatment Performed shallow knee bends x 3 with FWW, CGA PT assisted pt to toilet, assisted patient with sit to stand from toilet with mod assist, CG to min assist during patient clean up from loose stool; pt stood for at least 5 min with PT assist. Gait back to bed, assisted supine with min to mod assist. At this time still recommend SNF rehab, but will continue to assess. M7 PT-IP Assessment and Plan Start: 07/11/22 08:24 Freq: NEEDED Status: Active Protocol: Document 07/12/22 10:09 [facility] (Rec: 07/12/22 10:16 [facility] [id number]) PT Summary Assessment and Plan Potential Rehabilitation Potential Good Summary Impairments Strength,Balance,Bed Mobility, Transfers,Gait,Activity Tolerance Assessment Summary Patient more alert today, decreased assistance for scooting in bed Goals Bed Mobility Goal Standby Assistance Transfer Goal Standby Assistance Gait Goal Standby Assistance Gait Distance 150ft Other Goals up/down 1 step SBA Days to Meet Goals 8 Frequency of Treatment Frequency Of Treatment Once a Day Treatment Plan Physical Therapy Treatment Plan Bed Mobility Training,Transfer Training,Gait Training, Therapeutic Exercise,Balance Retraining,Discharge Planning, Neuromuscular Re-ed, Coordination Retraining Recommendations To Nursing Amount of Assist Needed 1 Person Assist Discharge Recommendations PT Discharge Recommendations Home vs SNF Other Discharge Recommendations home w/hh vs SNF rehab Transportation Needs at Discharge Private Vehicle,Wheelchair/ Cabulance
--- NOTE | 2022-07-12 15:18 | OT.IP.TRT ---
Current Diagnoses Urinary tract infection, site not specified (07/10/22) Occupational Therapy Treatment Note M2 OT-IP Current Condition Start: 07/11/22 15:04 Freq: Status: Active Protocol: Document 07/11/22 14:10 [facility] (Rec: 07/11/22 15:25 [facility] [id number]) Occupational Therapy Current Condition Current Condition Evaluation Date 07/11/22 Treatment Diagnosis UTI Diagnosis Onset Date 07/10/22 M3 OT- IP Subjective and Pain Start: 07/11/22 15:04 Freq: Status: Active Protocol: Document 07/12/22 15:18 [facility] (Rec: 07/12/22 16:56 [facility] [id number]) OT- Subjective Occupational Therapy Visit Type Type Treatment Note Visit Start Time 15:18 Visit Stop Time 15:42 Total Visit Minutes 24 Occupational Therapy Visit Comments Patient Comments Pt agreed to get up to use the bathroom and pt's present for caregiver training . Patient/Caregiver Goals TO get better and go home OT Pain Assessment Pain When Pain Assessed At Rest Pain Present Pain Present Denied Pain M4 OT- IP ADL's Start: 07/11/22 15:04 Freq: Status: Active Protocol: Document 07/12/22 15:18 [facility] (Rec: 07/12/22 16:56 [facility] [id number]) OT [id number] Comments OT Self-Feeding Comments not at meal time OT ADL-Grooming General Evaluation Grooming Ability Standby Assistance Areas Needing Assistance Retrieving/Set-up of Grooming Items Comments OT Grooming Comments set-up assist OT ADL-Oral Care General Eval Oral Care Ability Independent Comments Oral Care Comments set-up to put the toothpaste on the toothbrush OT ADL-Dressing General Eval Lower Body Dressing Ability Moderate Assistance Comments OT Dressing Comments Assist to help bryan/doff the brief. OT ADL-Toileting General Evaluation Toileting Ability Moderate Assistance Areas Needing Assistance Manage Clothing Comments OT Toileting Comments Pt's able to assist pt with brief management needs. OT ADL-Bathing Comments OT Bathing Comments Not performed. OT- Vision and Hearing OT- Vision Assessment Vision History Cataracts M7 OT- IP Mobility and Balance Start: 07/11/22 15:04 Freq: Status: Active Protocol: Document 07/12/22 15:18 [facility] (Rec: 07/12/22 16:56 [facility] [id number]) OT- Bed Mobility Assessment Supine to Sit Supine to Sit Assist Standby Assistance Scooting Scooting to Edge of Bed Standby Assistance OT-Transfer Assessment Sit to and From Stand Sit to and from Stand Minimal Assistance,Moderate Assistance Transfers Transfer Ability Minimal Assistance Technique Transfer Destination Bed,Chair Transfer Technique Stand Step Pivot Devices Transfer Assistive Devices Gait Belt,Front Wheeled Walker Comments Mobility Comments Able to train pt's to bryan/ doff gait belt and and how to assist pt for transfers with the FWW and walking into the bathroom to use the toilet. Initially, pt needing more assist for steadying and assist to guide the FWW. OT having to assist pt's but at the end of the session, pt's able to comfortable assist pt to walk in the room. OT- Balance Assessment Sitting Balance and Reactions Static Sitting Balance Ability Normal Dynamic Sitting Balance Ability Good Standing Balance and Reactions Static Standing Balance Ability Good Dynamic Standing Balance Ability Fair Comments Other Balance Tests/Deviations/Treatment Pt doing a bit better with his : balance and his able to safely assist him during caregiver training for transfers and bed mobility. Initially OT having to assist pt's as pt a little more unsteady on his feet initially .pt's to benefit from more training if deciding feels capable to take pt home. M9 OT- IP Assessment and Plan Start: 07/11/22 15:04 Freq: Status: Active Protocol: Document 07/12/22 15:18 [facility] (Rec: 07/12/22 16:56 [facility] [id number]) OT Summary Assessment and Plan Potential Rehabilitation Potential Good Analytic Complexity at Evaluation Moderate Summary OT Impairments Range of Motion,Strength, Balance,Functional Cognition, Functional Mobility,Self- Feeding,Grooming,Dressing, Toileting,Bathing,Toilet Transfers,Shower Transfers, Activity Tolerance Progress Towards Goals Progressing Toward Goals Assessment Summary Pt doing better today but still a little unsteady on his feet and needing assist for LB dressing needs. Pt would benefit from short skilled rehab versus home with 27/11 assist and home health if pt's feeling comfortable to assist the pt, pending more caregiver training. Goals Grooming Goal Independent Dressing Goal Independent Toileting Goal Independent Bathing Goal Independent Toilet Transfer Goal Independent Shower Transfer Goal Independent Days to Meet Goals 9 Frequency of Treatment Frequency Of Treatment Once a Day Treatment Plan OT Treatment Plan ADL Training,Functional Cognition Training,Functional Mobility,Patient/Family Education,Discharge Planning Other Treatment Recommendations and Next shower Treatment Focus Discharge Recommendations OT Discharge Recommendations Home with 24/ Assist Available,Home Health,SNF Rehab,Home vs SNF Transportation Needs at Discharge Private Vehicle,Wheelchair/ Cabulance
--- NOTE | 2022-07-12 15:47 | CM.DPC ---
DCP/continued: Reviewed chart. Patient progressing well with therapy and after OT session today it was suggested that patient might be able to d/c home with HH pending progress? FRUIT DUMPER met with patient and spouse/Mary Kate at bedside. Patient continues to complain of weakness and as of right now they are considering SNF but that may change pending improvement. Placed call to [facility], spoke with Patricia and they do not accept [employer]. Therefore discussed second SNF choice with patient and second choice is [facility]. Placed call to Evie at [facility], faxed clinical and she will review and start authorization if approved. P: CM team to f/u with patient/Mary Kate (spouse) ph# [phone] tomorrow. Anticipate SNF ([facility]) vs. home with HH. [facility] needed and/or F2F. [facility]
[2022-07-12] MEDS: NORTRIPTYLINE HCL 25 MG CAPSULE 100 MG PO (18:09)
[2022-07-12] MEDS: CYANOCOBALAMIN (VITAMIN B-12) 500 MCG TABLET 1000 MCG PO (18:09)
[2022-07-12] MEDS: DORZOLAMIDE 2% OPHTH 10 ML 1 DROPS EYE-BOTH (18:10)
[2022-07-12] MEDS: SENNOSIDES 8.6 MG TABLET PO (21:01)
[2022-07-12] MEDS: ATORVASTATIN 20 MG TABLET 10 MG PO (21:01)
[2022-07-12] MEDS: ASPIRIN EC 81 MG TABLET PO (21:01)
[2022-07-13] VITALS (8 sets, daily range): BP systolic 131–141; BP diastolic 54–68; PULSE 56–74; RESP 17–22; TEMP 36–36.7; O2SAT 93–99
[2022-07-13] MEDS: SODIUM CHLORIDE 0.9% 1,000 ML 100 ML IV ×2 (00:12→16:14)
[2022-07-13] MEDS: PIPERACILLIN/TAZO 3.375 GM in SODIUM CHLORIDE 0.9% 100 ML IV ×3 (03:16→18:33)
[2022-07-13] MEDS: LEVOTHYROXINE 50 MCG TABLET PO (05:57)
--- NOTE | 2022-07-13 07:35 | PM.PN.1 ---
Subjective Subjective Date Patient Seen: 07/13/22 Time Patient Seen: 07:35 Interval history: Patient with a better day yesterday Still feeling weak but improved. Somewhat dismayed by how quickly he went downhill but does note that he is improved from where he was at his worst upon admission Continues to be without evidence of active infection he is afebrile etcetera Exam Vital Signs (past 8 hours): - 07/13/22 01:00 07/13/22 05:00 Temperature 98.0 F 97.9 F Pulse Rate 74 61 Respiratory Rate 20 21 Blood Pressure 141/68 H 131/54 L Pulse Oximetry 93 93 Oxygen Flow Rate 0 0 Oxygen Delivery Method Room Air Oxygen Flow Rate 0 Objective Labs 07/11/22 06:10 07/12/22 06:15 [facility] Medical History Anemia Anxiety and depression Bipolar affective disorder in remission BPH (benign prostatic hyperplasia) Cataracts, bilateral (~2001) GERD with esophagitis Glaucoma (~2019) Hearing loss (~2014) Hyperlipidemia Hypothyroidism Osteoporosis Retinal detachment (~1960) Slow transit constipation Unspecified abnormalities of gait and mobility Vision disorder Surgical History Anesthesia History of foot surgery (~11/1959) History of hip surgery (~10/2014) History of hip surgery (~03/2011) S/P total knee arthroplasty (~08/2015) S/P TURP (~12/2013) Tibia fracture (~08/1974) Family History Father Cancer Mother Congestive heart failure Brother Stroke Grandmother History of heart disease Grandmother History of heart disease Social History household members: spouse Smoking Status: Former smoker alcohol intake: current Assessment & Plan Assessment & Plan narrative: 1. Complicated UTI-patient remains on parental antibiotics tailored to his organism identified as an outpatient. Continue with parental antibiotics until patient ready for discharge 2. Metabolic encephalopathy-continues to improve. Approaching baseline if not already there. Almost certainly secondary to his infectious issues which are of course being treated 3. Hypothyroidism-continues on usual medication 4. Constipation-continue with GI meds 5. Disposition-still unclear whether he will require [facility] placement. Hopefully will have a definitive answer by this time tomorrow. I would expect he could possibly be discharged tomorrow if going home may take longer to find accepting facility he is felt to require placement in chcf. COVID-19 COVID-19 status: Negative Result date/Date tested (Pos, Neg/Pending): 07/10/22 Quality VTE Deep Vein Thrombosis/Pulmonary Embolism Present on Admission: No
[2022-07-13] MEDS: SERTRALINE 50 MG TABLET 150 MG PO (08:47)
[2022-07-13] MEDS: ENOXAPARIN 40 MG/0.4 ML SYRINGE SUBCUT (08:48)
[2022-07-13] MEDS: DORZOLAMIDE 2% OPHTH 10 ML 1 DROPS EYE-BOTH ×2 (10:11→20:26)
--- NOTE | 2022-07-13 10:33 | PT.IPTN ---
Current Diagnoses Urinary tract infection, site not specified (07/10/22) Physical Therapy Treatment Note M2 PT-IP Current Condition Start: 07/11/22 08:24 Freq: NEEDED Status: Active Protocol: Document 07/13/22 09:55 SP (Rec: 07/13/22 16:31 SP [id number]) Physical Therapy Current Condition Current Condition Evaluation Date 07/11/22 Treatment Diagnosis UTI, weakness, difficulty in walking M3 PT-IP Subjective Start: 07/11/22 08:24 Freq: NEEDED Status: Active Protocol: Document 07/13/22 09:55 SP (Rec: 07/13/22 16:31 SP [id number]) Subjective Physical Therapy Visit Type Type Treatment Note Visit Start Time 09:55 Visit Stop Time 10:33 Total Visit Minutes 38 Notes Vitals: seated in chair BP 105/54 HR 62 SaO2 94% on RA. * Mary Kate complete caregiver training including don gait belt and all physical support required throughout tx, cues when needed from HIM ANALYST. Number of HIM ANALYST Visits 1 Physical Therapy Visit Comments Patient Comments Patient supine in chair, Mary Kate in the room, pt willing to work with therapy. Patient Goals Return home with and additional help to assist him. Therapy Pain Assessment Pain When Pain Assessed At Rest Pain Present Pain Present Denied Pain M4 PT-IP Mobility and Gait Start: 07/11/22 08:24 Freq: NEEDED Status: Active Protocol: Document 07/13/22 09:55 SP (Rec: 07/13/22 16:31 SP [id number]) PT-Transfer Assessment Sit to and From Stand Sit to and from Stand Contact Guard Assistance, Minimal Assistance,1 Person Assistance,Use of Upper Extremities Equipment Transfer Assistive Device Gait Belt,Front Wheeled Walker ,4 Wheeled Walker Orthotic/Prosthetic Devices or Brace: No Transfers Transfer Destination Chair,Wheelchair Transfer Technique pt ambulated using FWW Transfer Ability Level of Assist Contact Guard Assistance, Minimal Assistance,1 Person Assistance,Use of Upper Extremities Comments Mobility Comments Scoot EOchair redirect cues BUE on chair arms, STS CG/ Min A with cues push from chair arms, wt shift forward, straighten BLEs to full stand, noted little retro lean, Gait around room w/ FWW 10 ft stagger step then provided 4WW with cues for proper brake mgt ed (squeeze/lock duirng mob/transfers, requires occasional cues for carryover) 10ft to w/c in hallway cued full back up to chair/brake applied and reach back slow sit, Min A. wheeled down to stairs, demonstration ascend/ descend 3 stairs L HR and positioning support. Pt completed asc/desc step to patterning CG-10%A via , occasional cues to for positioning follow up with one her UE support on rail/other on gait belt good carryover and safety throughout. Pt walked further into hallway to room approx 120 ft w/4WW, occaional cues proximity/ slight slower pacing squeeze brake if needed, w/c follow but not needed. Pt returned to chair CG/Min A, cues pt fully step back/ HP reach back /slow descent sit. Pt had call light and all needs in reach before left. HIM ANALYST suggested use of FWW at this time due to many cues and stated will get from [employer]. Pt is ok to return home with to assisst pt 27/11 HHPT when medically clearaed. Pt/ requested care mgt provide more information of caregiver agencies to assist them. HIM ANALYST notified nursing and CM. Gait Assessment Gait Gait Assistance Required: Contact Guard Assist,Minimum Assistance,1 Person Assist Distance (Feet) 120 Able to Maintain Weight Bearing Status No During Gait Assistive Devices Assistive Device Gait Belt,Front Wheeled Walker Orthotic/Prosthetic Devices or Brace: No Gait Deviations General Gait Pattern Antalgic,Decreased Stride Length,Decreased Feet Clearance,Flexed Trunk Factors Limiting Gait Function Factors Limiting Gait Function Decreased Activity Tolerance, Decreased Strength,Poor Balance,Poor Safety Awareness Comments Gait Comments Cues for forward wt shift at times coming to standing due to noted slight retro lean and during pivot turn x1 no LOB cued COG over RUSS, improved foot clearance/stride stagger step increased with distance, min safety cues for proper hand placement brake mgt 4WW, suggested use of FWW, pt/ in agreement. Stair Climbing Assessment Evaluation Level of Assist On Stairs Contact Guard Assistance, Minimal Assistance,1 Person Assistance Devices Stair Climbing Assistive Devices Left Railing Technique/Endurance Stair Climbing Direction Ascend and Descend Stair Climbing Technique Step to Step Number of Steps Climbed 3 Stair Climbing Set # Repetitions (reps) 1 Comments Stair Climbing Comments step to patterning, BUE on L HR asc/descend, little trunk sway noted self recovery, CG- 10%A. PT-Balance Assessment Sitting Balance and Reactions Static Sitting Balance Ability Good Dynamic Sitting Balance Ability Fair Standing Balance and Reactions Static Standing Balance Ability Good Dynamic Standing Balance Ability Fair Device Used FWW/4WW Comments Other Balance Tests/Deviations/Treatment Pt doing a bit better with his : balance and his able to safely assist him during caregiver traininng for transers, gait, stair mgt M5 PT-IP Objective Assessments Start: 07/11/22 08:24 Freq: NEEDED Status: Active Protocol: Document 07/12/22 10:09 SAK (Rec: 07/12/22 10:16 SAK [id number]) Orientation Orientation/Cognition Level of Alertness Alert Orientation Name,Situation Language Function Ability Hard of Hearing Safety Awareness Decreased Safety Awareness M6 PT-IP Treatment Start: 07/11/22 08:24 Freq: NEEDED Status: Active Protocol: Document 07/13/22 09:55 SP (Rec: 07/13/22 16:31 SP [id number]) Physical Therapy Treatment Education Education Provided Safety M7 PT-IP Assessment and Plan Start: 07/11/22 08:24 Freq: NEEDED Status: Active Protocol: Document 07/13/22 09:55 SP (Rec: 07/13/22 16:31 SP [id number]) PT Summary Assessment and Plan Potential Rehabilitation Potential Good Status of Condition at Evaluation Evolving Summary Impairments Strength,Balance,Bed Mobility, Transfers,Gait,Activity Tolerance Progress Towards Goals Progressing Toward Goals,Slow Progress due to Activity Tolerance Assessment Summary Pt CG/Min A for all mobility FWW safer than 4WW, will acquire FWW. Completed CGT including proper use gait belt for safe support trunk stability, completed stair mgt CG/[place]. [facility] when medically clearaed. Goals Bed Mobility Goal Standby Assistance Transfer Goal Standby Assistance Gait Goal Standby Assistance Gait Distance 150ft Other Goals up/down 1 step SBA Days to Meet Goals 8 Frequency of Treatment Frequency Of Treatment Once a Day Treatment Plan Physical Therapy Treatment Plan Bed Mobility Training,Transfer Training,Gait Training, Therapeutic Exercise,Balance Retraining,Discharge Planning, Neuromuscular Re-ed, Coordination Retraining Other Recommendations and Next Treatment Bed mob, transfers/gait w/ FWW Focus further distance, balance activities. Recommendations To Nursing Amount of Assist Needed 1 Person Assist Discharge Recommendations PT Discharge Recommendations Home with / Assist Available,Home Health Other Discharge Recommendations wants information on paid caregivers to assist pt/her if she needs to do errands. Equipment Needed for Home Before FWW Discharge Transportation Needs at Discharge Private Vehicle
--- NOTE | 2022-07-13 11:28 | CM.DPC ---
Addendum entered by Melissa Su R.N. 07/14/22 11:18: Brought in a [facility] brochure, and discussed with patient's spouse, Mary Kate, since patient is discharging home today. Reminded her that this is covered by her insurance, and that nursing is usually the first to do start of care. Asked about bath aide, patient declined, and spouse thinks that she can manage at this time. Let her know that this can always be added later if he or she changes their mind. Let spouse also know that [facility] will contact before visit. Addendum entered by Melissa Su R.N. 07/13/22 13:31: Evie at [facility] did get auth. Updated her on home health, she will keep referral in case patient and spouse change their mind, can accept tomorrow. Faxed [facility] over the face sheet, H&P, today's progress note, P.T, and O.T. notes, along with face to face. Will just need orders and DC Summary upon discharge. Addendum entered by Melissa Su R.N. 07/13/22 13:20: Met with patient's spouse, Mary Kate. Went over home health agencies per Medicare.gov and she would like [facility]. Explained to her what home health services do, and that they are covered by insurance. Mentioned private caregivers for home so spouse can have some respite, she plays Bridge on Tuesdays. Gave her the list of agencies in the [employer] Book. She does not want patient going to [facility], for concerns of him getting COVID. Patient also wants to go home. Will order RN, P.T, and O.T. Called Jesse at [facility] and let him know about referral. He has access to [employer], and will review, does not think that there will be a problem.Will go ahead and complete face to face. Addendum entered by Melissa Su R.N. 07/13/22 11:55: Met briefly with patient, introduced self and role, he was sitting up in his chair, alert and oriented. Left some resources for spouse, she went to lunch, and will return. Original Note: DCP Cont: Spoke to P.T, may be able to go home with home health, spouse is wanting to go over some caregiving resources, which this DC Provider Scribe can do. If patient were to need to go to skilled, [facility] would not be able to accept until tomorrow or Sunday, he needs insurance auth. This DC Provider Scribe can go over home health agencies with spouse, and [employer], with names of private caregivers. P: DCP to continue to follow. At this time, home health may be the best option for patient, and will go over list of home health agencies and private caregivers. Melissa Su RN/Analysis Director
[2022-07-13] MEDS: NORTRIPTYLINE HCL 25 MG CAPSULE 100 MG PO (16:14)
[2022-07-13] MEDS: CYANOCOBALAMIN (VITAMIN B-12) 500 MCG TABLET 1000 MCG PO (16:15)
--- NOTE | 2022-07-13 16:43 | OT.IPNOTE ---
Pt with a friend and to be going to have an EKG soon. Pt agreed to do showering for caregiver training with his tomorrow morning.
[2022-07-13] MEDS: LATANOPROST 0.005% OPHTH 2.5 ML 1 DROPS EYE-BOTH (20:19)
[2022-07-13] MEDS: ASPIRIN EC 81 MG TABLET PO (20:24)
[2022-07-13] MEDS: ATORVASTATIN 20 MG TABLET 10 MG PO (20:24)
[2022-07-14] MEDS: PIPERACILLIN/TAZO 3.375 GM in SODIUM CHLORIDE 0.9% 100 ML IV (02:31)
[2022-07-14] MEDS: SODIUM CHLORIDE 0.9% 1,000 ML 100 ML IV (02:43)
[2022-07-14 03:30] VITALS: BP 166/72; PULSE 68; RESP 18; TEMP 36.1; O2SAT 97
[2022-07-14] MEDS: LEVOTHYROXINE 50 MCG TABLET PO (05:31)
[2022-07-14 07:25] VITALS: BP 149/56; PULSE 60; RESP 18; TEMP 36.5; O2SAT 94
--- NOTE | 2022-07-14 07:27 | P.DS_ITS ---
History of Present Illness History of Present Illness Date Patient Seen: 07/14/22 Time Patient Seen: 07:27 Chief complaint: fever, weakness Narrative: 81-year-old male admitted via emergency department with complicated urinary tract infection, possible sepsis. Patient was actually seen in the clinic on day of admission for ER follow-up. He had been seen in the ER initially because of urinary retention had a catheter placed and then developed blood in the urine and returned to the ER for evaluation. Diagnosed with a UTI placed on oral cephalexin. Subsequently cultures grew a Proteus species which was sensitive to the cephalexin. He was seen in follow-up by me on the 10 of July. He was instructed to continue his antibiotic therapy given the sensitivities which were reviewed. Apparently upon returning home spouse noted increasing lethargy and had subjective fever. Patient reports he felt increasingly weak and increasing the unable to do the basics of day-to-day activities. Patient's spouse brought him back to the emergency department for evaluation where he was found to have a leukocytosis as well as persistent abnormalities of the urine and it was elected to admit him to the hospital for parental antibiotics assuming he had failed outpatient oral antibiotic therapy. He had no hemodynamic abnormalities. Renal function remained stable. Patient with a complicated mental health issues including bipolar affective disorder anxiety and depression. Patient on medication for same. The maybe an underlying low-level of dementia or mild cognitive dysfunction all of which seems to be somewhat exacerbated with his current illness Discharge Providers Provider Date of admission: 07/10/22 21:25 Discharge Date: 07/14/22 Primary care physician: Saulo Diane MD Consults: 07/11/22 07:17 Consult to Physical Therapy Evaluate & Treat Comment: weakness Physician Instructions: Evaluate and Treat 07/11/22 13:44 Consult to Occupational Therapy Evaluate & Treat Comment: Physician Instructions: Evaluate and treat Discharge provider: Saulo Diane MD Summary Hospital Course Discharge Diagnosis: 1. Complicated UTI growing Enterococcus and Proteus species 2. Bladder outlet obstruction requiring Damon catheter placement 3. Metabolic encephalopathy, resolved 4. Global weakness secondary to encephalopathy and infection, improving 5. Anxiety and depression 6. Bipolar affective disorder in remission 7. Hyperlipidemia 8. Hypothyroidism 9. Borderline hypertension Hospital Course: Patient was admitted as above. With broad-spectrum antibiotic therapy he improved within the first 24 hours although had yet to return to baseline upon discharge. He was improving day by day. Urine culture subsequently grew Enterococcus species in addition to the previously identified Proteus species. He was continued on parental antibiotics during the course of his hospitaliz ation and switch to an oral antibiotic upon discharge, ampicillin, that should be effective on both organisms based on sensitivities Patient was seen by skilled therapy given his global weakness etcetera. He was much improved after the initial 24 hours been was still progressing toward baseline upon discharge. He will have the addition of home health services including PT OT at home. His other medical problems were stable without active issue at this time he was continued on his usual medications Status at Discharge Cognitive/behavioral status at discharge: at baseline, oriented Functional status at discharge: uses cane/walker Overall status at discharge: patient is progressing back to baseline Time Spent with Patient Time spent: Greater than 30 minutes Exam Vital Signs (past 8 hours): - 07/14/22 03:30 Temperature 96.9 F L Pulse Rate 68 Respiratory Rate 18 Blood Pressure 166/72 H Pulse Oximetry 97 Oxygen Flow Rate 0 Oxygen Delivery Method Room Air Oxygen Flow Rate 0 Objective Labs 07/11/22 06:10 07/12/22 06:15 [facility] Medical History Anemia Anxiety and depression Bipolar affective disorder in remission BPH (benign prostatic hyperplasia) Cataracts, bilateral (~2001) GERD with esophagitis Glaucoma (~2019) Hearing loss (~2014) Hyperlipidemia Hypothyroidism Osteoporosis Retinal detachment (~1960) Slow transit constipation Unspecified abnormalities of gait and mobility Vision disorder Surgical History Anesthesia History of foot surgery (~11/1959) History of hip surgery (~10/2014) History of hip surgery (~03/2011) S/P total knee arthroplasty (~08/2015) S/P TURP (~12/2013) Tibia fracture (~08/1974) Family History Father Cancer Mother Congestive heart failure Brother Stroke Grandmother History of heart disease Grandmother History of heart disease Social History household members: spouse Smoking Status: Former smoker alcohol intake: current Discharge Plan Discharge Plan Patient Disposition: Home Discharge orders & Medications Prescriptions: New ampicillin 500 mg capsule 1 g PO TID 7 Days Qty: 42 0RF Continued levothyroxine 50 mcg tablet 50 mcg PO DAILY Qty: 90 3RF simvastatin 20 mg tablet 20 mg PO BEDTIME Qty: 90 3RF dorzolamide 2 % drops 1 drp EYE-BOTH BID latanoprost 0.005 % drops 1 drp EYE-BOTH BEDTIME ascorbate calcium (vitamin C) 500 mg tablet 500 mg PO DAILY sertraline 100 mg tablet 150 mg PO QAM multivitamin Tablet 1 tab PO QAM cyanocobalamin (vitamin B-12) [Vitamin B-12] 1,000 mcg Tablet 1,000 mcg PO QPM aspirin 81 mg Tablet,Delayed Release (Dr/Ec) 81 mg PO BEDTIME vitamin E 400 unit Capsule 400 unit PO QAM nortriptyline 50 mg Capsule 100 mg PO QPM Patient Comments: dinner Zurdo-E 400 mg Tablet 1 tab PO QAM Patient Comments: breakfast cholecalciferol (vitamin D3) [Vitamin D3] 2,000 unit Capsule 4,000 unit PO DAILY docusate sodium [Colace] 100 mg capsule 100 mg PO BID Qty: 30 0RF magnesium 500 mg Tablet 400 mg PO QPM aripiprazole [Abilify] 15 mg Tablet 15 mg PO BEDTIME Refresh Plus 3 drp QID alendronate 70 mg Tablet 70 mg PO QWEEK Follow up/Referrals: Saulo Daine MD [Primary Care Provider] - 2 Weeks (*Appt on Tuesday, July 25 at 10:30am with . Please chech-in at 10:15am. [phone].) Discharge Health Status Multidrug resistant organism: No MDRO Diet/Activity/Treatments Diet: Diet as Tolerated Skin/Wound/Dressing Care Report to your healthcare provider any signs of infection, such as:: chills, fever and night sweats Visit Report/Discharge Packet Instructions: DI for Urinary Tract Infection (UTI) Stand Alone Forms: Patient Portal/API Discharge Data Primary Care Provider: Saulo Diane Quality VTE Deep Vein Thrombosis/Pulmonary Embolism Present on Admission: No
[2022-07-14 07:45] VITALS: O2SAT 96
[2022-07-14] MEDS: ENOXAPARIN 40 MG/0.4 ML SYRINGE SUBCUT (09:11)
[2022-07-14] MEDS: DORZOLAMIDE 2% OPHTH 10 ML 1 DROPS EYE-BOTH (09:11)
[2022-07-14] MEDS: SERTRALINE 50 MG TABLET 150 MG PO (09:11)
--- NOTE | 2022-07-14 09:42 | OT.IP.TRT ---
Current Diagnoses Urinary tract infection, site not specified (07/10/22) Occupational Therapy Treatment Note M2 OT-IP Current Condition Start: 07/11/22 15:04 Freq: Status: Discharge Protocol: Document 07/11/22 14:10 [facility] (Rec: 07/11/22 15:25 [facility] [id number]) Occupational Therapy Current Condition Current Condition Evaluation Date 07/11/22 Treatment Diagnosis UTI Diagnosis Onset Date 07/10/22 M3 OT- IP Subjective and Pain Start: 07/11/22 15:04 Freq: Status: Discharge Protocol: Document 07/14/22 09:12 [facility] (Rec: 07/14/22 10:37 [facility] [id number]) OT- Subjective Occupational Therapy Visit Type Type Treatment Note Visit Start Time 09:12 Visit Stop Time 09:42 Total Visit Minutes 30 Occupational Therapy Visit Comments Patient Comments Pt agreed to shower and pt's in the room for caregiver training. Patient/Caregiver Goals TO go home. OT Pain Assessment Pain When Pain Assessed At Rest Pain Present Pain Present Denied Pain M4 OT- IP ADL's Start: 07/11/22 15:04 Freq: Status: Discharge Protocol: Document 07/14/22 09:12 [facility] (Rec: 07/14/22 10:37 [facility] [id number]) OT [id number] Comments OT Self-Feeding Comments not at meal time OT ADL-Dressing General Eval Lower Body Dressing Ability Moderate Assistance,Maximum Assistance Comments OT Dressing Comments Assist to get the catheter througth his brief and pants. OT ADL-Bathing Bathing Type Bathing Type Shower General Evaluation Bathing Ability Moderate Assistance Areas Needing Assistance Wash/Dry Back,Wash/Dry Perineal Area,Wash/Dry Lower Extremities Comments OT Bathing Comments Pt needing assist for completeness for pericare needs and for his back . Assist for his feet as well. Pt will benefit from home health shower aid. M5 OT- IP IADL's Start: 07/11/22 15:04 Freq: Status: Discharge Protocol: Document 07/11/22 14:10 [facility] (Rec: 07/11/22 15:25 [facility] [id number]) OT-Instrumental Activities of Daily Living Deficits IADL Deficits Identified Deficits Home Safety Awareness Awareness of Need for Assistance at Home Good Awareness Ability to Problem Solve Emergency Able to Problem Solve Situations Home Safety Comments Pt able to answer home safety questions with good accuracy but forgetful or where he gets his medications filled. Sustain Engineer Sustain Engineer Caregiver Provides Assist Driving Driving Caregiver Provides Assist M6 OT- IP Functional Cognition Start: 07/11/22 15:04 Freq: Status: Discharge Protocol: Document 07/14/22 09:12 [facility] (Rec: 07/14/22 10:37 [facility] [id number]) Cognitive Factors Limiting Selfcare Function Cognitive Comments Cognitive Assessment Comments Pt a little forgetful and needing reminders to keep her FWW close to him. M7 OT- IP Mobility and Balance Start: 07/11/22 15:04 Freq: Status: Discharge Protocol: Document 07/14/22 09:12 [facility] (Rec: 07/14/22 10:37 [facility] [id number]) OT-Transfer Assessment Sit to and From Stand Sit to and from Stand Minimal Assistance Transfers Transfer Ability Standby Assistance,Minimal Assistance Technique Transfer Destination Bed,Chair Transfer Technique Stand Step Pivot Devices Transfer Assistive Devices Gait Belt,Front Wheeled Walker Comments Mobility Comments Pt's able to assist pt with the FWW to the shower and in the room with good safety. OT- Balance Assessment Sitting Balance and Reactions Static Sitting Balance Ability Normal Dynamic Sitting Balance Ability Good Standing Balance and Reactions Static Standing Balance Ability Good Dynamic Standing Balance Ability Fair Comments Other Balance Tests/Deviations/Treatment Pt steadier on his feet today : and able to assist pt. M8 OT- IP Objective Assessments Start: 07/11/22 15:04 Freq: Status: Discharge Protocol: Document 07/11/22 14:10 [facility] (Rec: 07/11/22 15:25 [facility] [id number]) OT Gross Range of Motion Upper Extremity Range of Motion Assessment Bilaterally Impaired ROM Impairments Pt has felxed trunk and neck and therefore decreased AROM for shoulder flexion. OT Strength Comments Strength Comments BUE elbow to distal 4/5 to 4-/ 5 OT- Coordination Assessment Upper Extremity Finger to Nose Test Within Functional Limits OT-Muscle Tone Assessment Muscle Tone WNL Yes M9 OT- IP Assessment and Plan Start: 07/11/22 15:04 Freq: Status: Discharge Protocol: Document 07/14/22 09:12 [facility] (Rec: 07/14/22 10:37 [facility] [id number]) OT Summary Assessment and Plan Potential Rehabilitation Potential Good Analytic Complexity at Evaluation Moderate Summary OT Impairments Range of Motion,Strength, Balance,Functional Cognition, Functional Mobility,Self- Feeding,Grooming,Dressing, Toileting,Bathing,Toilet Transfers,Shower Transfers, Activity Tolerance Progress Towards Goals Progressing Toward Goals Assessment Summary Pt's able to safely assist pt for ADl and mobility needs with FWW. Pt looking to go home with 24/7 available assist and home health. Discharge Recommendations OT Discharge Recommendations Home with 24/7 Assist Available,Home Health Transportation Needs at Discharge Private Vehicle
--- NOTE | 2022-07-14 10:10 | PT-OP ANOTE ---
PT DC: Spoke with Pt and his . They have 4WW, raised toilet seat at home. Pt's stated she was confident they could manage at home. Pt was up with PT yesterday and feels confident with steps and 4WW. Pt's agrees. Pt was in process of preparing to dc from hospital at time of visit. He waived rx this AM as he wanted to conserve energy. Pt. has been d/c from PT.
== END 2022-07-14 10:30 | disposition home or self-care (01) | DRG 689 ==
LOC: ED 21:25 → AC 21:26
PROVIDERS: Family Medicine; Admitting Provider Internal Medicine; Emergency Provider Emergency Medicine; PCP Internal Medicine; Referring Provider Emergency Medicine; Visit Provider Internal Medicine
DX: N39.0 Urinary tract infection, site not specified (principal); G93.41 Metabolic encephalopathy; E03.9 Hypothyroidism, unspecified; F03.90 Unspecified dementia, unspecified severity, without behavioral disturbance, psychotic disturbance, mood disturbance, and anxiety; K59.00 Constipation, unspecified; B96.4 Proteus (mirabilis) (morganii) as the cause of diseases classified elsewhere; B95.2 Enterococcus as the cause of diseases classified elsewhere; N32.0 Bladder-neck obstruction; F41.9 Anxiety disorder, unspecified; F31.70 Bipolar disorder, currently in remission, most recent episode unspecified; I10 Essential (primary) hypertension; E78.5 Hyperlipidemia, unspecified; H40.9 Unspecified glaucoma; Z20.822 Contact with and (suspected) exposure to COVID-19; Z87.891 Personal history of nicotine dependence; R33.8 Other retention of urine; T83.511A Infection and inflammatory reaction due to indwelling urethral catheter, initial encounter
CPT/HCPCS: 36415; 51798; 70450; 71045; 80048; 80053; 81001; 82550; 83605; 83690; 84145; 84484; 85025; 85610; 85730; 87040; 87077; 87086; 87186; 87635; 93005; 96365; 97116; 97162; 97166; 97530; 97535; 99223; 99232; 99238; 99282; 99284; C9803; J0696; J1650; J2543

== ENCOUNTER 2022-07-28 17:19 | Emergency (ER) | payer MEDICARE, SELFPAY ==
[2022-07-28 17:26] VITALS: BP 164/80; PULSE 56; RESP 16; TEMP 36.2; O2SAT 100; BMI 24.5
[2022-07-28 18:17] LABS: Appearance Urine UA CLOUDY; Bilirubin Urine UA 1+ (NEGATIVE); Color Urine UA RED; Glucose Urine UA NEGATIVE (Negative); Ketones Urine UA NEGATIVE (NEGATIVE); Leukocyte Esterase Urine UA 3+ (NEGATIVE); Nitrite Urine UA POSITIVE (Negative); Occult Blood Urine UA 3+ (Negative); Protein Urine UA 2+ (Negative); pH Urine UA 7.5 (4.5-8.0)
[2022-07-28 18:28] LABS: Bacteria Urine Many (>30); Culture Indicated Urine Specimen Cultured; Ictotest Urine Negative (Negative); RBC Urine >100/HPF (0-5/HPF); Squamous Epithelial Cell Urine 5-10 /HPF (0-5/HPF); Transitional Epi Cells Urine 1-5/HPF (0-5/HPF); WBC Urine >100/HPF (0-5/HPF)
--- NOTE | 2022-07-28 19:33 | ED_ITS ---
HPI - Male Genitourinary General Chief complaint: Urogenital-Male Stated complaint: Blood in urine Time Seen by Provider: 07/28/22 18:06 Source: patient Mode of arrival: Ambulatory History of Present Illness HPI Narrative: 81-year-old male with urinary retention and recently placed Damon catheter, prior TURP presents with his in the chief complaint of some blood-tinged urine in his Damon catheter bag which was 1st noticed today. He would recently been seen for urinary retention had a Damon catheter placed and was started on Keflex on 07/08. Patient re-presented to the emergency department on 07/10 with the chief complaint of fever, weakness and confusion and was subsequently admitted into the hospital. He was switched over to ampicillin 500 t.i.d. which he finished a few days ago and has had no ongoing fever, chills, confusion. He has no back pain, nausea or vomiting and no suprapubic discomfort. He still has yet to see the urologist but has an appointment next week. Only complaint today is of some blood-tinged urine that was noted this morning. Related Data Home Medications Medication Instructions Recorded Confirmed aspirin 81 mg tablet,delayed 81 mg PO BEDTIME 02/06/18 07/25/22 release cholecalciferol (vitamin D3) 50 4,000 unit PO DAILY 02/06/18 07/25/22 mcg (2,000 unit) capsule (Vitamin D3) cyanocobalamin (vitamin B-12) 1,000 mcg PO QPM 02/06/18 07/25/22 1,000 mcg tablet (Vitamin B-12) multivitamin 1 tab PO QAM 02/06/18 07/25/22 nortriptyline 50 mg capsule 100 mg PO QPM 02/06/18 07/25/22 s-adenosylmethionine 400 mg tablet 1 tab PO QAM 02/06/18 07/25/22 (Zurdo-E) sertraline 100 mg tablet 150 mg PO QAM 02/06/18 07/25/22 vitamin E 268 mg (400 unit) capsule 400 unit PO QAM 02/06/18 07/25/22 ascorbate calcium (vitamin C) 500 500 mg PO DAILY 06/24/21 07/25/22 mg tablet dorzolamide 2 % eye drops 1 drp EYE-BOTH BID 06/24/21 07/25/22 latanoprost 0.005 % eye drops 1 drp EYE-BOTH BEDTIME 06/24/21 07/25/22 Refresh Plus 3 drp QID dry eyes 07/11/22 07/25/22 alendronate 70 mg tablet 70 mg PO QWEEK 07/11/22 07/25/22 aripiprazole 15 mg tablet (Abilify) 15 mg PO BEDTIME 07/11/22 07/25/22 magnesium 500 mg tablet 400 mg PO QPM 07/11/22 07/25/22 Previous Rx's Medication Instructions Recorded levothyroxine 50 mcg tablet 50 mcg PO DAILY #90 tabs 12/08/21 simvastatin 20 mg tablet 20 mg PO BEDTIME #90 tabs 06/26/22 docusate sodium 100 mg capsule 100 mg PO BID #30 caps 07/04/22 (Colace) ampicillin 500 mg capsule 1 g PO TID 10 days #60 caps 07/28/22 Allergies Allergy/AdvReac Type Severity Reaction Status Date / Time No Known Drug Allergies Allergy Verified 07/25/22 10:49 Review of Systems Review of Systems Narrative: GENERAL: Denies chills, fatigue, malaise, fever, sweats. HEENT: Denies sinus pain, ear pain, sore throat, difficulty swallowing, dizziness. RESPIRATORY: Denies dyspnea, cough, wheezing, hemoptysis, sputum. CARDIOVASCULAR: Denies chest pain, palpitations, orthopnea, edema, GASTROINTESTINAL: Denies nausea, vomiting, abdominal pain, diarrhea, constipation, melena. : See HPI MUSCULOSKELETAL: denies weakness, joint pain, or bony pain SKIN: Denies rash, skin lesions, or other NEUROLOGIC: Denies weakness, headache, numbness, change in speech, confusion, seizures, incoordination. PSYCHIATRIC: No concerning psychosocial issues. 12 point review of systems is negative except for those stated above Patient History Medical History Anemia Anxiety and depression Bipolar affective disorder in remission BPH (benign prostatic hyperplasia) Cataracts, bilateral (~2001) GERD with esophagitis Glaucoma (~2019) Hearing loss (~2014) Hyperlipidemia Hypothyroidism Osteoporosis Retinal detachment (~1960) Slow transit constipation Unspecified abnormalities of gait and mobility Vision disorder Surgical History Anesthesia History of foot surgery (~11/1959) History of hip surgery (~10/2014) History of hip surgery (~03/2011) S/P total knee arthroplasty (~08/2015) S/P TURP (~12/2013) Tibia fracture (~08/1974) Family History Father Cancer Mother Congestive heart failure Brother Stroke Grandmother History of heart disease Grandmother History of heart disease Social History household members: spouse Smoking Status: Former smoker alcohol intake: current Smoking Status: Former smoker tobacco type: cigarettes alcohol intake frequency: holidays/special occasions only Substance Use Type: does not use Exam Narrative Exam Narrative: GEN: AOx3 and in no obvious distress EYES: Pupils are equal, round, and reactive to light and accommodation. Extrao ccular muscles are intact bilaterally. There is no subconjunctival hemorrhage or exudate. CHEST: Lungs are clear to auscultation bilaterally and free of wheezes, rales, or rhonchi. Heart rate is regular rhythm, there are no murmurs, clicks, rubs, or gallops. There is no chest wall tenderness. ABD: Abdomen is soft and nontender. There is no guarding or rebound. Bowel sounds are normal in all 4 quadrants. There is no mass or organomegaly. : Damon catheter in placed, blood-tinged urine in bag, no clots, no gross hematuria EXT: Full painless ROM of all extremities with no loss of sensation or strength. SKIN: Warm, pink, and dry. No erythema or rash Initial Vital Signs Initial Vital Signs: Vital Signs Temperature 97.2 F L 07/28/22 17:26 Pulse Rate 56 L 07/28/22 17:26 Respiratory Rate 16 07/28/22 17:26 Blood Pressure 164/80 H 07/28/22 17:26 Pulse Oximetry 100 07/28/22 17:26 Oxygen Delivery Method Room Air 07/28/22 17:26 Course Orders Ordered: ED Orders 07/28/22 17:36 Ictotest Urine Stat Urinalysis and Microscopic Stat Urine Culture Stat Discontinued Medications Ampicillin Sodium 1,000 mg/ (Sodium Chloride) 100 mls @ 200 mls/hr IV NOW ONE Stop: 07/28/22 20:18 Last Infusion: 07/28/22 20:58 Dose: 0 mls/hr Documented By: Admin: 07/28/22 20:26 Dose: 200 mls/hr Documented By: DARIO Vital Signs Vital signs: Vital Signs - 8 hr 07/28/22 19:45 07/28/22 21:15 Pulse Rate 56 L 57 L Respiratory Rate 16 18 Blood Pressure 172/76 H 141/65 H Pulse Oximetry 98 99 Oxygen Delivery Method Room Air Room Air MDM - Male Genitourinary Lab Data Labs: Lab Results 07/28/22 Range/Units 17:36 Urine Color Red Urine Appearance Cloudy Urine pH 7.5 (4.5-8.0) Ur Specific Napoleon 1.020 (1.000-1.035) Urine Protein 2+ H (Negative) Urine Glucose (UA) Negative (Negative) g/dL Urine Ketones Negative (NEGATIVE) Urine Occult Blood 3+ H (Negative) Urine Nitrate Positive H (Negative) Urine Bilirubin 1+ H (NEGATIVE) Ur Bilirubin Confirm Negative (Negative) Urine Urobilinogen 1.0 (0.2) E.U./dL Ur Leukocyte Esterase 3+ H (NEGATIVE) Urine RBC >100/hpf H (0-5/HPF) Urine WBC >100/hpf H (0-5/HPF) Ur Squamous Epith Cells 5-10 /hpf H (0-5/HPF) Ur Transition Epith Cell 1-5/hpf (0-5/HPF) Urine Bacteria Many (>30) H (None) Ur Culture Indicated? Specimen cultured [facility] Narrative Medical decision making narrative: [81] year old patient presents with hematuria Multiple etiologies for patient's symptoms considered including, but not limited to: [UTI, kidney stone versus other] Prior Charts reviewed in our EMR Primary Historian: patient Labs reviewed and interpreted by myself: Urine demonstrates signs of UTI along hematuria, prior records and sensitivities reviewed, ampicillin likely to cover both organisms Patient with blood-tinged urine in the absence of dizziness, weakness, lightheadedness, no fever or chills, no pain, nausea, vomiting or CVA tenderness. No evidence of gross hematuria. Urine suggestive of infectious process, no indications for hospitalization at this time, will prescribe ampicillin given prior sensitivities, though he did just take a week of this his symptoms state completely clear, will extend the duration and encouraged close follow-up Findings and discharge diagnosis discussed with patient/family followed by verbalization of understanding Return precautions discussed with patient/family whom verbalize understanding of diagnosis and plan Discharge Plan Departure Patient Disposition: Home Clinical Impression: Acute UTI Instructions: DI for Urinary Tract Infection (UTI) Activity Restrictions/Additional Instructions: *You have been diagnosed with [UTI with hematuria] *What to do: *Please continue to take your regular medications as directed. [x ] New medication prescriptions sent to your pharmacy: [ [facility]] [ ] New medication written as a paper prescription [ ] No new medications given * please follow-up with your urologist next week as planned. I will electronically transmitted a copy of today's note *Return to Emergency Department if you should have any new, worsening or concerning symptoms, such as [fever greater than 101 F, shaking chills, worsening pain, persistent vomiting or other bothersome symptoms] Prescriptions: New ampicillin 500 mg capsule 1 g PO TID 10 Days Qty: 60 0RF No Action levothyroxine 50 mcg tablet 50 mcg PO DAILY Qty: 90 3RF simvastatin 20 mg tablet 20 mg PO BEDTIME Qty: 90 3RF dorzolamide 2 % drops 1 drp EYE-BOTH BID latanoprost 0.005 % drops 1 drp EYE-BOTH BEDTIME ascorbate calcium (vitamin C) 500 mg tablet 500 mg PO DAILY sertraline 100 mg tablet 150 mg PO QAM multivitamin Tablet 1 tab PO QAM cyanocobalamin (vitamin B-12) [Vitamin B-12] 1,000 mcg Tablet 1,000 mcg PO QPM aspirin 81 mg Tablet,Delayed Release (Dr/Ec) 81 mg PO BEDTIME vitamin E 400 unit Capsule 400 unit PO QAM nortriptyline 50 mg Capsule 100 mg PO QPM Patient Comments: dinner Zurdo-E 400 mg Tablet 1 tab PO QAM Patient Comments: breakfast cholecalciferol (vitamin D3) [Vitamin D3] 2,000 unit Capsule 4,000 unit PO DAILY docusate sodium [Colace] 100 mg capsule 100 mg PO BID Qty: 30 0RF magnesium 500 mg Tablet 400 mg PO QPM aripiprazole [Abilify] 15 mg Tablet 15 mg PO BEDTIME Refresh Plus 3 drp QID alendronate 70 mg Tablet 70 mg PO QWEEK Referrals: Saulo Diane MD [Primary Care Provider] - Stand Alone Forms: Patient Portal/API
[2022-07-28 19:45] VITALS: BP 172/76; PULSE 56; RESP 16; O2SAT 98
[2022-07-28] MEDS: AMPICILLIN 1,000 MG in SODIUM CHLORIDE 0.9% 100 ML 200 MG IV (20:26)
[2022-07-28 21:15] VITALS: BP 141/65; PULSE 57; RESP 18; O2SAT 99
== END 2022-07-28 21:19 | disposition home or self-care (01) ==
PROVIDERS: Emergency Medicine; Emergency Provider Emergency Medicine; PCP Internal Medicine
DX: N39.0 Urinary tract infection, site not specified (principal); B96.4 Proteus (mirabilis) (morganii) as the cause of diseases classified elsewhere; Z79.899 Other long term (current) drug therapy
CPT/HCPCS: 81001; 87077; 87086; 87186; 96365; 99283; 99284; J0290

== ENCOUNTER → 2022-08-01 17:27 | Outpatient (CLI) | payer MEDICARE, SELFPAY ==
[2022-07-10 21:58] VITALS: BMI 24.3
== END ==
PROVIDERS: PCP Internal Medicine; Visit Provider Urology
DX: N39.0 Urinary tract infection, site not specified (principal); R33.9 Retention of urine, unspecified; T83.511A Infection and inflammatory reaction due to indwelling urethral catheter, initial encounter; R26.9 Unspecified abnormalities of gait and mobility
CPT/HCPCS: 51702; 87077; 87086; 87186; 99214

== ENCOUNTER 2022-09-14 13:32 | Emergency (ER) | payer MEDICARE, OTHER, SELFPAY ==
[2022-08-23 10:30] VITALS: BMI 24.3
[2022-09-14] VITALS (13 sets, daily range): BP systolic 121–177; BP diastolic 58–88; PULSE 52–73; RESP 16–18; TEMP 36.5; O2SAT 97–100; BMI 24.0
--- NOTE | 2022-09-14 13:48 | DI.CT.S_ITS ---
PROCEDURE: CT CHEST ABD PEL WO CON INDICATIONS: fall, lethargy TECHNIQUE: After the administration of oral contrast, 5 mm thick sections acquired from the lung apices to the symphysis pubis. 5 mm thick coronal and sagittal reformats acquired, with additional 7 mm coronal MIP reformats through the lungs. For radiation dose reduction, the following was used: automated exposure control, adjustment of mA and/or kV according to patient size. COMPARISON: CT 07/04/2022. FINDINGS: Image quality: Excellent. CHEST: Lungs and pleura: No acute pulmonary opacities. No pleural effusions or pneumothorax. Mild central bronchiectasis. Mediastinum: Heart size is normal. No pericardial effusion. No mediastinal adenopathy by CT size criteria. Thoracic aorta and central pulmonary arteries are normal in size. Esophagus is normal in caliber. Small hiatal hernia. Chest wall: No axillary or supraclavicular adenopathy by size criteria. Thyroid gland is unremarkable . ABDOMEN: Solid organs: Liver is normal in size. Coarse calcification along the posterior right hepatic lobe, benign. Gallbladder contains sludge, but no wall thickening. Pancreas is normal in contours. Spleen is normal in size. New 3.2 cm nodularity of the right adrenal gland, with hyperattenuation. Both kidneys are normal in size, without hydronephrosis or nephrolithiasis. Peritoneum and bowel: Small and large bowel loops are normal in caliber and wall thickness. No free fluid or air. Colonic diverticulosis without evidence of diverticulitis. Nodes and vessels: No retroperitoneal or mesenteric adenopathy by size criteria. Aorta and inferior vena cava are normal in size. Miscellaneous: No ventral hernias. PELVIS: Genitourinary: Bladder wall thickness is normal. Miscellaneous: Bilateral small inguinal hernias containing nonobstructed small bowel Bones: Age indeterminate nondisplaced fracture of the posterolateral left 9th rib. Healing subacute and chronic bilateral rib fractures. Left total hip arthroplasty and jude and screw fixation of the right femur. IMPRESSION: New 3.2 cm nodularity of the right adrenal gland, with hyperattenuation. Adrenal hemorrhage not excluded, nor is malignancy. Age indeterminate left posterolateral 9th rib fracture deformity. Healing bilateral rib fractures. Dictated by: Suhas Magaña M.D. on 09/14/2022 at 14:31 Approved by: Suhas Magaña M.D. on 09/14/2022 at 14:37
--- NOTE | 2022-09-14 13:48 | DI.CT.S_ITS ---
PROCEDURE: CT CERVICAL SPINE WO CON INDICATIONS: fall, lethargy TECHNIQUE: Noncontrast 3 mm thick sections acquired from the skull base to the T4 level. Sagittal and coronal reformats were then constructed. For radiation dose reduction, the following was used: automated exposure control, adjustment of mA and/or kV according to patient size. COMPARISON: None. FINDINGS: Image quality: Excellent. Bones: No fractures or dislocations. Visualized superior ribs are intact. Moderate disc height loss at C3 through T1. Moderate facet arthrosis, multilevel, most prominent at C3-4 and C4-5. Soft tissues: Prevertebral soft tissues are normal in thickness. No paravertebral hematomas. No apical pneumothoraces. IMPRESSION: No acute, displaced fracture or traumatic subluxation. Dictated by: Suhas Magaña M.D. on 09/14/2022 at 14:40 Approved by: Suhas Magaña M.D. on 09/14/2022 at 14:44
--- NOTE | 2022-09-14 13:48 | DI.CT.S_ITS ---
PROCEDURE: CT HEAD/BRAIN WO CON INDICATIONS: fall, lethargy TECHNIQUE: Noncontrast 4.5 mm thick angled axial sections acquired from the foramen magnum to the vertex, with coronal and sagittal reformats. For radiation dose reduction, the following was used: automated exposure control, adjustment of mA and/or kV according to patient size. COMPARISON: [facility], CT, CT HEAD/BRAIN WO CON, 07/10/2022, 19:36. FINDINGS: Image quality: Excellent. CSF spaces: Basal cisterns are patent. No extra-axial fluid collections. The ventricles are symmetric in size and shape. Brain: No intracranial bleeds or masses. There is cerebral volume loss for age, with resultant ventricular and sulcal prominence. There are periventricular and deep white matter chronic small vessel ischemic changes. There is intracranial internal carotid artery atherosclerosis. Skull and face: Calvarium and visualized facial bones appear intact, without suspicious lesions. Sinuses: Visualized sinuses and mastoids are clear. IMPRESSION: No acute intracranial pathology. Dictated by: Suhas Magaña M.D. on 09/14/2022 at 14:38 Approved by: Suhas Magaña M.D. on 09/14/2022 at 14:40
--- NOTE | 2022-09-14 17:07 | PC.NURSE ---
Patient frequently standing outside of room, states she is frustrated with wait time. Educated and apologized to pt and concerning wait times, pt verbalizes understanding. states He needs to be drinking more water to fix his urinary problems, we ran out of the water bottle we came with. Neither nor pt had previously requested water. Water cup provided to pt. states He needs more water than that. Educated and pt ER only has single size cup but can refill as needed. Pt call light remains in reach.
[2022-09-14 17:23] LABS: Mucus Urine 2+ (Negative); RBC Urine 0-1/HPF (0-5/HPF); Squamous Epithelial Cell Urine 0-1 /HPF (0-5/HPF); WBC Urine 5-10/HPF (0-5/HPF)
[2022-09-14 17:24] LABS: Bacteria Urine Few (2-10); Culture Indicated Urine Specimen Cultured
--- NOTE | 2022-09-14 18:17 | ED.FALL ---
HPI - Fall General Chief Complaint: Fall Stated Complaint: Fell several days ago Time Seen by Provider: 09/14/22 17:54 Source: patient Mode of arrival: Ambulatory History of Present Illness HPI Narrative: Patient is an 81-year-old male history of mild cognitive disorder, hyperlipidemia, presents today with increasing weakness. He recently was admitted in July for UTI sepsis. He had an indwelling catheter catheter is now out. He actually fell 4 days ago. Last weekend he went to a grandson's graduation over did it ended up with cold. He was feeling good he went out for a walk with his walking sticks and not his walker when he fell. To pass her Natalie found him helped him up and brought him. Since then reports that he has been sleeping he has no energy. No reported falls since his initial. Just generally feeling weak. Having neck pain back pain. He is not on antiplatelet or anticoagulation medication. No nausea or vomiting. Related Data Home Medications Medication Instructions Recorded Confirmed aspirin 81 mg tablet,delayed 81 mg PO BEDTIME 02/06/18 09/04/22 release cholecalciferol (vitamin D3) 50 4,000 unit PO DAILY 02/06/18 09/04/22 mcg (2,000 unit) capsule (Vitamin D3) cyanocobalamin (vitamin B-12) 1,000 mcg PO QPM 02/06/18 09/04/22 1,000 mcg tablet (Vitamin B-12) multivitamin 1 tab PO QAM 02/06/18 09/04/22 nortriptyline 50 mg capsule 100 mg PO QPM 02/06/18 09/04/22 s-adenosylmethionine 400 mg tablet 1 tab PO QAM 02/06/18 09/04/22 (Zurdo-E) sertraline 100 mg tablet 150 mg PO QAM 02/06/18 09/04/22 vitamin E 268 mg (400 unit) capsule 400 unit PO QAM 02/06/18 09/04/22 ascorbate calcium (vitamin C) 500 500 mg PO DAILY 06/24/21 09/04/22 mg tablet dorzolamide 2 % eye drops 1 drp EYE-BOTH BID 06/24/21 09/04/22 latanoprost 0.005 % eye drops 1 drp EYE-BOTH BEDTIME 06/24/21 09/04/22 Refresh Plus 3 drp QID dry eyes 07/11/22 09/04/22 alendronate 70 mg tablet 70 mg PO QWEEK 07/11/22 09/04/22 aripiprazole 15 mg tablet (Abilify) 15 mg PO BEDTIME 07/11/22 09/04/22 magnesium 500 mg tablet 400 mg PO QPM 07/11/22 09/04/22 Previous Rx's Medication Instructions Recorded levothyroxine 50 mcg tablet 50 mcg PO DAILY #90 tabs 12/08/21 simvastatin 20 mg tablet 20 mg PO BEDTIME #90 tabs 06/26/22 levofloxacin 500 mg tablet 500 mg PO DAILY #4 tabs 09/14/22 Allergies Allergy/AdvReac Type Severity Reaction Status Date / Time No Known Drug Allergies Allergy Verified 09/14/22 13:45 Review of Systems Review of Systems ROS Unobtainable: All systems reviewed & are unremarkable except as noted in HPI and below Patient History Medical History Anemia Anxiety and depression Bipolar affective disorder in remission BPH (benign prostatic hyperplasia) Cataracts, bilateral (~2001) GERD with esophagitis Glaucoma (~2019) Hearing loss (~2014) Hyperlipidemia Hypothyroidism Osteoporosis Retinal detachment (~1960) Slow transit constipation Unspecified abnormalities of gait and mobility Vision disorder Surgical History Anesthesia History of foot surgery (~11/1959) History of hip surgery (~10/2014) History of hip surgery (~03/2011) S/P total knee arthroplasty (~08/2015) S/P TURP (~12/2013) Tibia fracture (~08/1974) Family History Father Cancer Mother Congestive heart failure Brother Stroke Grandmother History of heart disease Grandmother History of heart disease Social History household members: spouse Smoking Status: Former smoker alcohol intake: current Smoking Status: Former smoker tobacco type: cigarettes alcohol intake frequency: holidays/special occasions only Substance Use Type: does not use Exam Initial Vital Signs Initial Vital Signs: Vital Signs Temperature 97.7 F 09/14/22 13:41 Pulse Rate 73 09/14/22 13:41 Respiratory Rate 18 09/14/22 13:41 Blood Pressure 121/58 L 09/14/22 13:41 Pulse Oximetry 99 09/14/22 13:41 Oxygen Delivery Method Room Air 09/14/22 13:41 GENERAL: Awake alert weak 81-year-old male HEENT: Head atraumatic,EOMI, pupils reactive, face symmetric, moist mucous membranes CARDIOVASCULAR: Regular rate and rhythm without murmurs, rubs or gallops. RESPIRATORY: Breath sounds equal bilaterally, no wheezes rales or rhonchi. ABDOMEN: Soft, nontender. Normoactive bowel sounds all 4 quadrants. No guarding or rebound. BACK: No vertebral tenderness no step-off EXTREMITIES: Normal range of motion, no clubbing or edema. Neurovascularly intact NEUROLOGICAL: Alert and oriented x4.Normal gait and speech. SKIN: Warm, dry, no laceration, no petechiae, no rashes or lesions. Course Orders Ordered: Discontinued Medications Sodium Chloride (Normal Saline 0.9%) 1,000 mls @ 1,000 mls/hr IV BOLUS ONE Stop: 09/14/22 19:16 Last Infusion: 09/14/22 19:30 Dose: 0 mls/hr Documented By: Admin: 09/14/22 18:34 Dose: 1,000 mls/hr Documented By: KOLBY Levofloxacin (Levofloxacin 250 Mg Tablet) 500 mg PO NOW ONE Stop: 09/14/22 19:05 Last Admin: 09/14/22 19:12 Dose: 500 mg Documented By: Vital Signs Vital signs: Vital Signs - 8 hr 09/14/22 19:23 09/14/22 19:23 09/14/22 19:30 Pulse Rate 60 54 L Respiratory Rate 16 Blood Pressure 167/75 H 167/75 H Pulse Oximetry 98 97 Oxygen Delivery Method Room Air MDM - Fall Lab Data 09/14/22 18:25 09/14/22 18:25 Labs: Lab Results 09/14/22 09/14/22 09/14/22 Range/Units 16:31 18:25 18:25 WBC 6.3 (4.5-11.0) X10^3/uL RBC 4.77 (4.5-5.9) X10^6/uL Hgb 14.6 (13.5-17.5) g/dL Hct 42.4 (41-53) % MCV 89.0 (80-100) fL MCH 30.7 (26-34) PG MCHC 34.5 (30-36) % RDW 14.0 (11.6-14.8) % Plt Count 144 L (150-400) X10^3/uL Neut % (Auto) 72.8 (50-75) % Lymph % (Auto) 16.6 L (25-40) % Dickens % (Auto) 8.7 (3-14) % Eos % (Auto) 1.6 L (2-4) % Baso % (Auto) 0.3 (0-2) % Neut # (Auto) 4600 (2446-5210) /uL Lymph # (Auto) 1100 (6409-9434) /uL Dickens # (Auto) 600 (0-900) /uL Eos # (Auto) 100 (0-450) /uL Baso # (Auto) 0 (0-100) /uL Sodium 132 L (137-145) mmol/L Potassium 4.7 (3.4-5.1) mmol/L Chloride 96 L (98-107) mmol/L Carbon Dioxide 27 (22-32) mmol/L BUN 28 H (9-20) mg/dL Creatinine 1.03 (0.66-1.25) mg/dL Estimated GFR > 60 (>60) mL/min BUN/Creatinine Ratio 27.2 H (6-22) Glucose 98 (80-110) mg/dL Lactate (0.7-2.1) mmol/L Calcium 9.2 (8.4-10.2) mg/dL Total Bilirubin 0.7 (0.2-1.3) mg/dL AST 37 (17-59) IU/L ALT 27 (<50) IU/L Alkaline Phosphatase 96 (38-126) U/L Total Protein 7.9 (6.3-8.2) g/dL Albumin 4.6 (3.5-5.0) g/dL Globulin 3.3 (1.7-4.1) g/dL Albumin/Globulin Ratio 1.4 (1.0-2.8) Procalcitonin (<0.5) ng/mL Urine RBC 0-1/hpf D (0-5/HPF) Urine WBC 5-10/hpf H (0-5/HPF) Ur Squamous Epith Cells 0-1 /hpf (0-5/HPF) Urine Bacteria Few (2-10) H (None) Urine Mucus 2+ H (Negative) Ur Culture Indicated? Specimen cultured 09/14/22 09/14/22 Range/Units 18:25 18:25 WBC (4.5-11.0) X10^3/uL RBC (4.5-5.9) X10^6/uL Hgb (13.5-17.5) g/dL Hct (41-53) % MCV (80-100) fL MCH (26-34) PG MCHC (30-36) % RDW (11.6-14.8) % Plt Count (150-400) X10^3/uL Neut % (Auto) (50-75) % Lymph % (Auto) (25-40) % Dickens % (Auto) (3-14) % Eos % (Auto) (2-4) % Baso % (Auto) (0-2) % Neut # (Auto) (1807-6022) /uL Lymph # (Auto) (4775-7692) /uL Dickens # (Auto) (0-900) /uL Eos # (Auto) (0-450) /uL Baso # (Auto) (0-100) /uL Sodium (137-145) mmol/L Potassium (3.4-5.1) mmol/L Chloride (98-107) mmol/L Carbon Dioxide (22-32) mmol/L BUN (9-20) mg/dL Creatinine (0.66-1.25) mg/dL Estimated GFR (>60) mL/min BUN/Creatinine Ratio (6-22) Glucose (80-110) mg/dL Lactate 0.8 (0.7-2.1) mmol/L Calcium (8.4-10.2) mg/dL Total Bilirubin (0.2-1.3) mg/dL AST (17-59) IU/L ALT (<50) IU/L Alkaline Phosphatase (38-126) U/L Total Protein (6.3-8.2) g/dL Albumin (3.5-5.0) g/dL Globulin (1.7-4.1) g/dL Albumin/Globulin Ratio (1.0-2.8) Procalcitonin 0.07 (<0.5) ng/mL Urine RBC (0-5/HPF) Urine WBC (0-5/HPF) Ur Squamous Epith Cells (0-5/HPF) Urine Bacteria (None) Urine Mucus (Negative) Ur Culture Indicated? Urine Dip Bedside Urine Glucose Negative Bedside Urine Bilirubin - Negative Bedside Urine Ketone - Negative Urine Specific [place] 1.015 Bedside Urine Occult Blood - Negative Bedside Urine pH 5.5 Bedside Urine Protein - Negative Bedside Urine Urobilinogen - Negative Bedside Urine Nitrite - Negative Bedside Urine Leukocytes +/- [address] scan - head: Radiologist's Impression: PROCEDURE:? CT HEAD/BRAIN WO CON ? INDICATIONS:? fall, lethargy ? TECHNIQUE:? Noncontrast 4.5 mm thick angled axial sections acquired from the foramen magnum to the vertex, with coronal and sagittal reformats.? For radiation dose reduction, the following was used:? automated exposure control, adjustment of mA and/or kV according to patient size.? ? COMPARISON:? [facility], CT, CT HEAD/BRAIN WO CON, 07/10/2022, 19:36. ? FINDINGS:? Image quality:? Excellent.? ? CSF spaces:? Basal cisterns are patent.? No extra-axial fluid collections.? The ventricles are symmetric in size and shape.? ? Brain:? No intracranial bleeds or masses.? There is cerebral volume loss for age, with resultant ventricular and sulcal prominence.? There are periventricular and deep white matter chronic small vessel ischemic changes.? There is intracranial internal carotid artery atherosclerosis.? ? Skull and face:? Calvarium and visualized facial bones appear intact, without suspicious lesions.? ? Sinuses:? Visualized sinuses and mastoids are clear.? ? IMPRESSION:? No acute intracranial pathology.? ? ? Dictated by: Suhas Magaña M.D. on 09/14/2022 at 14:38? CT scan - chest: Radiologist's Impression: PROCEDURE:? CT CHEST ABD PEL WO CON ? INDICATIONS:? fall, lethargy ? TECHNIQUE:? After the administration of oral contrast, 5 mm thick sections acquired from the lung apices to the symphysis pubis.? 5 mm thick coronal and sagittal reformats acquired, with additional 7 mm coronal MIP reformats through the lungs.? For radiation dose reduction, the following was used:? automated exposure control, adjustment of mA and/or kV according to patient size.? ? COMPARISON:? CT 07/04/2022. ? FINDINGS:? Image quality:? Excellent.? ? CHEST:? Lungs and pleura:? No acute pulmonary opacities.? No pleural effusions or pneumothorax.? Mild central bronchiectasis. ? Mediastinum:? Heart size is normal.? No pericardial effusion.? No mediastinal adenopathy by CT size criteria.? Thoracic aorta and central pulmonary arteries are normal in size.? Esophagus is normal in caliber.? Small hiatal hernia.? ? Chest wall:? No axillary or supraclavicular adenopathy by size criteria.? Thyroid gland is unremarkable .? ? ? ABDOMEN:? Solid organs:? Liver is normal in size.? Coarse calcification along the posterior right hepatic lobe, benign.? Gallbladder contains sludge, but no wall thickening.? Pancreas is normal in contours.? Spleen is normal in size.? New 3.2 cm nodularity of the right adrenal gland, with hyperattenuation.? Both kidneys are normal in size, without hydronephrosis or nephrolithiasis.? ? Peritoneum and bowel:? Small and large bowel loops are normal in caliber and wall thickness.? No free fluid or air. Colonic diverticulosis without evidence of diverticulitis. ? Nodes and vessels:? No retroperitoneal or mesenteric adenopathy by size criteria.? Aorta and inferior vena cava are normal in size.? ? Miscellaneous:? No ventral hernias.? ? ? PELVIS:? Genitourinary:? Bladder wall thickness is normal.? ? Miscellaneous:? Bilateral small inguinal hernias containing nonobstructed small bowel ? Bones:? Age indeterminate nondisplaced fracture of the posterolateral left 9th rib.? Healing subacute and chronic bilateral rib fractures.? Left total hip arthroplasty and jude and screw fixation of the right femur.? ? IMPRESSION:? New 3.2 cm nodularity of the right adrenal gland, with hyperattenuation.? Adrenal hemorrhage not excluded, nor is malignancy. ? Age indeterminate left posterolateral 9th rib fracture deformity.? Healing bilateral rib fractures. ? Dictated by: Suhas Magaña M.D. on 09/14/2022 at 14:31 CT - cervical spine: Radiologist's Impression: PROCEDURE:? CT CERVICAL SPINE WO CON ? INDICATIONS:? fall, lethargy ? TECHNIQUE:? Noncontrast 3 mm thick sections acquired from the skull base to the T4 level.? Sagittal and coronal reformats were then constructed.? For radiation dose reduction, the following was used:? automated exposure control, adjustment of mA and/or kV according to patient size.? ? COMPARISON:? None. ? FINDINGS:? Image quality:? Excellent.? ? Bones:? No fractures or dislocations.? Visualized superior ribs are intact.? Moderate disc height loss at C3 through T1.? Moderate facet arthrosis, multilevel, most prominent at C3-4 and C4-5. ? Soft tissues:? Prevertebral soft tissues are normal in thickness.? No paravertebral hematomas.? No apical pneumothoraces.? ? ? IMPRESSION:? No acute, displaced fracture or traumatic subluxation. ? ? ? Dictated by: Suhas Magaña M.D. on 09/14/2022 at 14:40? [facility] Narrative Medical decision making narrative: The patient 81-year-old male presents 4 days after a fall new sign of injury. He had head CT C-spine CT chest abdomen pelvis CT without contrast which did not show any injury. Still overall very sleepy is sick with upper respiratory symptoms. Blood work is overall reassuring no evidence of leukocytosis anemia electrolyte abnormality or MANSI, it is at baseline and stable without clinical significance. Urinalysis does show some leukocytes and bacteria, he does have history of UTIs he has no painful or frequent urination. However based on increased sleepiness I think reasonable to treat. He has had past infections with Pseudomonas and Proteus. Given Levaquin. Overall he appears stable vitals are stable. Both he and feel comfortable going home. Discharge Plan Departure Patient Disposition: Home Clinical Impression: Acute UTI Instructions: DI for Urinary Tract Infection (UTI) Activity Restrictions/Additional Instructions: *You have been diagnosed with UTI *What to do: At this time it looks like a mild UTI blood work is overall reassuring, imaging today was negative for injury for follow though there does appear to be a left old rib fracture *Continue to take medications as directed Levaquin 500 mg once a day for 5 days --> SENT TO [facility] *Follow up with your primary care provider in 2-3 days or call [phone] *Return to ER if you should have increasing weakness falling confusion or any new, worsening or concerning symptoms Prescriptions: New levofloxacin 500 mg tablet 500 mg PO DAILY Qty: 4 0RF No Action levothyroxine 50 mcg tablet 50 mcg PO DAILY Qty: 90 3RF simvastatin 20 mg tablet 20 mg PO BEDTIME Qty: 90 3RF dorzolamide 2 % drops 1 drp EYE-BOTH BID latanoprost 0.005 % drops 1 drp EYE-BOTH BEDTIME ascorbate calcium (vitamin C) 500 mg tablet 500 mg PO DAILY sertraline 100 mg tablet 150 mg PO QAM multivitamin Tablet 1 tab PO QAM cyanocobalamin (vitamin B-12) [Vitamin B-12] 1,000 mcg Tablet 1,000 mcg PO QPM aspirin 81 mg Tablet,Delayed Release (Dr/Ec) 81 mg PO BEDTIME vitamin E 400 unit Capsule 400 unit PO QAM nortriptyline 50 mg Capsule 100 mg PO QPM Patient Comments: dinner Zurdo-E 400 mg Tablet 1 tab PO QAM Patient Comments: breakfast cholecalciferol (vitamin D3) [Vitamin D3] 2,000 unit Capsule 4,000 unit PO DAILY magnesium 500 mg Tablet 400 mg PO QPM aripiprazole [Abilify] 15 mg Tablet 15 mg PO BEDTIME Refresh Plus 3 drp QID alendronate 70 mg Tablet 70 mg PO QWEEK Referrals: Saulo Diane MD [Primary Care Provider] - Stand Alone Forms: Patient Portal/API
[2022-09-14] MEDS: SODIUM CHLORIDE 0.9% 1,000 ML 1000 ML IV (18:34)
[2022-09-14 18:39] LABS: Add Manual Diff / Slide Review NO; Basophils Absolute Auto 0 /uL (0-100); Basophils Percent Auto 0.3 % (0-2); Eosinophils Absolute Auto 100 /uL (0-450); Eosinophils Percent Auto 1.6 % (2-4); Hematocrit 42.4 % (41-53); Hemoglobin 14.6 g/dL (13.5-17.5); Lymphocytes Absolute Auto 1100 /uL (1100-4500); Lymphocytes Percent Auto 16.6 % (25-40); Mean Corpuscular HGB Conc 34.5 % (30-36); Mean Corpuscular Hemoglobin 30.7 PG (26-34); Monocytes Absolute Auto 600 /uL (0-900); Monocytes Percent Auto 8.7 % (3-14); Neutrophils Absolute Auto 4600 /uL (1500-7000); Neutrophils Percent Auto 72.8 % (50-75); Platelet Count 144 X10^3/uL (150-400); Red Blood Cell Count 4.77 X10^6/uL (4.5-5.9); White Blood Cell Count 6.3 X10^3/uL (4.5-11.0)
[2022-09-14 18:54] LABS: Lactate (Lactic Acid) 0.8 mmol/L (0.7-2.1)
[2022-09-14 18:55] LABS: Alanine Aminotransferase 27 IU/L (<50); Albumin 4.6 g/dL (3.5-5.0); Albumin Globulin Ratio 1.4 (1.0-2.8); Alkaline Phosphatase 96 U/L (38-126); Aspartate Aminotransferase 37 IU/L (17-59); BUN Creatinine Ratio 27.2 (6-22); Bilirubin Total 0.7 mg/dL (0.2-1.3); Blood Urea Nitrogen 28 mg/dL (9-20); Calcium 9.2 mg/dL (8.4-10.2); Carbon Dioxide 27 mmol/L (22-32); Chloride 96 mmol/L (98-107); Estimated Glomerular Filt Rate > 60 mL/min (>60); Globulin 3.3 g/dL (1.7-4.1); Glucose 98 mg/dL (80-110); HEMOLYSIS < 15 (0-50); Potassium 4.7 mmol/L (3.4-5.1); Sodium 132 mmol/L (137-145); Total Protein 7.9 g/dL (6.3-8.2)
[2022-09-14 19:12] LABS: Procalcitonin 0.07 ng/mL (<0.5)
[2022-09-14] MEDS: levoFLOXacin 250 MG TABLET 500 MG PO (19:12)
== END 2022-09-14 20:18 | disposition home or self-care (01) ==
PROVIDERS: Emergency Medicine; Emergency Provider Emergency Medicine; PCP Internal Medicine
DX: N39.0 Urinary tract infection, site not specified (principal); M54.2 Cervicalgia; M54.6 Pain in thoracic spine; R29.6 Repeated falls; W18.30XA Fall on same level, unspecified, initial encounter
CPT/HCPCS: 36415; 70450; 71250; 72125; 74176; 80053; 81003; 81015; 83605; 84145; 85025; 87040; 87086; 96360; 99284

== ENCOUNTER 2022-10-26 11:49 | Outpatient (RCR) | payer MEDICARE, SELFPAY ==
[2022-08-23 10:30] VITALS: BMI 24.3
--- NOTE | 2022-10-26 12:45 | PT.OIE ---
Current Diagnoses Unsteadiness on feet (10/26/22) Unspecified abnormalities of gait and mobility (10/26/22) Weakness (10/26/22) History of falling (10/26/22) Past Medical History (Last Updated 10/25/22 @ 14:02 by David Rene MD) Anemia Anxiety and depression Bipolar affective disorder in remission BPH (benign prostatic hyperplasia) Cataracts, bilateral (~2001) GERD with esophagitis Glaucoma (~2019) Hearing loss (~2014) History of urinary retention Hyperlipidemia Hypothyroidism Incomplete emptying of bladder Osteoporosis Retinal detachment (~1960) Slow transit constipation Unspecified abnormalities of gait and mobility Vision disorder Past Surgical History (Last Reviewed 09/14/22 @ 18:27 by Shahrzad Rai DO) Anesthesia History of foot surgery (~11/1959) History of hip surgery (~10/2014) History of hip surgery (~03/2011) S/P total knee arthroplasty (~08/2015) S/P TURP (~12/2013) Tibia fracture (~08/1974) Visit Care Team Role Provider Type Saulo Diane MD Attending Provider Physician Family Provider Primary Care Provider Referring Provider Specialty: Internal Medicine Address: [address] [place] [address], [address], [facility] Email: [email or web address] Physical Therapy Initial Evaluation PT-OP-A Visit Information Start: 10/26/22 17:37 Freq: Status: Active Protocol: Document 10/26/22 12:00 DCW (Rec: 10/26/22 17:48 DC [id number]) Out-Patient Physical Therapy Visit Information Visit Information Visit Type Initial Evaluation Visit Start Time 12:00 Visit Stop Time 12:45 Total Visit Minutes 45 Visit Number 1 Number of FLOATMAN Visits 0 Evaluation Information Evaluation Date 10/26/22 PT-OP-B Current Condition Start: 10/26/22 17:37 Freq: Status: Active Protocol: Document 10/26/22 12:00 DCW (Rec: 10/26/22 17:48 DCW [id number]) Current Condition History of Current Condition Onset Date One month Current Complaints Recent falls, feeling of weakness and fatigue History of Current Condition Pt is an 81 year old male presenting with complaints of a one month history of weakness, fatigue, and increased fear of falling following a recent fall. Feels like he has just experienced general deconditioning and loss of muscle mass. Reports he uses a FWW or trekking poles when out on uneven surfaces. Notes a history of multiple bilateral knee surgeries, most recently ~ three years ago. Treatment Goals Patient/Caregiver Goals I want to get back to walking without a walker or poles. Personal Factors Other Personal Factors That May Effect BPH, Bipolar, Depression, Therapy/Recovery Osteoporosis, TKA PT-OP-C Subjective Start: 10/26/22 17:37 Freq: Status: Active Protocol: Document 10/26/22 12:00 DCW (Rec: 10/26/22 17:48 DCW [id number]) OP-PT Subjective Patient Comments Patient Comments I've been a little dizzy recently. Describes dizziness as more of a pain in my head and loss of stability. OP-PT Pain Assessment Pain Assessment Grid Paper Pain Assessment Grid Completed No PT-OP-D Balance Start: 10/26/22 17:37 Freq: Status: Active Protocol: Document 10/26/22 12:00 DCW (Rec: 10/26/22 17:48 DCW [id number]) Balance Tests Ross Balance Test Ross Balance Test Score 42/56 Ross Impairment Rating 20 to 39% Impaired (Score 34- 44) Ross Balance Assessment Evaluation Sitting to Standing Ability Independent w/out Hands Unsupported Stance Supervision- 2 minutes Sitting Unsupported, Feet on Floor Safely- 2 minutes Standing to Sitting Ability Safely, Minimal Hand Use Transfer Ability Safely, Minimal Hand Use Unsupported Stance- Eyes Closed Supervision, 10 seconds Unsupported Stance- Eyes Open Supervision to maintain Reaching Forward Standing Safely, 5 inches Pick- Up Object From Floor Supervision Look Behind Shoulder - Standing Turns Sideways Only Turning 360 Degrees Turns slowly, but safely Unsupported Stance, Alternating Feet on (I)- 8 Steps in 20 secs Stair Unsupported Tandem Stance Small Step- 30 seconds Unilateral Leg Stance Lifts Leg/Unable to Hold Total Score Ross Total Score (out of 56 points) 42 Ross Impairment Rating 20 to 39% Impaired (Score 34- 44) PT-OP-E Functional Tests Start: 10/26/22 17:37 Freq: Status: Active Protocol: Document 10/26/22 12:00 DCW (Rec: 10/26/22 17:48 DCW [id number]) Functional Tests Dynamic Gait Index (DGI) Score 13/24 DGI Impairment Rating 40 to <60% Impaired (Score 10- 14) Five Times Sit to Stand Test Score 15.27 PT-OP-M Strength Start: 10/26/22 17:37 Freq: Status: Active Protocol: Document 10/26/22 12:00 DCW (Rec: 10/26/22 17:48 DCW [id number]) Hip Strength Hip Manual Muscle Testing Right Flexion (L2) 4+ Good+ Abduction 4 Good Adduction 4+ Good+ External Rotation 4 Good Internal Rotation 4- Good- Left Flexion (L2) 4+ Good+ Abduction 4 Good Adduction 4+ Good+ External Rotation 4+ Good+ Internal Rotation 4- Good- Knee Strength Knee Manual Muscle Testing Right Flexion (S2) 4+ Good+ Extension (L3) 4+ Good+ Left Flexion (S2) 4+ Good+ Extension (L3) 4+ Good+ Ankle/Foot Strength Ankle and Foot Manual Muscle Testing Right Dorsiflexion (L4) 4- Good- Left Dorsiflexion (L4) 4- Good- PT-OP-T Assessment and Plan Start: 10/26/22 17:37 Freq: Status: Active Protocol: Document 10/26/22 12:00 DCW (Rec: 10/27/22 08:45 DCW [id number]) Physical Therapy Assessment Rehab Potential Rehabilitation Potential Good Evaluation Complexity Number of Personal Factors/Comorbidities 1-2 Number of Body Systems Impaired 1-2 Clinical Presentation at Evaluation Unstable Impairments Impairments Activity Tolerance,Balance, Functional Activities, Functional Mobility,Soft Tissue Mobility,Strength Goals Two Impairment Pt has an increased fall risk, per Ross (42/56) and DGI (13/ 24) scores Production Cook Goal (LTG) Pt to increase DGI score by at least 7 points to 2024 to exhibit a decreased risk of falls LTG Duration 12/26/22 One Impairment Pt does not have an appropriate home exercise program Short Term Goal (STG) Pt to be independent and compliant with an appropriate HEP STG Duration 11/25/22 Assessment Summary Assessment Pt presents with signs and symptoms consistent with general weakness and deconditioning. Pt has been experiencing instability and a decreased tolerance to activity, which has led to a decrease in overall activity. Pt presents with an increased risk of falling, per Ross (42/ 56) and DGI (13/24) scores. Five time Sit to Stand score of 15.27 is, however, fairly close to age-matched norm of 14.8, although pt did have one instance of a backward fall into the chair alf into standing on one of his attempts. Overall, pt should benefit from skilled therapy focusing on LE strengthening, improved activity tolerance, gait training, and balance challenges in order to improve functional mobility and decrease falls risk. Physical Therapy Plan Frequency and Duration Frequency of Treatment 1-2x/week Plan of Care Start Date 10/26/22 Plan of Care End Date 12/26/22 Therapeutic Interventions Therapeutic Interventions Balance Training,Gait Training ,Home Exercise Program,Manual Therapy,Neuromuscular Re- education,Patient/Caregiver Education,Self-Care/Home Management,Soft Tissue Mobilization,Therapeutic Activities,Therapeutic Exercises Next Visit Focus/Plan Next Note Type Treatment Note Next Visit Plan Activity tolerance, balance challenges, gait training.
--- NOTE | 2022-10-26 12:45 | PT.OPPOC ---
Physical, Occupational & Speech Therapy At [facility] Current Diagnoses Unsteadiness on feet (10/26/22) Unspecified abnormalities of gait and mobility (10/26/22) Weakness (10/26/22) History of falling (10/26/22) Visit Care Team Role Provider Type Saulo Diane MD Attending Provider Physician Family Provider Primary Care Provider Referring Provider Specialty: Internal Medicine Address: [address] [place] [address], [facility] [address], [place], [address] Email: [email or web address] Plan Of Care PT-OP-T Assessment and Plan Start: 10/26/22 17:37 Freq: Status: Active Protocol: Document 10/26/22 12:00 DCW (Rec: 10/27/22 08:45 DCW [id number]) Physical Therapy Assessment Rehab Potential Rehabilitation Potential Good Evaluation Complexity Number of Personal Factors/Comorbidities 1-2 Number of Body Systems Impaired 1-2 Clinical Presentation at Evaluation Unstable Impairments Impairments Activity Tolerance,Balance, Functional Activities, Functional Mobility,Soft Tissue Mobility,Strength Goals Two Impairment Pt has an increased fall risk, per Ross (42/56) and DGI (13/ 24) scores Nursing Home Goal (LTG) Pt to increase DGI score by at least 7 points to to exhibit a decreased risk of falls LTG Duration 12/26/22 One Impairment Pt does not have an appropriate home exercise program Short Term Goal (STG) Pt to be independent and compliant with an appropriate HEP STG Duration 11/25/22 Assessment Summary Assessment Pt presents with signs and symptoms consistent with general weakness and deconditioning. Pt has been experiencing instability and a decreased tolerance to activity, which has led to a decrease in overall activity. Pt presents with an increased risk of falling, per Ross (42/ 56) and DGI (13/24) scores. Five time Sit to Stand score of 15.27 is, however, fairly close to age-matched norm of 14.8, although pt did have one instance of a backward fall into the chair shelter into standing on one of his attempts. Overall, pt should benefit from skilled therapy focusing on LE strengthening, improved activity tolerance, gait training, and balance challenges in order to improve functional mobility and decrease falls risk. Physical Therapy Plan Frequency and Duration Frequency of Treatment 1-2x/week Plan of Care Start Date 10/26/22 Plan of Care End Date 12/26/22 Therapeutic Interventions Therapeutic Interventions Balance Training,Gait Training ,Home Exercise Program,Manual Therapy,Neuromuscular Re- education,Patient/Caregiver Education,Self-Care/Home Management,Soft Tissue Mobilization,Therapeutic Activities,Therapeutic Exercises Next Visit Focus/Plan Next Note Type Treatment Note Next Visit Plan Activity tolerance, balance challenges, gait training. Plan of Care Dates Plan of Care Start Date 10/26/22 Plan of Care End Date 12/26/22 Electronically Signed by: Tom Dill, PT 10/27/22 0846 If you are in agreement with this Plan of Care, please return a signed and dated copy. I have reviewed this Plan of Care and certify that the skilled therapy services above are required to meet the patient?s needs. Physician Signature Date Printed Name and Credentials Clinical Instructor Signature Printed Name and Credentials
--- NOTE | 2022-10-30 17:52 | PT.OPDS ---
Current Diagnoses Unsteadiness on feet (10/26/22) Unspecified abnormalities of gait and mobility (10/26/22) Weakness (10/26/22) History of falling (10/26/22) Visit Care Team Role Provider Type Saulo Diane MD Attending Provider Physician Family Provider Primary Care Provider Referring Provider Specialty: Internal Medicine Address: [address] [place] [address], [address], [facility] Email: [email or web address] Visit Number Visit Number 1 Discharge Summary PT-OP-B Current Condition Start: 10/26/22 17:37 Freq: Status: Active Protocol: Document 10/26/22 12:00 DCW (Rec: 10/26/22 17:48 DCW [id number]) Current Condition History of Current Condition Onset Date One month Current Complaints Recent falls, feeling of weakness and fatigue History of Current Condition Pt is an 81 year old male presenting with complaints of a one month history of weakness, fatigue, and increased fear of falling following a recent fall. Feels like he has just experienced general deconditioning and loss of muscle mass. Reports he uses a FWW or trekking poles when out on uneven surfaces. Notes a history of multiple bilateral knee surgeries, most recently ~ three years ago. Treatment Goals Patient/Caregiver Goals I want to get back to walking without a walker or poles. Personal Factors Other Personal Factors That May Effect BPH, Bipolar, Depression, Therapy/Recovery Osteoporosis, TKA PT-OP-C Subjective Start: 10/26/22 17:37 Freq: Status: Active Protocol: Document 10/26/22 12:00 DCW (Rec: 10/26/22 17:48 DCW [id number]) OP-PT Subjective Patient Comments Patient Comments I've been a little dizzy recently. Describes dizziness as more of a pain in my head and loss of stability. OP-PT Pain Assessment Pain Assessment Grid Paper Pain Assessment Grid Completed No PT-OP-D Balance Start: 10/26/22 17:37 Freq: Status: Active Protocol: Document 10/26/22 12:00 DCW (Rec: 10/26/22 17:48 DCW [id number]) Balance Tests Ross Balance Test Ross Balance Test Score 42/56 Ross Impairment Rating 20 to 39% Impaired (Score 34- 44) Ross Balance Assessment Evaluation Sitting to Standing Ability Independent w/out Hands Unsupported Stance Supervision- 2 minutes Sitting Unsupported, Feet on Floor Safely- 2 minutes Standing to Sitting Ability Safely, Minimal Hand Use Transfer Ability Safely, Minimal Hand Use Unsupported Stance- Eyes Closed Supervision, 10 seconds Unsupported Stance- Eyes Open Supervision to maintain Reaching Forward Standing Safely, 5 inches Pick- Up Object From Floor Supervision Look Behind Shoulder - Standing Turns Sideways Only Turning 360 Degrees Turns slowly, but safely Unsupported Stance, Alternating Feet on (I)- 8 Steps in 20 secs Stair Unsupported Tandem Stance Small Step- 30 seconds Unilateral Leg Stance Lifts Leg/Unable to Hold Total Score Ross Total Score (out of 56 points) 42 Ross Impairment Rating 20 to 39% Impaired (Score 34- 44) PT-OP-E Functional Tests Start: 10/26/22 17:37 Freq: Status: Active Protocol: Document 10/26/22 12:00 DCW (Rec: 10/26/22 17:48 DCW [id number]) Functional Tests Dynamic Gait Index (DGI) Score 13/24 DGI Impairment Rating 40 to <60% Impaired (Score 10- 14) Five Times Sit to Stand Test Score 15.27 PT-OP-M Strength Start: 10/26/22 17:37 Freq: Status: Active Protocol: Document 10/26/22 12:00 DCW (Rec: 10/26/22 17:48 DCW [id number]) Hip Strength Hip Manual Muscle Testing Right Flexion (L2) 4+ Good+ Abduction 4 Good Adduction 4+ Good+ External Rotation 4 Good Internal Rotation 4- Good- Left Flexion (L2) 4+ Good+ Abduction 4 Good Adduction 4+ Good+ External Rotation 4+ Good+ Internal Rotation 4- Good- Knee Strength Knee Manual Muscle Testing Right Flexion (S2) 4+ Good+ Extension (L3) 4+ Good+ Left Flexion (S2) 4+ Good+ Extension (L3) 4+ Good+ Ankle/Foot Strength Ankle and Foot Manual Muscle Testing Right Dorsiflexion (L4) 4- Good- Left Dorsiflexion (L4) 4- Good- PT-OP-T Assessment and Plan Start: 10/26/22 17:37 Freq: Status: Active Protocol: Document 10/30/22 17:50 DCW (Rec: 10/30/22 17:51 DCW [id number]) Physical Therapy Assessment Assessment Summary Assessment Pt phoned clinic on 10/27/22, left message on therapist's voicemail requesting cancellation of remaining appointments, reported he never intended to actually go to PT, just wanted an assessment. Pt will be discharged at this time. Physical Therapy Plan Discharge Physical Therapy Discharge Reasons Patient Request Next Visit Focus/Plan Next Note Type Discharge Summary
== END 2022-10-31 12:28 | disposition home or self-care (01) ==
LOC: PHYS 11:49
PROVIDERS: Family Provider Internal Medicine; PCP Internal Medicine; Referring Provider Internal Medicine; Visit Provider Internal Medicine
DX: R53.1 Weakness (principal); R26.9 Unspecified abnormalities of gait and mobility; R26.81 Unsteadiness on feet; Z91.81 History of falling
CPT/HCPCS: 97161

== ENCOUNTER 2023-03-21 11:15 | Outpatient (RCR) | payer MEDICARE, SELFPAY ==
[2022-08-23 10:30] VITALS: BMI 24.3
--- NOTE | 2022-11-29 17:07 | PT.OIE ---
Current Diagnoses Unsteadiness on feet (11/29/22) Unspecified abnormalities of gait and mobility (11/29/22) Weakness (11/29/22) Past Medical History (Last Updated 10/25/22 @ 14:02 by David Rene MD) Anemia Anxiety and depression Bipolar affective disorder in remission BPH (benign prostatic hyperplasia) Cataracts, bilateral (~2001) GERD with esophagitis Glaucoma (~2019) Hearing loss (~2014) History of urinary retention Hyperlipidemia Hypothyroidism Incomplete emptying of bladder Osteoporosis Retinal detachment (~1960) Slow transit constipation Unspecified abnormalities of gait and mobility Vision disorder Past Surgical History (Last Reviewed 09/14/22 @ 18:27 by Shahrzad Rai DO) Anesthesia History of foot surgery (~11/1959) History of hip surgery (~10/2014) History of hip surgery (~03/2011) S/P total knee arthroplasty (~08/2015) S/P TURP (~12/2013) Tibia fracture (~08/1974) Visit Care Team Role Provider Type Saulo Diane MD Attending Provider Physician Family Provider Primary Care Provider Referring Provider Specialty: Internal Medicine Address: [address] [place] [address], [address], [facility] Email: [email or web address] Physical Therapy Initial Evaluation PT-OP-A Visit Information Start: 11/29/22 16:33 Freq: Status: Active Protocol: Document 11/29/22 14:15 DCW (Rec: 11/29/22 17:07 DCW [id number]) Out-Patient Physical Therapy Visit Information Visit Information Visit Type Initial Evaluation Visit Start Time 14:15 Visit Stop Time 14:45 Total Visit Minutes 30 Visit Number 1 Number of ROPEWALK ROPE MAKER Visits 0 Evaluation Information Evaluation Date 11/29/22 PT-OP-B Current Condition Start: 11/29/22 16:33 Freq: Status: Active Protocol: Document 11/29/22 14:15 DCW (Rec: 11/29/22 17:07 DCW [id number]) Current Condition History of Current Condition Onset Date Two months Current Complaints Recent falls, weakness, fatigue, fear of falling History of Current Condition Pt is an 81 year old male presenting with complaints of a one month history of weakness, fatigue, and increased fear of falling following a recent fall. Has been using his FWW more recently due to increased fear of falling, will occasionally use trekking poles. Pt was previously treated one month ago at this clinic for this exact same issue on 10/26/22, however after his evaluation, he called the clinic a few days later to request discharge, as he never intended to get therapy, he just wanted an assessment. This, however, was not the desire of his , and pt therefore returns again for a new assessment Prior Treatments and Tests BPH, Bipolar, Depression, Osteoporosis, TKA PT-OP-C Subjective Start: 11/29/22 16:33 Freq: Status: Active Protocol: Document 11/29/22 14:15 DCW (Rec: 11/29/22 17:07 DCW [id number]) OP-PT Subjective Patient Comments Patient Comments I've just found that I am more reserved, more apprehensive about balance. Patient Questionnaires ABC- Activity Specific Balance Confidence Scale ABC Score 50.94% PT-OP-D Balance Start: 11/29/22 16:33 Freq: Status: Active Protocol: Document 11/29/22 14:15 DCW (Rec: 11/29/22 17:07 DCW [id number]) Balance Tests Ross Balance Test Ross Balance Test Score 42/56 Ross Impairment Rating 20 to 39% Impaired (Score 34- 44) Ross Balance Assessment Evaluation Sitting to Standing Ability Independent w/out Hands Unsupported Stance Supervision- 2 minutes Sitting Unsupported, Feet on Floor Safely- 2 minutes Standing to Sitting Ability Assist, Use Legs on Chair Transfer Ability Safely, Hand Use Unsupported Stance- Eyes Closed Safely, 10 seconds Unsupported Stance- Eyes Open Independent, 1 minute Reaching Forward Standing Safely, 5 inches Pick- Up Object From Floor Independent/Safe Look Behind Shoulder - Standing Shifts Weight Well Turning 360 Degrees Turns slowly, but safely Unsupported Stance, Alternating Feet on 4 Steps w/Supervision Stair Unsupported Tandem Stance Small Step- 30 seconds Unilateral Leg Stance Lifts Leg/Unable to Hold Total Score Ross Total Score (out of 56 points) 42 Ross Impairment Rating 20 to 39% Impaired (Score 34- 44) PT-OP-E Functional Tests Start: 11/29/22 16:33 Freq: Status: Active Protocol: Document 11/29/22 14:15 DCW (Rec: 11/29/22 17:07 DCW [id number]) Functional Tests Dynamic Gait Index (DGI) Score 14 DGI Impairment Rating 40 to <60% Impaired (Score 10- 14) Five Times Sit to Stand Test Score 10.61 Timed Up and Go (TUG) Score 14.08 Comments Three-trial Average (13.59, 13 .49, 15.15) TUG Impairment Rating 40 to <60% Impaired (Score 14- 15) PT-OP-M Strength Start: 11/29/22 16:33 Freq: Status: Active Protocol: Document 11/29/22 14:15 DCW (Rec: 11/29/22 17:07 [facility] [id number]) Hip Strength Hip Manual Muscle Testing Right Flexion (L2) 4 Good Abduction 4- Good- Adduction 4+ Good+ Left Flexion (L2) 4+ Good+ Abduction 4- Good- Adduction 4+ Good+ Knee Strength Knee Manual Muscle Testing Right Flexion (S2) 4+ Good+ Extension (L3) 4+ Good+ Left Flexion (S2) 4+ Good+ Extension (L3) 4+ Good+ Ankle/Foot Strength Ankle and Foot Manual Muscle Testing Right Dorsiflexion (L4) 4 Good Left Dorsiflexion (L4) 4 Good PT-OP-T Assessment and Plan Start: 11/29/22 16:33 Freq: Status: Active Protocol: Document 11/29/22 14:15 DCW (Rec: 11/29/22 17:07 [facility] [id number]) Physical Therapy Assessment Rehab Potential Rehabilitation Potential Good Evaluation Complexity Number of Personal Factors/Comorbidities 1-2 Number of Body Systems Impaired 3 Clinical Presentation at Evaluation Unstable Impairments Impairments Activity Tolerance,Balance, Coordination,Functional Activities,Functional Mobility ,Gait,Strength Goals Two Impairment Pt has an increased fall risk, per Ross (42/56) and DGI () scores Departure Clerk Goal (LTG) Pt to increase DGI score by at least 6 points to to exhibit a decreased risk of falls LTG Duration 01/30/23 One Impairment Pt does not have an appropriate home exercise program Short Term Goal (STG) Pt to be independent and compliant with an appropriate HEP STG Duration 12/30/22 Assessment Summary Assessment Pt presents with signs and symptoms consistent with general weakness and deconditioning. Pt has been experiencing instability and a decreased tolerance to activity, which has led to a decrease in overall activity. Pt presents with an increased risk of falling, per Ross (42/ 56) and DGI () scores. Five times Sit to Stand was significantly better than a month ago, improving time from 15.27 to 10.61, but all other testing was very consistent compared to prior assessment, with the same Ross score (42/56) and a singe point change on the DGI ( today vs 13 last month). Overall, pt should benefit from skilled therapy focusing on LE strengthening, improved activity tolerance, gait training, and balance challenges in order to improve functional mobility and decrease falls risk. Physical Therapy Plan Frequency and Duration Frequency of Treatment 1-2x/week Plan of Care Start Date 11/29/22 Plan of Care End Date 01/30/23 Therapeutic Interventions Therapeutic Interventions Balance Training,Gait Training ,Home Exercise Program,Manual Therapy,Neuromuscular Re- education,Patient/Caregiver Education,Self-Care/Home Management,Soft Tissue Mobilization,Therapeutic Activities,Therapeutic Exercises Next Visit Focus/Plan Next Note Type Treatment Note Next Visit Plan LE strengthening, balance training, gait training, improving activity tolerance
--- NOTE | 2022-11-29 17:08 | PT.OPPOC ---
Physical, Occupational & Speech Therapy At [facility] Current Diagnoses Unsteadiness on feet (11/29/22) Unspecified abnormalities of gait and mobility (11/29/22) Weakness (11/29/22) Visit Care Team Role Provider Type Saulo Diane MD Attending Provider Physician Family Provider Primary Care Provider Referring Provider Specialty: Internal Medicine Address: [address] [place] [address], [address], [employer] Email: [email or web address] Plan Of Care PT-OP-T Assessment and Plan Start: 11/29/22 16:33 Freq: Status: Active Protocol: Document 11/29/22 14:15 DCW (Rec: 11/29/22 17:07 DCW [id number]) Physical Therapy Assessment Rehab Potential Rehabilitation Potential Good Evaluation Complexity Number of Personal Factors/Comorbidities 1-2 Number of Body Systems Impaired 3 Clinical Presentation at Evaluation Unstable Impairments Impairments Activity Tolerance,Balance, Coordination,Functional Activities,Functional Mobility ,Gait,Strength Goals Two Impairment Pt has an increased fall risk, per Ross (42/56) and DGI () scores Long-Term Goal (LTG) Pt to increase DGI score by at least 6 points to to exhibit a decreased risk of falls LTG Duration 01/30/23 One Impairment Pt does not have an appropriate home exercise program Short Term Goal (STG) Pt to be independent and compliant with an appropriate HEP STG Duration 12/30/22 Assessment Summary Assessment Pt presents with signs and symptoms consistent with general weakness and deconditioning. Pt has been experiencing instability and a decreased tolerance to activity, which has led to a decrease in overall activity. Pt presents with an increased risk of falling, per Ross (42/ 56) and DGI () scores. Five times Sit to Stand was significantly better than a month ago, improving time from 15.27 to 10.61, but all other testing was very consistent compared to prior assessment, with the same Ross score (42/56) and a singe point change on the DGI ( today vs 13 last month). Overall, pt should benefit from skilled therapy focusing on LE strengthening, improved activity tolerance, gait training, and balance challenges in order to improve functional mobility and decrease falls risk. Physical Therapy Plan Frequency and Duration Frequency of Treatment 1-2x/week Plan of Care Start Date 11/29/22 Plan of Care End Date 01/30/23 Therapeutic Interventions Therapeutic Interventions Balance Training,Gait Training ,Home Exercise Program,Manual Therapy,Neuromuscular Re- education,Patient/Caregiver Education,Self-Care/Home Management,Soft Tissue Mobilization,Therapeutic Activities,Therapeutic Exercises Next Visit Focus/Plan Next Note Type Treatment Note Next Visit Plan LE strengthening, balance training, gait training, improving activity tolerance Plan of Care Dates Plan of Care Start Date 11/29/22 Plan of Care End Date 01/30/23 Electronically Signed by: Tom Dill, PT 11/29/22 0668 If you are in agreement with this Plan of Care, please return a signed and dated copy. I have reviewed this Plan of Care and certify that the skilled therapy services above are required to meet the patient?s needs. Physician Signature Date Printed Name and Credentials Clinical Instructor Signature Printed Name and Credentials
--- NOTE | 2022-12-06 16:38 | PT.OTN ---
Current Diagnoses Unsteadiness on feet (12/06/22) Unspecified abnormalities of gait and mobility (12/06/22) Weakness (12/06/22) Physical Therapy Treatment Note PT-OP-A Visit Information Start: 11/29/22 16:33 Freq: Status: Active Protocol: Document 12/06/22 15:45 DCW (Rec: 12/06/22 16:38 DCW [id number]) Out-Patient Physical Therapy Visit Information Visit Information Visit Type Treatment Note Visit Start Time 15:45 Visit Stop Time 16:30 Total Visit Minutes 45 Visit Number 2 Number of LABORATORY MECHANICAL TECHNICIAN Visits 0 Evaluation Information Evaluation Date 11/29/22 PT-OP-B Current Condition Start: 11/29/22 16:33 Freq: Status: Active Protocol: Document 11/29/22 14:15 DCW (Rec: 11/29/22 17:07 DCW [id number]) Current Condition History of Current Condition Onset Date Two months Current Complaints Recent falls, weakness, fatigue, fear of falling History of Current Condition Pt is an 81 year old male presenting with complaints of a one month history of weakness, fatigue, and increased fear of falling following a recent fall. Has been using his FWW more recently due to increased fear of falling, will occasionally use trekking poles. Pt was previously treated one month ago at this clinic for this exact same issue on 10/26/22, however after his evaluation, he called the clinic a few days later to request discharge, as he never intended to get therapy, he just wanted an assessment. This, however, was not the desire of his , and pt therefore returns again for a new assessment Prior Treatments and Tests BPH, Bipolar, Depression, Osteoporosis, TKA PT-OP-C Subjective Start: 11/29/22 16:33 Freq: Status: Active Protocol: Document 12/06/22 15:45 DCW (Rec: 12/06/22 16:38 DCW [id number]) OP-PT Subjective Patient Comments Patient Comments Pt's attends today's session. PT-OP-D Balance Start: 11/29/22 16:33 Freq: Status: Active Protocol: Document 11/29/22 14:15 DCW (Rec: 11/29/22 17:07 DCW [id number]) Balance Tests Ross Balance Test Ross Balance Test Score 42/56 Ross Impairment Rating 20 to 39% Impaired (Score 34- 44) Ross Balance Assessment Evaluation Sitting to Standing Ability Independent w/out Hands Unsupported Stance Supervision- 2 minutes Sitting Unsupported, Feet on Floor Safely- 2 minutes Standing to Sitting Ability Assist, Use Legs on Chair Transfer Ability Safely, Hand Use Unsupported Stance- Eyes Closed Safely, 10 seconds Unsupported Stance- Eyes Open Independent, 1 minute Reaching Forward Standing Safely, 5 inches Pick- Up Object From Floor Independent/Safe Look Behind Shoulder - Standing Shifts Weight Well Turning 360 Degrees Turns slowly, but safely Unsupported Stance, Alternating Feet on 4 Steps w/Supervision Stair Unsupported Tandem Stance Small Step- 30 seconds Unilateral Leg Stance Lifts Leg/Unable to Hold Total Score Ross Total Score (out of 56 points) 42 Ross Impairment Rating 20 to 39% Impaired (Score 34- 44) PT-OP-E Functional Tests Start: 11/29/22 16:33 Freq: Status: Active Protocol: Document 11/29/22 14:15 DCW (Rec: 11/29/22 17:07 DCW [id number]) Functional Tests Dynamic Gait Index (DGI) Score 14/24 DGI Impairment Rating 40 to <60% Impaired (Score 10- 14) Five Times Sit to Stand Test Score 10.61 Timed Up and Go (TUG) Score 14.08 Comments Three-trial Average (13.59, 13 .49, 15.15) TUG Impairment Rating 40 to <60% Impaired (Score 14- 15) PT-OP-M Strength Start: 11/29/22 16:33 Freq: Status: Active Protocol: Document 11/29/22 14:15 DCW (Rec: 11/29/22 17:07 DCW [id number]) Hip Strength Hip Manual Muscle Testing Right Flexion (L2) 4 Good Abduction 4- Good- Adduction 4+ Good+ Left Flexion (L2) 4+ Good+ Abduction 4- Good- Adduction 4+ Good+ Knee Strength Knee Manual Muscle Testing Right Flexion (S2) 4+ Good+ Extension (L3) 4+ Good+ Left Flexion (S2) 4+ Good+ Extension (L3) 4+ Good+ Ankle/Foot Strength Ankle and Foot Manual Muscle Testing Right Dorsiflexion (L4) 4 Good Left Dorsiflexion (L4) 4 Good PT-OP-Q Treatments Start: 11/29/22 16:33 Freq: Status: Active Protocol: Document 12/06/22 15:45 DCW (Rec: 12/06/22 16:38 DCW [id number]) Cardio Equipment Recumbent Elliptical (Biodex) Duration (Minutes) 5 Resistance 11 Seat Position 4 Gym Equipment Shuttle Recovery Unilateral Squats Resistance 50# (Two new) Bilateral Squats Resistance 100# (Four new) Shuttle Recovery Platform Stable Shuttle Balance Red Details WBOS, Staggered Therapeutic Exercises Standing Exercises Extension Standing Exercise Name Hip Extension Side bilateral Resistance Green Other Exercises Resisted Ambulation Other Exercise Name Resisted side-stepping Side bilateral Resistance Green Neuro Re-Education Treatment Balance Activities Foam Stance Details EO/EC Surface Blue foam Tandem Details Tandem Ambulation Equipment // bars Hurdles Equipment Hurdles in // bars PT-OP-T Assessment and Plan Start: 11/29/22 16:33 Freq: Status: Active Protocol: Document 12/06/22 15:45 DCW (Rec: 12/06/22 16:38 DCW [id number]) Physical Therapy Assessment Impairments Impairments Activity Tolerance,Balance, Coordination,Functional Activities,Functional Mobility ,Gait,Strength Goals Two Impairment Pt has an increased fall risk, per Ross (42/56) and DGI (14/ 24) scores Custodial Goal (LTG) Pt to increase DGI score by at least 6 points to 20/24 to exhibit a decreased risk of falls LTG Duration 01/30/23 One Impairment Pt does not have an appropriate home exercise program Short Term Goal (STG) Pt to be independent and compliant with an appropriate HEP STG Duration 12/30/22 Assessment Summary Assessment Pt tolerated treatment well, showed that most balance activities were appropriately challenging. Good response to LE strengthening, minimal need for rest breaks. Physical Therapy Plan Frequency and Duration Frequency of Treatment 1-2x/week Plan of Care Start Date 11/29/22 Plan of Care End Date 01/30/23 Therapeutic Interventions Therapeutic Interventions Balance Training,Gait Training ,Home Exercise Program,Manual Therapy,Neuromuscular Re- education,Patient/Caregiver Education,Self-Care/Home Management,Soft Tissue Mobilization,Therapeutic Activities,Therapeutic Exercises Next Visit Focus/Plan Next Note Type Treatment Note Next Visit Plan LE strengthening, balance training, gait training, improving activity tolerance
--- NOTE | 2022-12-08 16:01 | PT.OTN ---
Current Diagnoses Unsteadiness on feet (12/08/22) Unspecified abnormalities of gait and mobility (12/08/22) Weakness (12/08/22) Physical Therapy Treatment Note PT-OP-A Visit Information Start: 11/29/22 16:33 Freq: Status: Active Protocol: Document 12/08/22 15:15 DCW (Rec: 12/08/22 16:01 DCW [id number]) Out-Patient Physical Therapy Visit Information Visit Information Visit Type Treatment Note Visit Start Time 15:15 Visit Stop Time 16:00 Total Visit Minutes 45 Visit Number 3 Number of FIELD CROP FARMING SUPERVISOR Visits 0 Evaluation Information Evaluation Date 11/29/22 PT-OP-B Current Condition Start: 11/29/22 16:33 Freq: Status: Active Protocol: Document 11/29/22 14:15 DCW (Rec: 11/29/22 17:07 DCW [id number]) Current Condition History of Current Condition Onset Date Two months Current Complaints Recent falls, weakness, fatigue, fear of falling History of Current Condition Pt is an 81 year old male presenting with complaints of a one month history of weakness, fatigue, and increased fear of falling following a recent fall. Has been using his FWW more recently due to increased fear of falling, will occasionally use trekking poles. Pt was previously treated one month ago at this clinic for this exact same issue on 10/26/22, however after his evaluation, he called the clinic a few days later to request discharge, as he never intended to get therapy, he just wanted an assessment. This, however, was not the desire of his , and pt therefore returns again for a new assessment Prior Treatments and Tests BPH, Bipolar, Depression, Osteoporosis, TKA PT-OP-C Subjective Start: 11/29/22 16:33 Freq: Status: Active Protocol: Document 12/08/22 15:15 DCW (Rec: 12/08/22 16:01 DCW [id number]) OP-PT Subjective Patient Comments Patient Comments I was a little tight yesterday, but I'm feeling better today. PT-OP-D Balance Start: 11/29/22 16:33 Freq: Status: Active Protocol: Document 11/29/22 14:15 DCW (Rec: 11/29/22 17:07 DCW [id number]) Balance Tests Ross Balance Test Ross Balance Test Score 42/56 Ross Impairment Rating 20 to 39% Impaired (Score 34- 44) Ross Balance Assessment Evaluation Sitting to Standing Ability Independent w/out Hands Unsupported Stance Supervision- 2 minutes Sitting Unsupported, Feet on Floor Safely- 2 minutes Standing to Sitting Ability Assist, Use Legs on Chair Transfer Ability Safely, Hand Use Unsupported Stance- Eyes Closed Safely, 10 seconds Unsupported Stance- Eyes Open Independent, 1 minute Reaching Forward Standing Safely, 5 inches Pick- Up Object From Floor Independent/Safe Look Behind Shoulder - Standing Shifts Weight Well Turning 360 Degrees Turns slowly, but safely Unsupported Stance, Alternating Feet on 4 Steps w/Supervision Stair Unsupported Tandem Stance Small Step- 30 seconds Unilateral Leg Stance Lifts Leg/Unable to Hold Total Score Ross Total Score (out of 56 points) 42 Ross Impairment Rating 20 to 39% Impaired (Score 34- 44) PT-OP-E Functional Tests Start: 11/29/22 16:33 Freq: Status: Active Protocol: Document 11/29/22 14:15 DCW (Rec: 11/29/22 17:07 DC [id number]) Functional Tests Dynamic Gait Index (DGI) Score 14/24 DGI Impairment Rating 40 to <60% Impaired (Score 10- 14) Five Times Sit to Stand Test Score 10.61 Timed Up and Go (TUG) Score 14.08 Comments Three-trial Average (13.59, 13 .49, 15.15) TUG Impairment Rating 40 to <60% Impaired (Score 14- 15) PT-OP-M Strength Start: 11/29/22 16:33 Freq: Status: Active Protocol: Document 11/29/22 14:15 DCW (Rec: 11/29/22 17:07 DCW [id number]) Hip Strength Hip Manual Muscle Testing Right Flexion (L2) 4 Good Abduction 4- Good- Adduction 4+ Good+ Left Flexion (L2) 4+ Good+ Abduction 4- Good- Adduction 4+ Good+ Knee Strength Knee Manual Muscle Testing Right Flexion (S2) 4+ Good+ Extension (L3) 4+ Good+ Left Flexion (S2) 4+ Good+ Extension (L3) 4+ Good+ Ankle/Foot Strength Ankle and Foot Manual Muscle Testing Right Dorsiflexion (L4) 4 Good Left Dorsiflexion (L4) 4 Good PT-OP-Q Treatments Start: 11/29/22 16:33 Freq: Status: Active Protocol: Document 12/08/22 15:15 DCW (Rec: 12/08/22 16:01 DCW [id number]) Cardio Equipment Recumbent Stepper (Sci-Fit) Duration (Minutes) 5 Resistance 5 Seat Position 13 Gym Equipment Shuttle Balance Red Details WBOS, Staggered Therapeutic Exercises Standing Exercises Extension Standing Exercise Name Hip Extension Side bilateral Resistance Green Other Exercises Resisted Ambulation Other Exercise Name Resisted side-stepping Side bilateral Resistance Green Neuro Re-Education Treatment Balance Activities SLS Details SLS Equipment // bars Foam Stance Details EO/EC Surface Blue foam Tandem Details Tandem Ambulation Equipment // bars Hurdles Details Hurdles/Foam Equipment in // bars PT-OP-T Assessment and Plan Start: 11/29/22 16:33 Freq: Status: Active Protocol: Document 12/08/22 15:15 DCW (Rec: 12/08/22 16:01 DC [id number]) Physical Therapy Assessment Impairments Impairments Activity Tolerance,Balance, Coordination,Functional Activities,Functional Mobility ,Gait,Strength Goals Two Impairment Pt has an increased fall risk, per Ross (42/56) and DGI (14/ ) scores Advisor Consultant Goal (LTG) Pt to increase DGI score by at least 6 points to 20/24 to exhibit a decreased risk of falls LTG Duration 01/30/23 One Impairment Pt does not have an appropriate home exercise program Short Term Goal (STG) Pt to be independent and compliant with an appropriate HEP STG Duration 12/30/22 Assessment Summary Assessment Pt required UE support for most activities today, including hurdles/foam and tandem ambulation, but did well with SLS. Physical Therapy Plan Frequency and Duration Frequency of Treatment 1-2x/week Plan of Care Start Date 11/29/22 Plan of Care End Date 01/30/23 Therapeutic Interventions Therapeutic Interventions Balance Training,Gait Training ,Home Exercise Program,Manual Therapy,Neuromuscular Re- education,Patient/Caregiver Education,Self-Care/Home Management,Soft Tissue Mobilization,Therapeutic Activities,Therapeutic Exercises Next Visit Focus/Plan Next Note Type Treatment Note Next Visit Plan LE strengthening, balance training, gait training, improving activity tolerance
--- NOTE | 2022-12-13 16:33 | PT.OTN ---
Current Diagnoses Unsteadiness on feet (12/13/22) Unspecified abnormalities of gait and mobility (12/13/22) Weakness (12/13/22) Physical Therapy Treatment Note PT-OP-A Visit Information Start: 11/29/22 16:33 Freq: Status: Active Protocol: Document 12/13/22 15:45 DCW (Rec: 12/13/22 16:33 DCW [id number]) Out-Patient Physical Therapy Visit Information Visit Information Visit Type Treatment Note Visit Start Time 15:45 Visit Stop Time 16:30 Total Visit Minutes 45 Visit Number 4 Number of LICENSED PHYSICAL THERAPIST ASSISTANT Visits 0 Evaluation Information Evaluation Date 11/29/22 PT-OP-B Current Condition Start: 11/29/22 16:33 Freq: Status: Active Protocol: Document 11/29/22 14:15 DCW (Rec: 11/29/22 17:07 DCW [id number]) Current Condition History of Current Condition Onset Date Two months Current Complaints Recent falls, weakness, fatigue, fear of falling History of Current Condition Pt is an 81 year old male presenting with complaints of a one month history of weakness, fatigue, and increased fear of falling following a recent fall. Has been using his FWW more recently due to increased fear of falling, will occasionally use trekking poles. Pt was previously treated one month ago at this clinic for this exact same issue on 10/26/22, however after his evaluation, he called the clinic a few days later to request discharge, as he never intended to get therapy, he just wanted an assessment. This, however, was not the desire of his , and pt therefore returns again for a new assessment Prior Treatments and Tests BPH, Bipolar, Depression, Osteoporosis, TKA PT-OP-C Subjective Start: 11/29/22 16:33 Freq: Status: Active Protocol: Document 12/13/22 15:45 DCW (Rec: 12/13/22 16:33 DCW [id number]) OP-PT Subjective Patient Comments Patient Comments Pt notes he is not too bad today. PT-OP-D Balance Start: 11/29/22 16:33 Freq: Status: Active Protocol: Document 11/29/22 14:15 DCW (Rec: 11/29/22 17:07 DCW [id number]) Balance Tests Ross Balance Test Ross Balance Test Score 42/56 Ross Impairment Rating 20 to 39% Impaired (Score 34- 44) Ross Balance Assessment Evaluation Sitting to Standing Ability Independent w/out Hands Unsupported Stance Supervision- 2 minutes Sitting Unsupported, Feet on Floor Safely- 2 minutes Standing to Sitting Ability Assist, Use Legs on Chair Transfer Ability Safely, Hand Use Unsupported Stance- Eyes Closed Safely, 10 seconds Unsupported Stance- Eyes Open Independent, 1 minute Reaching Forward Standing Safely, 5 inches Pick- Up Object From Floor Independent/Safe Look Behind Shoulder - Standing Shifts Weight Well Turning 360 Degrees Turns slowly, but safely Unsupported Stance, Alternating Feet on 4 Steps w/Supervision Stair Unsupported Tandem Stance Small Step- 30 seconds Unilateral Leg Stance Lifts Leg/Unable to Hold Total Score Ross Total Score (out of 56 points) 42 Ross Impairment Rating 20 to 39% Impaired (Score 34- 44) PT-OP-E Functional Tests Start: 11/29/22 16:33 Freq: Status: Active Protocol: Document 11/29/22 14:15 DCW (Rec: 11/29/22 17:07 DCW [id number]) Functional Tests Dynamic Gait Index (DGI) Score 14/24 DGI Impairment Rating 40 to <60% Impaired (Score 10- 14) Five Times Sit to Stand Test Score 10.61 Timed Up and Go (TUG) Score 14.08 Comments Three-trial Average (13.59, 13 .49, 15.15) TUG Impairment Rating 40 to <60% Impaired (Score 14- 15) PT-OP-M Strength Start: 11/29/22 16:33 Freq: Status: Active Protocol: Document 11/29/22 14:15 DCW (Rec: 11/29/22 17:07 DCW [id number]) Hip Strength Hip Manual Muscle Testing Right Flexion (L2) 4 Good Abduction 4- Good- Adduction 4+ Good+ Left Flexion (L2) 4+ Good+ Abduction 4- Good- Adduction 4+ Good+ Knee Strength Knee Manual Muscle Testing Right Flexion (S2) 4+ Good+ Extension (L3) 4+ Good+ Left Flexion (S2) 4+ Good+ Extension (L3) 4+ Good+ Ankle/Foot Strength Ankle and Foot Manual Muscle Testing Right Dorsiflexion (L4) 4 Good Left Dorsiflexion (L4) 4 Good PT-OP-Q Treatments Start: 11/29/22 16:33 Freq: Status: Active Protocol: Document 12/13/22 15:45 DCW (Rec: 12/13/22 16:33 DCW [id number]) Cardio Equipment Recumbent Elliptical (Biodex) Duration (Minutes) 5 Resistance 5 Seat Position 13 Gym Equipment Shuttle Recovery Unilateral Squats Resistance 50# (Two new) Bilateral Squats Resistance 100# (Four new) Shuttle Recovery Platform Stable Shuttle Balance Red Details WBOS, Staggered Therapeutic Exercises Standing Exercises Toe-taps Standing Exercise Name Toe-taps Side bilateral Resistance 5# Equipment Used 6 step Other Exercises Resisted Ambulation Other Exercise Name Resisted side-stepping Side bilateral Resistance Green Neuro Re-Education Treatment Balance Activities Tilt board Details Tilt board Comments PF/DF, Lateral SLS Details SLS Equipment // bars Tandem Details Tandem Ambulation Equipment // bars Hurdles Details Hurdles/Foam Equipment in // bars PT-OP-T Assessment and Plan Start: 11/29/22 16:33 Freq: Status: Active Protocol: Document 12/13/22 15:45 DCW (Rec: 12/13/22 16:33 DCW [id number]) Physical Therapy Assessment Impairments Impairments Activity Tolerance,Balance, Coordination,Functional Activities,Functional Mobility ,Gait,Strength Goals Two Impairment Pt has an increased fall risk, per Ross (42/56) and DGI (14/ 24) scores Data Review Specialist Goal (LTG) Pt to increase DGI score by at least 6 points to 20/24 to exhibit a decreased risk of falls LTG Duration 01/30/23 One Impairment Pt does not have an appropriate home exercise program Short Term Goal (STG) Pt to be independent and compliant with an appropriate HEP STG Duration 12/30/22 Assessment Summary Assessment Pt reported his right leg felt more fatigued today. Noticeable improvement on Shuttle balance and with tandem ambulation today, appropriate Physical Therapy Plan Frequency and Duration Frequency of Treatment 1-2x/week Plan of Care Start Date 11/29/22 Plan of Care End Date 01/30/23 Therapeutic Interventions Therapeutic Interventions Balance Training,Gait Training ,Home Exercise Program,Manual Therapy,Neuromuscular Re- education,Patient/Caregiver Education,Self-Care/Home Management,Soft Tissue Mobilization,Therapeutic Activities,Therapeutic Exercises Next Visit Focus/Plan Next Note Type Treatment Note Next Visit Plan LE strengthening, balance training, gait training, improving activity tolerance
--- NOTE | 2022-12-15 16:53 | PT.OTN ---
Current Diagnoses Unsteadiness on feet (12/15/22) Unspecified abnormalities of gait and mobility (12/15/22) Weakness (12/15/22) Physical Therapy Treatment Note PT-OP-A Visit Information Start: 11/29/22 16:33 Freq: Status: Active Protocol: Document 12/15/22 16:00 DCW (Rec: 12/15/22 16:53 DCW [id number]) Out-Patient Physical Therapy Visit Information Visit Information Visit Type Treatment Note Visit Start Time 16:00 Visit Stop Time 16:45 Total Visit Minutes 45 Visit Number 5 Number of LOADER OPERATOR Visits 0 Evaluation Information Evaluation Date 11/29/22 PT-OP-B Current Condition Start: 11/29/22 16:33 Freq: Status: Active Protocol: Document 11/29/22 14:15 DCW (Rec: 11/29/22 17:07 DCW [id number]) Current Condition History of Current Condition Onset Date Two months Current Complaints Recent falls, weakness, fatigue, fear of falling History of Current Condition Pt is an 81 year old male presenting with complaints of a one month history of weakness, fatigue, and increased fear of falling following a recent fall. Has been using his FWW more recently due to increased fear of falling, will occasionally use trekking poles. Pt was previously treated one month ago at this clinic for this exact same issue on 10/26/22, however after his evaluation, he called the clinic a few days later to request discharge, as he never intended to get therapy, he just wanted an assessment. This, however, was not the desire of his , and pt therefore returns again for a new assessment Prior Treatments and Tests BPH, Bipolar, Depression, Osteoporosis, TKA PT-OP-C Subjective Start: 11/29/22 16:33 Freq: Status: Active Protocol: Document 12/15/22 16:00 DCW (Rec: 12/15/22 16:53 DCW [id number]) OP-PT Subjective Patient Comments Patient Comments Pt admits he is a little off balance todat, but notes he walked ~2 miles yesterday. PT-OP-D Balance Start: 11/29/22 16:33 Freq: Status: Active Protocol: Document 11/29/22 14:15 DCW (Rec: 11/29/22 17:07 DCW [id number]) Balance Tests Ross Balance Test Ross Balance Test Score 42/56 Ross Impairment Rating 20 to 39% Impaired (Score 34- 44) Ross Balance Assessment Evaluation Sitting to Standing Ability Independent w/out Hands Unsupported Stance Supervision- 2 minutes Sitting Unsupported, Feet on Floor Safely- 2 minutes Standing to Sitting Ability Assist, Use Legs on Chair Transfer Ability Safely, Hand Use Unsupported Stance- Eyes Closed Safely, 10 seconds Unsupported Stance- Eyes Open Independent, 1 minute Reaching Forward Standing Safely, 5 inches Pick- Up Object From Floor Independent/Safe Look Behind Shoulder - Standing Shifts Weight Well Turning 360 Degrees Turns slowly, but safely Unsupported Stance, Alternating Feet on 4 Steps w/Supervision Stair Unsupported Tandem Stance Small Step- 30 seconds Unilateral Leg Stance Lifts Leg/Unable to Hold Total Score Ross Total Score (out of 56 points) 42 Ross Impairment Rating 20 to 39% Impaired (Score 34- 44) PT-OP-E Functional Tests Start: 11/29/22 16:33 Freq: Status: Active Protocol: Document 11/29/22 14:15 DCW (Rec: 11/29/22 17:07 DCW [id number]) Functional Tests Dynamic Gait Index (DGI) Score 14/24 DGI Impairment Rating 40 to <60% Impaired (Score 10- 14) Five Times Sit to Stand Test Score 10.61 Timed Up and Go (TUG) Score 14.08 Comments Three-trial Average (13.59, 13 .49, 15.15) TUG Impairment Rating 40 to <60% Impaired (Score 14- 15) PT-OP-M Strength Start: 11/29/22 16:33 Freq: Status: Active Protocol: Document 11/29/22 14:15 DCW (Rec: 11/29/22 17:07 DCW [id number]) Hip Strength Hip Manual Muscle Testing Right Flexion (L2) 4 Good Abduction 4- Good- Adduction 4+ Good+ Left Flexion (L2) 4+ Good+ Abduction 4- Good- Adduction 4+ Good+ Knee Strength Knee Manual Muscle Testing Right Flexion (S2) 4+ Good+ Extension (L3) 4+ Good+ Left Flexion (S2) 4+ Good+ Extension (L3) 4+ Good+ Ankle/Foot Strength Ankle and Foot Manual Muscle Testing Right Dorsiflexion (L4) 4 Good Left Dorsiflexion (L4) 4 Good PT-OP-Q Treatments Start: 11/29/22 16:33 Freq: Status: Active Protocol: Document 12/15/22 16:00 DCW (Rec: 12/15/22 16:53 DCW [id number]) Cardio Equipment Recumbent Elliptical (Biodex) Duration (Minutes) 6 Resistance 5 Seat Position 13 Gym Equipment Shuttle Recovery Unilateral Squats Resistance 50# (Two new) Bilateral Squats Resistance 100# (Four new) Shuttle Recovery Platform Stable Shuttle Balance Red Details WBOS, Staggered Therapeutic Exercises Other Exercises Resisted Ambulation Other Exercise Name Resisted side-stepping Side bilateral Resistance Green Neuro Re-Education Treatment Balance Activities NBOS Details NBOS - EO/EC Surface Floor SLS Details SLS Equipment // bars Foam Stance Details Stride stance Surface Blue foam Tandem Details Tandem Ambulation Equipment // bars Hurdles Details Hurdles/Foam Equipment in // bars PT-OP-T Assessment and Plan Start: 11/29/22 16:33 Freq: Status: Active Protocol: Document 12/15/22 16:00 DCW (Rec: 12/15/22 16:53 DC [id number]) Physical Therapy Assessment Impairments Impairments Activity Tolerance,Balance, Coordination,Functional Activities,Functional Mobility ,Gait,Strength Goals Two Impairment Pt has an increased fall risk, per Ross (42/56) and DGI (14/ 24) scores Residential Goal (LTG) Pt to increase DGI score by at least 6 points to 20/24 to exhibit a decreased risk of falls LTG Duration 01/30/23 One Impairment Pt does not have an appropriate home exercise program Short Term Goal (STG) Pt to be independent and compliant with an appropriate HEP STG Duration 12/30/22 Assessment Summary Assessment Pt showing some good improvements, did much better with SLS and tandem ambulation today. More willing to try balance challenges without UE support. Physical Therapy Plan Frequency and Duration Frequency of Treatment 1-2x/week Plan of Care Start Date 11/29/22 Plan of Care End Date 01/30/23 Therapeutic Interventions Therapeutic Interventions Balance Training,Gait Training ,Home Exercise Program,Manual Therapy,Neuromuscular Re- education,Patient/Caregiver Education,Self-Care/Home Management,Soft Tissue Mobilization,Therapeutic Activities,Therapeutic Exercises Next Visit Focus/Plan Next Note Type Treatment Note Next Visit Plan LE strengthening, balance training, gait training, improving activity tolerance
--- NOTE | 2022-12-20 16:33 | PT.OTN ---
Current Diagnoses Unsteadiness on feet (12/20/22) Unspecified abnormalities of gait and mobility (12/20/22) Weakness (12/20/22) Physical Therapy Treatment Note PT-OP-A Visit Information Start: 11/29/22 16:33 Freq: Status: Active Protocol: Document 12/20/22 15:49 DCW (Rec: 12/20/22 16:33 DCW [id number]) Out-Patient Physical Therapy Visit Information Visit Information Visit Type Treatment Note Visit Start Time 15:49 Visit Stop Time 16:30 Total Visit Minutes 41 Visit Number 6 Number of EMPLOYMENT TRAINER Visits 0 Evaluation Information Evaluation Date 11/29/22 PT-OP-B Current Condition Start: 11/29/22 16:33 Freq: Status: Active Protocol: Document 11/29/22 14:15 DCW (Rec: 11/29/22 17:07 DCW [id number]) Current Condition History of Current Condition Onset Date Two months Current Complaints Recent falls, weakness, fatigue, fear of falling History of Current Condition Pt is an 81 year old male presenting with complaints of a one month history of weakness, fatigue, and increased fear of falling following a recent fall. Has been using his FWW more recently due to increased fear of falling, will occasionally use trekking poles. Pt was previously treated one month ago at this clinic for this exact same issue on 10/26/22, however after his evaluation, he called the clinic a few days later to request discharge, as he never intended to get therapy, he just wanted an assessment. This, however, was not the desire of his , and pt therefore returns again for a new assessment Prior Treatments and Tests BPH, Bipolar, Depression, Osteoporosis, TKA PT-OP-C Subjective Start: 11/29/22 16:33 Freq: Status: Active Protocol: Document 12/20/22 15:49 DCW (Rec: 12/20/22 16:33 DCW [id number]) OP-PT Subjective Patient Comments Patient Comments Pt feeling pretty good today overall, a little stress, but I don't really know why. PT-OP-D Balance Start: 11/29/22 16:33 Freq: Status: Active Protocol: Document 11/29/22 14:15 DCW (Rec: 11/29/22 17:07 DCW [id number]) Balance Tests Ross Balance Test Ross Balance Test Score 42/56 Ross Impairment Rating 20 to 39% Impaired (Score 34- 44) Ross Balance Assessment Evaluation Sitting to Standing Ability Independent w/out Hands Unsupported Stance Supervision- 2 minutes Sitting Unsupported, Feet on Floor Safely- 2 minutes Standing to Sitting Ability Assist, Use Legs on Chair Transfer Ability Safely, Hand Use Unsupported Stance- Eyes Closed Safely, 10 seconds Unsupported Stance- Eyes Open Independent, 1 minute Reaching Forward Standing Safely, 5 inches Pick- Up Object From Floor Independent/Safe Look Behind Shoulder - Standing Shifts Weight Well Turning 360 Degrees Turns slowly, but safely Unsupported Stance, Alternating Feet on 4 Steps w/Supervision Stair Unsupported Tandem Stance Small Step- 30 seconds Unilateral Leg Stance Lifts Leg/Unable to Hold Total Score Ross Total Score (out of 56 points) 42 Ross Impairment Rating 20 to 39% Impaired (Score 34- 44) PT-OP-E Functional Tests Start: 11/29/22 16:33 Freq: Status: Active Protocol: Document 11/29/22 14:15 DCW (Rec: 11/29/22 17:07 DC [id number]) Functional Tests Dynamic Gait Index (DGI) Score 14/24 DGI Impairment Rating 40 to <60% Impaired (Score 10- 14) Five Times Sit to Stand Test Score 10.61 Timed Up and Go (TUG) Score 14.08 Comments Three-trial Average (13.59, 13 .49, 15.15) TUG Impairment Rating 40 to <60% Impaired (Score 14- 15) PT-OP-M Strength Start: 11/29/22 16:33 Freq: Status: Active Protocol: Document 11/29/22 14:15 DCW (Rec: 11/29/22 17:07 DC [id number]) Hip Strength Hip Manual Muscle Testing Right Flexion (L2) 4 Good Abduction 4- Good- Adduction 4+ Good+ Left Flexion (L2) 4+ Good+ Abduction 4- Good- Adduction 4+ Good+ Knee Strength Knee Manual Muscle Testing Right Flexion (S2) 4+ Good+ Extension (L3) 4+ Good+ Left Flexion (S2) 4+ Good+ Extension (L3) 4+ Good+ Ankle/Foot Strength Ankle and Foot Manual Muscle Testing Right Dorsiflexion (L4) 4 Good Left Dorsiflexion (L4) 4 Good PT-OP-Q Treatments Start: 11/29/22 16:33 Freq: Status: Active Protocol: Document 12/20/22 15:49 DCW (Rec: 12/20/22 16:33 DCW [id number]) Cardio Equipment Recumbent Elliptical (Biodex) Duration (Minutes) 6 Resistance 5 Seat Position 13 Gym Equipment Shuttle Recovery Bilateral Heel Raises Resistance 50# (Two new) Unilateral Squats Resistance 50# (Two new) Bilateral Squats Resistance 100# (Four new) Shuttle Recovery Platform Stable Shuttle Balance Red Details WBOS, Staggered Therapeutic Exercises Other Exercises Resisted Ambulation Other Exercise Name Resisted side-stepping Side bilateral Resistance Green Neuro Re-Education Treatment Balance Activities Foam Stance Details NBOS EC Surface Gutiérrez foam Tandem Details Tandem Ambulation Equipment // bars Hurdles Details Hurdles/Foam Equipment in // bars PT-OP-T Assessment and Plan Start: 11/29/22 16:33 Freq: Status: Active Protocol: Document 12/20/22 15:49 DCW (Rec: 12/20/22 16:33 DCW [id number]) Physical Therapy Assessment Impairments Impairments Activity Tolerance,Balance, Coordination,Functional Activities,Functional Mobility ,Gait,Strength Goals Two Impairment Pt has an increased fall risk, per Ross (42/56) and DGI (14/ 24) scores News Writer Goal (LTG) Pt to increase DGI score by at least 6 points to 20/24 to exhibit a decreased risk of falls LTG Duration 01/30/23 One Impairment Pt does not have an appropriate home exercise program Short Term Goal (STG) Pt to be independent and compliant with an appropriate HEP STG Duration 12/30/22 Assessment Summary Assessment Pt requests feedback for overall improvement, admits he is a little disappointed that he is not recovering as quickly has he would have in the past. Noted he is showing some improvement with balance challenges, still tends to rely heavily on UE support due to increased fear of falling. Physical Therapy Plan Frequency and Duration Frequency of Treatment 1-2x/week Plan of Care Start Date 11/29/22 Plan of Care End Date 01/30/23 Therapeutic Interventions Therapeutic Interventions Balance Training,Gait Training ,Home Exercise Program,Manual Therapy,Neuromuscular Re- education,Patient/Caregiver Education,Self-Care/Home Management,Soft Tissue Mobilization,Therapeutic Activities,Therapeutic Exercises Next Visit Focus/Plan Next Note Type Treatment Note Next Visit Plan LE strengthening, balance training, gait training, improving activity tolerance
--- NOTE | 2022-12-22 16:52 | PT.OTN ---
Current Diagnoses Unsteadiness on feet (12/22/22) Unspecified abnormalities of gait and mobility (12/22/22) Weakness (12/22/22) Physical Therapy Treatment Note PT-OP-A Visit Information Start: 11/29/22 16:33 Freq: Status: Active Protocol: Document 12/22/22 16:04 DCW (Rec: 12/22/22 16:52 DCW [id number]) Out-Patient Physical Therapy Visit Information Visit Information Visit Type Treatment Note Visit Start Time 16:04 Visit Stop Time 16:47 Total Visit Minutes 43 Visit Number 7 Number of ELECTRIC SYSTEM OPERATOR Visits 0 Evaluation Information Evaluation Date 11/29/22 PT-OP-B Current Condition Start: 11/29/22 16:33 Freq: Status: Active Protocol: Document 11/29/22 14:15 DCW (Rec: 11/29/22 17:07 DCW [id number]) Current Condition History of Current Condition Onset Date Two months Current Complaints Recent falls, weakness, fatigue, fear of falling History of Current Condition Pt is an 81 year old male presenting with complaints of a one month history of weakness, fatigue, and increased fear of falling following a recent fall. Has been using his FWW more recently due to increased fear of falling, will occasionally use trekking poles. Pt was previously treated one month ago at this clinic for this exact same issue on 10/26/22, however after his evaluation, he called the clinic a few days later to request discharge, as he never intended to get therapy, he just wanted an assessment. This, however, was not the desire of his , and pt therefore returns again for a new assessment Prior Treatments and Tests BPH, Bipolar, Depression, Osteoporosis, TKA PT-OP-C Subjective Start: 11/29/22 16:33 Freq: Status: Active Protocol: Document 12/22/22 16:04 DCW (Rec: 12/22/22 16:52 DCW [id number]) OP-PT Subjective Patient Comments Patient Comments Pt reports he is a little shakey today. PT-OP-D Balance Start: 11/29/22 16:33 Freq: Status: Active Protocol: Document 11/29/22 14:15 DCW (Rec: 11/29/22 17:07 DCW [id number]) Balance Tests Ross Balance Test Ross Balance Test Score 42/56 Ross Impairment Rating 20 to 39% Impaired (Score 34- 44) Ross Balance Assessment Evaluation Sitting to Standing Ability Independent w/out Hands Unsupported Stance Supervision- 2 minutes Sitting Unsupported, Feet on Floor Safely- 2 minutes Standing to Sitting Ability Assist, Use Legs on Chair Transfer Ability Safely, Hand Use Unsupported Stance- Eyes Closed Safely, 10 seconds Unsupported Stance- Eyes Open Independent, 1 minute Reaching Forward Standing Safely, 5 inches Pick- Up Object From Floor Independent/Safe Look Behind Shoulder - Standing Shifts Weight Well Turning 360 Degrees Turns slowly, but safely Unsupported Stance, Alternating Feet on 4 Steps w/Supervision Stair Unsupported Tandem Stance Small Step- 30 seconds Unilateral Leg Stance Lifts Leg/Unable to Hold Total Score Ross Total Score (out of 56 points) 42 Ross Impairment Rating 20 to 39% Impaired (Score 34- 44) PT-OP-E Functional Tests Start: 11/29/22 16:33 Freq: Status: Active Protocol: Document 11/29/22 14:15 DCW (Rec: 11/29/22 17:07 DCW [id number]) Functional Tests Dynamic Gait Index (DGI) Score 14/24 DGI Impairment Rating 40 to <60% Impaired (Score 10- 14) Five Times Sit to Stand Test Score 10.61 Timed Up and Go (TUG) Score 14.08 Comments Three-trial Average (13.59, 13 .49, 15.15) TUG Impairment Rating 40 to <60% Impaired (Score 14- 15) PT-OP-M Strength Start: 11/29/22 16:33 Freq: Status: Active Protocol: Document 11/29/22 14:15 DCW (Rec: 11/29/22 17:07 DCW [id number]) Hip Strength Hip Manual Muscle Testing Right Flexion (L2) 4 Good Abduction 4- Good- Adduction 4+ Good+ Left Flexion (L2) 4+ Good+ Abduction 4- Good- Adduction 4+ Good+ Knee Strength Knee Manual Muscle Testing Right Flexion (S2) 4+ Good+ Extension (L3) 4+ Good+ Left Flexion (S2) 4+ Good+ Extension (L3) 4+ Good+ Ankle/Foot Strength Ankle and Foot Manual Muscle Testing Right Dorsiflexion (L4) 4 Good Left Dorsiflexion (L4) 4 Good PT-OP-Q Treatments Start: 11/29/22 16:33 Freq: Status: Active Protocol: Document 12/22/22 16:04 DCW (Rec: 12/22/22 16:52 DCW [id number]) Cardio Equipment Recumbent Elliptical (Biodex) Duration (Minutes) 6 Resistance 5 Seat Position 13 Gym Equipment Shuttle Recovery Bilateral Heel Raises Resistance 50# (Two new) Unilateral Squats Resistance 50# (Two new) Reps/Time x20 Bilateral Squats Resistance 100# (Four new) Shuttle Recovery Platform Stable Reps/Time x25 Shuttle Balance Red Details WBOS, Staggered Neuro Re-Education Treatment Balance Activities Foam Stance Details NBOS EC Surface Blue foam Tandem Details Tandem Ambulation Equipment @Rail Hurdles Details Hurdles Equipment @rail PT-OP-T Assessment and Plan Start: 11/29/22 16:33 Freq: Status: Active Protocol: Document 12/22/22 16:04 DCW (Rec: 12/22/22 16:52 DCW [id number]) Physical Therapy Assessment Impairments Impairments Activity Tolerance,Balance, Coordination,Functional Activities,Functional Mobility ,Gait,Strength Goals Two Impairment Pt has an increased fall risk, per Ross (42/56) and DGI (14/ 24) scores Biomedical Specialist Goal (LTG) Pt to increase DGI score by at least 6 points to 20/24 to exhibit a decreased risk of falls LTG Duration 01/30/23 One Impairment Pt does not have an appropriate home exercise program Short Term Goal (STG) Pt to be independent and compliant with an appropriate HEP STG Duration 12/30/22 Assessment Summary Assessment Pt did a much better job today working on challenging balance activities without immediately grabbing for railing. Helped to move away from // bars and just use the nearby rail. Physical Therapy Plan Frequency and Duration Frequency of Treatment 1-2x/week Plan of Care Start Date 11/29/22 Plan of Care End Date 01/30/23 Therapeutic Interventions Therapeutic Interventions Balance Training,Gait Training ,Home Exercise Program,Manual Therapy,Neuromuscular Re- education,Patient/Caregiver Education,Self-Care/Home Management,Soft Tissue Mobilization,Therapeutic Activities,Therapeutic Exercises Next Visit Focus/Plan Next Note Type Treatment Note Next Visit Plan LE strengthening, balance training, gait training, improving activity tolerance
--- NOTE | 2023-01-01 09:07 | PT-OP ANOTE ---
Pt cancelled <24hrs, having intestinal issues this am and unable to attend PT.
--- NOTE | 2023-01-05 10:45 | PT.OTN ---
Current Diagnoses Unsteadiness on feet (01/05/23) Unspecified abnormalities of gait and mobility (01/05/23) Weakness (01/05/23) Physical Therapy Treatment Note PT-OP-A Visit Information Start: 11/29/22 16:33 Freq: Status: Active Protocol: Document 01/05/23 10:02 SP (Rec: 01/05/23 10:57 SP [id number]) Out-Patient Physical Therapy Visit Information Visit Information Visit Type Treatment Note Visit Start Time 10:02 Visit Stop Time 10:45 Total Visit Minutes 43 Visit Number 8 Number of GENERAL MAINTENANCE TECHNICIAN Visits 1 Evaluation Information Evaluation Date 11/29/22 PT-OP-B Current Condition Start: 11/29/22 16:33 Freq: Status: Active Protocol: Document 11/29/22 14:15 DCW (Rec: 11/29/22 17:07 DCW [id number]) Current Condition History of Current Condition Onset Date Two months Current Complaints Recent falls, weakness, fatigue, fear of falling History of Current Condition Pt is an 81 year old male presenting with complaints of a one month history of weakness, fatigue, and increased fear of falling following a recent fall. Has been using his FWW more recently due to increased fear of falling, will occasionally use trekking poles. Pt was previously treated one month ago at this clinic for this exact same issue on 10/26/22, however after his evaluation, he called the clinic a few days later to request discharge, as he never intended to get therapy, he just wanted an assessment. This, however, was not the desire of his , and pt therefore returns again for a new assessment Prior Treatments and Tests BPH, Bipolar, Depression, Osteoporosis, TKA PT-OP-C Subjective Start: 11/29/22 16:33 Freq: Status: Active Protocol: Document 01/05/23 10:02 SP (Rec: 01/05/23 10:57 SP [id number]) OP-PT Subjective Patient Comments Patient Comments Pt reports feels little unsteady today. PT-OP-D Balance Start: 11/29/22 16:33 Freq: Status: Active Protocol: Document 11/29/22 14:15 DCW (Rec: 11/29/22 17:07 DCW [id number]) Balance Tests Ross Balance Test Ross Balance Test Score 42/56 Ross Impairment Rating 20 to 39% Impaired (Score 34- 44) Ross Balance Assessment Evaluation Sitting to Standing Ability Independent w/out Hands Unsupported Stance Supervision- 2 minutes Sitting Unsupported, Feet on Floor Safely- 2 minutes Standing to Sitting Ability Assist, Use Legs on Chair Transfer Ability Safely, Hand Use Unsupported Stance- Eyes Closed Safely, 10 seconds Unsupported Stance- Eyes Open Independent, 1 minute Reaching Forward Standing Safely, 5 inches Pick- Up Object From Floor Independent/Safe Look Behind Shoulder - Standing Shifts Weight Well Turning 360 Degrees Turns slowly, but safely Unsupported Stance, Alternating Feet on 4 Steps w/Supervision Stair Unsupported Tandem Stance Small Step- 30 seconds Unilateral Leg Stance Lifts Leg/Unable to Hold Total Score Ross Total Score (out of 56 points) 42 Ross Impairment Rating 20 to 39% Impaired (Score 34- 44) PT-OP-E Functional Tests Start: 11/29/22 16:33 Freq: Status: Active Protocol: Document 11/29/22 14:15 DCW (Rec: 11/29/22 17:07 DCW [id number]) Functional Tests Dynamic Gait Index (DGI) Score 14/24 DGI Impairment Rating 40 to <60% Impaired (Score 10- 14) Five Times Sit to Stand Test Score 10.61 Timed Up and Go (TUG) Score 14.08 Comments Three-trial Average (13.59, 13 .49, 15.15) TUG Impairment Rating 40 to <60% Impaired (Score 14- 15) PT-OP-M Strength Start: 11/29/22 16:33 Freq: Status: Active Protocol: Document 11/29/22 14:15 DCW (Rec: 11/29/22 17:07 DCW [id number]) Hip Strength Hip Manual Muscle Testing Right Flexion (L2) 4 Good Abduction 4- Good- Adduction 4+ Good+ Left Flexion (L2) 4+ Good+ Abduction 4- Good- Adduction 4+ Good+ Knee Strength Knee Manual Muscle Testing Right Flexion (S2) 4+ Good+ Extension (L3) 4+ Good+ Left Flexion (S2) 4+ Good+ Extension (L3) 4+ Good+ Ankle/Foot Strength Ankle and Foot Manual Muscle Testing Right Dorsiflexion (L4) 4 Good Left Dorsiflexion (L4) 4 Good PT-OP-Q Treatments Start: 11/29/22 16:33 Freq: Status: Active Protocol: Document 01/05/23 10:02 SP (Rec: 01/05/23 10:57 SP [id number]) Cardio Equipment Recumbent Elliptical (Biodex) Duration (Minutes) 6 Resistance 5 Seat Position in 11 Other BUE/BLE> LEs only (limited RUE ROM), 30-35 RPM Gym Equipment Shuttle Recovery Bilateral Heel Raises Details (R>L knee valgus) challenged knee alignment Resistance 50# (Two new) Reps/Time x20 Unilateral Squats Details tactile cues knee alignment with Mid foot Resistance 50# (Two new) Reps/Time x20 Bilateral Squats Details cues for R>L knee alignment with mid ft Resistance 100# (Four new) Shuttle Recovery Platform Stable Reps/Time x25 Shuttle Balance Red Details WBOS, Staggered Reps/Duration 4 min Comments wt shift and HTs CG/Min A, cued upright posture , TKE. Therapeutic Exercises Standing Exercises Toe-taps Standing Exercise Name Toe-taps Side bilateral Resistance 5# Equipment Used 6 step, near //bars Reps/Minutes 2x10 reps Comments alternate LEs, cued posture & TKE over stance LE Neuro Re-Education Treatment Balance Activities Hurdles Details Hurdles Equipment near rail Reps/Duration hurdles flipped over Comments step to patterning outside // bar step to hurdles elevated //bar - LOB R during LLE stance. *cued taller posture & TKE over stance LE improves stability. PT-OP-T Assessment and Plan Start: 11/29/22 16:33 Freq: Status: Active Protocol: Document 01/05/23 10:02 SP (Rec: 01/05/23 10:57 SP [id number]) Physical Therapy Assessment Goals Two Impairment Pt has an increased fall risk, per Ross (42/56) and DGI (14/ 24) scores Cadmium Burner Goal (LTG) Pt to increase DGI score by at least 6 points to 20/24 to exhibit a decreased risk of falls LTG Duration 01/30/23 One Impairment Pt does not have an appropriate home exercise program Short Term Goal (STG) Pt to be independent and compliant with an appropriate HEP STG Duration 12/30/22 Assessment Summary Assessment Pt improves challenging balance with no UE support hurdles step to patterning hurdles on floor, rail support as needed elevated hurdles with cues taller posturing/TKE over stance LE w/ Castillo as needed.Noted weakness in quads and hip abd maintaining TKE during balance activities. Physical Therapy Plan Frequency and Duration Frequency of Treatment 1-2x/week Plan of Care Start Date 11/29/22 Plan of Care End Date 01/30/23 Therapeutic Interventions Therapeutic Interventions Balance Training,Gait Training ,Home Exercise Program,Manual Therapy,Neuromuscular Re- education,Patient/Caregiver Education,Self-Care/Home Management,Soft Tissue Mobilization,Therapeutic Activities,Therapeutic Exercises Next Visit Focus/Plan Next Note Type Treatment Note Next Visit Plan Recheck quad/hip abd HEP. Continues wt shift balance activities. POC: LE strengthening, balance training, gait training, improving activity tolerance
--- NOTE | 2023-01-10 11:31 | PT.OTN ---
Current Diagnoses Unsteadiness on feet (01/10/23) Unspecified abnormalities of gait and mobility (01/10/23) Weakness (01/10/23) Physical Therapy Treatment Note PT-OP-A Visit Information Start: 11/29/22 16:33 Freq: Status: Active Protocol: Document 01/10/23 10:49 SP (Rec: 01/10/23 11:37 SP [id number]) Out-Patient Physical Therapy Visit Information Visit Information Visit Type Treatment Note Visit Note PN next appt 10th visit Visit Start Time 10:49 Visit Stop Time 11:31 Total Visit Minutes 42 Visit Number 9 Number of JALOUSIE INSTALLER Visits 2 Evaluation Information Evaluation Date 11/29/22 PT-OP-B Current Condition Start: 11/29/22 16:33 Freq: Status: Active Protocol: Document 11/29/22 14:15 DCW (Rec: 11/29/22 17:07 DCW [id number]) Current Condition History of Current Condition Onset Date Two months Current Complaints Recent falls, weakness, fatigue, fear of falling History of Current Condition Pt is an 81 year old male presenting with complaints of a one month history of weakness, fatigue, and increased fear of falling following a recent fall. Has been using his FWW more recently due to increased fear of falling, will occasionally use trekking poles. Pt was previously treated one month ago at this clinic for this exact same issue on 10/26/22, however after his evaluation, he called the clinic a few days later to request discharge, as he never intended to get therapy, he just wanted an assessment. This, however, was not the desire of his , and pt therefore returns again for a new assessment Prior Treatments and Tests BPH, Bipolar, Depression, Osteoporosis, TKA PT-OP-C Subjective Start: 11/29/22 16:33 Freq: Status: Active Protocol: Document 01/10/23 10:49 SP (Rec: 01/10/23 11:37 SP [id number]) OP-PT Subjective Patient Comments Patient Comments Pt reports thought appt was 1030. PT-OP-D Balance Start: 11/29/22 16:33 Freq: Status: Active Protocol: Document 11/29/22 14:15 DCW (Rec: 11/29/22 17:07 DCW [id number]) Balance Tests Ross Balance Test Ross Balance Test Score 42/56 Ross Impairment Rating 20 to 39% Impaired (Score 34- 44) Ross Balance Assessment Evaluation Sitting to Standing Ability Independent w/out Hands Unsupported Stance Supervision- 2 minutes Sitting Unsupported, Feet on Floor Safely- 2 minutes Standing to Sitting Ability Assist, Use Legs on Chair Transfer Ability Safely, Hand Use Unsupported Stance- Eyes Closed Safely, 10 seconds Unsupported Stance- Eyes Open Independent, 1 minute Reaching Forward Standing Safely, 5 inches Pick- Up Object From Floor Independent/Safe Look Behind Shoulder - Standing Shifts Weight Well Turning 360 Degrees Turns slowly, but safely Unsupported Stance, Alternating Feet on 4 Steps w/Supervision Stair Unsupported Tandem Stance Small Step- 30 seconds Unilateral Leg Stance Lifts Leg/Unable to Hold Total Score Ross Total Score (out of 56 points) 42 Ross Impairment Rating 20 to 39% Impaired (Score 34- 44) PT-OP-E Functional Tests Start: 11/29/22 16:33 Freq: Status: Active Protocol: Document 11/29/22 14:15 DCW (Rec: 11/29/22 17:07 DC [id number]) Functional Tests Dynamic Gait Index (DGI) Score 14/24 DGI Impairment Rating 40 to <60% Impaired (Score 10- 14) Five Times Sit to Stand Test Score 10.61 Timed Up and Go (TUG) Score 14.08 Comments Three-trial Average (13.59, 13 .49, 15.15) TUG Impairment Rating 40 to <60% Impaired (Score 14- 15) PT-OP-M Strength Start: 11/29/22 16:33 Freq: Status: Active Protocol: Document 11/29/22 14:15 DCW (Rec: 11/29/22 17:07 DCW [id number]) Hip Strength Hip Manual Muscle Testing Right Flexion (L2) 4 Good Abduction 4- Good- Adduction 4+ Good+ Left Flexion (L2) 4+ Good+ Abduction 4- Good- Adduction 4+ Good+ Knee Strength Knee Manual Muscle Testing Right Flexion (S2) 4+ Good+ Extension (L3) 4+ Good+ Left Flexion (S2) 4+ Good+ Extension (L3) 4+ Good+ Ankle/Foot Strength Ankle and Foot Manual Muscle Testing Right Dorsiflexion (L4) 4 Good Left Dorsiflexion (L4) 4 Good PT-OP-Q Treatments Start: 11/29/22 16:33 Freq: Status: Active Protocol: Document 01/10/23 10:49 SP (Rec: 01/10/23 11:37 SP [id number]) Cardio Equipment Recumbent Elliptical (Biodex) Duration (Minutes) 6 Resistance 5 Seat Position in 11 357 steps Other BUE/BLE> LEs only (limited RUE ROM), 30-35 RPM Gym Equipment Shuttle Recovery Bilateral Heel Raises Details (R>L knee valgus) challenged knee alignment Resistance 50# (Two new) Reps/Time x20 Unilateral Squats Details tactile cues knee alignment with Mid foot Resistance 50# (Two new) Reps/Time x20 Bilateral Squats Details cues for R>L knee alignment with mid ft Resistance 100# (Four new) Shuttle Recovery Platform Stable Reps/Time x25 Therapeutic Exercises Other Exercises Resisted Ambulation Other Exercise Name Resisted F/B/Lateral Side bilateral Resistance Green at shins Equipment Used 1 UE on rail Reps/Minutes 15 ft x3 laps each direction Comments cued taller posturing, trail LE clearance, increase RUSS Therapeutic Activity Therapeutic Activity sit stands Name safety Reps/Minutes x4 reps then throughout tx Comments back up fully, UE support if needed. Neuro Re-Education Treatment Balance Activities Hurdles Details Hurdles: fwd, lateral Equipment near-Light glide 1 UE on rail PRN Reps/Duration 2 laps each Comments step to patterning improved foot clearance with cues for taller posture and stance time . cues as needed slower pacing /stop and rest if off balanceCG- 10% A recovery LOB during LLE stance time during RLE advancement lateral more than fwd PT-OP-T Assessment and Plan Start: 11/29/22 16:33 Freq: Status: Active Protocol: Document 01/10/23 10:49 SP (Rec: 01/10/23 11:37 SP [id number]) Physical Therapy Assessment Goals Two Impairment Pt has an increased fall risk, per Ross (42/56) and DGI (14/ 24) scores Retirement Goal (LTG) Pt to increase DGI score by at least 6 points to 20/24 to exhibit a decreased risk of falls LTG Duration 01/30/23 One Impairment Pt does not have an appropriate home exercise program Short Term Goal (STG) Pt to be independent and compliant with an appropriate HEP STG Duration 12/30/22 Assessment Summary Assessment Pt improved RLE foot clearance during resisted side step and able to elevate hurdles today post cues for elevated posturing imagine balancing beanbag on head. Pt better self postural corrections by end tx with only PRN 1 UE contact rail support. Physical Therapy Plan Frequency and Duration Frequency of Treatment 1-2x/week Plan of Care Start Date 11/29/22 Plan of Care End Date 01/30/23 Therapeutic Interventions Therapeutic Interventions Balance Training,Gait Training ,Home Exercise Program,Manual Therapy,Neuromuscular Re- education,Patient/Caregiver Education,Self-Care/Home Management,Soft Tissue Mobilization,Therapeutic Activities,Therapeutic Exercises Next Visit Focus/Plan Next Note Type Progress Note Next Visit Plan 10th visit next. Update POC in approx 2 weeks, check if need more appts. Recheck quad/hip abd HEP. Continues wt shift balance activities. POC: LE strengthening, balance training, gait training, improving activity tolerance
--- NOTE | 2023-01-12 09:46 | PT.OTN ---
Current Diagnoses Unsteadiness on feet (01/12/23) Unspecified abnormalities of gait and mobility (01/12/23) Weakness (01/12/23) Physical Therapy Treatment Note PT-OP-A Visit Information Start: 11/29/22 16:33 Freq: Status: Active Protocol: Document 01/12/23 09:00 DCW (Rec: 01/12/23 09:46 DCW [id number]) Out-Patient Physical Therapy Visit Information Visit Information Visit Type Progress Note Visit Start Time 09:00 Visit Stop Time 09:45 Total Visit Minutes 45 Visit Number 10 Number of AGITATOR OPERATOR Visits 0 Evaluation Information Evaluation Date 11/29/22 PT-OP-B Current Condition Start: 11/29/22 16:33 Freq: Status: Active Protocol: Document 11/29/22 14:15 DCW (Rec: 11/29/22 17:07 DCW [id number]) Current Condition History of Current Condition Onset Date Two months Current Complaints Recent falls, weakness, fatigue, fear of falling History of Current Condition Pt is an 81 year old male presenting with complaints of a one month history of weakness, fatigue, and increased fear of falling following a recent fall. Has been using his FWW more recently due to increased fear of falling, will occasionally use trekking poles. Pt was previously treated one month ago at this clinic for this exact same issue on 10/26/22, however after his evaluation, he called the clinic a few days later to request discharge, as he never intended to get therapy, he just wanted an assessment. This, however, was not the desire of his , and pt therefore returns again for a new assessment Prior Treatments and Tests BPH, Bipolar, Depression, Osteoporosis, TKA PT-OP-C Subjective Start: 11/29/22 16:33 Freq: Status: Active Protocol: Document 01/12/23 09:00 DCW (Rec: 01/12/23 09:46 DCW [id number]) OP-PT Subjective Patient Comments Patient Comments Pt reports he is feeling pretty good overall, has noticed feeling a little more stable. PT-OP-D Balance Start: 11/29/22 16:33 Freq: Status: Active Protocol: Document 11/29/22 14:15 DCW (Rec: 11/29/22 17:07 DCW [id number]) Balance Tests Ross Balance Test Ross Balance Test Score 42/56 Ross Impairment Rating 20 to 39% Impaired (Score 34- 44) Ross Balance Assessment Evaluation Sitting to Standing Ability Independent w/out Hands Unsupported Stance Supervision- 2 minutes Sitting Unsupported, Feet on Floor Safely- 2 minutes Standing to Sitting Ability Assist, Use Legs on Chair Transfer Ability Safely, Hand Use Unsupported Stance- Eyes Closed Safely, 10 seconds Unsupported Stance- Eyes Open Independent, 1 minute Reaching Forward Standing Safely, 5 inches Pick- Up Object From Floor Independent/Safe Look Behind Shoulder - Standing Shifts Weight Well Turning 360 Degrees Turns slowly, but safely Unsupported Stance, Alternating Feet on 4 Steps w/Supervision Stair Unsupported Tandem Stance Small Step- 30 seconds Unilateral Leg Stance Lifts Leg/Unable to Hold Total Score Ross Total Score (out of 56 points) 42 Ross Impairment Rating 20 to 39% Impaired (Score 34- 44) PT-OP-E Functional Tests Start: 11/29/22 16:33 Freq: Status: Active Protocol: Document 11/29/22 14:15 DCW (Rec: 11/29/22 17:07 DC [id number]) Functional Tests Dynamic Gait Index (DGI) Score 14/24 DGI Impairment Rating 40 to <60% Impaired (Score 10- 14) Five Times Sit to Stand Test Score 10.61 Timed Up and Go (TUG) Score 14.08 Comments Three-trial Average (13.59, 13 .49, 15.15) TUG Impairment Rating 40 to <60% Impaired (Score 14- 15) PT-OP-M Strength Start: 11/29/22 16:33 Freq: Status: Active Protocol: Document 11/29/22 14:15 DCW (Rec: 11/29/22 17:07 DC [id number]) Hip Strength Hip Manual Muscle Testing Right Flexion (L2) 4 Good Abduction 4- Good- Adduction 4+ Good+ Left Flexion (L2) 4+ Good+ Abduction 4- Good- Adduction 4+ Good+ Knee Strength Knee Manual Muscle Testing Right Flexion (S2) 4+ Good+ Extension (L3) 4+ Good+ Left Flexion (S2) 4+ Good+ Extension (L3) 4+ Good+ Ankle/Foot Strength Ankle and Foot Manual Muscle Testing Right Dorsiflexion (L4) 4 Good Left Dorsiflexion (L4) 4 Good PT-OP-Q Treatments Start: 11/29/22 16:33 Freq: Status: Active Protocol: Document 01/12/23 09:00 DCW (Rec: 01/12/23 09:46 [facility] [id number]) Cardio Equipment Recumbent Stepper (Sci-Fit) Duration (Minutes) 6 Resistance 4 Seat Position 12 Gym Equipment Shuttle Recovery Bilateral Heel Raises Details (R>L knee valgus) challenged knee alignment Resistance 62# (Two new) Reps/Time x20 Unilateral Squats Details tactile cues knee alignment with Mid foot Resistance 50# (Two new) Reps/Time x20 Bilateral Squats Details cues for R>L knee alignment with mid ft Resistance 100# (Four new) Shuttle Recovery Platform Stable Reps/Time x25 Shuttle Balance Red Details WBOS, Staggered Comments wt shift and HTs CG/Min A, cued upright posture , TKE. Neuro Re-Education Treatment Balance Activities SLS Details SLS Equipment // bars Foam Stance Details NBOS EC Surface Blue foam Tandem Details Tandem Stance Equipment // bars PT-OP-T Assessment and Plan Start: 11/29/22 16:33 Freq: Status: Active Protocol: Document 01/12/23 09:00 DCW (Rec: 01/12/23 09:46 [facility] [id number]) Physical Therapy Assessment Goals Two Impairment Pt has an increased fall risk, per Ross (42/56) and DGI (14/ 24) scores Bottom Brusher Goal (LTG) Pt to increase DGI score by at least 6 points to 20/24 to exhibit a decreased risk of falls LTG Duration 01/30/23 One Impairment Pt does not have an appropriate home exercise program Short Term Goal (STG) Pt to be independent and compliant with an appropriate HEP STG Duration 12/30/22 Assessment Summary Assessment Pt improving with SLS and obstacle clearance, still struggling some with stability during head turns. Will likely continue to benefit from skilled therapy focusing on static and dynamic balance challenges in a safe environment. Physical Therapy Plan Frequency and Duration Frequency of Treatment 1-2x/week Plan of Care Start Date 11/29/22 Plan of Care End Date 01/30/23 Therapeutic Interventions Therapeutic Interventions Balance Training,Gait Training ,Home Exercise Program,Manual Therapy,Neuromuscular Re- education,Patient/Caregiver Education,Self-Care/Home Management,Soft Tissue Mobilization,Therapeutic Activities,Therapeutic Exercises Next Visit Focus/Plan Next Note Type Treatment Note Next Visit Plan Update POC in approx 2 weeks, check if need more appts. Recheck quad/hip abd HEP. Continues wt shift balance activities. POC: LE strengthening, balance training, gait training, improving activity tolerance
--- NOTE | 2023-01-12 10:31 | PT.OPPN ---
Current Diagnoses Unsteadiness on feet (01/12/23) Unspecified abnormalities of gait and mobility (01/12/23) Weakness (01/12/23) Physical Therapy Progress Note PT-OP-A Visit Information Start: 11/29/22 16:33 Freq: Status: Active Protocol: Document 01/12/23 09:00 DCW (Rec: 01/12/23 09:46 DCW [id number]) Out-Patient Physical Therapy Visit Information Visit Information Visit Type Progress Note Visit Start Time 09:00 Visit Stop Time 09:45 Total Visit Minutes 45 Visit Number 10 Number of KILN WORKER Visits 0 Evaluation Information Evaluation Date 11/29/22 PT-OP-B Current Condition Start: 11/29/22 16:33 Freq: Status: Active Protocol: Document 11/29/22 14:15 DCW (Rec: 11/29/22 17:07 DCW [id number]) Current Condition History of Current Condition Onset Date Two months Current Complaints Recent falls, weakness, fatigue, fear of falling History of Current Condition Pt is an 81 year old male presenting with complaints of a one month history of weakness, fatigue, and increased fear of falling following a recent fall. Has been using his FWW more recently due to increased fear of falling, will occasionally use trekking poles. Pt was previously treated one month ago at this clinic for this exact same issue on 10/26/22, however after his evaluation, he called the clinic a few days later to request discharge, as he never intended to get therapy, he just wanted an assessment. This, however, was not the desire of his , and pt therefore returns again for a new assessment Prior Treatments and Tests BPH, Bipolar, Depression, Osteoporosis, TKA PT-OP-C Subjective Start: 11/29/22 16:33 Freq: Status: Active Protocol: Document 01/12/23 09:00 DCW (Rec: 01/12/23 09:46 DCW [id number]) OP-PT Subjective Patient Comments Patient Comments Pt reports he is feeling pretty good overall, has noticed feeling a little more stable. PT-OP-D Balance Start: 11/29/22 16:33 Freq: Status: Active Protocol: Document 11/29/22 14:15 DCW (Rec: 11/29/22 17:07 DCW [id number]) Balance Tests Ross Balance Test Ross Balance Test Score 42/56 Ross Impairment Rating 20 to 39% Impaired (Score 34- 44) Ross Balance Assessment Evaluation Sitting to Standing Ability Independent w/out Hands Unsupported Stance Supervision- 2 minutes Sitting Unsupported, Feet on Floor Safely- 2 minutes Standing to Sitting Ability Assist, Use Legs on Chair Transfer Ability Safely, Hand Use Unsupported Stance- Eyes Closed Safely, 10 seconds Unsupported Stance- Eyes Open Independent, 1 minute Reaching Forward Standing Safely, 5 inches Pick- Up Object From Floor Independent/Safe Look Behind Shoulder - Standing Shifts Weight Well Turning 360 Degrees Turns slowly, but safely Unsupported Stance, Alternating Feet on 4 Steps w/Supervision Stair Unsupported Tandem Stance Small Step- 30 seconds Unilateral Leg Stance Lifts Leg/Unable to Hold Total Score Ross Total Score (out of 56 points) 42 Ross Impairment Rating 20 to 39% Impaired (Score 34- 44) PT-OP-E Functional Tests Start: 11/29/22 16:33 Freq: Status: Active Protocol: Document 11/29/22 14:15 DCW (Rec: 11/29/22 17:07 [facility] [id number]) Functional Tests Dynamic Gait Index (DGI) Score 14/24 DGI Impairment Rating 40 to <60% Impaired (Score 10- 14) Five Times Sit to Stand Test Score 10.61 Timed Up and Go (TUG) Score 14.08 Comments Three-trial Average (13.59, 13 .49, 15.15) TUG Impairment Rating 40 to <60% Impaired (Score 14- 15) PT-OP-M Strength Start: 11/29/22 16:33 Freq: Status: Active Protocol: Document 11/29/22 14:15 DCW (Rec: 11/29/22 17:07 DC [id number]) Hip Strength Hip Manual Muscle Testing Right Flexion (L2) 4 Good Abduction 4- Good- Adduction 4+ Good+ Left Flexion (L2) 4+ Good+ Abduction 4- Good- Adduction 4+ Good+ Knee Strength Knee Manual Muscle Testing Right Flexion (S2) 4+ Good+ Extension (L3) 4+ Good+ Left Flexion (S2) 4+ Good+ Extension (L3) 4+ Good+ Ankle/Foot Strength Ankle and Foot Manual Muscle Testing Right Dorsiflexion (L4) 4 Good Left Dorsiflexion (L4) 4 Good PT-OP-T Assessment and Plan Start: 11/29/22 16:33 Freq: Status: Active Protocol: Document 01/12/23 09:00 DCW (Rec: 01/12/23 09:46 DCW [id number]) Physical Therapy Assessment Goals Two Impairment Pt has an increased fall risk, per Ross (42/56) and DGI (14) scores Civil Design Technician Goal (LTG) Pt to increase DGI score by at least 6 points to 20/24 to exhibit a decreased risk of falls LTG Duration 01/30/23 One Impairment Pt does not have an appropriate home exercise program Short Term Goal (STG) Pt to be independent and compliant with an appropriate HEP STG Duration 12/30/22 Assessment Summary Assessment Pt improving with SLS and obstacle clearance, still struggling some with stability during head turns. Will likely continue to benefit from skilled therapy focusing on static and dynamic balance challenges in a safe environment. Physical Therapy Plan Frequency and Duration Frequency of Treatment 1-2x/week Plan of Care Start Date 11/29/22 Plan of Care End Date 01/30/23 Therapeutic Interventions Therapeutic Interventions Balance Training,Gait Training ,Home Exercise Program,Manual Therapy,Neuromuscular Re- education,Patient/Caregiver Education,Self-Care/Home Management,Soft Tissue Mobilization,Therapeutic Activities,Therapeutic Exercises Next Visit Focus/Plan Next Note Type Treatment Note Next Visit Plan Update POC in approx 2 weeks, check if need more appts. Recheck quad/hip abd HEP. Continues wt shift balance activities. POC: LE strengthening, balance training, gait training, improving activity tolerance
--- NOTE | 2023-01-15 15:31 | PT.OTN ---
Current Diagnoses Unsteadiness on feet (01/15/23) Unspecified abnormalities of gait and mobility (01/15/23) Weakness (01/15/23) Physical Therapy Treatment Note PT-OP-A Visit Information Start: 11/29/22 16:33 Freq: Status: Active Protocol: Document 01/15/23 14:45 DCW (Rec: 01/15/23 15:31 DCW [id number]) Out-Patient Physical Therapy Visit Information Visit Information Visit Type Treatment Note Visit Start Time 14:45 Visit Stop Time 15:30 Total Visit Minutes 45 Visit Number 11 Number of REPRODUCTION PRODUCTION MANAGER Visits 0 Evaluation Information Evaluation Date 11/29/22 PT-OP-B Current Condition Start: 11/29/22 16:33 Freq: Status: Active Protocol: Document 11/29/22 14:15 DCW (Rec: 11/29/22 17:07 DCW [id number]) Current Condition History of Current Condition Onset Date Two months Current Complaints Recent falls, weakness, fatigue, fear of falling History of Current Condition Pt is an 81 year old male presenting with complaints of a one month history of weakness, fatigue, and increased fear of falling following a recent fall. Has been using his FWW more recently due to increased fear of falling, will occasionally use trekking poles. Pt was previously treated one month ago at this clinic for this exact same issue on 10/26/22, however after his evaluation, he called the clinic a few days later to request discharge, as he never intended to get therapy, he just wanted an assessment. This, however, was not the desire of his , and pt therefore returns again for a new assessment Prior Treatments and Tests BPH, Bipolar, Depression, Osteoporosis, TKA PT-OP-C Subjective Start: 11/29/22 16:33 Freq: Status: Active Protocol: Document 01/15/23 14:45 DCW (Rec: 01/15/23 15:31 DCW [id number]) OP-PT Subjective Patient Comments Patient Comments Notes some stumbles, but no falls recently. PT-OP-D Balance Start: 11/29/22 16:33 Freq: Status: Active Protocol: Document 11/29/22 14:15 DCW (Rec: 11/29/22 17:07 DCW [id number]) Balance Tests Ross Balance Test Ross Balance Test Score 42/56 Ross Impairment Rating 20 to 39% Impaired (Score 34- 44) Ross Balance Assessment Evaluation Sitting to Standing Ability Independent w/out Hands Unsupported Stance Supervision- 2 minutes Sitting Unsupported, Feet on Floor Safely- 2 minutes Standing to Sitting Ability Assist, Use Legs on Chair Transfer Ability Safely, Hand Use Unsupported Stance- Eyes Closed Safely, 10 seconds Unsupported Stance- Eyes Open Independent, 1 minute Reaching Forward Standing Safely, 5 inches Pick- Up Object From Floor Independent/Safe Look Behind Shoulder - Standing Shifts Weight Well Turning 360 Degrees Turns slowly, but safely Unsupported Stance, Alternating Feet on 4 Steps w/Supervision Stair Unsupported Tandem Stance Small Step- 30 seconds Unilateral Leg Stance Lifts Leg/Unable to Hold Total Score Ross Total Score (out of 56 points) 42 Ross Impairment Rating 20 to 39% Impaired (Score 34- 44) PT-OP-E Functional Tests Start: 11/29/22 16:33 Freq: Status: Active Protocol: Document 11/29/22 14:15 DCW (Rec: 11/29/22 17:07 DC [id number]) Functional Tests Dynamic Gait Index (DGI) Score 14/24 DGI Impairment Rating 40 to <60% Impaired (Score 10- 14) Five Times Sit to Stand Test Score 10.61 Timed Up and Go (TUG) Score 14.08 Comments Three-trial Average (13.59, 13 .49, 15.15) TUG Impairment Rating 40 to <60% Impaired (Score 14- 15) PT-OP-M Strength Start: 11/29/22 16:33 Freq: Status: Active Protocol: Document 11/29/22 14:15 DCW (Rec: 11/29/22 17:07 DCW [id number]) Hip Strength Hip Manual Muscle Testing Right Flexion (L2) 4 Good Abduction 4- Good- Adduction 4+ Good+ Left Flexion (L2) 4+ Good+ Abduction 4- Good- Adduction 4+ Good+ Knee Strength Knee Manual Muscle Testing Right Flexion (S2) 4+ Good+ Extension (L3) 4+ Good+ Left Flexion (S2) 4+ Good+ Extension (L3) 4+ Good+ Ankle/Foot Strength Ankle and Foot Manual Muscle Testing Right Dorsiflexion (L4) 4 Good Left Dorsiflexion (L4) 4 Good PT-OP-Q Treatments Start: 11/29/22 16:33 Freq: Status: Active Protocol: Document 01/15/23 14:45 DCW (Rec: 01/15/23 15:31 DCW [id number]) Cardio Equipment Recumbent Elliptical (Biodex) Duration (Minutes) 6 Resistance 5 Seat Position in 10 Other BUE/BLE> LEs only (limited RUE ROM), 30-35 RPM Gym Equipment Shuttle Recovery Bilateral Heel Raises Details (R>L knee valgus) challenged knee alignment Resistance 62# (Two new) Reps/Time x20 Unilateral Squats Details tactile cues knee alignment with Mid foot Resistance 50# (Two new) Reps/Time x20 Bilateral Squats Details cues for R>L knee alignment with mid ft Resistance 100# (Four new) Shuttle Recovery Platform Stable Reps/Time x25 Shuttle Balance Red Details WBOS, Staggered Comments wt shift and HTs CG/Min A, cued upright posture , TKE. Therapeutic Exercises Other Exercises Resisted Ambulation Other Exercise Name Resisted F/B/Lateral Side bilateral Resistance Green at shins Equipment Used 1 UE on rail Reps/Minutes 15 ft x3 laps each direction Comments cued taller posturing, trail LE clearance, increase RUSS Neuro Re-Education Treatment Balance Activities Foam Stance Details NBOS EC Surface Blue foam Tandem Details Tandem Ambulation Equipment // bars Hurdles Details Hurdles: fwd, lateral Equipment near-Light glide 1 UE on rail PRN Reps/Duration 2 laps each PT-OP-T Assessment and Plan Start: 11/29/22 16:33 Freq: Status: Active Protocol: Document 01/15/23 14:45 DCW (Rec: 01/15/23 15:31 DCW [id number]) Physical Therapy Assessment Goals Two Impairment Pt has an increased fall risk, per Ross (42/56) and DGI (14) scores Finger Grip Machine Operator Goal (LTG) Pt to increase DGI score by at least 6 points to 20/24 to exhibit a decreased risk of falls LTG Duration 01/30/23 One Impairment Pt does not have an appropriate home exercise program Short Term Goal (STG) Pt to be independent and compliant with an appropriate HEP STG Duration 12/30/22 Assessment Summary Assessment Pt struggled more with tandem ambulation and hurdles today, but showed great improvement with shuttle balance and foam stance. Physical Therapy Plan Frequency and Duration Frequency of Treatment 1-2x/week Plan of Care Start Date 11/29/22 Plan of Care End Date 01/30/23 Therapeutic Interventions Therapeutic Interventions Balance Training,Gait Training ,Home Exercise Program,Manual Therapy,Neuromuscular Re- education,Patient/Caregiver Education,Self-Care/Home Management,Soft Tissue Mobilization,Therapeutic Activities,Therapeutic Exercises Next Visit Focus/Plan Next Note Type Treatment Note Next Visit Plan Update POC next week, check if need more appts. Recheck quad/hip abd HEP. Continues wt shift balance activities. POC: LE strengthening, balance training, gait training, improving activity tolerance
--- NOTE | 2023-01-17 16:11 | PT.OTN ---
Current Diagnoses Unsteadiness on feet (01/17/23) Unspecified abnormalities of gait and mobility (01/17/23) Weakness (01/17/23) Physical Therapy Treatment Note PT-OP-A Visit Information Start: 11/29/22 16:33 Freq: Status: Active Protocol: Document 01/17/23 15:30 DCW (Rec: 01/17/23 16:11 DCW [id number]) Out-Patient Physical Therapy Visit Information Visit Information Visit Type Treatment Note Visit Start Time 15:30 Visit Stop Time 16:15 Total Visit Minutes 45 Visit Number 12 Number of MANAGER MACHINE Visits 0 Evaluation Information Evaluation Date 11/29/22 PT-OP-B Current Condition Start: 11/29/22 16:33 Freq: Status: Active Protocol: Document 11/29/22 14:15 DCW (Rec: 11/29/22 17:07 DCW [id number]) Current Condition History of Current Condition Onset Date Two months Current Complaints Recent falls, weakness, fatigue, fear of falling History of Current Condition Pt is an 81 year old male presenting with complaints of a one month history of weakness, fatigue, and increased fear of falling following a recent fall. Has been using his FWW more recently due to increased fear of falling, will occasionally use trekking poles. Pt was previously treated one month ago at this clinic for this exact same issue on 10/26/22, however after his evaluation, he called the clinic a few days later to request discharge, as he never intended to get therapy, he just wanted an assessment. This, however, was not the desire of his , and pt therefore returns again for a new assessment Prior Treatments and Tests BPH, Bipolar, Depression, Osteoporosis, TKA PT-OP-C Subjective Start: 11/29/22 16:33 Freq: Status: Active Protocol: Document 01/17/23 15:30 DCW (Rec: 01/17/23 16:11 DCW [id number]) OP-PT Subjective Patient Comments Patient Comments Pt feeling fairly good, no recent falls. PT-OP-D Balance Start: 11/29/22 16:33 Freq: Status: Active Protocol: Document 11/29/22 14:15 DCW (Rec: 11/29/22 17:07 DCW [id number]) Balance Tests Ross Balance Test Ross Balance Test Score 42/56 Ross Impairment Rating 20 to 39% Impaired (Score 34- 44) Ross Balance Assessment Evaluation Sitting to Standing Ability Independent w/out Hands Unsupported Stance Supervision- 2 minutes Sitting Unsupported, Feet on Floor Safely- 2 minutes Standing to Sitting Ability Assist, Use Legs on Chair Transfer Ability Safely, Hand Use Unsupported Stance- Eyes Closed Safely, 10 seconds Unsupported Stance- Eyes Open Independent, 1 minute Reaching Forward Standing Safely, 5 inches Pick- Up Object From Floor Independent/Safe Look Behind Shoulder - Standing Shifts Weight Well Turning 360 Degrees Turns slowly, but safely Unsupported Stance, Alternating Feet on 4 Steps w/Supervision Stair Unsupported Tandem Stance Small Step- 30 seconds Unilateral Leg Stance Lifts Leg/Unable to Hold Total Score Ross Total Score (out of 56 points) 42 Ross Impairment Rating 20 to 39% Impaired (Score 34- 44) PT-OP-E Functional Tests Start: 11/29/22 16:33 Freq: Status: Active Protocol: Document 11/29/22 14:15 DCW (Rec: 11/29/22 17:07 DCW [id number]) Functional Tests Dynamic Gait Index (DGI) Score 14/24 DGI Impairment Rating 40 to <60% Impaired (Score 10- 14) Five Times Sit to Stand Test Score 10.61 Timed Up and Go (TUG) Score 14.08 Comments Three-trial Average (13.59, 13 .49, 15.15) TUG Impairment Rating 40 to <60% Impaired (Score 14- 15) PT-OP-M Strength Start: 11/29/22 16:33 Freq: Status: Active Protocol: Document 11/29/22 14:15 DCW (Rec: 11/29/22 17:07 DCW [id number]) Hip Strength Hip Manual Muscle Testing Right Flexion (L2) 4 Good Abduction 4- Good- Adduction 4+ Good+ Left Flexion (L2) 4+ Good+ Abduction 4- Good- Adduction 4+ Good+ Knee Strength Knee Manual Muscle Testing Right Flexion (S2) 4+ Good+ Extension (L3) 4+ Good+ Left Flexion (S2) 4+ Good+ Extension (L3) 4+ Good+ Ankle/Foot Strength Ankle and Foot Manual Muscle Testing Right Dorsiflexion (L4) 4 Good Left Dorsiflexion (L4) 4 Good PT-OP-Q Treatments Start: 11/29/22 16:33 Freq: Status: Active Protocol: Document 01/17/23 15:30 DCW (Rec: 01/17/23 16:11 DCW [id number]) Cardio Equipment Recumbent Elliptical (Biodex) Duration (Minutes) 6 Resistance 5 Seat Position in 11 Other LEs only, 30-35 RPM Gym Equipment Shuttle Recovery Bilateral Heel Raises Details (R>L knee valgus) challenged knee alignment Resistance 62# (Two new) Reps/Time x20 Unilateral Squats Details tactile cues knee alignment with Mid foot Resistance 50# (Two new) Reps/Time x20 Bilateral Squats Resistance 100# (Four new) Shuttle Recovery Platform Stable Reps/Time x25 Shuttle Balance Red Details WBOS, Staggered Comments CG/Min A, cued upright posture , TKE. Therapeutic Exercises Sitting Exercises Balloon Volley Sitting Exercise Name Seated weight shift /c balloon volley Side bilateral Resistance 2# wrist weights Comments added sitting on Dynadisc Neuro Re-Education Treatment Balance Activities SLS Details SLS Equipment // bars Tandem Details Tandem Ambulation Equipment // bars PT-OP-T Assessment and Plan Start: 11/29/22 16:33 Freq: Status: Active Protocol: Document 01/17/23 15:30 DCW (Rec: 01/17/23 16:11 DCW [id number]) Physical Therapy Assessment Goals Two Impairment Pt has an increased fall risk, per Ross (42/56) and DGI (14/ 24) scores Land Surveying Party Chief Goal (LTG) Pt to increase DGI score by at least 6 points to 20/24 to exhibit a decreased risk of falls LTG Duration 01/30/23 One Impairment Pt does not have an appropriate home exercise program Short Term Goal (STG) Pt to be independent and compliant with an appropriate HEP STG Duration 12/30/22 Assessment Summary Assessment Pt had one instance of near- fall after stepping off Shuttle Balance, took a step and caught foot on corner, unable to react quickly enough to catch himself, therapist able to return to upright position. Otherwise, pt had good response to today's treatment, slight fatigue. Physical Therapy Plan Frequency and Duration Frequency of Treatment 1-2x/week Plan of Care Start Date 11/29/22 Plan of Care End Date 01/30/23 Therapeutic Interventions Therapeutic Interventions Balance Training,Gait Training ,Home Exercise Program,Manual Therapy,Neuromuscular Re- education,Patient/Caregiver Education,Self-Care/Home Management,Soft Tissue Mobilization,Therapeutic Activities,Therapeutic Exercises Next Visit Focus/Plan Next Note Type Treatment Note Next Visit Plan Update POC next week, check if need more appts. Recheck quad/hip abd HEP. Continues wt shift balance activities. POC: LE strengthening, balance training, gait training, improving activity tolerance
--- NOTE | 2023-01-22 15:35 | PT.OTN ---
Current Diagnoses Unsteadiness on feet (01/22/23) Unspecified abnormalities of gait and mobility (01/22/23) Weakness (01/22/23) Physical Therapy Treatment Note PT-OP-A Visit Information Start: 11/29/22 16:33 Freq: Status: Active Protocol: Document 01/22/23 14:47 DCW (Rec: 01/22/23 15:35 DCW [id number]) Out-Patient Physical Therapy Visit Information Visit Information Visit Type Treatment Note Visit Start Time 14:47 Visit Stop Time 15:30 Total Visit Minutes 43 Visit Number 13 Number of FRONT END APPLICATION DEVELOPER Visits 0 Evaluation Information Evaluation Date 11/29/22 PT-OP-B Current Condition Start: 11/29/22 16:33 Freq: Status: Active Protocol: Document 11/29/22 14:15 DCW (Rec: 11/29/22 17:07 DCW [id number]) Current Condition History of Current Condition Onset Date Two months Current Complaints Recent falls, weakness, fatigue, fear of falling History of Current Condition Pt is an 81 year old male presenting with complaints of a one month history of weakness, fatigue, and increased fear of falling following a recent fall. Has been using his FWW more recently due to increased fear of falling, will occasionally use trekking poles. Pt was previously treated one month ago at this clinic for this exact same issue on 10/26/22, however after his evaluation, he called the clinic a few days later to request discharge, as he never intended to get therapy, he just wanted an assessment. This, however, was not the desire of his , and pt therefore returns again for a new assessment Prior Treatments and Tests BPH, Bipolar, Depression, Osteoporosis, TKA PT-OP-C Subjective Start: 11/29/22 16:33 Freq: Status: Active Protocol: Document 01/22/23 14:47 DCW (Rec: 01/22/23 15:35 DCW [id number]) OP-PT Subjective Patient Comments Patient Comments How do I know whether or not this is starting to do some good? PT-OP-D Balance Start: 11/29/22 16:33 Freq: Status: Active Protocol: Document 11/29/22 14:15 DCW (Rec: 11/29/22 17:07 DCW [id number]) Balance Tests Ross Balance Test Ross Balance Test Score 42/56 Ross Impairment Rating 20 to 39% Impaired (Score 34- 44) Ross Balance Assessment Evaluation Sitting to Standing Ability Independent w/out Hands Unsupported Stance Supervision- 2 minutes Sitting Unsupported, Feet on Floor Safely- 2 minutes Standing to Sitting Ability Assist, Use Legs on Chair Transfer Ability Safely, Hand Use Unsupported Stance- Eyes Closed Safely, 10 seconds Unsupported Stance- Eyes Open Independent, 1 minute Reaching Forward Standing Safely, 5 inches Pick- Up Object From Floor Independent/Safe Look Behind Shoulder - Standing Shifts Weight Well Turning 360 Degrees Turns slowly, but safely Unsupported Stance, Alternating Feet on 4 Steps w/Supervision Stair Unsupported Tandem Stance Small Step- 30 seconds Unilateral Leg Stance Lifts Leg/Unable to Hold Total Score Ross Total Score (out of 56 points) 42 Ross Impairment Rating 20 to 39% Impaired (Score 34- 44) PT-OP-E Functional Tests Start: 11/29/22 16:33 Freq: Status: Active Protocol: Document 11/29/22 14:15 DCW (Rec: 11/29/22 17:07 DC [id number]) Functional Tests Dynamic Gait Index (DGI) Score 14/24 DGI Impairment Rating 40 to <60% Impaired (Score 10- 14) Five Times Sit to Stand Test Score 10.61 Timed Up and Go (TUG) Score 14.08 Comments Three-trial Average (13.59, 13 .49, 15.15) TUG Impairment Rating 40 to <60% Impaired (Score 14- 15) PT-OP-M Strength Start: 11/29/22 16:33 Freq: Status: Active Protocol: Document 11/29/22 14:15 DCW (Rec: 11/29/22 17:07 DCW [id number]) Hip Strength Hip Manual Muscle Testing Right Flexion (L2) 4 Good Abduction 4- Good- Adduction 4+ Good+ Left Flexion (L2) 4+ Good+ Abduction 4- Good- Adduction 4+ Good+ Knee Strength Knee Manual Muscle Testing Right Flexion (S2) 4+ Good+ Extension (L3) 4+ Good+ Left Flexion (S2) 4+ Good+ Extension (L3) 4+ Good+ Ankle/Foot Strength Ankle and Foot Manual Muscle Testing Right Dorsiflexion (L4) 4 Good Left Dorsiflexion (L4) 4 Good PT-OP-Q Treatments Start: 11/29/22 16:33 Freq: Status: Active Protocol: Document 01/22/23 14:47 DCW (Rec: 01/22/23 15:35 DCW [id number]) Cardio Equipment Recumbent Elliptical (Biodex) Duration (Minutes) 6 Resistance 5 Seat Position in 10 Other LEs only, 30-35 RPM, 298 steps Gym Equipment Shuttle Balance Red Details WBOS Comments CG/Min A, cued upright posture , TKE. Therapeutic Exercises Standing Exercises Wall posture Standing Exercise Name Chin tucks/wall posture Neuro Re-Education Treatment Balance Activities NBOS Details NBOS - X1 Equipment // bars Tandem Details Tandem Stance Equipment // bars Other Activities DGI Details PT-OP-T Assessment and Plan Start: 11/29/22 16:33 Freq: Status: Active Protocol: Document 01/22/23 14:47 DCW (Rec: 01/22/23 15:35 DCW [id number]) Physical Therapy Assessment Goals Two Impairment Pt has an increased fall risk, per Ross (42/56) and DGI () scores Apprentice Machinist Outside Goal (LTG) Pt to increase DGI score by at least 6 points to 20/24 to exhibit a decreased risk of falls LTG Duration 01/30/23 - Improving () One Impairment Pt does not have an appropriate home exercise program Short Term Goal (STG) Pt to be independent and compliant with an appropriate HEP STG Duration 12/30/22 Assessment Summary Assessment Pt showing some good overall improvement, DGI testing score of 19/24, which is a 5 point improvement since initial evaluation. Added wall posture , tandem stance, and X1 head turns to HEP, pt interested in practicing various parts of DGI, including walking with variable speeds, turns while walking, and walking around obstacles. Physical Therapy Plan Frequency and Duration Frequency of Treatment 1-2x/week Plan of Care Start Date 11/29/22 Plan of Care End Date 01/30/23 Therapeutic Interventions Therapeutic Interventions Balance Training,Gait Training ,Home Exercise Program,Manual Therapy,Neuromuscular Re- education,Patient/Caregiver Education,Self-Care/Home Management,Soft Tissue Mobilization,Therapeutic Activities,Therapeutic Exercises Next Visit Focus/Plan Next Note Type Progress Note Next Visit Plan Update POC next week, check if need more appts. Recheck quad/hip abd HEP. Continues wt shift balance activities. POC: LE strengthening, balance training, gait training, improving activity tolerance
--- NOTE | 2023-01-24 15:44 | PT.OTN ---
Current Diagnoses Unsteadiness on feet (01/24/23) Unspecified abnormalities of gait and mobility (01/24/23) Weakness (01/24/23) Physical Therapy Treatment Note PT-OP-A Visit Information Start: 11/29/22 16:33 Freq: Status: Active Protocol: Document 01/24/23 14:45 DCW (Rec: 01/24/23 15:43 DCW [id number]) Out-Patient Physical Therapy Visit Information Visit Information Visit Type Progress Note Visit Start Time 14:45 Visit Stop Time 15:30 Total Visit Minutes 45 Visit Number 14 Number of LABOR ARBITRATOR Visits 0 Evaluation Information Evaluation Date 11/29/22 PT-OP-B Current Condition Start: 11/29/22 16:33 Freq: Status: Active Protocol: Document 11/29/22 14:15 DCW (Rec: 11/29/22 17:07 DCW [id number]) Current Condition History of Current Condition Onset Date Two months Current Complaints Recent falls, weakness, fatigue, fear of falling History of Current Condition Pt is an 81 year old male presenting with complaints of a one month history of weakness, fatigue, and increased fear of falling following a recent fall. Has been using his FWW more recently due to increased fear of falling, will occasionally use trekking poles. Pt was previously treated one month ago at this clinic for this exact same issue on 10/26/22, however after his evaluation, he called the clinic a few days later to request discharge, as he never intended to get therapy, he just wanted an assessment. This, however, was not the desire of his , and pt therefore returns again for a new assessment Prior Treatments and Tests BPH, Bipolar, Depression, Osteoporosis, TKA PT-OP-C Subjective Start: 11/29/22 16:33 Freq: Status: Active Protocol: Document 01/24/23 14:45 DCW (Rec: 01/24/23 15:43 DCW [id number]) OP-PT Subjective Patient Comments Patient Comments Pt feeling quite a bit more positive after his improved DGI score last visit. PT-OP-D Balance Start: 11/29/22 16:33 Freq: Status: Active Protocol: Document 01/24/23 14:45 DCW (Rec: 01/24/23 15:15 DCW [id number]) Balance Tests Ross Balance Test Ross Balance Test Score 47/56 Ross Balance Assessment Evaluation Sitting to Standing Ability Independent w/out Hands Unsupported Stance Safely- 2 minutes Sitting Unsupported, Feet on Floor Safely- 2 minutes Standing to Sitting Ability Safely, Minimal Hand Use Transfer Ability Safely, Minimal Hand Use Unsupported Stance- Eyes Closed Safely, 10 seconds Unsupported Stance- Eyes Open Independent, 1 minute Reaching Forward Standing Safely, 5 inches Pick- Up Object From Floor Independent/Safe Look Behind Shoulder - Standing Shifts Weight Well Turning 360 Degrees Turns , < 4 secs Unsupported Stance, Alternating Feet on 4 Steps w/Supervision Stair Unsupported Tandem Stance Small Step- 30 seconds Unilateral Leg Stance Lifts Leg/Unable to Hold Total Score Ross Total Score (out of 56 points) 47 Ross Impairment Rating 1 to 19% Impaired (Score 45-55 ) PT-OP-E Functional Tests Start: 11/29/22 16:33 Freq: Status: Active Protocol: Document 01/24/23 14:45 DCW (Rec: 01/24/23 15:15 DCW [id number]) Functional Tests Dynamic Gait Index (DGI) Score 19/24 DGI Impairment Rating 20 to <40% Impaired (Score 15- 19) Five Times Sit to Stand Test Score 10.39 Timed Up and Go (TUG) Score 10.93 Comments Three-trial Average (11.61, 11 .11, 10.08) TUG Impairment Rating 1 to <20% Impaired (Score 11) PT-OP-M Strength Start: 11/29/22 16:33 Freq: Status: Active Protocol: Document 11/29/22 14:15 DCW (Rec: 11/29/22 17:07 DCW [id number]) Hip Strength Hip Manual Muscle Testing Right Flexion (L2) 4 Good Abduction 4- Good- Adduction 4+ Good+ Left Flexion (L2) 4+ Good+ Abduction 4- Good- Adduction 4+ Good+ Knee Strength Knee Manual Muscle Testing Right Flexion (S2) 4+ Good+ Extension (L3) 4+ Good+ Left Flexion (S2) 4+ Good+ Extension (L3) 4+ Good+ Ankle/Foot Strength Ankle and Foot Manual Muscle Testing Right Dorsiflexion (L4) 4 Good Left Dorsiflexion (L4) 4 Good PT-OP-Q Treatments Start: 11/29/22 16:33 Freq: Status: Active Protocol: Document 01/24/23 14:45 DCW (Rec: 01/24/23 15:43 DCW [id number]) Gym Equipment Shuttle Balance Red Details WBOS Comments CG/Min A, cued upright posture , TKE. Neuro Re-Education Treatment Other Activities Testing Details TUG, 5xStS, Ross PT-OP-T Assessment and Plan Start: 11/29/22 16:33 Freq: Status: Active Protocol: Document 01/24/23 14:45 DCW (Rec: 01/24/23 15:43 DCW [id number]) Physical Therapy Assessment Goals Two Impairment Pt has an increased fall risk, per Ross (42/56) and DGI () scores Retirement Goal (LTG) Pt to increase DGI score by at least 6 points to to exhibit a decreased risk of falls LTG Duration 03/26/23 - Improving () One Impairment Pt does not have an appropriate home exercise program Short Term Goal (STG) Pt to be independent and compliant with an appropriate HEP STG Duration 02/23/23 - Improving Assessment Summary Assessment Pt showing good progress overall with all testing. TUG score dropped more than three seconds, Ross improved from 42 /56 to 47/56. Showing good motivation to perform more HEP , overall decreasing falls risk and improved confidence with gait stability. Continue to focus on balance and gait training, posture, and decreasing fear of falling. Physical Therapy Plan Frequency and Duration Frequency of Treatment 1-2x/week Plan of Care Start Date 01/24/23 Plan of Care End Date 03/26/23 Therapeutic Interventions Therapeutic Interventions Balance Training,Gait Training ,Home Exercise Program,Manual Therapy,Neuromuscular Re- education,Patient/Caregiver Education,Self-Care/Home Management,Soft Tissue Mobilization,Therapeutic Activities,Therapeutic Exercises Next Visit Focus/Plan Next Note Type Treatment Note Next Visit Plan Check if need more appts. Recheck quad/hip abd HEP. Continues wt shift balance activities. POC: LE strengthening, balance training, gait training, improving activity tolerance
--- NOTE | 2023-01-24 15:44 | PT.OPPOC ---
Physical, Occupational & Speech Therapy At [facility] Current Diagnoses Unsteadiness on feet (01/24/23) Unspecified abnormalities of gait and mobility (01/24/23) Weakness (01/24/23) Visit Care Team Role Provider Type Saulo Diane MD Attending Provider Physician Family Provider Primary Care Provider Referring Provider Specialty: Internal Medicine Address: [address] [place] [address], [address], [facility] Email: [email or web address] Plan Of Care PT-OP-T Assessment and Plan Start: 11/29/22 16:33 Freq: Status: Active Protocol: Document 01/24/23 14:45 DCW (Rec: 01/24/23 15:43 DCW [id number]) Physical Therapy Assessment Goals Two Impairment Pt has an increased fall risk, per Ross (42/56) and DGI () scores Tape Deck Installer Goal (LTG) Pt to increase DGI score by at least 6 points to to exhibit a decreased risk of falls LTG Duration 03/26/23 - Improving () One Impairment Pt does not have an appropriate home exercise program Short Term Goal (STG) Pt to be independent and compliant with an appropriate HEP STG Duration 02/23/23 - Improving Assessment Summary Assessment Pt showing good progress overall with all testing. TUG score dropped more than three seconds, Ross improved from 42 /56 to 47/56. Showing good motivation to perform more HEP , overall decreasing falls risk and improved confidence with gait stability. Continue to focus on balance and gait training, posture, and decreasing fear of falling. Physical Therapy Plan Frequency and Duration Frequency of Treatment 1-2x/week Plan of Care Start Date 01/24/23 Plan of Care End Date 03/26/23 Therapeutic Interventions Therapeutic Interventions Balance Training,Gait Training ,Home Exercise Program,Manual Therapy,Neuromuscular Re- education,Patient/Caregiver Education,Self-Care/Home Management,Soft Tissue Mobilization,Therapeutic Activities,Therapeutic Exercises Next Visit Focus/Plan Next Note Type Treatment Note Next Visit Plan Check if need more appts. Recheck quad/hip abd HEP. Continues wt shift balance activities. POC: LE strengthening, balance training, gait training, improving activity tolerance Plan of Care Dates Plan of Care Start Date 01/24/23 Plan of Care End Date 03/26/23 Electronically Signed by: Tom Dill, PT 01/24/23 8162 If you are in agreement with this Plan of Care, please return a signed and dated copy. I have reviewed this Plan of Care and certify that the skilled therapy services above are required to meet the patient?s needs. Physician Signature Date Printed Name and Credentials Clinical Instructor Signature Printed Name and Credentials
--- NOTE | 2023-01-31 16:36 | PT.OTN ---
Current Diagnoses Unsteadiness on feet (01/31/23) Unspecified abnormalities of gait and mobility (01/31/23) Weakness (01/31/23) Physical Therapy Treatment Note PT-OP-A Visit Information Start: 11/29/22 16:33 Freq: Status: Active Protocol: Document 01/31/23 15:45 DCW (Rec: 01/31/23 16:35 DCW [id number]) Out-Patient Physical Therapy Visit Information Visit Information Visit Type Treatment Note Visit Start Time 15:45 Visit Stop Time 16:30 Total Visit Minutes 45 Visit Number 15 Number of REIMBURSEMENT DIRECTOR Visits 0 Evaluation Information Evaluation Date 11/29/22 PT-OP-B Current Condition Start: 11/29/22 16:33 Freq: Status: Active Protocol: Document 11/29/22 14:15 DCW (Rec: 11/29/22 17:07 DCW [id number]) Current Condition History of Current Condition Onset Date Two months Current Complaints Recent falls, weakness, fatigue, fear of falling History of Current Condition Pt is an 81 year old male presenting with complaints of a one month history of weakness, fatigue, and increased fear of falling following a recent fall. Has been using his FWW more recently due to increased fear of falling, will occasionally use trekking poles. Pt was previously treated one month ago at this clinic for this exact same issue on 10/26/22, however after his evaluation, he called the clinic a few days later to request discharge, as he never intended to get therapy, he just wanted an assessment. This, however, was not the desire of his , and pt therefore returns again for a new assessment Prior Treatments and Tests BPH, Bipolar, Depression, Osteoporosis, TKA PT-OP-C Subjective Start: 11/29/22 16:33 Freq: Status: Active Protocol: Document 01/31/23 15:45 DCW (Rec: 01/31/23 16:35 DCW [id number]) OP-PT Subjective Patient Comments Patient Comments I've been trying to do a lot of work at home to get myself better here. PT-OP-D Balance Start: 11/29/22 16:33 Freq: Status: Active Protocol: Document 01/24/23 14:45 DCW (Rec: 01/24/23 15:15 DCW [id number]) Balance Tests Ross Balance Test Ross Balance Test Score 47/56 Ross Balance Assessment Evaluation Sitting to Standing Ability Independent w/out Hands Unsupported Stance Safely- 2 minutes Sitting Unsupported, Feet on Floor Safely- 2 minutes Standing to Sitting Ability Safely, Minimal Hand Use Transfer Ability Safely, Minimal Hand Use Unsupported Stance- Eyes Closed Safely, 10 seconds Unsupported Stance- Eyes Open Independent, 1 minute Reaching Forward Standing Safely, 5 inches Pick- Up Object From Floor Independent/Safe Look Behind Shoulder - Standing Shifts Weight Well Turning 360 Degrees Turns , < 4 secs Unsupported Stance, Alternating Feet on 4 Steps w/Supervision Stair Unsupported Tandem Stance Small Step- 30 seconds Unilateral Leg Stance Lifts Leg/Unable to Hold Total Score Ross Total Score (out of 56 points) 47 Ross Impairment Rating 1 to 19% Impaired (Score 45-55 ) PT-OP-E Functional Tests Start: 11/29/22 16:33 Freq: Status: Active Protocol: Document 01/24/23 14:45 DCW (Rec: 01/24/23 15:15 DCW [id number]) Functional Tests Dynamic Gait Index (DGI) Score 19/24 DGI Impairment Rating 20 to <40% Impaired (Score 15- 19) Five Times Sit to Stand Test Score 10.39 Timed Up and Go (TUG) Score 10.93 Comments Three-trial Average (11.61, 11 .11, 10.08) TUG Impairment Rating 1 to <20% Impaired (Score 11) PT-OP-M Strength Start: 11/29/22 16:33 Freq: Status: Active Protocol: Document 11/29/22 14:15 DCW (Rec: 11/29/22 17:07 DCW [id number]) Hip Strength Hip Manual Muscle Testing Right Flexion (L2) 4 Good Abduction 4- Good- Adduction 4+ Good+ Left Flexion (L2) 4+ Good+ Abduction 4- Good- Adduction 4+ Good+ Knee Strength Knee Manual Muscle Testing Right Flexion (S2) 4+ Good+ Extension (L3) 4+ Good+ Left Flexion (S2) 4+ Good+ Extension (L3) 4+ Good+ Ankle/Foot Strength Ankle and Foot Manual Muscle Testing Right Dorsiflexion (L4) 4 Good Left Dorsiflexion (L4) 4 Good PT-OP-Q Treatments Start: 11/29/22 16:33 Freq: Status: Active Protocol: Document 01/31/23 15:45 DCW (Rec: 01/31/23 16:35 DCW [id number]) Cardio Equipment Recumbent Elliptical (Biodex) Duration (Minutes) 6 Resistance 5 Seat Position 11 Gym Equipment Shuttle Recovery Bilateral Heel Raises Resistance 62# (Two new) Reps/Time x20 Unilateral Squats Details tactile cues knee alignment with Mid foot Resistance 62# (Two new) Reps/Time x20 Bilateral Squats Details Increase next visit Resistance 100# (Four new) Shuttle Recovery Platform Stable Reps/Time x25 Shuttle Balance Red Details WBOS, Staggered Comments CG/Min A, cued upright posture , TKE. Therapeutic Exercises Standing Exercises Wall posture Standing Exercise Name Chin tucks/wall posture Extension Standing Exercise Name Hip Extension Side bilateral Resistance Green Other Exercises Star Slides Other Exercise Name Lateral, Extension Side bilateral Resisted Ambulation Other Exercise Name Resisted Side-stepping Side bilateral Resistance Green Neuro Re-Education Treatment Balance Activities SLS Details SLS Equipment // bars Foam Stance Details NBOS EO/EC Surface Blue foam Hurdles Details Hurdles/Foam Equipment @ rail Reps/Duration 2 laps each PT-OP-T Assessment and Plan Start: 11/29/22 16:33 Freq: Status: Active Protocol: Document 01/31/23 15:45 DCW (Rec: 01/31/23 16:35 DCW [id number]) Physical Therapy Assessment Goals Two Impairment Pt has an increased fall risk, per Ross (42/56) and DGI () scores Drafting Engineer Goal (LTG) Pt to increase DGI score by at least 6 points to to exhibit a decreased risk of falls LTG Duration 03/26/23 - Improving () One Impairment Pt does not have an appropriate home exercise program Short Term Goal (STG) Pt to be independent and compliant with an appropriate HEP STG Duration 02/23/23 - Improving Assessment Summary Assessment Progressing well, required some increased resistance today, good response to increased challenge. Physical Therapy Plan Frequency and Duration Frequency of Treatment 1-2x/week Plan of Care Start Date 01/24/23 Plan of Care End Date 03/26/23 Therapeutic Interventions Therapeutic Interventions Balance Training,Gait Training ,Home Exercise Program,Manual Therapy,Neuromuscular Re- education,Patient/Caregiver Education,Self-Care/Home Management,Soft Tissue Mobilization,Therapeutic Activities,Therapeutic Exercises Next Visit Focus/Plan Next Note Type Treatment Note Next Visit Plan Check if need more appts. Recheck quad/hip abd HEP. Continues wt shift balance activities. POC: LE strengthening, balance training, gait training, improving activity tolerance
--- NOTE | 2023-02-07 10:14 | PT.OTN ---
Current Diagnoses Unsteadiness on feet (02/07/23) Unspecified abnormalities of gait and mobility (02/07/23) Weakness (02/07/23) Physical Therapy Treatment Note PT-OP-A Visit Information Start: 11/29/22 16:33 Freq: Status: Active Protocol: Document 02/07/23 09:30 DCW (Rec: 02/07/23 10:14 DCW [id number]) Out-Patient Physical Therapy Visit Information Visit Information Visit Type Treatment Note Visit Start Time 09:30 Visit Stop Time 10:15 Total Visit Minutes 45 Visit Number 16 Number of FOUNDATION RELATIONS MANAGER Visits 0 Evaluation Information Evaluation Date 11/29/22 PT-OP-B Current Condition Start: 11/29/22 16:33 Freq: Status: Active Protocol: Document 11/29/22 14:15 DCW (Rec: 11/29/22 17:07 DCW [id number]) Current Condition History of Current Condition Onset Date Two months Current Complaints Recent falls, weakness, fatigue, fear of falling History of Current Condition Pt is an 81 year old male presenting with complaints of a one month history of weakness, fatigue, and increased fear of falling following a recent fall. Has been using his FWW more recently due to increased fear of falling, will occasionally use trekking poles. Pt was previously treated one month ago at this clinic for this exact same issue on 10/26/22, however after his evaluation, he called the clinic a few days later to request discharge, as he never intended to get therapy, he just wanted an assessment. This, however, was not the desire of his , and pt therefore returns again for a new assessment Prior Treatments and Tests BPH, Bipolar, Depression, Osteoporosis, TKA PT-OP-C Subjective Start: 11/29/22 16:33 Freq: Status: Active Protocol: Document 02/07/23 09:30 DCW (Rec: 02/07/23 10:14 DCW [id number]) OP-PT Subjective Patient Comments Patient Comments Pt reports he had a fall last Sunday, went to a restaurant and tripped over a curb. Thinks he may have had a LOC, but is not sure, but felt fine the remainder of the day. Does note he has had a bloody nose most of the morning. PT-OP-D Balance Start: 11/29/22 16:33 Freq: Status: Active Protocol: Document 01/24/23 14:45 DCW (Rec: 01/24/23 15:15 DCW [id number]) Balance Tests Ross Balance Test Ross Balance Test Score 47/56 Ross Balance Assessment Evaluation Sitting to Standing Ability Independent w/out Hands Unsupported Stance Safely- 2 minutes Sitting Unsupported, Feet on Floor Safely- 2 minutes Standing to Sitting Ability Safely, Minimal Hand Use Transfer Ability Safely, Minimal Hand Use Unsupported Stance- Eyes Closed Safely, 10 seconds Unsupported Stance- Eyes Open Independent, 1 minute Reaching Forward Standing Safely, 5 inches Pick- Up Object From Floor Independent/Safe Look Behind Shoulder - Standing Shifts Weight Well Turning 360 Degrees Turns , < 4 secs Unsupported Stance, Alternating Feet on 4 Steps w/Supervision Stair Unsupported Tandem Stance Small Step- 30 seconds Unilateral Leg Stance Lifts Leg/Unable to Hold Total Score Ross Total Score (out of 56 points) 47 Ross Impairment Rating 1 to 19% Impaired (Score 45-55 ) PT-OP-E Functional Tests Start: 11/29/22 16:33 Freq: Status: Active Protocol: Document 01/24/23 14:45 DCW (Rec: 01/24/23 15:15 DC [id number]) Functional Tests Dynamic Gait Index (DGI) Score 19/24 DGI Impairment Rating 20 to <40% Impaired (Score 15- 19) Five Times Sit to Stand Test Score 10.39 Timed Up and Go (TUG) Score 10.93 Comments Three-trial Average (11.61, 11 .11, 10.08) TUG Impairment Rating 1 to <20% Impaired (Score 11) PT-OP-M Strength Start: 11/29/22 16:33 Freq: Status: Active Protocol: Document 11/29/22 14:15 DCW (Rec: 11/29/22 17:07 DCW [id number]) Hip Strength Hip Manual Muscle Testing Right Flexion (L2) 4 Good Abduction 4- Good- Adduction 4+ Good+ Left Flexion (L2) 4+ Good+ Abduction 4- Good- Adduction 4+ Good+ Knee Strength Knee Manual Muscle Testing Right Flexion (S2) 4+ Good+ Extension (L3) 4+ Good+ Left Flexion (S2) 4+ Good+ Extension (L3) 4+ Good+ Ankle/Foot Strength Ankle and Foot Manual Muscle Testing Right Dorsiflexion (L4) 4 Good Left Dorsiflexion (L4) 4 Good PT-OP-Q Treatments Start: 11/29/22 16:33 Freq: Status: Active Protocol: Document 02/07/23 09:30 DCW (Rec: 02/07/23 10:14 DCW [id number]) Cardio Equipment Recumbent Elliptical (Biodex) Duration (Minutes) 6 Resistance 5 Seat Position 11 Gym Equipment Shuttle Recovery Bilateral Heel Raises Resistance 75# (Three new) Reps/Time x20 Unilateral Squats Details tactile cues knee alignment with Mid foot Resistance 62# (Two new) Reps/Time x20 Bilateral Squats Details Increase next visit Resistance 100# (Four new) Shuttle Recovery Platform Stable Reps/Time x25 Shuttle Balance Red Details WBOS, Staggered Comments CG/Min A Therapeutic Exercises Standing Exercises Toe-taps Standing Exercise Name Toe-taps Side bilateral Resistance 10# Equipment Used 6 step Reps/Minutes 2x10 reps Comments alternate LEs, cued posture & TKE over stance LE Extension Standing Exercise Name Hip Extension Side bilateral Resistance Blue Other Exercises Step-ups Other Exercise Name Step-ups Side bilateral Resisted Ambulation Other Exercise Name Resisted Side-stepping Side bilateral Resistance Blue Neuro Re-Education Treatment Balance Activities Tandem Details Tandem Stance Equipment // bars PT-OP-T Assessment and Plan Start: 11/29/22 16:33 Freq: Status: Active Protocol: Document 02/07/23 09:30 DCW (Rec: 02/07/23 10:14 DCW [id number]) Physical Therapy Assessment Impairments Impairments Activity Tolerance,Balance, Coordination,Functional Activities,Functional Mobility ,Gait,Strength Goals Two Impairment Pt has an increased fall risk, per Ross (42/56) and DGI () scores Residential Goal (LTG) Pt to increase DGI score by at least 6 points to to exhibit a decreased risk of falls LTG Duration 03/26/23 - Improving () One Impairment Pt does not have an appropriate home exercise program Short Term Goal (STG) Pt to be independent and compliant with an appropriate HEP STG Duration 02/23/23 - Improving Assessment Summary Assessment Good response to treatment today, pt doing well with balance and strengthening challenges. Physical Therapy Plan Frequency and Duration Frequency of Treatment 1-2x/week Plan of Care Start Date 01/24/23 Plan of Care End Date 03/26/23 Therapeutic Interventions Therapeutic Interventions Balance Training,Gait Training ,Home Exercise Program,Manual Therapy,Neuromuscular Re- education,Patient/Caregiver Education,Self-Care/Home Management,Soft Tissue Mobilization,Therapeutic Activities,Therapeutic Exercises Next Visit Focus/Plan Next Note Type Treatment Note Next Visit Plan Recheck quad/hip abd HEP. Continues wt shift balance activities. POC: LE strengthening, balance training, gait training, improving activity tolerance
--- NOTE | 2023-02-09 09:48 | PT.OTN ---
Current Diagnoses Unsteadiness on feet (02/09/23) Unspecified abnormalities of gait and mobility (02/09/23) Weakness (02/09/23) Physical Therapy Treatment Note PT-OP-A Visit Information Start: 11/29/22 16:33 Freq: Status: Active Protocol: Document 02/09/23 09:04 DCW (Rec: 02/09/23 09:48 DCW [id number]) Out-Patient Physical Therapy Visit Information Visit Information Visit Type Treatment Note Visit Start Time 09:04 Visit Stop Time 09:45 Total Visit Minutes 41 Visit Number 17 Number of SAMPLE PATTERNMAKER Visits 0 Evaluation Information Evaluation Date 11/29/22 PT-OP-B Current Condition Start: 11/29/22 16:33 Freq: Status: Active Protocol: Document 11/29/22 14:15 DCW (Rec: 11/29/22 17:07 DCW [id number]) Current Condition History of Current Condition Onset Date Two months Current Complaints Recent falls, weakness, fatigue, fear of falling History of Current Condition Pt is an 81 year old male presenting with complaints of a one month history of weakness, fatigue, and increased fear of falling following a recent fall. Has been using his FWW more recently due to increased fear of falling, will occasionally use trekking poles. Pt was previously treated one month ago at this clinic for this exact same issue on 10/26/22, however after his evaluation, he called the clinic a few days later to request discharge, as he never intended to get therapy, he just wanted an assessment. This, however, was not the desire of his , and pt therefore returns again for a new assessment Prior Treatments and Tests BPH, Bipolar, Depression, Osteoporosis, TKA PT-OP-C Subjective Start: 11/29/22 16:33 Freq: Status: Active Protocol: Document 02/09/23 09:04 DCW (Rec: 02/09/23 09:48 DCW [id number]) OP-PT Subjective Patient Comments Patient Comments Notes no falls, not even any close calls since last visit PT-OP-D Balance Start: 11/29/22 16:33 Freq: Status: Active Protocol: Document 01/24/23 14:45 DCW (Rec: 01/24/23 15:15 DCW [id number]) Balance Tests Ross Balance Test Ross Balance Test Score 47/56 Ross Balance Assessment Evaluation Sitting to Standing Ability Independent w/out Hands Unsupported Stance Safely- 2 minutes Sitting Unsupported, Feet on Floor Safely- 2 minutes Standing to Sitting Ability Safely, Minimal Hand Use Transfer Ability Safely, Minimal Hand Use Unsupported Stance- Eyes Closed Safely, 10 seconds Unsupported Stance- Eyes Open Independent, 1 minute Reaching Forward Standing Safely, 5 inches Pick- Up Object From Floor Independent/Safe Look Behind Shoulder - Standing Shifts Weight Well Turning 360 Degrees Turns , < 4 secs Unsupported Stance, Alternating Feet on 4 Steps w/Supervision Stair Unsupported Tandem Stance Small Step- 30 seconds Unilateral Leg Stance Lifts Leg/Unable to Hold Total Score Ross Total Score (out of 56 points) 47 Ross Impairment Rating 1 to 19% Impaired (Score 45-55 ) PT-OP-E Functional Tests Start: 11/29/22 16:33 Freq: Status: Active Protocol: Document 01/24/23 14:45 DCW (Rec: 01/24/23 15:15 DCW [id number]) Functional Tests Dynamic Gait Index (DGI) Score 19/24 DGI Impairment Rating 20 to <40% Impaired (Score 15- 19) Five Times Sit to Stand Test Score 10.39 Timed Up and Go (TUG) Score 10.93 Comments Three-trial Average (11.61, 11 .11, 10.08) TUG Impairment Rating 1 to <20% Impaired (Score 11) PT-OP-M Strength Start: 11/29/22 16:33 Freq: Status: Active Protocol: Document 11/29/22 14:15 DCW (Rec: 11/29/22 17:07 DCW [id number]) Hip Strength Hip Manual Muscle Testing Right Flexion (L2) 4 Good Abduction 4- Good- Adduction 4+ Good+ Left Flexion (L2) 4+ Good+ Abduction 4- Good- Adduction 4+ Good+ Knee Strength Knee Manual Muscle Testing Right Flexion (S2) 4+ Good+ Extension (L3) 4+ Good+ Left Flexion (S2) 4+ Good+ Extension (L3) 4+ Good+ Ankle/Foot Strength Ankle and Foot Manual Muscle Testing Right Dorsiflexion (L4) 4 Good Left Dorsiflexion (L4) 4 Good PT-OP-Q Treatments Start: 11/29/22 16:33 Freq: Status: Active Protocol: Document 02/09/23 09:04 DCW (Rec: 02/09/23 09:48 [facility] [id number]) Cardio Equipment Recumbent Elliptical (Biodex) Duration (Minutes) 6 Resistance 6 Seat Position 11 Gym Equipment Shuttle Recovery Bilateral Heel Raises Resistance 75# (Three new) Reps/Time x20 Unilateral Squats Resistance 75# (Three new) Reps/Time x20 Bilateral Squats Resistance 125# (Four new) Shuttle Recovery Platform Stable Reps/Time x20 Shuttle Balance Red Details WBOS, Staggered Comments CG/Min A Therapeutic Exercises Standing Exercises Toe-taps Standing Exercise Name Toe-taps Side bilateral Resistance 10# Equipment Used 6 step Reps/Minutes 2x10 reps Comments alternate LEs, cued posture & TKE over stance LE Other Exercises Hamstring Curls Other Exercise Name Hamstring Curls Side bilateral Resistance 10# Neuro Re-Education Treatment Balance Activities NBOS Details NBOS - X1 Equipment // bars Tilt board Details Tilt board Comments Lateral Foam Stance Details NBOS EO/EC Surface Blue foam Tandem Details Tandem Stance Equipment // bars PT-OP-T Assessment and Plan Start: 11/29/22 16:33 Freq: Status: Active Protocol: Document 02/09/23 09:04 [facility] (Rec: 02/09/23 09:48 [facility] [id number]) Physical Therapy Assessment Impairments Impairments Activity Tolerance,Balance, Coordination,Functional Activities,Functional Mobility ,Gait,Strength Goals Two Impairment Pt has an increased fall risk, per Ross (42/56) and DGI () scores Correction Goal (LTG) Pt to increase DGI score by at least 6 points to to exhibit a decreased risk of falls LTG Duration 03/26/23 - Improving () One Impairment Pt does not have an appropriate home exercise program Short Term Goal (STG) Pt to be independent and compliant with an appropriate HEP STG Duration 02/23/23 - Improving Assessment Summary Assessment Pt has been showing good progress in all areas, balance , activity tolerance, and strength all improving. Good compliance with HEP Physical Therapy Plan Frequency and Duration Frequency of Treatment 1-2x/week Plan of Care Start Date 01/24/23 Plan of Care End Date 03/26/23 Therapeutic Interventions Therapeutic Interventions Balance Training,Gait Training ,Home Exercise Program,Manual Therapy,Neuromuscular Re- education,Patient/Caregiver Education,Self-Care/Home Management,Soft Tissue Mobilization,Therapeutic Activities,Therapeutic Exercises Next Visit Focus/Plan Next Note Type Treatment Note Next Visit Plan Recheck quad/hip abd HEP. Continues wt shift balance activities. POC: LE strengthening, balance training, gait training, improving activity tolerance
--- NOTE | 2023-02-12 12:47 | PT.OTN ---
Current Diagnoses Unsteadiness on feet (02/12/23) Unspecified abnormalities of gait and mobility (02/12/23) Weakness (02/12/23) Physical Therapy Treatment Note PT-OP-A Visit Information Start: 11/29/22 16:33 Freq: Status: Active Protocol: Document 02/12/23 12:00 DCW (Rec: 02/12/23 12:46 DCW [id number]) Out-Patient Physical Therapy Visit Information Visit Information Visit Type Treatment Note Visit Start Time 12:00 Visit Stop Time 12:45 Total Visit Minutes 45 Visit Number 18 Number of SKIP LOADER Visits 0 Evaluation Information Evaluation Date 11/29/22 PT-OP-B Current Condition Start: 11/29/22 16:33 Freq: Status: Active Protocol: Document 11/29/22 14:15 DCW (Rec: 11/29/22 17:07 DCW [id number]) Current Condition History of Current Condition Onset Date Two months Current Complaints Recent falls, weakness, fatigue, fear of falling History of Current Condition Pt is an 81 year old male presenting with complaints of a one month history of weakness, fatigue, and increased fear of falling following a recent fall. Has been using his FWW more recently due to increased fear of falling, will occasionally use trekking poles. Pt was previously treated one month ago at this clinic for this exact same issue on 10/26/22, however after his evaluation, he called the clinic a few days later to request discharge, as he never intended to get therapy, he just wanted an assessment. This, however, was not the desire of his , and pt therefore returns again for a new assessment Prior Treatments and Tests BPH, Bipolar, Depression, Osteoporosis, TKA PT-OP-C Subjective Start: 11/29/22 16:33 Freq: Status: Active Protocol: Document 02/12/23 12:00 DCW (Rec: 02/12/23 12:46 DCW [id number]) OP-PT Subjective Patient Comments Patient Comments Pt feeling pretty good today, no new complaints. PT-OP-D Balance Start: 11/29/22 16:33 Freq: Status: Active Protocol: Document 01/24/23 14:45 DCW (Rec: 01/24/23 15:15 DCW [id number]) Balance Tests Ross Balance Test Ross Balance Test Score 47/56 Ross Balance Assessment Evaluation Sitting to Standing Ability Independent w/out Hands Unsupported Stance Safely- 2 minutes Sitting Unsupported, Feet on Floor Safely- 2 minutes Standing to Sitting Ability Safely, Minimal Hand Use Transfer Ability Safely, Minimal Hand Use Unsupported Stance- Eyes Closed Safely, 10 seconds Unsupported Stance- Eyes Open Independent, 1 minute Reaching Forward Standing Safely, 5 inches Pick- Up Object From Floor Independent/Safe Look Behind Shoulder - Standing Shifts Weight Well Turning 360 Degrees Turns , < 4 secs Unsupported Stance, Alternating Feet on 4 Steps w/Supervision Stair Unsupported Tandem Stance Small Step- 30 seconds Unilateral Leg Stance Lifts Leg/Unable to Hold Total Score Ross Total Score (out of 56 points) 47 Ross Impairment Rating 1 to 19% Impaired (Score 45-55 ) PT-OP-E Functional Tests Start: 11/29/22 16:33 Freq: Status: Active Protocol: Document 01/24/23 14:45 DCW (Rec: 01/24/23 15:15 DCW [id number]) Functional Tests Dynamic Gait Index (DGI) Score 19/24 DGI Impairment Rating 20 to <40% Impaired (Score 15- 19) Five Times Sit to Stand Test Score 10.39 Timed Up and Go (TUG) Score 10.93 Comments Three-trial Average (11.61, 11 .11, 10.08) TUG Impairment Rating 1 to <20% Impaired (Score 11) PT-OP-M Strength Start: 11/29/22 16:33 Freq: Status: Active Protocol: Document 11/29/22 14:15 DCW (Rec: 11/29/22 17:07 DCW [id number]) Hip Strength Hip Manual Muscle Testing Right Flexion (L2) 4 Good Abduction 4- Good- Adduction 4+ Good+ Left Flexion (L2) 4+ Good+ Abduction 4- Good- Adduction 4+ Good+ Knee Strength Knee Manual Muscle Testing Right Flexion (S2) 4+ Good+ Extension (L3) 4+ Good+ Left Flexion (S2) 4+ Good+ Extension (L3) 4+ Good+ Ankle/Foot Strength Ankle and Foot Manual Muscle Testing Right Dorsiflexion (L4) 4 Good Left Dorsiflexion (L4) 4 Good PT-OP-Q Treatments Start: 11/29/22 16:33 Freq: Status: Active Protocol: Document 02/12/23 12:00 DCW (Rec: 02/12/23 12:46 [facility] [id number]) Cardio Equipment Recumbent Elliptical (Biodex) Duration (Minutes) 6 Resistance 6 Seat Position 11 Other 330 steps Gym Equipment Shuttle Recovery Bilateral Heel Raises Resistance 75# (Three new) Reps/Time x20 Unilateral Squats Resistance 75# (Three new) Shuttle Recovery Platform Stable Reps/Time x20 Bilateral Squats Resistance 125# (Four new) Shuttle Recovery Platform Stable Reps/Time x20 Therapeutic Exercises Standing Exercises Toe-taps Standing Exercise Name Toe-taps Side bilateral Resistance 10# Equipment Used 6 step Reps/Minutes 2x10 reps Comments alternate LEs, cued posture & TKE over stance LE Extension Standing Exercise Name Hip Extension Side bilateral Resistance Blue Other Exercises Resisted Ambulation Other Exercise Name Resisted Side-stepping Side bilateral Resistance Blue Neuro Re-Education Treatment Balance Activities Dynamic Gait Details Head turns, Retro walking Comments HT /c metronome (90 bpm) NBOS Details NBOS EO/EC Equipment // bars Tilt board Details Tilt board Comments Lateral Tandem Details Tandem Stance Equipment // bars Hurdles Details Hurdles Equipment @ rail Reps/Duration 2 laps each PT-OP-T Assessment and Plan Start: 11/29/22 16:33 Freq: Status: Active Protocol: Document 02/12/23 12:00 [facility] (Rec: 02/12/23 12:46 [facility] [id number]) Physical Therapy Assessment Impairments Impairments Activity Tolerance,Balance, Coordination,Functional Activities,Functional Mobility ,Gait,Strength Goals Two Impairment Pt has an increased fall risk, per Ross (42/56) and DGI (14/ 24) scores Polymer Chemist Goal (LTG) Pt to increase DGI score by at least 6 points to 20 to exhibit a decreased risk of falls LTG Duration 03/26/23 - Improving () One Impairment Pt does not have an appropriate home exercise program Short Term Goal (STG) Pt to be independent and compliant with an appropriate HEP STG Duration 02/23/23 - Improving Assessment Summary Assessment Pt happy with recent improvement with balance and strength, notes there is still a long way to go. Difficulty today with keeping time with metronome for head turns. Physical Therapy Plan Frequency and Duration Frequency of Treatment 1-2x/week Plan of Care Start Date 01/24/23 Plan of Care End Date 03/26/23 Therapeutic Interventions Therapeutic Interventions Balance Training,Gait Training ,Home Exercise Program,Manual Therapy,Neuromuscular Re- education,Patient/Caregiver Education,Self-Care/Home Management,Soft Tissue Mobilization,Therapeutic Activities,Therapeutic Exercises Next Visit Focus/Plan Next Note Type Treatment Note Next Visit Plan Recheck quad/hip abd HEP. Continues wt shift balance activities. POC: LE strengthening, balance training, gait training, improving activity tolerance
--- NOTE | 2023-02-15 11:01 | PT.OTN ---
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 Has been using his FWW more recently due to increased fear of falling, will occasionally use trekking poles. Pt was previously treated one month ago at this clinic for this exact same issue on 10/26/22, however after his evaluation, he called the clinic a few days later to request discharge, as he never intended to get therapy, he just wanted an assessment. This, however, was not the desire of his , and pt therefore returns again for a new assessment Prior Treatments and Tests BPH, Bipolar, Depression, Osteoporosis, TKA PT-OP-C Subjective Start: 11/29/22 16:33 Freq: Status: Active Protocol: Document 02/15/23 10:15 DCW (Rec: 02/15/23 11:01 DCW [id number]) OP-PT Subjective Patient Comments Patient Comments Pt doing well today, no falls recently. Notes he had a flu and COVID shot Sunday, was a little sore yesterday, but is feeling better today. PT-OP-D Balance Start: 11/29/22 16:33 Freq: Status: Active Protocol: Document 01/24/23 14:45 DCW (Rec: 01/24/23 15:15 DCW [id number]) Balance Tests Ross Balance Test Ross Balance Test Score 47/56 Ross Balance Assessment Evaluation Sitting to Standing Ability Independent w/out Hands Unsupported Stance Safely- 2 minutes Sitting Unsupported, Feet on Floor Safely- 2 minutes Standing to Sitting Ability Safely, Minimal Hand Use Transfer Ability Safely, Minimal Hand Use Unsupported Stance- Eyes Closed Safely, 10 seconds Unsupported Stance- Eyes Open Independent, 1 minute Reaching Forward Standing Safely, 5 inches Pick- Up Object From Floor Independent/Safe Look Behind Shoulder - Standing Shifts Weight Well Turning 360 Degrees Turns , < 4 secs Unsupported Stance, Alternating Feet on 4 Steps w/Supervision Stair Unsupported Tandem Stance Small Step- 30 seconds Unilateral Leg Stance Lifts Leg/Unable to Hold Total Score Ross Total Score (out of 56 points) 47 Ross Impairment Rating 1 to 19% Impaired (Score 45-55 ) PT-OP-E Functional Tests Start: 11/29/22 16:33 Freq: Status: Active Protocol: Document 01/24/23 14:45 DCW (Rec: 01/24/23 15:15 DC [id number]) Functional Tests Dynamic Gait Index (DGI) Score 19/24 DGI Impairment Rating 20 to <40% Impaired (Score 15- 19) Five Times Sit to Stand Test Score 10.39 Timed Up and Go (TUG) Score 10.93 Comments Three-trial Average (11.61, 11 .11, 10.08) TUG Impairment Rating 1 to <20% Impaired (Score 11) PT-OP-M Strength Start: 11/29/22 16:33 Freq: Status: Active Protocol: Document 11/29/22 14:15 DCW (Rec: 11/29/22 17:07 DC [id number]) Hip Strength Hip Manual Muscle Testing Right Flexion (L2) 4 Good Abduction 4- Good- Adduction 4+ Good+ Left Flexion (L2) 4+ Good+ Abduction 4- Good- Adduction 4+ Good+ Knee Strength Knee Manual Muscle Testing Right Flexion (S2) 4+ Good+ Extension (L3) 4+ Good+ Left Flexion (S2) 4+ Good+ Extension (L3) 4+ Good+ Ankle/Foot Strength Ankle and Foot Manual Muscle Testing Right Dorsiflexion (L4) 4 Good Left Dorsiflexion (L4) 4 Good PT-OP-Q Treatments Start: 11/29/22 16:33 Freq: Status: Active Protocol: Document 02/15/23 10:15 DCW (Rec: 02/15/23 11:01 DCW [id number]) Cardio Equipment Recumbent Elliptical (Biodex) Duration (Minutes) 6 Resistance 6 Seat Position 11 Other 338 steps Gym Equipment Shuttle Recovery Bilateral Heel Raises Resistance 75# (Three new) Reps/Time x20 Unilateral Squats Resistance 75# (Three new) Shuttle Recovery Platform Stable Reps/Time x20 Bilateral Squats Resistance 125# (Four new) Shuttle Recovery Platform Stable Reps/Time x20 Shuttle Balance Red Details WBOS, Staggered Comments CG/Min A Therapeutic Exercises Standing Exercises Toe-taps Standing Exercise Name Toe-taps Side bilateral Resistance 10# Equipment Used 6 step Reps/Minutes 2x10 reps Comments alternate LEs, cued posture & TKE over stance LE Extension Standing Exercise Name Hip Extension Side bilateral Resistance Blue Other Exercises Resisted Ambulation Other Exercise Name Resisted Side-stepping Side bilateral Resistance Blue Neuro Re-Education Treatment Balance Activities Foam Stance Details NBOS EO/EC Surface Blue foam Tandem Details Tandem Stance Equipment // bars PT-OP-T Assessment and Plan Start: 11/29/22 16:33 Freq: Status: Active Protocol: Document 02/15/23 10:15 DCW (Rec: 02/15/23 11:01 DCW [id number]) Physical Therapy Assessment Impairments Impairments Activity Tolerance,Balance, Coordination,Functional Activities,Functional Mobility ,Gait,Strength Goals Two Impairment Pt has an increased fall risk, per Ross (42/56) and DGI (14/ 24) scores [facility] Goal (LTG) Pt to increase DGI score by at least 6 points to 20 to exhibit a decreased risk of falls LTG Duration 03/26/23 - Improving () One Impairment Pt does not have an appropriate home exercise program Short Term Goal (STG) Pt to be independent and compliant with an appropriate HEP STG Duration 02/23/23 - Improving Assessment Summary Assessment Pt demonstrated some good recovery techniques today in tandem stance, mild LOB that he was able to quickly self- correct. Physical Therapy Plan Frequency and Duration Frequency of Treatment 1-2x/week Plan of Care Start Date 01/24/23 Plan of Care End Date 03/26/23 Therapeutic Interventions Therapeutic Interventions Balance Training,Gait Training ,Home Exercise Program,Manual Therapy,Neuromuscular Re- education,Patient/Caregiver Education,Self-Care/Home Management,Soft Tissue Mobilization,Therapeutic Activities,Therapeutic Exercises Next Visit Focus/Plan Next Note Type Treatment Note Next Visit Plan Recheck quad/hip abd HEP. Continues wt shift balance activities. POC: LE strengthening, balance training, gait training, improving activity tolerance
--- NOTE | 2023-02-28 15:40 | PT.OTN ---
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 Has been using his FWW more recently due to increased fear of falling, will occasionally use trekking poles. Pt was previously treated one month ago at this clinic for this exact same issue on 10/26/22, however after his evaluation, he called the clinic a few days later to request discharge, as he never intended to get therapy, he just wanted an assessment. This, however, was not the desire of his , and pt therefore returns again for a new assessment Prior Treatments and Tests BPH, Bipolar, Depression, Osteoporosis, TKA PT-OP-C Subjective Start: 11/29/22 16:33 Freq: Status: Active Protocol: Document 02/28/23 15:06 DCW (Rec: 02/28/23 15:40 DCW [id number]) OP-PT Subjective Patient Comments Patient Comments I wasn't prepared for this today. PT-OP-D Balance Start: 11/29/22 16:33 Freq: Status: Active Protocol: Document 01/24/23 14:45 DCW (Rec: 01/24/23 15:15 DCW [id number]) Balance Tests Ross Balance Test Ross Balance Test Score 47/56 Ross Balance Assessment Evaluation Sitting to Standing Ability Independent w/out Hands Unsupported Stance Safely- 2 minutes Sitting Unsupported, Feet on Floor Safely- 2 minutes Standing to Sitting Ability Safely, Minimal Hand Use Transfer Ability Safely, Minimal Hand Use Unsupported Stance- Eyes Closed Safely, 10 seconds Unsupported Stance- Eyes Open Independent, 1 minute Reaching Forward Standing Safely, 5 inches Pick- Up Object From Floor Independent/Safe Look Behind Shoulder - Standing Shifts Weight Well Turning 360 Degrees Turns , < 4 secs Unsupported Stance, Alternating Feet on 4 Steps w/Supervision Stair Unsupported Tandem Stance Small Step- 30 seconds Unilateral Leg Stance Lifts Leg/Unable to Hold Total Score Ross Total Score (out of 56 points) 47 Ross Impairment Rating 1 to 19% Impaired (Score 45-55 ) PT-OP-E Functional Tests Start: 11/29/22 16:33 Freq: Status: Active Protocol: Document 01/24/23 14:45 DCW (Rec: 01/24/23 15:15 DCW [id number]) Functional Tests Dynamic Gait Index (DGI) Score 19/24 DGI Impairment Rating 20 to <40% Impaired (Score 15- 19) Five Times Sit to Stand Test Score 10.39 Timed Up and Go (TUG) Score 10.93 Comments Three-trial Average (11.61, 11 .11, 10.08) TUG Impairment Rating 1 to <20% Impaired (Score 11) PT-OP-M Strength Start: 11/29/22 16:33 Freq: Status: Active Protocol: Document 11/29/22 14:15 DCW (Rec: 11/29/22 17:07 DCW [id number]) Hip Strength Hip Manual Muscle Testing Right Flexion (L2) 4 Good Abduction 4- Good- Adduction 4+ Good+ Left Flexion (L2) 4+ Good+ Abduction 4- Good- Adduction 4+ Good+ Knee Strength Knee Manual Muscle Testing Right Flexion (S2) 4+ Good+ Extension (L3) 4+ Good+ Left Flexion (S2) 4+ Good+ Extension (L3) 4+ Good+ Ankle/Foot Strength Ankle and Foot Manual Muscle Testing Right Dorsiflexion (L4) 4 Good Left Dorsiflexion (L4) 4 Good PT-OP-Q Treatments Start: 11/29/22 16:33 Freq: Status: Active Protocol: Document 02/28/23 15:06 DCW (Rec: 02/28/23 15:40 DCW [id number]) Gym Equipment Shuttle Recovery Bilateral Heel Raises Resistance 75# (Three new) Reps/Time x20 Unilateral Squats Resistance 75# (Three new) Shuttle Recovery Platform Stable Reps/Time x20 Bilateral Squats Details lowered weight due to velcro sliding Resistance 125#->100# (Four new) Shuttle Recovery Platform Stable Reps/Time x20 Shuttle Balance Red Details WBOS, Staggered Comments CG/Min A Therapeutic Exercises Standing Exercises Toe-taps Standing Exercise Name Toe-taps Side bilateral Resistance 10# Equipment Used 6 step Reps/Minutes 2x10 reps Comments alternate LEs, cued posture & TKE over stance LE PT-OP-T Assessment and Plan Start: 11/29/22 16:33 Freq: Status: Active Protocol: Document 02/28/23 15:06 DCW (Rec: 02/28/23 15:40 DCW [id number]) Physical Therapy Assessment Impairments Impairments Activity Tolerance,Balance, Coordination,Functional Activities,Functional Mobility ,Gait,Strength Goals Two Impairment Pt has an increased fall risk, per Ross (42/56) and DGI () scores [facility] Goal (LTG) Pt to increase DGI score by at least 6 points to to exhibit a decreased risk of falls LTG Duration 03/26/23 - Improving () One Impairment Pt does not have an appropriate home exercise program Short Term Goal (STG) Pt to be independent and compliant with an appropriate HEP STG Duration 02/23/23 - Improving Assessment Summary Assessment Session very limited due to late arrival. Pt had increased fatigue over short time. Physical Therapy Plan Frequency and Duration Frequency of Treatment 1-2x/week Plan of Care Start Date 01/24/23 Plan of Care End Date 03/26/23 Therapeutic Interventions Therapeutic Interventions Balance Training,Gait Training ,Home Exercise Program,Manual Therapy,Neuromuscular Re- education,Patient/Caregiver Education,Self-Care/Home Management,Soft Tissue Mobilization,Therapeutic Activities,Therapeutic Exercises Next Visit Focus/Plan Next Note Type Treatment Note Next Visit Plan Recheck quad/hip abd HEP. Continues wt shift balance activities. POC: LE strengthening, balance training, gait training, improving activity tolerance
--- NOTE | 2023-03-07 11:47 | PT.OTN ---
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 Has been using his FWW more recently due to increased fear of falling, will occasionally use trekking poles. Pt was previously treated one month ago at this clinic for this exact same issue on 10/26/22, however after his evaluation, he called the clinic a few days later to request discharge, as he never intended to get therapy, he just wanted an assessment. This, however, was not the desire of his , and pt therefore returns again for a new assessment Prior Treatments and Tests BPH, Bipolar, Depression, Osteoporosis, TKA PT-OP-C Subjective Start: 11/29/22 16:33 Freq: Status: Active Protocol: Document 03/07/23 11:00 DCW (Rec: 03/07/23 11:46 DCW [id number]) OP-PT Subjective Patient Comments Patient Comments Pt brings in his 4WW today requesting height adjustment, reports he uses it when out for walks with his . PT-OP-D Balance Start: 11/29/22 16:33 Freq: Status: Active Protocol: Document 01/24/23 14:45 DCW (Rec: 01/24/23 15:15 DCW [id number]) Balance Tests Ross Balance Test Ross Balance Test Score 47/56 Ross Balance Assessment Evaluation Sitting to Standing Ability Independent w/out Hands Unsupported Stance Safely- 2 minutes Sitting Unsupported, Feet on Floor Safely- 2 minutes Standing to Sitting Ability Safely, Minimal Hand Use Transfer Ability Safely, Minimal Hand Use Unsupported Stance- Eyes Closed Safely, 10 seconds Unsupported Stance- Eyes Open Independent, 1 minute Reaching Forward Standing Safely, 5 inches Pick- Up Object From Floor Independent/Safe Look Behind Shoulder - Standing Shifts Weight Well Turning 360 Degrees Turns , < 4 secs Unsupported Stance, Alternating Feet on 4 Steps w/Supervision Stair Unsupported Tandem Stance Small Step- 30 seconds Unilateral Leg Stance Lifts Leg/Unable to Hold Total Score Ross Total Score (out of 56 points) 47 Ross Impairment Rating 1 to 19% Impaired (Score 45-55 ) PT-OP-E Functional Tests Start: 11/29/22 16:33 Freq: Status: Active Protocol: Document 01/24/23 14:45 DCW (Rec: 01/24/23 15:15 DCW [id number]) Functional Tests Dynamic Gait Index (DGI) Score 19/24 DGI Impairment Rating 20 to <40% Impaired (Score 15- 19) Five Times Sit to Stand Test Score 10.39 Timed Up and Go (TUG) Score 10.93 Comments Three-trial Average (11.61, 11 .11, 10.08) TUG Impairment Rating 1 to <20% Impaired (Score 11) PT-OP-M Strength Start: 11/29/22 16:33 Freq: Status: Active Protocol: Document 11/29/22 14:15 DCW (Rec: 11/29/22 17:07 DCW [id number]) Hip Strength Hip Manual Muscle Testing Right Flexion (L2) 4 Good Abduction 4- Good- Adduction 4+ Good+ Left Flexion (L2) 4+ Good+ Abduction 4- Good- Adduction 4+ Good+ Knee Strength Knee Manual Muscle Testing Right Flexion (S2) 4+ Good+ Extension (L3) 4+ Good+ Left Flexion (S2) 4+ Good+ Extension (L3) 4+ Good+ Ankle/Foot Strength Ankle and Foot Manual Muscle Testing Right Dorsiflexion (L4) 4 Good Left Dorsiflexion (L4) 4 Good PT-OP-Q Treatments Start: 11/29/22 16:33 Freq: Status: Active Protocol: Document 03/07/23 11:00 DCW (Rec: 03/07/23 11:46 DCW [id number]) Gym Equipment Shuttle Recovery Bilateral Heel Raises Resistance 62# (Two new) Reps/Time x20 Unilateral Squats Resistance 62# (Two new) Shuttle Recovery Platform Stable Reps/Time x20 Bilateral Squats Resistance 100# (Four new) Shuttle Recovery Platform Stable Reps/Time x20 Shuttle Balance Red Details WBOS, Staggered Comments CG/Min A Therapeutic Exercises Standing Exercises Hamstring Curls Standing Exercise Name HS curls Side bilateral Resistance 10# Reps/Minutes x15 Toe-taps Standing Exercise Name Toe-taps Side bilateral Resistance 10# Equipment Used 6 step Reps/Minutes 2x10 reps Comments alternate LEs, cued posture & TKE over stance LE Other Exercises Resisted Ambulation Other Exercise Name Resisted Side-stepping Side bilateral Resistance Blue Neuro Re-Education Treatment Balance Activities SLS Details SLS Equipment // bars Foam Stance Details NBOS EO/EC Surface Blue foam Tandem Details Tandem Ambulation Equipment @ rail Comments Fwd/Bkwd PT-OP-T Assessment and Plan Start: 11/29/22 16:33 Freq: Status: Active Protocol: Document 03/07/23 11:00 DCW (Rec: 03/07/23 11:46 DCW [id number]) Physical Therapy Assessment Impairments Impairments Activity Tolerance,Balance, Coordination,Functional Activities,Functional Mobility ,Gait,Strength Goals Two Impairment Pt has an increased fall risk, per Ross (42/56) and DGI (14/ 24) scores [facility] Goal (LTG) Pt to increase DGI score by at least 6 points to to exhibit a decreased risk of falls LTG Duration 03/26/23 - Improving () One Impairment Pt does not have an appropriate home exercise program Short Term Goal (STG) Pt to be independent and compliant with an appropriate HEP STG Duration 02/23/23 - Improving Assessment Summary Assessment Pt showing improved activity tolerance today, minimal need for rest breaks. Did have increased difficulty with SLS and tandem ambulation. Lowered height of pt's 4WW, noted it felt a lot better. Physical Therapy Plan Frequency and Duration Frequency of Treatment 1-2x/week Plan of Care Start Date 01/24/23 Plan of Care End Date 03/26/23 Therapeutic Interventions Therapeutic Interventions Balance Training,Gait Training ,Home Exercise Program,Manual Therapy,Neuromuscular Re- education,Patient/Caregiver Education,Self-Care/Home Management,Soft Tissue Mobilization,Therapeutic Activities,Therapeutic Exercises Next Visit Focus/Plan Next Note Type Treatment Note Next Visit Plan Recheck quad/hip abd HEP. Continues wt shift balance activities. POC: LE strengthening, balance training, gait training, improving activity tolerance
--- NOTE | 2023-03-09 12:14 | PT.OTN ---
Current Diagnoses Unsteadiness on feet (03/09/23) Unspecified abnormalities of gait and mobility (03/09/23) Weakness (03/09/23) Physical Therapy Treatment Note PT-OP-A Visit Information Start: 11/29/22 16:33 Freq: Status: Active Protocol: Document 03/09/23 11:30 DCW (Rec: 03/09/23 12:14 DCW [id number]) Out-Patient Physical Therapy Visit Information Visit Information Visit Type Treatment Note Visit Start Time 11:30 Visit Stop Time 12:15 Total Visit Minutes 45 Visit Number 22 Number of ELECTROENCEPHALOGRAPH TECHNICIAN Visits 0 Evaluation Information Evaluation Date 11/29/22 PT-OP-B Current Condition Start: 11/29/22 16:33 Freq: Status: Active Protocol: Document 11/29/22 14:15 DCW (Rec: 11/29/22 17:07 DCW [id number]) Current Condition History of Current Condition Onset Date Two months Current Complaints Recent falls, weakness, fatigue, fear of falling History of Current Condition Pt is an 81 year old male presenting with complaints of a one month history of weakness, fatigue, and increased fear of falling following a recent fall. Has been using his FWW more recently due to increased fear of falling, will occasionally use trekking poles. Pt was previously treated one month ago at this clinic for this exact same issue on 10/26/22, however after his evaluation, he called the clinic a few days later to request discharge, as he never intended to get therapy, he just wanted an assessment. This, however, was not the desire of his , and pt therefore returns again for a new assessment Prior Treatments and Tests BPH, Bipolar, Depression, Osteoporosis, TKA PT-OP-C Subjective Start: 11/29/22 16:33 Freq: Status: Active Protocol: Document 03/09/23 11:30 DCW (Rec: 03/09/23 12:14 DCW [id number]) OP-PT Subjective Patient Comments Patient Comments Pt reports things are feeling pretty good today, but there' s a little tightness in my back and the middle of my shoulders. PT-OP-D Balance Start: 11/29/22 16:33 Freq: Status: Active Protocol: Document 01/24/23 14:45 DCW (Rec: 01/24/23 15:15 DCW [id number]) Balance Tests Ross Balance Test Ross Balance Test Score 47/56 Ross Balance Assessment Evaluation Sitting to Standing Ability Independent w/out Hands Unsupported Stance Safely- 2 minutes Sitting Unsupported, Feet on Floor Safely- 2 minutes Standing to Sitting Ability Safely, Minimal Hand Use Transfer Ability Safely, Minimal Hand Use Unsupported Stance- Eyes Closed Safely, 10 seconds Unsupported Stance- Eyes Open Independent, 1 minute Reaching Forward Standing Safely, 5 inches Pick- Up Object From Floor Independent/Safe Look Behind Shoulder - Standing Shifts Weight Well Turning 360 Degrees Turns , < 4 secs Unsupported Stance, Alternating Feet on 4 Steps w/Supervision Stair Unsupported Tandem Stance Small Step- 30 seconds Unilateral Leg Stance Lifts Leg/Unable to Hold Total Score Ross Total Score (out of 56 points) 47 Ross Impairment Rating 1 to 19% Impaired (Score 45-55 ) PT-OP-E Functional Tests Start: 11/29/22 16:33 Freq: Status: Active Protocol: Document 01/24/23 14:45 DCW (Rec: 01/24/23 15:15 DCW [id number]) Functional Tests Dynamic Gait Index (DGI) Score 19/24 DGI Impairment Rating 20 to <40% Impaired (Score 15- 19) Five Times Sit to Stand Test Score 10.39 Timed Up and Go (TUG) Score 10.93 Comments Three-trial Average (11.61, 11 .11, 10.08) TUG Impairment Rating 1 to <20% Impaired (Score 11) PT-OP-M Strength Start: 11/29/22 16:33 Freq: Status: Active Protocol: Document 11/29/22 14:15 DCW (Rec: 11/29/22 17:07 DCW [id number]) Hip Strength Hip Manual Muscle Testing Right Flexion (L2) 4 Good Abduction 4- Good- Adduction 4+ Good+ Left Flexion (L2) 4+ Good+ Abduction 4- Good- Adduction 4+ Good+ Knee Strength Knee Manual Muscle Testing Right Flexion (S2) 4+ Good+ Extension (L3) 4+ Good+ Left Flexion (S2) 4+ Good+ Extension (L3) 4+ Good+ Ankle/Foot Strength Ankle and Foot Manual Muscle Testing Right Dorsiflexion (L4) 4 Good Left Dorsiflexion (L4) 4 Good PT-OP-Q Treatments Start: 11/29/22 16:33 Freq: Status: Active Protocol: Document 03/09/23 11:30 DCW (Rec: 03/09/23 12:14 DCW [id number]) Cardio Equipment Recumbent Elliptical (Biodex) Duration (Minutes) 6 Resistance 6 Seat Position 11 Other 281 steps Gym Equipment Shuttle Recovery Bilateral Heel Raises Resistance 62# (Two new) Reps/Time x20 Unilateral Squats Resistance 62# (Two new) Shuttle Recovery Platform Stable Reps/Time x20 Bilateral Squats Resistance 100# (Four new) Shuttle Recovery Platform Stable Reps/Time x20 Shuttle Balance Red Details WBOS, Staggered Comments CG/Min A Therapeutic Exercises Standing Exercises Hamstring Curls Standing Exercise Name HS curls Side bilateral Resistance 10# Reps/Minutes x15 Toe-taps Standing Exercise Name Toe-taps Side bilateral Resistance 10# Equipment Used 6 step Reps/Minutes 2x10 reps Comments alternate LEs, cued posture & TKE over stance LE Extension Standing Exercise Name Hip Extension Side bilateral Resistance Blue Other Exercises Step-ups Other Exercise Name Step-ups Side bilateral Equipment Used 6 step Resisted Ambulation Other Exercise Name Resisted Side-stepping Side bilateral Resistance Blue Neuro Re-Education Treatment Balance Activities SLS Details SLS Equipment // bars Tandem Details Tandem Stance Equipment @ rail PT-OP-T Assessment and Plan Start: 11/29/22 16:33 Freq: Status: Active Protocol: Document 03/09/23 11:30 DCW (Rec: 03/09/23 12:14 DCW [id number]) Physical Therapy Assessment Impairments Impairments Activity Tolerance,Balance, Coordination,Functional Activities,Functional Mobility ,Gait,Strength Goals Two Impairment Pt has an increased fall risk, per Ross (42/56) and DGI () scores Road Traffic Controller Goal (LTG) Pt to increase DGI score by at least 6 points to to exhibit a decreased risk of falls LTG Duration 03/26/23 - Improving () One Impairment Pt does not have an appropriate home exercise program Short Term Goal (STG) Pt to be independent and compliant with an appropriate HEP STG Duration 02/23/23 - Improving Assessment Summary Assessment Great progress with activity tolerance, good response to balance challenges today. Slight fatigue by end of session, but otherwise tolerated all activities well. Physical Therapy Plan Frequency and Duration Frequency of Treatment 1-2x/week Plan of Care Start Date 01/24/23 Plan of Care End Date 03/26/23 Therapeutic Interventions Therapeutic Interventions Balance Training,Gait Training ,Home Exercise Program,Manual Therapy,Neuromuscular Re- education,Patient/Caregiver Education,Self-Care/Home Management,Soft Tissue Mobilization,Therapeutic Activities,Therapeutic Exercises Next Visit Focus/Plan Next Note Type Treatment Note Next Visit Plan Recheck quad/hip abd HEP. Continues wt shift balance activities. POC: LE strengthening, balance training, gait training, improving activity tolerance
--- NOTE | 2023-03-21 11:52 | PT.OTN ---
Current Diagnoses Unsteadiness on feet (03/21/23) Unspecified abnormalities of gait and mobility (03/21/23) Weakness (03/21/23) Physical Therapy Treatment Note PT-OP-A Visit Information Start: 11/29/22 16:33 Freq: Status: Active Protocol: Document 03/21/23 11:15 DCW (Rec: 03/21/23 11:51 DCW [id number]) Out-Patient Physical Therapy Visit Information Visit Information Visit Type Discharge Summary Visit Start Time 11:15 Visit Stop Time 11:45 Total Visit Minutes 30 Visit Number 23 Number of TAX ECONOMIST Visits 0 Evaluation Information Evaluation Date 11/29/22 PT-OP-B Current Condition Start: 11/29/22 16:33 Freq: Status: Active Protocol: Document 11/29/22 14:15 DCW (Rec: 11/29/22 17:07 DCW [id number]) Current Condition History of Current Condition Onset Date Two months Current Complaints Recent falls, weakness, fatigue, fear of falling History of Current Condition Pt is an 81 year old male presenting with complaints of a one month history of weakness, fatigue, and increased fear of falling following a recent fall. Has been using his FWW more recently due to increased fear of falling, will occasionally use trekking poles. Pt was previously treated one month ago at this clinic for this exact same issue on 10/26/22, however after his evaluation, he called the clinic a few days later to request discharge, as he never intended to get therapy, he just wanted an assessment. This, however, was not the desire of his , and pt therefore returns again for a new assessment Prior Treatments and Tests BPH, Bipolar, Depression, Osteoporosis, TKA PT-OP-C Subjective Start: 11/29/22 16:33 Freq: Status: Active Protocol: Document 03/21/23 11:15 DCW (Rec: 03/21/23 11:51 DCW [id number]) OP-PT Subjective Patient Comments Patient Comments Pt's attends today's last appointment. Pt reports he has been feeling more confident, but does note for the past week, has been having increased right hip/low back pain that is starting to limit his mobility. PT-OP-D Balance Start: 11/29/22 16:33 Freq: Status: Active Protocol: Document 01/24/23 14:45 DCW (Rec: 01/24/23 15:15 [facility] [id number]) Balance Tests Ross Balance Test Ross Balance Test Score 47/56 Ross Balance Assessment Evaluation Sitting to Standing Ability Independent w/out Hands Unsupported Stance Safely- 2 minutes Sitting Unsupported, Feet on Floor Safely- 2 minutes Standing to Sitting Ability Safely, Minimal Hand Use Transfer Ability Safely, Minimal Hand Use Unsupported Stance- Eyes Closed Safely, 10 seconds Unsupported Stance- Eyes Open Independent, 1 minute Reaching Forward Standing Safely, 5 inches Pick- Up Object From Floor Independent/Safe Look Behind Shoulder - Standing Shifts Weight Well Turning 360 Degrees Turns , < 4 secs Unsupported Stance, Alternating Feet on 4 Steps w/Supervision Stair Unsupported Tandem Stance Small Step- 30 seconds Unilateral Leg Stance Lifts Leg/Unable to Hold Total Score Ross Total Score (out of 56 points) 47 Ross Impairment Rating 1 to 19% Impaired (Score 45-55 ) PT-OP-E Functional Tests Start: 11/29/22 16:33 Freq: Status: Active Protocol: Document 03/21/23 11:15 [facility] (Rec: 03/21/23 11:47 [facility] [id number]) Functional Tests Dynamic Gait Index (DGI) Score 20/24 DGI Impairment Rating 1 to <20% Impaired (Score 20- 23) Five Times Sit to Stand Test Score 9.52 Timed Up and Go (TUG) Score 11.96 Comments Three-trial Average (12.10, 11 .91, 11.87) TUG Impairment Rating 1 to <20% Impaired (Score 11) PT-OP-M Strength Start: 11/29/22 16:33 Freq: Status: Active Protocol: Document 11/29/22 14:15 DCW (Rec: 11/29/22 17:07 [facility] [id number]) Hip Strength Hip Manual Muscle Testing Right Flexion (L2) 4 Good Abduction 4- Good- Adduction 4+ Good+ Left Flexion (L2) 4+ Good+ Abduction 4- Good- Adduction 4+ Good+ Knee Strength Knee Manual Muscle Testing Right Flexion (S2) 4+ Good+ Extension (L3) 4+ Good+ Left Flexion (S2) 4+ Good+ Extension (L3) 4+ Good+ Ankle/Foot Strength Ankle and Foot Manual Muscle Testing Right Dorsiflexion (L4) 4 Good Left Dorsiflexion (L4) 4 Good PT-OP-Q Treatments Start: 11/29/22 16:33 Freq: Status: Active Protocol: Document 03/21/23 11:15 DCW (Rec: 03/21/23 11:51 DCW [id number]) Therapeutic Exercises Sitting Exercises Piriformis Sitting Exercise Name Seated Figure-4 stretch Side left Comments HO provided PT-OP-T Assessment and Plan Start: 11/29/22 16:33 Freq: Status: Active Protocol: Document 03/21/23 11:15 DCW (Rec: 03/21/23 11:51 DC [id number]) Physical Therapy Assessment Impairments Impairments Activity Tolerance,Balance, Coordination,Functional Activities,Functional Mobility ,Gait,Strength Goals Two Impairment Pt has an increased fall risk, per Ross (42/56) and DGI () scores Ticket Scheduler Goal (LTG) Pt to increase DGI score by at least 6 points to to exhibit a decreased risk of falls LTG Duration Met One Impairment Pt does not have an appropriate home exercise program Short Term Goal (STG) Pt to be independent and compliant with an appropriate HEP STG Duration Met Assessment Summary Assessment Pt showing great progress overall since initial evaluation. DGI score has improved from to . Testing currently showing pt is no longer in an increased falls risk category. Pt appropriate for discharge from skilled therapy at this time. Physical Therapy Plan Frequency and Duration Frequency of Treatment 1-2x/week Plan of Care Start Date 01/24/23 Plan of Care End Date 03/26/23 Therapeutic Interventions Therapeutic Interventions Balance Training,Gait Training ,Home Exercise Program,Manual Therapy,Neuromuscular Re- education,Patient/Caregiver Education,Self-Care/Home Management,Soft Tissue Mobilization,Therapeutic Activities,Therapeutic Exercises Discharge Physical Therapy Discharge Reasons Goals Met Next Visit Focus/Plan Next Note Type Discharge Summary
== END 2023-03-26 10:52 | disposition home or self-care (01) ==
LOC: PHYS 11:15
PROVIDERS: Family Provider Internal Medicine; PCP Internal Medicine; Referring Provider Internal Medicine; Visit Provider Internal Medicine
DX: R53.1 Weakness (principal); R26.9 Unspecified abnormalities of gait and mobility; R26.81 Unsteadiness on feet
CPT/HCPCS: 97110; 97112; 97162; 97530

== ENCOUNTER → 2023-03-23 14:31 | Outpatient (CLI) | payer MEDICARE, SELFPAY ==
[2022-08-23 10:30] VITALS: BMI 24.3
[2023-03-23 15:34] LABS: Influenza A - CEPHEID Flu A NEGATIVE (NEGATIVE); Influenza B - CEPHEID Flu B NEGATIVE (NEGATIVE); Respiratory Syncytial Virus Negative (Negative)
[2023-03-23 15:39] LABS: COVID-19 CEPHEID 4-PLEX PCR Negative (Negative)
== END ==
PROVIDERS: PCP Internal Medicine; Visit Provider Internal Medicine
DX: B34.9 Viral infection, unspecified (principal)
CPT/HCPCS: 0241U

== ENCOUNTER → 2023-06-20 15:22 | Outpatient (CLI) | payer MEDICARE, SELFPAY ==
[2022-08-23 10:30] VITALS: BMI 24.3
== END ==
PROVIDERS: PCP Internal Medicine; Visit Provider Urology
DX: N40.1 Benign prostatic hyperplasia with lower urinary tract symptoms (principal); R39.14 Feeling of incomplete bladder emptying; R33.9 Retention of urine, unspecified; R39.9 Unspecified symptoms and signs involving the genitourinary system; K59.01 Slow transit constipation
CPT/HCPCS: 51798; 81002; 87086; 99213

== ENCOUNTER → 2023-09-04 09:57 | Outpatient (CLI) | payer MEDICARE, SELFPAY ==
[2022-08-23 10:30] VITALS: BMI 24.3
[2023-09-04 10:54] LABS: Alanine Aminotransferase 24 IU/L (<50); Albumin 4.6 g/dL (3.5-5.0); Albumin Globulin Ratio 1.6 (1.0-2.8); Alkaline Phosphatase 76 U/L (38-126); Aspartate Aminotransferase 37 IU/L (17-59); BUN Creatinine Ratio 23.7 (6-22); Bilirubin Total 0.7 mg/dL (0.2-1.3); Blood Urea Nitrogen 28 mg/dL (9-20); Calcium 9.5 mg/dL (8.4-10.2); Carbon Dioxide 34 mmol/L (22-32); Chloride 104 mmol/L (98-107); Estimated Glomerular Filt Rate > 60 mL/min (>60); Globulin 2.8 g/dL (1.7-4.1); Glucose 63 mg/dL (80-110); HEMOLYSIS < 15 (0-50); Potassium 4.2 mmol/L (3.4-5.1); Sodium 140 mmol/L (137-145); Total Protein 7.4 g/dL (6.3-8.2)
[2023-09-04 11:06] LABS: Free T4, Direct Thyroxine 1.04 ng/dL (0.78-2.19)
[2023-09-04 11:20] LABS: Thyroid Stimulating Hormone 1.62 uIU/mL (0.47-4.68)
== END ==
PROVIDERS: PCP Internal Medicine; Referring Provider Internal Medicine; Visit Provider Internal Medicine
DX: E03.9 Hypothyroidism, unspecified (principal); E78.5 Hyperlipidemia, unspecified
CPT/HCPCS: 36415; 80053; 84439; 84443

== ENCOUNTER → 2023-10-25 11:46 | Outpatient (CLI) | payer MEDICARE, SELFPAY ==
[2022-08-23 10:30] VITALS: BMI 24.3
[2023-10-25 13:20] LABS: Add Manual Diff / Slide Review NO; Basophils Absolute Auto 0 /uL (0-100); Basophils Percent Auto 0.3 % (0-2); Eosinophils Absolute Auto 100 /uL (0-450); Hematocrit 38.4 % (41-53); Hemoglobin 13.2 g/dL (13.5-17.5); Lymphocytes Absolute Auto 1000 /uL (1100-4500); Lymphocytes Percent Auto 26.9 % (25-40); Mean Corpuscular HGB Conc 34.3 % (30-36); Mean Corpuscular Hemoglobin 31.5 PG (26-34); Mean Corpuscular Volume 91.8 fL (80-100); Monocytes Absolute Auto 400 /uL (0-900); Monocytes Percent Auto 10.7 % (3-14); Neutrophils Absolute Auto 2200 /uL (1500-7000); Neutrophils Percent Auto 59.1 % (50-75); Platelet Count 140 X10^3/uL (150-400); Red Blood Cell Count 4.18 X10^6/uL (4.5-5.9); Red Cell Distribution Width 13.9 % (11.6-14.8); White Blood Cell Count 3.7 X10^3/uL (4.5-11.0)
[2023-10-25 13:50] LABS: Alanine Aminotransferase 27 IU/L (<50); Albumin 4.2 g/dL (3.5-5.0); Albumin Globulin Ratio 1.6 (1.0-2.8); Alkaline Phosphatase 76 U/L (38-126); Aspartate Aminotransferase 41 IU/L (17-59); BUN Creatinine Ratio 24.8 (6-22); Bilirubin Total 0.7 mg/dL (0.2-1.3); Blood Urea Nitrogen 31 mg/dL (9-20); C-Reactive Protein Quant < 0.5 mg/dL (<1.0); Calcium 8.9 mg/dL (8.4-10.2); Carbon Dioxide 29 mmol/L (22-32); Chloride 104 mmol/L (98-107); Estimated Glomerular Filt Rate 57 mL/min (>60); Globulin 2.6 g/dL (1.7-4.1); Glucose 84 mg/dL (80-110); HEMOLYSIS < 15 (0-50); Potassium 4.6 mmol/L (3.4-5.1); Sodium 137 mmol/L (137-145); Total Protein 6.8 g/dL (6.3-8.2)
[2023-10-25 14:22] LABS: Erythrocyte Sedimentation Rate 6 MM/HR (0-15)
== END ==
PROVIDERS: Family Provider Internal Medicine; PCP Internal Medicine; Referring Provider Internal Medicine; Visit Provider Internal Medicine
DX: E03.9 Hypothyroidism, unspecified (principal); E78.5 Hyperlipidemia, unspecified
CPT/HCPCS: 36415; 80053; 85025; 85651; 86140

== ENCOUNTER → 2023-10-26 11:17 | Outpatient (CLI) | payer MEDICARE, SELFPAY ==
[2022-08-23 10:30] VITALS: BMI 24.3
[2023-10-26 11:43] LABS: Appearance Urine UA CLEAR; Bilirubin Urine UA NEGATIVE (NEGATIVE); Color Urine UA YELLOW; Glucose Urine UA NEGATIVE (Negative); Ketones Urine UA NEGATIVE (NEGATIVE); Leukocyte Esterase Urine UA NEGATIVE (NEGATIVE); Nitrite Urine UA NEGATIVE (Negative); Occult Blood Urine UA NEGATIVE (Negative); Protein Urine UA NEGATIVE (Negative); Specific Gravity Urine UA <=1.005 (1.000-1.035); Urobilinogen Urine UA 0.2 E.U./dL (0.2); pH Urine UA 6.5 (4.5-8.0)
[2023-10-26 11:59] LABS: Bacteria Urine Occasional (0-1); Culture Indicated Urine Cult Not Indicated; RBC Urine 0-1/HPF (0-5/HPF); Squamous Epithelial Cell Urine 0-1 /HPF (0-5/HPF); Urine Volume 10mL (spun); WBC Urine 0-1/HPF (0-5/HPF)
== END ==
LOC: LAB 11:17
PROVIDERS: Family Provider Internal Medicine; PCP Internal Medicine; Referring Provider Internal Medicine; Visit Provider Internal Medicine
DX: R33.9 Retention of urine, unspecified (principal); N39.0 Urinary tract infection, site not specified
CPT/HCPCS: 81001

== ENCOUNTER → 2023-12-27 15:54 | Outpatient (CLI) | payer MEDICARE, SELFPAY ==
[2022-08-23 10:30] VITALS: BMI 24.3
== END ==
PROVIDERS: Family Provider Internal Medicine; PCP Internal Medicine; Visit Provider Urology
DX: R33.9 Retention of urine, unspecified (principal); Z87.898 Personal history of other specified conditions
CPT/HCPCS: 87086

== ENCOUNTER 2024-01-30 11:15 | Outpatient (RCR) | payer MEDICARE, SELFPAY ==
[2022-08-23 10:30] VITALS: BMI 24.3
--- NOTE | 2023-11-28 14:30 | PT.OPPOC ---
Physical, Occupational & Speech Therapy At [facility] Current Diagnoses Unsteadiness on feet (11/28/23) Unspecified abnormalities of gait and mobility (11/28/23) Repeated falls (11/28/23) Weakness (11/28/23) Visit Care Team Role Provider Type Saulo Diane MD Attending Provider Physician Family Provider Primary Care Provider Referring Provider Specialty: Internal Medicine Address: [address] [place] [address], [address], [facility] Email: [email or web address] Plan Of Care PT-OP-B Current Condition Start: 11/28/23 17:38 Freq: Status: Active Protocol: Document 11/28/23 14:00 DCW (Rec: 11/28/23 17:56 DCW [id number]) Current Condition History of Current Condition Onset Date Long-standing history Current Complaints Instability with walking, worsening posture, fatigue History of Current Condition Pt is an 82 year old male presenting with his to his PT initial evaluation today. Pt was previously treated in this clinic for ~3 months at this time last year for the same complaints of decreased stability, difficulty with functional mobility, weakness, and poor activity tolerance. Pt's notes he has significantly declined with his functional mobility since last year. Pt uses 4WW or trekking poles most of the time. reports he often has difficulty getting up out of chairs. Has had multiple falls recently, but none have been eventful or led to bad injuries. PT-OP-T Assessment and Plan Start: 11/28/23 17:38 Freq: Status: Active Protocol: Document 11/28/23 14:00 DCW (Rec: 11/29/23 09:40 DCW [id number]) Physical Therapy Assessment Rehab Potential Rehabilitation Potential Fair Evaluation Complexity Number of Personal Factors/Comorbidities 3 or More Number of Body Systems Impaired 4 or More Clinical Presentation at Evaluation Unstable Impairments Impairments Activity Tolerance,Balance, Functional Activities, Functional Mobility,Gait, Posture,Strength Goals Three Impairment Bilateral hip weakness, particularly flexion (4-/5) and abduction (3+/5) Long-Term Goal (LTG) Bilateral hip MMT of at least 4/5 in all tested planes in order to improve ability to safely perform sit->stands and improve stability during gait . LTG Duration 01/29/24 Two Impairment Pt at an increased risk of falls, per Ross score (42/56) Long-Term Goal (LTG) Pt to improve Ross score by at least 5 points to 47/56 in order to demonstrate a decreasing risk of falls. LTG Duration 01/29/24 One Impairment Pt does not have an appropriate home exercise program Short Term Goal (STG) Pt to be independent and compliant with an appropriate HEP STG Duration 12/29/23 Assessment Summary Assessment Pt presents with signs and symptoms consistent with general weakness and deconditioning. Pt seen at this clinic last year and, per , has declined significantly since discharge. Upon testing today, pt's noted multiple times he was performing transfers and balance much better than what he does typically at home, notes that he usually struggles just performing one sit->stand, was very surprised by pt's 13 repetitions during 30 second Sit to Stand test. Pt does show some increased falls risk, scoring 42/56 on the Ross Balance scale, as well as bilateral LE weakness. Pt will likely benefit from skilled therapeutic intervention focusing on balance, activity tolerance, conditioning, posture, and gait. Physical Therapy Plan Frequency and Duration Frequency of Treatment 2x/Week Plan of Care Start Date 11/28/23 Plan of Care End Date 01/29/24 Therapeutic Interventions Therapeutic Interventions Balance Training,Gait Training ,Home Exercise Program,Joint Mobilizations,Manual Therapy, Neuromuscular Re-education, Patient/Caregiver Education, Self-Care/Home Management,Soft Tissue Mobilization, Therapeutic Activities, Therapeutic Exercises Next Visit Focus/Plan Next Note Type Treatment Note Next Visit Plan LE strengthening, static/ dynamic balance challenges, gait training with trekking poles Plan of Care Dates Plan of Care Start Date 11/28/23 Plan of Care End Date 01/29/24 Electronically Signed by: Tom Dill, PT 11/29/23 0942 If you are in agreement with this Plan of Care, please return a signed and dated copy. I have reviewed this Plan of Care and certify that the skilled therapy services above are required to meet the patient?s needs. Physician Signature Date Printed Name and Credentials Clinical Instructor Signature Printed Name and Credentials
--- NOTE | 2023-11-28 14:30 | PT.OIE ---
Current Diagnoses Unsteadiness on feet (11/28/23) Unspecified abnormalities of gait and mobility (11/28/23) Repeated falls (11/28/23) Weakness (11/28/23) Past Medical History (Last Updated 06/22/23 @ 11:07 by Saulo Diane MD) Anemia Anxiety and depression Bipolar affective disorder in remission BPH (benign prostatic hyperplasia) Cataracts, bilateral (~2001) GERD with esophagitis Glaucoma (~2019) Hearing loss (~2014) History of urinary retention Hyperlipidemia Hypothyroidism Incomplete emptying of bladder Osteoporosis Retinal detachment (~1960) Slow transit constipation Unspecified abnormalities of gait and mobility Vision disorder Past Surgical History (Last Reviewed 09/14/22 @ 18:27 by Shahrzad Rai DO) Anesthesia History of foot surgery (~11/1959) History of hip surgery (~10/2014) History of hip surgery (~03/2011) S/P total knee arthroplasty (~08/2015) S/P TURP (~12/2013) Tibia fracture (~08/1974) Visit Care Team Role Provider Type Saulo Diane MD Attending Provider Physician Family Provider Primary Care Provider Referring Provider Specialty: Internal Medicine Address: [address] [place] [address], [address], [facility] Email: [email or web address] Physical Therapy Initial Evaluation PT-OP-A Visit Information Start: 11/28/23 17:38 Freq: Status: Active Protocol: Document 11/28/23 14:00 DCW (Rec: 11/28/23 17:41 DCW [id number]) Out-Patient Physical Therapy Visit Information Visit Information Visit Type Initial Evaluation Visit Note Late arrival Visit Start Time 14:00 Visit Stop Time 14:30 Visit Number 1 Number of FULL TIME BABYSITTER Visits 0 Evaluation Information Evaluation Date 11/28/23 PT-OP-B Current Condition Start: 11/28/23 17:38 Freq: Status: Active Protocol: Document 11/28/23 14:00 DCW (Rec: 11/28/23 17:56 DCW [id number]) Current Condition History of Current Condition Onset Date Long-standing history Current Complaints Instability with walking, worsening posture, fatigue History of Current Condition Pt is an 82 year old male presenting with his to his PT initial evaluation today. Pt was previously treated in this clinic for ~3 months at this time last year for the same complaints of decreased stability, difficulty with functional mobility, weakness, and poor activity tolerance. Pt's notes he has significantly declined with his functional mobility since last year. Pt uses 4WW or trekking poles most of the time. reports he often has difficulty getting up out of chairs. Has had multiple falls recently, but none have been eventful or led to bad injuries. PT-OP-C Subjective Start: 11/28/23 17:38 Freq: Status: Active Protocol: Document 11/28/23 14:00 DCW (Rec: 11/28/23 17:41 DCW [id number]) OP-PT Subjective Patient Comments Patient Comments Per , he's really gone down hill since he was here last. PT-OP-D Balance Start: 11/28/23 17:38 Freq: Status: Active Protocol: Document 11/28/23 14:00 DCW (Rec: 11/28/23 17:50 DCW [id number]) Balance Tests Ross Balance Test Ross Balance Test Score 42/56 Ross Balance Assessment Evaluation Sitting to Standing Ability Independent w/out Hands Unsupported Stance Safely- 2 minutes Sitting Unsupported, Feet on Floor Safely- 2 minutes Standing to Sitting Ability Safely, Minimal Hand Use Transfer Ability Safely, Minimal Hand Use Unsupported Stance- Eyes Closed Safely, 10 seconds Unsupported Stance- Eyes Open Independent, 1 minute Reaching Forward Standing Safely, 5 inches Pick- Up Object From Floor Supervision Look Behind Shoulder - Standing Supervision w/Turning Turning 360 Degrees Turns slowly, but safely Unsupported Stance, Alternating Feet on 4 Steps w/Supervision Stair Unsupported Tandem Stance Small Step- 30 seconds Unilateral Leg Stance Lifts Leg/Unable to Hold Total Score Ross Total Score (out of 56 points) 42 Ross Impairment Rating 20 to 39% Impaired (Score 34- 44) PT-OP-E Functional Tests Start: 11/28/23 17:38 Freq: Status: Active Protocol: Document 11/28/23 14:00 DCW (Rec: 11/28/23 17:50 DCW [id number]) Functional Tests 30 Second Sit to Stand Test Score x13 repetitions Comments low table, no UE use Timed Up and Go (TUG) Score 13.27 /s AD Comments Three-trial average (15.20, 13 .02, 11.59) PT-OP-J Posture/Palpation/Skin Start: 11/28/23 17:38 Freq: Status: Active Protocol: Document 11/28/23 14:00 DCW (Rec: 11/28/23 17:50 DCW [id number]) Posture Evaluation Comments Posture Comments Severely forward head, increased thoracic kyphosis, mild correction with cueing PT-OP-M Strength Start: 11/28/23 17:38 Freq: Status: Active Protocol: Document 11/28/23 14:00 DCW (Rec: 11/28/23 17:50 DCW [id number]) Hip Strength Hip Manual Muscle Testing Right Flexion (L2) 4- Good- Abduction 3+ Fair+ Adduction 4 Good External Rotation 4+ Good+ Internal Rotation 4+ Good+ Left Flexion (L2) 4- Good- Abduction 3+ Fair+ Adduction 4 Good External Rotation 4+ Good+ Internal Rotation 4+ Good+ Knee Strength Knee Manual Muscle Testing Right Flexion (S2) 4- Good- Extension (L3) 4 Good Left Flexion (S2) 4 Good Extension (L3) 4+ Good+ PT-OP-T Assessment and Plan Start: 11/28/23 17:38 Freq: Status: Active Protocol: Document 11/28/23 14:00 DCW (Rec: 11/29/23 09:40 DCW [id number]) Physical Therapy Assessment Rehab Potential Rehabilitation Potential Fair Evaluation Complexity Number of Personal Factors/Comorbidities 3 or More Number of Body Systems Impaired 4 or More Clinical Presentation at Evaluation Unstable Impairments Impairments Activity Tolerance,Balance, Functional Activities, Functional Mobility,Gait, Posture,Strength Goals Three Impairment Bilateral hip weakness, particularly flexion (4-/5) and abduction (3+/5) Operations Boardman Goal (LTG) Bilateral hip MMT of at least 4/5 in all tested planes in order to improve ability to safely perform sit->stands and improve stability during gait . LTG Duration 01/29/24 Two Impairment Pt at an increased risk of falls, per Ross score (42/56) Detention Goal (LTG) Pt to improve Ross score by at least 5 points to 47/56 in order to demonstrate a decreasing risk of falls. LTG Duration 01/29/24 One Impairment Pt does not have an appropriate home exercise program Short Term Goal (STG) Pt to be independent and compliant with an appropriate HEP STG Duration 12/29/23 Assessment Summary Assessment Pt presents with signs and symptoms consistent with general weakness and deconditioning. Pt seen at this clinic last year and, per , has declined significantly since discharge. Upon testing today, pt's noted multiple times he was performing transfers and balance much better than what he does typically at home, notes that he usually struggles just performing one sit->stand, was very surprised by pt's 13 repetitions during 30 second Sit to Stand test. Pt does show some increased falls risk, scoring 42/56 on the Ross Balance scale, as well as bilateral LE weakness. Pt will likely benefit from skilled therapeutic intervention focusing on balance, activity tolerance, conditioning, posture, and gait. Physical Therapy Plan Frequency and Duration Frequency of Treatment 2x/Week Plan of Care Start Date 11/28/23 Plan of Care End Date 01/29/24 Therapeutic Interventions Therapeutic Interventions Balance Training,Gait Training ,Home Exercise Program,Joint Mobilizations,Manual Therapy, Neuromuscular Re-education, Patient/Caregiver Education, Self-Care/Home Management,Soft Tissue Mobilization, Therapeutic Activities, Therapeutic Exercises Next Visit Focus/Plan Next Note Type Treatment Note Next Visit Plan LE strengthening, static/ dynamic balance challenges, gait training with trekking poles
--- NOTE | 2023-11-30 10:29 | PT.OTN ---
Current Diagnoses Unsteadiness on feet (11/30/23) Unspecified abnormalities of gait and mobility (11/30/23) Repeated falls (11/30/23) Weakness (11/30/23) Physical Therapy Treatment Note PT-OP-A Visit Information Start: 11/28/23 17:38 Freq: Status: Active Protocol: Document 11/30/23 09:45 DCW (Rec: 11/30/23 10:29 DCW [id number]) Out-Patient Physical Therapy Visit Information Visit Information Visit Type Treatment Note Visit Start Time 09:45 Visit Stop Time 10:30 Visit Number 2 Number of INSURANCE ACCOUNT REPRESENTATIVE Visits 0 Evaluation Information Evaluation Date 11/28/23 PT-OP-B Current Condition Start: 11/28/23 17:38 Freq: Status: Active Protocol: Document 11/28/23 14:00 DCW (Rec: 11/28/23 17:56 DCW [id number]) Current Condition History of Current Condition Onset Date Long-standing history Current Complaints Instability with walking, worsening posture, fatigue History of Current Condition Pt is an 82 year old male presenting with his to his PT initial evaluation today. Pt was previously treated in this clinic for ~3 months at this time last year for the same complaints of decreased stability, difficulty with functional mobility, weakness, and poor activity tolerance. Pt's notes he has significantly declined with his functional mobility since last year. Pt uses 4WW or trekking poles most of the time. reports he often has difficulty getting up out of chairs. Has had multiple falls recently, but none have been eventful or led to bad injuries. PT-OP-C Subjective Start: 11/28/23 17:38 Freq: Status: Active Protocol: Document 11/30/23 09:45 DCW (Rec: 11/30/23 10:29 DCW [id number]) OP-PT Subjective Patient Comments Patient Comments Pt agrees he did better here at his eval on Sunday than he typically does at home, admits that it is easier when here and actively thinking about what he's supposed to do . PT-OP-D Balance Start: 11/28/23 17:38 Freq: Status: Active Protocol: Document 11/28/23 14:00 DCW (Rec: 11/28/23 17:50 DCW [id number]) Balance Tests Ross Balance Test Ross Balance Test Score 42/56 Ross Balance Assessment Evaluation Sitting to Standing Ability Independent w/out Hands Unsupported Stance Safely- 2 minutes Sitting Unsupported, Feet on Floor Safely- 2 minutes Standing to Sitting Ability Safely, Minimal Hand Use Transfer Ability Safely, Minimal Hand Use Unsupported Stance- Eyes Closed Safely, 10 seconds Unsupported Stance- Eyes Open Independent, 1 minute Reaching Forward Standing Safely, 5 inches Pick- Up Object From Floor Supervision Look Behind Shoulder - Standing Supervision w/Turning Turning 360 Degrees Turns slowly, but safely Unsupported Stance, Alternating Feet on 4 Steps w/Supervision Stair Unsupported Tandem Stance Small Step- 30 seconds Unilateral Leg Stance Lifts Leg/Unable to Hold Total Score Ross Total Score (out of 56 points) 42 Ross Impairment Rating 20 to 39% Impaired (Score 34- 44) PT-OP-E Functional Tests Start: 11/28/23 17:38 Freq: Status: Active Protocol: Document 11/28/23 14:00 DCW (Rec: 11/28/23 17:50 DCW [id number]) Functional Tests 30 Second Sit to Stand Test Score x13 repetitions Comments low table, no UE use Timed Up and Go (TUG) Score 13.27 /s AD Comments Three-trial average (15.20, 13 .02, 11.59) PT-OP-J Posture/Palpation/Skin Start: 11/28/23 17:38 Freq: Status: Active Protocol: Document 11/28/23 14:00 DCW (Rec: 11/28/23 17:50 DCW [id number]) Posture Evaluation Comments Posture Comments Severely forward head, increased thoracic kyphosis, mild correction with cueing PT-OP-M Strength Start: 11/28/23 17:38 Freq: Status: Active Protocol: Document 11/28/23 14:00 DCW (Rec: 11/28/23 17:50 DCW [id number]) Hip Strength Hip Manual Muscle Testing Right Flexion (L2) 4- Good- Abduction 3+ Fair+ Adduction 4 Good External Rotation 4+ Good+ Internal Rotation 4+ Good+ Left Flexion (L2) 4- Good- Abduction 3+ Fair+ Adduction 4 Good External Rotation 4+ Good+ Internal Rotation 4+ Good+ Knee Strength Knee Manual Muscle Testing Right Flexion (S2) 4- Good- Extension (L3) 4 Good Left Flexion (S2) 4 Good Extension (L3) 4+ Good+ PT-OP-Q Treatments Start: 11/28/23 17:38 Freq: Status: Active Protocol: Document 11/30/23 09:45 DCW (Rec: 11/30/23 10:29 DCW [id number]) Cardio Equipment Recumbent Elliptical (Biodex) Duration (Minutes) 5 Resistance 5 Seat Position 12 Gym Equipment Shuttle Recovery Unilateral Squats Resistance 50# (Two new) Shuttle Recovery Platform Stable Reps/Time x25 Bilateral Squats Resistance 75# (Three new) Shuttle Recovery Platform Stable Reps/Time x30 Therapeutic Exercises Standing Exercises Step-ups Standing Exercise Name Step-ups Side bilateral Equipment Used 6 step Neuro Re-Education Treatment Balance Activities SLS Details SLS Equipment // bars Tandem Stance Details Tandem Stance Equipment // bars Hurdles Details Hurdles/Foam Uneven Surfaces Details Uneven surface Surface Blue pad with objects underneath Comments Forward, Lateral PT-OP-T Assessment and Plan Start: 11/28/23 17:38 Freq: Status: Active Protocol: Document 11/30/23 09:45 DCW (Rec: 11/30/23 10:29 DCW [id number]) Physical Therapy Assessment Impairments Impairments Activity Tolerance,Balance, Functional Activities, Functional Mobility,Gait, Posture,Strength Goals Three Impairment Bilateral hip weakness, particularly flexion (4-/5) and abduction (3+/5) Assisted Goal (LTG) Bilateral hip MMT of at least 4/5 in all tested planes in order to improve ability to safely perform sit->stands and improve stability during gait . LTG Duration 01/29/24 Two Impairment Pt at an increased risk of falls, per Ross score (42/56) Concrete Finishing Machine Operator Goal (LTG) Pt to improve Ross score by at least 5 points to 47/56 in order to demonstrate a decreasing risk of falls. LTG Duration 01/29/24 One Impairment Pt does not have an appropriate home eexercise program Short Term Goal (STG) Pt to be independent and compliant with an appropriate HEP STG Duration 12/29/23 Assessment Summary Assessment Pt had some increased difficulty with uneven surface ambulation and hurdles, admitted they were both hard. Discussed practicing sit<-> stands, step-ups, and tandem stance at home. Physical Therapy Plan Frequency and Duration Frequency of Treatment 2x/Week Plan of Care Start Date 11/28/23 Plan of Care End Date 01/29/24 Therapeutic Interventions Therapeutic Interventions Balance Training,Gait Training ,Home Exercise Program,Joint Mobilizations,Manual Therapy, Neuromuscular Re-education, Patient/Caregiver Education, Self-Care/Home Management,Soft Tissue Mobilization, Therapeutic Activities, Therapeutic Exercises Next Visit Focus/Plan Next Note Type Treatment Note Next Visit Plan LE strengthening, static/ dynamic balance challenges, gait training with trekking poles
--- NOTE | 2023-12-03 10:30 | PT.OTN ---
Current Diagnoses Unsteadiness on feet (12/03/23) Unspecified abnormalities of gait and mobility (12/03/23) Repeated falls (12/03/23) Weakness (12/03/23) Physical Therapy Treatment Note PT-OP-A Visit Information Start: 11/28/23 17:38 Freq: Status: Active Protocol: Document 12/03/23 09:49 DCW (Rec: 12/03/23 10:30 DCW [id number]) Out-Patient Physical Therapy Visit Information Visit Information Visit Type Treatment Note Visit Start Time 09:49 Visit Stop Time 10:30 Visit Number 3 Number of EXTRACTOR TENDER RAW STOCK Visits 0 Evaluation Information Evaluation Date 11/28/23 PT-OP-B Current Condition Start: 11/28/23 17:38 Freq: Status: Active Protocol: Document 11/28/23 14:00 DCW (Rec: 11/28/23 17:56 DCW [id number]) Current Condition History of Current Condition Onset Date Long-standing history Current Complaints Instability with walking, worsening posture, fatigue History of Current Condition Pt is an 82 year old male presenting with his to his PT initial evaluation today. Pt was previously treated in this clinic for ~3 months at this time last year for the same complaints of decreased stability, difficulty with functional mobility, weakness, and poor activity tolerance. Pt's notes he has significantly declined with his functional mobility since last year. Pt uses 4WW or trekking poles most of the time. reports he often has difficulty getting up out of chairs. Has had multiple falls recently, but none have been eventful or led to bad injuries. PT-OP-C Subjective Start: 11/28/23 17:38 Freq: Status: Active Protocol: Document 11/30/23 09:45 DCW (Rec: 11/30/23 10:29 DCW [id number]) OP-PT Subjective Patient Comments Patient Comments Pt agrees he did better here at his eval on Sunday than he typically does at home, admits that it is easier when here and actively thinking about what he's supposed to do . PT-OP-D Balance Start: 11/28/23 17:38 Freq: Status: Active Protocol: Document 11/28/23 14:00 DCW (Rec: 11/28/23 17:50 DCW [id number]) Balance Tests Ross Balance Test Ross Balance Test Score 42/56 Ross Balance Assessment Evaluation Sitting to Standing Ability Independent w/out Hands Unsupported Stance Safely- 2 minutes Sitting Unsupported, Feet on Floor Safely- 2 minutes Standing to Sitting Ability Safely, Minimal Hand Use Transfer Ability Safely, Minimal Hand Use Unsupported Stance- Eyes Closed Safely, 10 seconds Unsupported Stance- Eyes Open Independent, 1 minute Reaching Forward Standing Safely, 5 inches Pick- Up Object From Floor Supervision Look Behind Shoulder - Standing Supervision w/Turning Turning 360 Degrees Turns slowly, but safely Unsupported Stance, Alternating Feet on 4 Steps w/Supervision Stair Unsupported Tandem Stance Small Step- 30 seconds Unilateral Leg Stance Lifts Leg/Unable to Hold Total Score Ross Total Score (out of 56 points) 42 Ross Impairment Rating 20 to 39% Impaired (Score 34- 44) PT-OP-E Functional Tests Start: 11/28/23 17:38 Freq: Status: Active Protocol: Document 11/28/23 14:00 DCW (Rec: 11/28/23 17:50 DCW [id number]) Functional Tests 30 Second Sit to Stand Test Score x13 repetitions Comments low table, no UE use Timed Up and Go (TUG) Score 13.27 /s AD Comments Three-trial average (15.20, 13 .02, 11.59) PT-OP-J Posture/Palpation/Skin Start: 11/28/23 17:38 Freq: Status: Active Protocol: Document 11/28/23 14:00 DCW (Rec: 11/28/23 17:50 DCW [id number]) Posture Evaluation Comments Posture Comments Severely forward head, increased thoracic kyphosis, mild correction with cueing PT-OP-M Strength Start: 11/28/23 17:38 Freq: Status: Active Protocol: Document 11/28/23 14:00 DCW (Rec: 11/28/23 17:50 DCW [id number]) Hip Strength Hip Manual Muscle Testing Right Flexion (L2) 4- Good- Abduction 3+ Fair+ Adduction 4 Good External Rotation 4+ Good+ Internal Rotation 4+ Good+ Left Flexion (L2) 4- Good- Abduction 3+ Fair+ Adduction 4 Good External Rotation 4+ Good+ Internal Rotation 4+ Good+ Knee Strength Knee Manual Muscle Testing Right Flexion (S2) 4- Good- Extension (L3) 4 Good Left Flexion (S2) 4 Good Extension (L3) 4+ Good+ PT-OP-Q Treatments Start: 11/28/23 17:38 Freq: Status: Active Protocol: Document 12/03/23 09:49 DCW (Rec: 12/03/23 10:30 DCW [id number]) Cardio Equipment Recumbent Elliptical (Biodex) Duration (Minutes) 5 Resistance 5 Seat Position 12 Gym Equipment Shuttle Recovery Unilateral Squats Resistance 50# (Two new) Shuttle Recovery Platform Stable Reps/Time x25 Bilateral Squats Resistance 87# (Three new) Shuttle Recovery Platform Stable Reps/Time x30 Shuttle Balance Red Details WBOS, Staggered Comments CG/Min A Therapeutic Exercises Other Exercises Resisted Ambulation Other Exercise Name Side-stepping, Forward Resistance Green loop Equipment Used // bars Neuro Re-Education Treatment Balance Activities Tandem Stance Details Tandem Stance Surface AirEx Equipment // bars Hurdles Details Hurdles/Foam PT-OP-T Assessment and Plan Start: 11/28/23 17:38 Freq: Status: Active Protocol: Document 12/03/23 09:49 DCW (Rec: 12/03/23 10:30 DCW [id number]) Physical Therapy Assessment Impairments Impairments Activity Tolerance,Balance, Functional Activities, Functional Mobility,Gait, Posture,Strength Goals Three Impairment Bilateral hip weakness, particularly flexion (4-/5) and abduction (3+/5) Bottom Painter Goal (LTG) Bilateral hip MMT of at least 4/5 in all tested planes in order to improve ability to safely perform sit->stands and improve stability during gait . LTG Duration 01/29/24 Two Impairment Pt at an increased risk of falls, per Ross score (42/56) Bottom Painter Goal (LTG) Pt to improve Ross score by at least 5 points to 47/56 in order to demonstrate a decreasing risk of falls. LTG Duration 01/29/24 One Impairment Pt does not have an appropriate home exercise program Short Term Goal (STG) Pt to be independent and compliant with an appropriate HEP STG Duration 12/29/23 Assessment Summary Assessment Pt notes he struggled a little bit more today, spent more time on uneven/unstable surfaces. Continue to focus on strengthening and dynamic balance. Physical Therapy Plan Frequency and Duration Frequency of Treatment 2x/Week Plan of Care Start Date 11/28/23 Plan of Care End Date 01/29/24 Therapeutic Interventions Therapeutic Interventions Balance Training,Gait Training ,Home Exercise Program,Joint Mobilizations,Manual Therapy, Neuromuscular Re-education, Patient/Caregiver Education, Self-Care/Home Management,Soft Tissue Mobilization, Therapeutic Activities, Therapeutic Exercises Next Visit Focus/Plan Next Note Type Treatment Note Next Visit Plan LE strengthening, static/ dynamic balance challenges, gait training with trekking poles
--- NOTE | 2023-12-03 10:32 | PT.OTN ---
Current Diagnoses Unsteadiness on feet (12/03/23) Unspecified abnormalities of gait and mobility (12/03/23) Repeated falls (12/03/23) Weakness (12/03/23) Physical Therapy Treatment Note PT-OP-A Visit Information Start: 11/28/23 17:38 Freq: Status: Active Protocol: Document 12/03/23 09:49 DCW (Rec: 12/03/23 10:30 DCW [id number]) Out-Patient Physical Therapy Visit Information Visit Information Visit Type Treatment Note Visit Start Time 09:49 Visit Stop Time 10:30 Visit Number 3 Number of PORCELAIN ENAMEL REPAIRER Visits 0 Evaluation Information Evaluation Date 11/28/23 PT-OP-B Current Condition Start: 11/28/23 17:38 Freq: Status: Active Protocol: Document 11/28/23 14:00 DCW (Rec: 11/28/23 17:56 DCW [id number]) Current Condition History of Current Condition Onset Date Long-standing history Current Complaints Instability with walking, worsening posture, fatigue History of Current Condition Pt is an 82 year old male presenting with his to his PT initial evaluation today. Pt was previously treated in this clinic for ~3 months at this time last year for the same complaints of decreased stability, difficulty with functional mobility, weakness, and poor activity tolerance. Pt's notes he has significantly declined with his functional mobility since last year. Pt uses 4WW or trekking poles most of the time. reports he often has difficulty getting up out of chairs. Has had multiple falls recently, but none have been eventful or led to bad injuries. PT-OP-C Subjective Start: 11/28/23 17:38 Freq: Status: Active Protocol: Document 12/03/23 09:49 DCW (Rec: 12/03/23 10:32 DCW [id number]) OP-PT Subjective Patient Comments Patient Comments Pt notes he did not feel like he overdid it at his last visit. PT-OP-D Balance Start: 11/28/23 17:38 Freq: Status: Active Protocol: Document 11/28/23 14:00 DCW (Rec: 11/28/23 17:50 DCW [id number]) Balance Tests Ross Balance Test Ross Balance Test Score 42/56 Ross Balance Assessment Evaluation Sitting to Standing Ability Independent w/out Hands Unsupported Stance Safely- 2 minutes Sitting Unsupported, Feet on Floor Safely- 2 minutes Standing to Sitting Ability Safely, Minimal Hand Use Transfer Ability Safely, Minimal Hand Use Unsupported Stance- Eyes Closed Safely, 10 seconds Unsupported Stance- Eyes Open Independent, 1 minute Reaching Forward Standing Safely, 5 inches Pick- Up Object From Floor Supervision Look Behind Shoulder - Standing Supervision w/Turning Turning 360 Degrees Turns slowly, but safely Unsupported Stance, Alternating Feet on 4 Steps w/Supervision Stair Unsupported Tandem Stance Small Step- 30 seconds Unilateral Leg Stance Lifts Leg/Unable to Hold Total Score Ross Total Score (out of 56 points) 42 Ross Impairment Rating 20 to 39% Impaired (Score 34- 44) PT-OP-E Functional Tests Start: 11/28/23 17:38 Freq: Status: Active Protocol: Document 11/28/23 14:00 DCW (Rec: 11/28/23 17:50 DCW [id number]) Functional Tests 30 Second Sit to Stand Test Score x13 repetitions Comments low table, no UE use Timed Up and Go (TUG) Score 13.27 /s AD Comments Three-trial average (15.20, 13 .02, 11.59) PT-OP-J Posture/Palpation/Skin Start: 11/28/23 17:38 Freq: Status: Active Protocol: Document 11/28/23 14:00 DCW (Rec: 11/28/23 17:50 DCW [id number]) Posture Evaluation Comments Posture Comments Severely forward head, increased thoracic kyphosis, mild correction with cueing PT-OP-M Strength Start: 11/28/23 17:38 Freq: Status: Active Protocol: Document 11/28/23 14:00 DCW (Rec: 11/28/23 17:50 DCW [id number]) Hip Strength Hip Manual Muscle Testing Right Flexion (L2) 4- Good- Abduction 3+ Fair+ Adduction 4 Good External Rotation 4+ Good+ Internal Rotation 4+ Good+ Left Flexion (L2) 4- Good- Abduction 3+ Fair+ Adduction 4 Good External Rotation 4+ Good+ Internal Rotation 4+ Good+ Knee Strength Knee Manual Muscle Testing Right Flexion (S2) 4- Good- Extension (L3) 4 Good Left Flexion (S2) 4 Good Extension (L3) 4+ Good+ PT-OP-Q Treatments Start: 11/28/23 17:38 Freq: Status: Active Protocol: Document 12/03/23 09:49 DCW (Rec: 12/03/23 10:30 DCW [id number]) Cardio Equipment Recumbent Elliptical (Biodex) Duration (Minutes) 5 Resistance 5 Seat Position 12 Gym Equipment Shuttle Recovery Unilateral Squats Resistance 50# (Two new) Shuttle Recovery Platform Stable Reps/Time x25 Bilateral Squats Resistance 87# (Three new) Shuttle Recovery Platform Stable Reps/Time x30 Shuttle Balance Red Details WBOS, Staggered Comments CG/Min A Therapeutic Exercises Other Exercises Resisted Ambulation Other Exercise Name Side-stepping, Forward Resistance Green loop Equipment Used // bars Neuro Re-Education Treatment Balance Activities Tandem Stance Details Tandem Stance Surface AirEx Equipment // bars Hurdles Details Hurdles/Foam PT-OP-T Assessment and Plan Start: 11/28/23 17:38 Freq: Status: Active Protocol: Document 12/03/23 09:49 DCW (Rec: 12/03/23 10:30 DCW [id number]) Physical Therapy Assessment Impairments Impairments Activity Tolerance,Balance, Functional Activities, Functional Mobility,Gait, Posture,Strength Goals Three Impairment Bilateral hip weakness, particularly flexion (4-/5) and abduction (3+/5) Gear Lapping Machine Operator Goal (LTG) Bilateral hip MMT of at least 4/5 in all tested planes in order to improve ability to safely perform sit->stands and improve stability during gait . LTG Duration 01/29/24 Two Impairment Pt at an increased risk of falls, per Ross score (42/56) Gear Lapping Machine Operator Goal (LTG) Pt to improve Ross score by at least 5 points to 47/56 in order to demonstrate a decreasing risk of falls. LTG Duration 01/29/24 One Impairment Pt does not have an appropriate home exercise program Short Term Goal (STG) Pt to be independent and compliant with an appropriate HEP STG Duration 12/29/23 Assessment Summary Assessment Pt notes he struggled a little bit more today, spent more time on uneven/unstable surfaces. Continue to focus on strengthening and dynamic balance. Physical Therapy Plan Frequency and Duration Frequency of Treatment 2x/Week Plan of Care Start Date 11/28/23 Plan of Care End Date 01/29/24 Therapeutic Interventions Therapeutic Interventions Balance Training,Gait Training ,Home Exercise Program,Joint Mobilizations,Manual Therapy, Neuromuscular Re-education, Patient/Caregiver Education, Self-Care/Home Management,Soft Tissue Mobilization, Therapeutic Activities, Therapeutic Exercises Next Visit Focus/Plan Next Note Type Treatment Note Next Visit Plan LE strengthening, static/ dynamic balance challenges, gait training with trekking poles
--- NOTE | 2023-12-06 10:31 | PT.OTN ---
Current Diagnoses Unsteadiness on feet (12/06/23) Unspecified abnormalities of gait and mobility (12/06/23) Repeated falls (12/06/23) Weakness (12/06/23) Physical Therapy Treatment Note PT-OP-A Visit Information Start: 11/28/23 17:38 Freq: Status: Active Protocol: Document 12/06/23 09:45 DCW (Rec: 12/06/23 10:31 DCW [id number]) Out-Patient Physical Therapy Visit Information Visit Information Visit Type Treatment Note Visit Start Time 09:45 Visit Stop Time 10:30 Visit Number 4 Number of PARAFFINER Visits 0 Evaluation Information Evaluation Date 11/28/23 PT-OP-B Current Condition Start: 11/28/23 17:38 Freq: Status: Active Protocol: Document 11/28/23 14:00 DCW (Rec: 11/28/23 17:56 DCW [id number]) Current Condition History of Current Condition Onset Date Long-standing history Current Complaints Instability with walking, worsening posture, fatigue History of Current Condition Pt is an 82 year old male presenting with his to his PT initial evaluation today. Pt was previously treated in this clinic for ~3 months at this time last year for the same complaints of decreased stability, difficulty with functional mobility, weakness, and poor activity tolerance. Pt's notes he has significantly declined with his functional mobility since last year. Pt uses 4WW or trekking poles most of the time. reports he often has difficulty getting up out of chairs. Has had multiple falls recently, but none have been eventful or led to bad injuries. PT-OP-C Subjective Start: 11/28/23 17:38 Freq: Status: Active Protocol: Document 12/06/23 09:45 DCW (Rec: 12/06/23 10:31 DCW [id number]) OP-PT Subjective Patient Comments Patient Comments Pt reports he is feeling reasonable. Reports he continues to have some difficulty walking on uneven surfaces. PT-OP-D Balance Start: 11/28/23 17:38 Freq: Status: Active Protocol: Document 11/28/23 14:00 DCW (Rec: 11/28/23 17:50 DCW [id number]) Balance Tests Ross Balance Test Ross Balance Test Score 42/56 Ross Balance Assessment Evaluation Sitting to Standing Ability Independent w/out Hands Unsupported Stance Safely- 2 minutes Sitting Unsupported, Feet on Floor Safely- 2 minutes Standing to Sitting Ability Safely, Minimal Hand Use Transfer Ability Safely, Minimal Hand Use Unsupported Stance- Eyes Closed Safely, 10 seconds Unsupported Stance- Eyes Open Independent, 1 minute Reaching Forward Standing Safely, 5 inches Pick- Up Object From Floor Supervision Look Behind Shoulder - Standing Supervision w/Turning Turning 360 Degrees Turns slowly, but safely Unsupported Stance, Alternating Feet on 4 Steps w/Supervision Stair Unsupported Tandem Stance Small Step- 30 seconds Unilateral Leg Stance Lifts Leg/Unable to Hold Total Score Ross Total Score (out of 56 points) 42 Ross Impairment Rating 20 to 39% Impaired (Score 34- 44) PT-OP-E Functional Tests Start: 11/28/23 17:38 Freq: Status: Active Protocol: Document 11/28/23 14:00 DCW (Rec: 11/28/23 17:50 DCW [id number]) Functional Tests 30 Second Sit to Stand Test Score x13 repetitions Comments low table, no UE use Timed Up and Go (TUG) Score 13.27 /s AD Comments Three-trial average (15.20, 13 .02, 11.59) PT-OP-J Posture/Palpation/Skin Start: 11/28/23 17:38 Freq: Status: Active Protocol: Document 11/28/23 14:00 DCW (Rec: 11/28/23 17:50 DCW [id number]) Posture Evaluation Comments Posture Comments Severely forward head, increased thoracic kyphosis, mild correction with cueing PT-OP-M Strength Start: 11/28/23 17:38 Freq: Status: Active Protocol: Document 11/28/23 14:00 DCW (Rec: 11/28/23 17:50 DCW [id number]) Hip Strength Hip Manual Muscle Testing Right Flexion (L2) 4- Good- Abduction 3+ Fair+ Adduction 4 Good External Rotation 4+ Good+ Internal Rotation 4+ Good+ Left Flexion (L2) 4- Good- Abduction 3+ Fair+ Adduction 4 Good External Rotation 4+ Good+ Internal Rotation 4+ Good+ Knee Strength Knee Manual Muscle Testing Right Flexion (S2) 4- Good- Extension (L3) 4 Good Left Flexion (S2) 4 Good Extension (L3) 4+ Good+ PT-OP-Q Treatments Start: 11/28/23 17:38 Freq: Status: Active Protocol: Document 12/06/23 09:45 DCW (Rec: 12/06/23 10:31 [facility] [id number]) Cardio Equipment Recumbent Elliptical (Biodex) Duration (Minutes) 5 Resistance 5 Seat Position 12 Gym Equipment Shuttle Recovery Unilateral Squats Resistance 50# (Two new) Shuttle Recovery Platform Stable Reps/Time x25 Bilateral Squats Resistance 87# (Three new) Shuttle Recovery Platform Stable Reps/Time x30 Shuttle Balance Red Details WBOS, Staggered Comments CG/Min A Neuro Re-Education Treatment Balance Activities Hurdles Details Hurdles Comments Forward, Side-stepping Uneven Surfaces Details Uneven surface Surface Blue pad with objects underneath Comments Forward PT-OP-T Assessment and Plan Start: 11/28/23 17:38 Freq: Status: Active Protocol: Document 12/06/23 09:45 DCW (Rec: 12/06/23 10:31 [facility] [id number]) Physical Therapy Assessment Assessment Summary Assessment Pt had difficulty with uneven surface ambulation today, as well as hurdles. Admits some of it is I don't see well out of my right eye, but that's not everything. Continue to focus on balance challenges, LE strengthening, and functional mobility. Physical Therapy Plan Frequency and Duration Frequency of Treatment 2x/Week Plan of Care Start Date 11/28/23 Plan of Care End Date 01/29/24 Therapeutic Interventions Therapeutic Interventions Balance Training,Gait Training ,Home Exercise Program,Joint Mobilizations,Manual Therapy, Neuromuscular Re-education, Patient/Caregiver Education, Self-Care/Home Management,Soft Tissue Mobilization, Therapeutic Activities, Therapeutic Exercises Next Visit Focus/Plan Next Note Type Treatment Note Next Visit Plan LE strengthening, static/ dynamic balance challenges, gait training with trekking poles
--- NOTE | 2023-12-10 10:31 | PT.OTN ---
Current Diagnoses Unsteadiness on feet (12/10/23) Unspecified abnormalities of gait and mobility (12/10/23) Repeated falls (12/10/23) Weakness (12/10/23) Physical Therapy Treatment Note PT-OP-A Visit Information Start: 11/28/23 17:38 Freq: Status: Active Protocol: Document 12/10/23 09:50 DCW (Rec: 12/10/23 10:31 DCW [id number]) Out-Patient Physical Therapy Visit Information Visit Information Visit Type Treatment Note Visit Start Time 09:50 Visit Stop Time 10:30 Visit Number 5 Number of INFORMATION SECURITY OFFICER Visits 0 Evaluation Information Evaluation Date 11/28/23 PT-OP-B Current Condition Start: 11/28/23 17:38 Freq: Status: Active Protocol: Document 11/28/23 14:00 DCW (Rec: 11/28/23 17:56 DCW [id number]) Current Condition History of Current Condition Onset Date Long-standing history Current Complaints Instability with walking, worsening posture, fatigue History of Current Condition Pt is an 82 year old male presenting with his to his PT initial evaluation today. Pt was previously treated in this clinic for ~3 months at this time last year for the same complaints of decreased stability, difficulty with functional mobility, weakness, and poor activity tolerance. Pt's notes he has significantly declined with his functional mobility since last year. Pt uses 4WW or trekking poles most of the time. reports he often has difficulty getting up out of chairs. Has had multiple falls recently, but none have been eventful or led to bad injuries. PT-OP-C Subjective Start: 11/28/23 17:38 Freq: Status: Active Protocol: Document 12/10/23 09:50 DCW (Rec: 12/10/23 10:31 DCW [id number]) OP-PT Subjective Patient Comments Patient Comments I've been better. Admits he is tired today. PT-OP-D Balance Start: 11/28/23 17:38 Freq: Status: Active Protocol: Document 11/28/23 14:00 DCW (Rec: 11/28/23 17:50 DCW [id number]) Balance Tests Ross Balance Test Ross Balance Test Score 42/56 Ross Balance Assessment Evaluation Sitting to Standing Ability Independent w/out Hands Unsupported Stance Safely- 2 minutes Sitting Unsupported, Feet on Floor Safely- 2 minutes Standing to Sitting Ability Safely, Minimal Hand Use Transfer Ability Safely, Minimal Hand Use Unsupported Stance- Eyes Closed Safely, 10 seconds Unsupported Stance- Eyes Open Independent, 1 minute Reaching Forward Standing Safely, 5 inches Pick- Up Object From Floor Supervision Look Behind Shoulder - Standing Supervision w/Turning Turning 360 Degrees Turns slowly, but safely Unsupported Stance, Alternating Feet on 4 Steps w/Supervision Stair Unsupported Tandem Stance Small Step- 30 seconds Unilateral Leg Stance Lifts Leg/Unable to Hold Total Score Ross Total Score (out of 56 points) 42 Ross Impairment Rating 20 to 39% Impaired (Score 34- 44) PT-OP-E Functional Tests Start: 11/28/23 17:38 Freq: Status: Active Protocol: Document 11/28/23 14:00 DCW (Rec: 11/28/23 17:50 DCW [id number]) Functional Tests 30 Second Sit to Stand Test Score x13 repetitions Comments low table, no UE use Timed Up and Go (TUG) Score 13.27 /s AD Comments Three-trial average (15.20, 13 .02, 11.59) PT-OP-J Posture/Palpation/Skin Start: 11/28/23 17:38 Freq: Status: Active Protocol: Document 11/28/23 14:00 DCW (Rec: 11/28/23 17:50 DCW [id number]) Posture Evaluation Comments Posture Comments Severely forward head, increased thoracic kyphosis, mild correction with cueing PT-OP-M Strength Start: 11/28/23 17:38 Freq: Status: Active Protocol: Document 11/28/23 14:00 DCW (Rec: 11/28/23 17:50 DCW [id number]) Hip Strength Hip Manual Muscle Testing Right Flexion (L2) 4- Good- Abduction 3+ Fair+ Adduction 4 Good External Rotation 4+ Good+ Internal Rotation 4+ Good+ Left Flexion (L2) 4- Good- Abduction 3+ Fair+ Adduction 4 Good External Rotation 4+ Good+ Internal Rotation 4+ Good+ Knee Strength Knee Manual Muscle Testing Right Flexion (S2) 4- Good- Extension (L3) 4 Good Left Flexion (S2) 4 Good Extension (L3) 4+ Good+ PT-OP-Q Treatments Start: 11/28/23 17:38 Freq: Status: Active Protocol: Document 12/10/23 09:50 DCW (Rec: 12/10/23 10:31 DCW [id number]) Cardio Equipment Recumbent Elliptical (Biodex) Duration (Minutes) 5 Resistance 5 Seat Position 12 Gym Equipment Shuttle Recovery Unilateral Squats Resistance 50# (Two new) Shuttle Recovery Platform Stable Reps/Time x25 Bilateral Squats Resistance 87# (Three new) Shuttle Recovery Platform Stable Reps/Time x30 Shuttle Balance Red Details WBOS, Staggered Comments CG/Min A Therapeutic Exercises Other Exercises Resisted Ambulation Other Exercise Name Side-stepping, Forward Resistance Green loop Equipment Used // bars Neuro Re-Education Treatment Balance Activities Foam Details EO/EC, X1 Uneven Surfaces Details Uneven surface Surface Blue pad with objects underneath Comments Forward PT-OP-T Assessment and Plan Start: 11/28/23 17:38 Freq: Status: Active Protocol: Document 12/10/23 09:50 DCW (Rec: 12/10/23 10:31 DCW [id number]) Physical Therapy Assessment Impairments Impairments Activity Tolerance,Balance, Functional Activities, Functional Mobility,Gait, Posture,Strength Goals Three Impairment Bilateral hip weakness, particularly flexion (4-/5) and abduction (3+/5) Catering Operations Manager Goal (LTG) Bilateral hip MMT of at least 4/5 in all tested planes in order to improve ability to safely perform sit->stands and improve stability during gait . LTG Duration 01/29/24 Two Impairment Pt at an increased risk of falls, per Ross score (42/56) Prison Goal (LTG) Pt to improve Ross score by at least 5 points to 47/56 in order to demonstrate a decreasing risk of falls. LTG Duration 01/29/24 One Impairment Pt does not have an appropriate home eexercise program Short Term Goal (STG) Pt to be independent and compliant with an appropriate HEP STG Duration 12/29/23 Assessment Summary Assessment Pt fatigued prior to session today, had a bit more difficulty with participation, admitted he was just a little off. Still challenged with uneven surfaces. Physical Therapy Plan Frequency and Duration Frequency of Treatment 2x/Week Plan of Care Start Date 11/28/23 Plan of Care End Date 01/29/24 Therapeutic Interventions Therapeutic Interventions Balance Training,Gait Training ,Home Exercise Program,Joint Mobilizations,Manual Therapy, Neuromuscular Re-education, Patient/Caregiver Education, Self-Care/Home Management,Soft Tissue Mobilization, Therapeutic Activities, Therapeutic Exercises Next Visit Focus/Plan Next Note Type Treatment Note Next Visit Plan LE strengthening, static/ dynamic balance challenges, gait training with trekking poles
--- NOTE | 2023-12-12 10:30 | PT.OTN ---
Current Diagnoses Unsteadiness on feet (12/12/23) Unspecified abnormalities of gait and mobility (12/12/23) Repeated falls (12/12/23) Weakness (12/12/23) Physical Therapy Treatment Note PT-OP-A Visit Information Start: 11/28/23 17:38 Freq: Status: Active Protocol: Document 12/12/23 09:48 DCW (Rec: 12/12/23 10:30 DCW [id number]) Out-Patient Physical Therapy Visit Information Visit Information Visit Type Treatment Note Visit Start Time 09:48 Visit Stop Time 10:30 Visit Number 6 Number of FLOOR COVERING INSTALLER Visits 0 Evaluation Information Evaluation Date 11/28/23 PT-OP-B Current Condition Start: 11/28/23 17:38 Freq: Status: Active Protocol: Document 11/28/23 14:00 DCW (Rec: 11/28/23 17:56 DCW [id number]) Current Condition History of Current Condition Onset Date Long-standing history Current Complaints Instability with walking, worsening posture, fatigue History of Current Condition Pt is an 82 year old male presenting with his to his PT initial evaluation today. Pt was previously treated in this clinic for ~3 months at this time last year for the same complaints of decreased stability, difficulty with functional mobility, weakness, and poor activity tolerance. Pt's notes he has significantly declined with his functional mobility since last year. Pt uses 4WW or trekking poles most of the time. reports he often has difficulty getting up out of chairs. Has had multiple falls recently, but none have been eventful or led to bad injuries. PT-OP-C Subjective Start: 11/28/23 17:38 Freq: Status: Active Protocol: Document 12/12/23 09:48 DCW (Rec: 12/12/23 10:30 DCW [id number]) OP-PT Subjective Patient Comments Patient Comments Pt notes he thinks he's doing alright. PT-OP-D Balance Start: 11/28/23 17:38 Freq: Status: Active Protocol: Document 11/28/23 14:00 DCW (Rec: 11/28/23 17:50 DCW [id number]) Balance Tests Ross Balance Test Ross Balance Test Score 42/56 Ross Balance Assessment Evaluation Sitting to Standing Ability Independent w/out Hands Unsupported Stance Safely- 2 minutes Sitting Unsupported, Feet on Floor Safely- 2 minutes Standing to Sitting Ability Safely, Minimal Hand Use Transfer Ability Safely, Minimal Hand Use Unsupported Stance- Eyes Closed Safely, 10 seconds Unsupported Stance- Eyes Open Independent, 1 minute Reaching Forward Standing Safely, 5 inches Pick- Up Object From Floor Supervision Look Behind Shoulder - Standing Supervision w/Turning Turning 360 Degrees Turns slowly, but safely Unsupported Stance, Alternating Feet on 4 Steps w/Supervision Stair Unsupported Tandem Stance Small Step- 30 seconds Unilateral Leg Stance Lifts Leg/Unable to Hold Total Score Ross Total Score (out of 56 points) 42 Ross Impairment Rating 20 to 39% Impaired (Score 34- 44) PT-OP-E Functional Tests Start: 11/28/23 17:38 Freq: Status: Active Protocol: Document 11/28/23 14:00 DCW (Rec: 11/28/23 17:50 WIW [id number]) Functional Tests 30 Second Sit to Stand Test Score x13 repetitions Comments low table, no UE use Timed Up and Go (TUG) Score 13.27 /s AD Comments Three-trial average (15.20, 13 .02, 11.59) PT-OP-J Posture/Palpation/Skin Start: 11/28/23 17:38 Freq: Status: Active Protocol: Document 11/28/23 14:00 DCW (Rec: 11/28/23 17:50 DCW [id number]) Posture Evaluation Comments Posture Comments Severely forward head, increased thoracic kyphosis, mild correction with cueing PT-OP-M Strength Start: 11/28/23 17:38 Freq: Status: Active Protocol: Document 11/28/23 14:00 DCW (Rec: 11/28/23 17:50 [facility] [id number]) Hip Strength Hip Manual Muscle Testing Right Flexion (L2) 4- Good- Abduction 3+ Fair+ Adduction 4 Good External Rotation 4+ Good+ Internal Rotation 4+ Good+ Left Flexion (L2) 4- Good- Abduction 3+ Fair+ Adduction 4 Good External Rotation 4+ Good+ Internal Rotation 4+ Good+ Knee Strength Knee Manual Muscle Testing Right Flexion (S2) 4- Good- Extension (L3) 4 Good Left Flexion (S2) 4 Good Extension (L3) 4+ Good+ PT-OP-Q Treatments Start: 11/28/23 17:38 Freq: Status: Active Protocol: Document 12/12/23 09:48 DCW (Rec: 12/12/23 10:30 DCW [id number]) Cardio Equipment Recumbent Elliptical (Biodex) Duration (Minutes) 5 Resistance 5 Seat Position 12 Gym Equipment Shuttle Recovery Unilateral Squats Resistance 50# (Two new) Shuttle Recovery Platform Stable Reps/Time x25 Bilateral Squats Resistance 87# (Three new) Shuttle Recovery Platform Stable Reps/Time x30 Shuttle Balance Red Details WBOS, Staggered Comments CG/Min A Therapeutic Exercises Other Exercises Resisted Ambulation Other Exercise Name Side-stepping, Forward Resistance Green loop Equipment Used // bars Neuro Re-Education Treatment Balance Activities Tandem Stance Details Tandem Stance Equipment // bars Hurdles Details Hurdles Comments Forward, Side-stepping Uneven Surfaces Details Uneven surface Surface Blue pad with objects underneath Comments Forward PT-OP-T Assessment and Plan Start: 11/28/23 17:38 Freq: Status: Active Protocol: Document 12/12/23 09:48 DCW (Rec: 12/12/23 10:30 DCW [id number]) Physical Therapy Assessment Impairments Impairments Activity Tolerance,Balance, Functional Activities, Functional Mobility,Gait, Posture,Strength Goals Three Impairment Bilateral hip weakness, particularly flexion (4-/5) and abduction (3+/5) Alf Goal (LTG) Bilateral hip MMT of at least 4/5 in all tested planes in order to improve ability to safely perform sit->stands and improve stability during gait . LTG Duration 01/29/24 Two Impairment Pt at an increased risk of falls, per Ross score (42/56) Alf Goal (LTG) Pt to improve Ross score by at least 5 points to 47/56 in order to demonstrate a decreasing risk of falls. LTG Duration 01/29/24 One Impairment Pt does not have an appropriate home exercise program Short Term Goal (STG) Pt to be independent and compliant with an appropriate HEP STG Duration 12/29/23 Assessment Summary Assessment Improved tolerance to balance challenges today, did better with uneven surfaces, less loss of balance, occasional need for PT assist to maintain upright posture. Physical Therapy Plan Frequency and Duration Frequency of Treatment 2x/Week Plan of Care Start Date 11/28/23 Plan of Care End Date 01/29/24 Therapeutic Interventions Therapeutic Interventions Balance Training,Gait Training ,Home Exercise Program,Joint Mobilizations,Manual Therapy, Neuromuscular Re-education, Patient/Caregiver Education, Self-Care/Home Management,Soft Tissue Mobilization, Therapeutic Activities, Therapeutic Exercises Next Visit Focus/Plan Next Note Type Treatment Note Next Visit Plan LE strengthening, static/ dynamic balance challenges, gait training with trekking poles
--- NOTE | 2023-12-25 12:17 | PT.OTN ---
Current Diagnoses Unsteadiness on feet (12/25/23) Unspecified abnormalities of gait and mobility (12/25/23) Repeated falls (12/25/23) Weakness (12/25/23) Physical Therapy Treatment Note PT-OP-A Visit Information Start: 11/28/23 17:38 Freq: Status: Active Protocol: Document 12/25/23 11:12 NBM (Rec: 12/25/23 12:17 NBM [id number]) Out-Patient Physical Therapy Visit Information Visit Information Visit Type Treatment Note Visit Start Time 11:25 Visit Stop Time 12:05 Visit Number 7 Number of BRIM POUNCING MACHINE OPERATOR Visits 1 Evaluation Information Evaluation Date 11/28/23 PT-OP-B Current Condition Start: 11/28/23 17:38 Freq: Status: Active Protocol: Document 11/28/23 14:00 DCW (Rec: 11/28/23 17:56 DCW [id number]) Current Condition History of Current Condition Onset Date Long-standing history Current Complaints Instability with walking, worsening posture, fatigue History of Current Condition Pt is an 82 year old male presenting with his to his PT initial evaluation today. Pt was previously treated in this clinic for ~3 months at this time last year for the same complaints of decreased stability, difficulty with functional mobility, weakness, and poor activity tolerance. Pt's notes he has significantly declined with his functional mobility since last year. Pt uses 4WW or trekking poles most of the time. reports he often has difficulty getting up out of chairs. Has had multiple falls recently, but none have been eventful or led to bad injuries. PT-OP-C Subjective Start: 11/28/23 17:38 Freq: Status: Active Protocol: Document 12/25/23 11:12 NBM (Rec: 12/25/23 12:17 NB [id number]) OP-PT Subjective Patient Comments Patient Comments Zcahary reports his vision is off today on his R side, which is causing him frustration and affecting his ability to do his ex's. No other symptoms such as lightheadedness or headache reported. He admits to near fall bumping doorway as he walked through it but recovered balance in same doorway. He goes for walks regularly with walker, hasn't used the trekking poles for about 7 months. PT-OP-D Balance Start: 11/28/23 17:38 Freq: Status: Active Protocol: Document 11/28/23 14:00 DCW (Rec: 11/28/23 17:50 DCW [id number]) Balance Tests Ross Balance Test Ross Balance Test Score 42/56 Ross Balance Assessment Evaluation Sitting to Standing Ability Independent w/out Hands Unsupported Stance Safely- 2 minutes Sitting Unsupported, Feet on Floor Safely- 2 minutes Standing to Sitting Ability Safely, Minimal Hand Use Transfer Ability Safely, Minimal Hand Use Unsupported Stance- Eyes Closed Safely, 10 seconds Unsupported Stance- Eyes Open Independent, 1 minute Reaching Forward Standing Safely, 5 inches Pick- Up Object From Floor Supervision Look Behind Shoulder - Standing Supervision w/Turning Turning 360 Degrees Turns slowly, but safely Unsupported Stance, Alternating Feet on 4 Steps w/Supervision Stair Unsupported Tandem Stance Small Step- 30 seconds Unilateral Leg Stance Lifts Leg/Unable to Hold Total Score Ross Total Score (out of 56 points) 42 Ross Impairment Rating 20 to 39% Impaired (Score 34- 44) PT-OP-E Functional Tests Start: 11/28/23 17:38 Freq: Status: Active Protocol: Document 11/28/23 14:00 DCW (Rec: 11/28/23 17:50 DCW [id number]) Functional Tests 30 Second Sit to Stand Test Score x13 repetitions Comments low table, no UE use Timed Up and Go (TUG) Score 13.27 /s AD Comments Three-trial average (15.20, 13 .02, 11.59) PT-OP-J Posture/Palpation/Skin Start: 11/28/23 17:38 Freq: Status: Active Protocol: Document 11/28/23 14:00 DCW (Rec: 11/28/23 17:50 DCW [id number]) Posture Evaluation Comments Posture Comments Severely forward head, increased thoracic kyphosis, mild correction with cueing PT-OP-M Strength Start: 11/28/23 17:38 Freq: Status: Active Protocol: Document 11/28/23 14:00 DCW (Rec: 11/28/23 17:50 DCW [id number]) Hip Strength Hip Manual Muscle Testing Right Flexion (L2) 4- Good- Abduction 3+ Fair+ Adduction 4 Good External Rotation 4+ Good+ Internal Rotation 4+ Good+ Left Flexion (L2) 4- Good- Abduction 3+ Fair+ Adduction 4 Good External Rotation 4+ Good+ Internal Rotation 4+ Good+ Knee Strength Knee Manual Muscle Testing Right Flexion (S2) 4- Good- Extension (L3) 4 Good Left Flexion (S2) 4 Good Extension (L3) 4+ Good+ PT-OP-Q Treatments Start: 11/28/23 17:38 Freq: Status: Active Protocol: Document 12/25/23 11:12 NBM (Rec: 12/25/23 12:17 [facility] [id number]) Cardio Equipment Recumbent Stepper (Sci-Fit) Duration (Minutes) 8 Resistance 3.0 Seat Position 14 Gym Equipment Shuttle Recovery Unilateral Squats Details cues for breath and tactilce cues for range Resistance 50# (Two new) Shuttle Recovery Platform Stable Reps/Time x10 ea Bilateral Squats Details cues for breath Resistance 87# (Three new) Shuttle Recovery Platform Stable Reps/Time x25 in limited range, x10 w/ tactile cues for increased knee ROM Therapeutic Exercises Other Exercises Resisted Ambulation Other Exercise Name Side-stepping, Forward/Retro Resistance Green loop Equipment Used handrail Reps/Minutes 2x20ft, Retro 2x10 ft Comments cues for neutral foot position L>R, upright posture. Neuro Re-Education Treatment Balance Activities Hurdles Details Hurdles x5 Surface firm Equipment // bars, gait belt Reps/Duration 2x 10ft Comments Forward cues for increased hip flexion (july, high knee) paul contact x2 first lap, all cleared second lap. PT-OP-T Assessment and Plan Start: 11/28/23 17:38 Freq: Status: Active Protocol: Document 12/25/23 11:12 NB (Rec: 12/25/23 12:17 [facility] [id number]) Physical Therapy Assessment Goals Three Impairment Bilateral hip weakness, particularly flexion (4-/5) and abduction (3+/5) Leaf Binner Goal (LTG) Bilateral hip MMT of at least 4/5 in all tested planes in order to improve ability to safely perform sit->stands and improve stability during gait . LTG Duration 01/29/24 Two Impairment Pt at an increased risk of falls, per Ross score (42/56) Leaf Binner Goal (LTG) Pt to improve Ross score by at least 5 points to 47/56 in order to demonstrate a decreasing risk of falls. LTG Duration 9/24/24 One Impairment Pt does not have an appropriate home eexercise program Short Term Goal (STG) Pt to be independent and compliant with an appropriate HEP STG Duration 12/29/23 Assessment Summary Assessment Zachary is challenged w/ maintaining neutral foot position w/ fatigue L>R during standing resisted LE exercises. He requires cues for LE alignment and no breathholding with supine leg press and tactile cueing for increased knee range of motion on Shuttle Recovery. He makes paul contact x2 first lap, and clears all second lap with verbal cueing for increased hip flexion. Physical Therapy Plan Frequency and Duration Frequency of Treatment 2x/Week Plan of Care Start Date 11/28/23 Plan of Care End Date 01/29/24 Therapeutic Interventions Therapeutic Interventions Balance Training,Gait Training ,Home Exercise Program,Joint Mobilizations,Manual Therapy, Neuromuscular Re-education, Patient/Caregiver Education, Self-Care/Home Management,Soft Tissue Mobilization, Therapeutic Activities, Therapeutic Exercises Next Visit Focus/Plan Next Note Type Treatment Note Next Visit Plan LE strengthening, static/ dynamic balance challenges, gait training with trekking poles
--- NOTE | 2023-12-28 12:39 | PT.OTN ---
Current Diagnoses Unsteadiness on feet (12/28/23) Unspecified abnormalities of gait and mobility (12/28/23) Repeated falls (12/28/23) Weakness (12/28/23) Physical Therapy Treatment Note PT-OP-A Visit Information Start: 11/28/23 17:38 Freq: Status: Active Protocol: Document 12/28/23 11:34 NBM (Rec: 12/28/23 12:30 NB [id number]) Out-Patient Physical Therapy Visit Information Visit Information Visit Type Treatment Note Visit Start Time 11:25 Visit Stop Time 12:22 Visit Number 8 Number of SENIOR INSTRUMENTATION ENGINEER Visits 2 Evaluation Information Evaluation Date 11/28/23 PT-OP-B Current Condition Start: 11/28/23 17:38 Freq: Status: Active Protocol: Document 11/28/23 14:00 DCW (Rec: 11/28/23 17:56 DCW [id number]) Current Condition History of Current Condition Onset Date Long-standing history Current Complaints Instability with walking, worsening posture, fatigue History of Current Condition Pt is an 82 year old male presenting with his to his PT initial evaluation today. Pt was previously treated in this clinic for ~3 months at this time last year for the same complaints of decreased stability, difficulty with functional mobility, weakness, and poor activity tolerance. Pt's notes he has significantly declined with his functional mobility since last year. Pt uses 4WW or trekking poles most of the time. reports he often has difficulty getting up out of chairs. Has had multiple falls recently, but none have been eventful or led to bad injuries. PT-OP-C Subjective Start: 11/28/23 17:38 Freq: Status: Active Protocol: Document 12/28/23 11:34 NBM (Rec: 12/28/23 12:30 NB [id number]) OP-PT Subjective Patient Comments Patient Comments Pt reports he wasn't too sore after last visit and could be more challenged. He has a balance board at home that he' s been practicing standing on. His eye sight is slightly better and he has an eye surgery coming up in May. EOS he requires HEP handout. PT-OP-D Balance Start: 11/28/23 17:38 Freq: Status: Active Protocol: Document 11/28/23 14:00 DCW (Rec: 11/28/23 17:50 DCW [id number]) Balance Tests Ross Balance Test Ross Balance Test Score 42/56 Ross Balance Assessment Evaluation Sitting to Standing Ability Independent w/out Hands Unsupported Stance Safely- 2 minutes Sitting Unsupported, Feet on Floor Safely- 2 minutes Standing to Sitting Ability Safely, Minimal Hand Use Transfer Ability Safely, Minimal Hand Use Unsupported Stance- Eyes Closed Safely, 10 seconds Unsupported Stance- Eyes Open Independent, 1 minute Reaching Forward Standing Safely, 5 inches Pick- Up Object From Floor Supervision Look Behind Shoulder - Standing Supervision w/Turning Turning 360 Degrees Turns slowly, but safely Unsupported Stance, Alternating Feet on 4 Steps w/Supervision Stair Unsupported Tandem Stance Small Step- 30 seconds Unilateral Leg Stance Lifts Leg/Unable to Hold Total Score Ross Total Score (out of 56 points) 42 Ross Impairment Rating 20 to 39% Impaired (Score 34- 44) PT-OP-E Functional Tests Start: 11/28/23 17:38 Freq: Status: Active Protocol: Document 11/28/23 14:00 DCW (Rec: 11/28/23 17:50 [facility] [id number]) Functional Tests 30 Second Sit to Stand Test Score x13 repetitions Comments low table, no UE use Timed Up and Go (TUG) Score 13.27 /s AD Comments Three-trial average (15.20, 13 .02, 11.59) PT-OP-J Posture/Palpation/Skin Start: 11/28/23 17:38 Freq: Status: Active Protocol: Document 11/28/23 14:00 DCW (Rec: 11/28/23 17:50 [facility] [id number]) Posture Evaluation Comments Posture Comments Severely forward head, increased thoracic kyphosis, mild correction with cueing PT-OP-M Strength Start: 11/28/23 17:38 Freq: Status: Active Protocol: Document 11/28/23 14:00 DCW (Rec: 11/28/23 17:50 DCW [id number]) Hip Strength Hip Manual Muscle Testing Right Flexion (L2) 4- Good- Abduction 3+ Fair+ Adduction 4 Good External Rotation 4+ Good+ Internal Rotation 4+ Good+ Left Flexion (L2) 4- Good- Abduction 3+ Fair+ Adduction 4 Good External Rotation 4+ Good+ Internal Rotation 4+ Good+ Knee Strength Knee Manual Muscle Testing Right Flexion (S2) 4- Good- Extension (L3) 4 Good Left Flexion (S2) 4 Good Extension (L3) 4+ Good+ PT-OP-Q Treatments Start: 11/28/23 17:38 Freq: Status: Active Protocol: Document 12/28/23 11:34 NBM (Rec: 12/28/23 12:30 [facility] [place] [id number]) Cardio Equipment Recumbent Elliptical (Biodex) Duration (Minutes) 5 Resistance 5 Seat Position 12 Other visual cues for 30 RPMs, challenging Gym Equipment Shuttle Recovery Bilateral Squats Details cues for breath Resistance 87# (Three new) Shuttle Recovery Platform Stable Reps/Time x10 w/ tactile cues R exccessive knee valgus. Lvl 2 tb trialed at thighs Shuttle Balance Red Details WBOS, Staggered Naren Comments CGA>modA WBOS: maintaining flat board, a/p weightshifting Staggered: maintaining flat board, a/p weightshifting w/ eccentric control focus, EO/EC Therapeutic Exercises Standing Exercises banded march Resistance Lvl 1 Tb around feet Comments cues for increased hip flexion Step-ups Standing Exercise Name Step-ups Side bilateral Equipment Used 4 step Comments cues for hip flexion vs circumduction Other Exercises Resisted Ambulation Other Exercise Name Side-stepping, Forward/Retro Resistance Lvl 1 Tb, Lvl 2 Tb Equipment Used handrail Reps/Minutes fwd 2x20ft Lvl 1, x10 ft ea Lvl 2 trialed, Retro 2x10 ft Comments improved self-awareness for neutral foot position L>R, upright posture. Self-Care/Home Management Treatment Education Patient Education Fall Risk,Home Exercise Program,Posture,Safety Other Education Added to HEP: sidesteps, step taps - HO and Lvl 1 Tb given. PT-OP-T Assessment and Plan Start: 11/28/23 17:38 Freq: Status: Active Protocol: Document 12/28/23 11:34 NBM (Rec: 12/28/23 12:30 [facility] [place] [id number]) Physical Therapy Assessment Goals Three Impairment Bilateral hip weakness, particularly flexion (4-/5) and abduction (3+/5) Compression Molding Machine Operator Goal (LTG) Bilateral hip MMT of at least 4/5 in all tested planes in order to improve ability to safely perform sit->stands and improve stability during gait . LTG Duration 01/29/24 Two Impairment Pt at an increased risk of falls, per Ross score (42/56) Fdc Goal (LTG) Pt to improve Ross score by at least 5 points to 47/56 in order to demonstrate a decreasing risk of falls. LTG Duration 01/29/24 One Impairment Pt does not have an appropriate home eexercise program Short Term Goal (STG) Pt to be independent and compliant with an appropriate HEP 12/28/23: Added to HEP: sidesteps, step taps - HO and Lvl 1 Tb given. STG Duration 12/29/23 (12/28/23: progressing) Assessment Summary Assessment Zachary requires tactile cues on Shuttle recovery for R exccessive knee valgus. Lvl 2 tb trialed at thighs but pt demos excessive knee valgus bilaterally and band is removed. He demos improved self-awareness and performance of resisted sidestepping. Lvl 2 Tb tiraled and too challenging. Pt requires cues for increasing hip flexion w/ 4 step taps rather than circumduction compensation R>L . Added to HEP: sidesteps, step taps - HO and Lvl 1 Tb given. Physical Therapy Plan Frequency and Duration Frequency of Treatment 2x/Week Plan of Care Start Date 11/28/23 Plan of Care End Date 01/29/24 Therapeutic Interventions Therapeutic Interventions Balance Training,Gait Training ,Home Exercise Program,Joint Mobilizations,Manual Therapy, Neuromuscular Re-education, Patient/Caregiver Education, Self-Care/Home Management,Soft Tissue Mobilization, Therapeutic Activities, Therapeutic Exercises Next Visit Focus/Plan Next Note Type Treatment Note Next Visit Plan LE strengthening, static/ dynamic balance challenges, gait training with trekking poles
--- NOTE | 2024-01-01 12:34 | PT.OTN ---
Current Diagnoses Unsteadiness on feet (01/01/24) Unspecified abnormalities of gait and mobility (01/01/24) Repeated falls (01/01/24) Weakness (01/01/24) Physical Therapy Treatment Note PT-OP-A Visit Information Start: 11/28/23 17:38 Freq: Status: Active Protocol: Document 01/01/24 11:29 NBM (Rec: 01/01/24 12:34 [facility] [id number]) Out-Patient Physical Therapy Visit Information Visit Information Visit Type Treatment Note Visit Start Time 11:25 Visit Stop Time 12:08 Visit Number 9 Number of SOCK BOARDER Visits 3 Evaluation Information Evaluation Date 11/28/23 PT-OP-B Current Condition Start: 11/28/23 17:38 Freq: Status: Active Protocol: Document 11/28/23 14:00 DCW (Rec: 11/28/23 17:56 DCW [id number]) Current Condition History of Current Condition Onset Date Long-standing history Current Complaints Instability with walking, worsening posture, fatigue History of Current Condition Pt is an 82 year old male presenting with his to his PT initial evaluation today. Pt was previously treated in this clinic for ~3 months at this time last year for the same complaints of decreased stability, difficulty with functional mobility, weakness, and poor activity tolerance. Pt's notes he has significantly declined with his functional mobility since last year. Pt uses 4WW or trekking poles most of the time. reports he often has difficulty getting up out of chairs. Has had multiple falls recently, but none have been eventful or led to bad injuries. PT-OP-C Subjective Start: 11/28/23 17:38 Freq: Status: Active Protocol: Document 01/01/24 11:29 NBM (Rec: 01/01/24 12:34 [facility] [id number]) OP-PT Subjective Patient Comments Patient Comments Zachary reports he is doing well and his legs are still recovering from last session. He did home exercises from handout of sidestepping and step taps focusing on not swinging his leg out. He reports some stumbles, no falls since last session. PT-OP-D Balance Start: 11/28/23 17:38 Freq: Status: Active Protocol: Document 11/28/23 14:00 DCW (Rec: 11/28/23 17:50 DCW [id number]) Balance Tests Ross Balance Test Ross Balance Test Score 42/56 Ross Balance Assessment Evaluation Sitting to Standing Ability Independent w/out Hands Unsupported Stance Safely- 2 minutes Sitting Unsupported, Feet on Floor Safely- 2 minutes Standing to Sitting Ability Safely, Minimal Hand Use Transfer Ability Safely, Minimal Hand Use Unsupported Stance- Eyes Closed Safely, 10 seconds Unsupported Stance- Eyes Open Independent, 1 minute Reaching Forward Standing Safely, 5 inches Pick- Up Object From Floor Supervision Look Behind Shoulder - Standing Supervision w/Turning Turning 360 Degrees Turns slowly, but safely Unsupported Stance, Alternating Feet on 4 Steps w/Supervision Stair Unsupported Tandem Stance Small Step- 30 seconds Unilateral Leg Stance Lifts Leg/Unable to Hold Total Score Ross Total Score (out of 56 points) 42 Ross Impairment Rating 20 to 39% Impaired (Score 34- 44) PT-OP-E Functional Tests Start: 11/28/23 17:38 Freq: Status: Active Protocol: Document 11/28/23 14:00 DCW (Rec: 11/28/23 17:50 DCW [id number]) Functional Tests 30 Second Sit to Stand Test Score x13 repetitions Comments low table, no UE use Timed Up and Go (TUG) Score 13.27 /s AD Comments Three-trial average (15.20, 13 .02, 11.59) PT-OP-J Posture/Palpation/Skin Start: 11/28/23 17:38 Freq: Status: Active Protocol: Document 11/28/23 14:00 DCW (Rec: 11/28/23 17:50 DCW [id number]) Posture Evaluation Comments Posture Comments Severely forward head, increased thoracic kyphosis, mild correction with cueing PT-OP-M Strength Start: 11/28/23 17:38 Freq: Status: Active Protocol: Document 11/28/23 14:00 DCW (Rec: 11/28/23 17:50 DCW [id number]) Hip Strength Hip Manual Muscle Testing Right Flexion (L2) 4- Good- Abduction 3+ Fair+ Adduction 4 Good External Rotation 4+ Good+ Internal Rotation 4+ Good+ Left Flexion (L2) 4- Good- Abduction 3+ Fair+ Adduction 4 Good External Rotation 4+ Good+ Internal Rotation 4+ Good+ Knee Strength Knee Manual Muscle Testing Right Flexion (S2) 4- Good- Extension (L3) 4 Good Left Flexion (S2) 4 Good Extension (L3) 4+ Good+ PT-OP-Q Treatments Start: 11/28/23 17:38 Freq: Status: Active Protocol: Document 01/01/24 11:29 NB (Rec: 01/01/24 12:34 [facility] [id number]) Cardio Equipment Recumbent Elliptical (Biodex) Duration (Minutes) 5 Resistance 5 Seat Position 12 Other visual cues for 20 RPMs and to push through heels, challenging Therapeutic Exercises Sitting Exercises hip abduction Sitting Exercise Name clamshell Side bilateral Resistance Lvl 2 Tb above knees Equipment Used standard mesh chair Reps/Minutes 2x10 Standing Exercises calf stretch Side bilateral Equipment Used ELEN, handrail Reps/Minutes x45s Comments positive feedback response Step-ups Standing Exercise Name Step-ups Side bilateral Equipment Used 4 >6 training stairs Reps/Minutes x10 ea Comments improved self-awareness for hip flexion vs circumduction Other Exercises Resisted Ambulation Other Exercise Name Side-stepping Resistance Lvl 1 Tb Equipment Used handrail Reps/Minutes 2x10ft ea Comments improved self-awareness for neutral foot position L>R, upright posture. Therapeutic Activity Therapeutic Activity STS Name sit to stand Reps/Minutes x5 wo band, x5 w Lvl 1 Tb above knees Comments Gait belt, standard mesh chair Cues for eccentric control, scooting to Edge of chair, and LE alignment (improves w/ Lvl 1 Tb above knees.). 1 LOB posteriorly into chair w/ first standing attempt w/ Tb. Neuro Re-Education Treatment Balance Activities Hurdles Details 6 Hurdles x6 Surface firm and uneven Equipment // bars, gait belt, HHAx2, therapads Reps/Duration 4x 10ft, w/ therapads 4x10ft Comments Forward cues for increased hip flexion (high knee) and big step paul contact x1 1st and 4th laps, all cleared 2nd and 3rd laps. Self-Care/Home Management Treatment Education Patient Education Fall Risk,Home Exercise Program,Posture,Safety Other Education HEP review: resisted sidesteps Lvl 1 Tb at ankles, step taps . PT-OP-T Assessment and Plan Start: 11/28/23 17:38 Freq: Status: Active Protocol: Document 01/01/24 11:29 [facility] (Rec: 01/01/24 12:34 [facility] [id number]) Physical Therapy Assessment Goals Three Impairment Bilateral hip weakness, particularly flexion (4-/5) and abduction (3+/5) Occupational Therapist Assistant Goal (LTG) Bilateral hip MMT of at least 4/5 in all tested planes in order to improve ability to safely perform sit->stands and improve stability during gait . LTG Duration 01/29/24 Two Impairment Pt at an increased risk of falls, per Ross score (42/56) Occupational Therapist Assistant Goal (LTG) Pt to improve Ross score by at least 5 points to 47/56 in order to demonstrate a decreasing risk of falls. LTG Duration 01/29/24 One Impairment Pt does not have an appropriate home eexercise program Short Term Goal (STG) Pt to be independent and compliant with an appropriate HEP 12/28/23: Added to HEP: sidesteps, step taps - HO and Lvl 1 Tb given. STG Duration 12/29/23 Assessment Summary Assessment Zachary presents more fatigued today than last sesion 12/27, as seen with difficulty keeping RPMS above 20 with recumbent elliptical today. Treatment focus on LE strengthening and balance. Zachary requires initial cues for sitting in standard chair to back up to chair fully before sitting and demos improved safety and awareness throughout session without further cueing. He requires initial cues for scooting edge of chair for sit to stand, and cues for eccentric control and lower extremity alignment . LE alignment improves with Lvl 1 Tb above knees but pt has initial loss of balance posteriorly into chair w/ attempt to stand after addition of theraband above knees due to being too far back in chair. Hurdles are progessed from 5 to 6 and pt clears two of four laps. He contacts one paul on first lap and one on fourth lap w/ heel. He is challenged with addition of therapads for uneven surface laid out in a line as he stuggles with full tandem and uses two handhold assist for all paul activities today, as well as looks down at feet instead of up. He is cued for upright posture with resisted sidestepping and is challenged to maintain neutral foot position without looking down at feet. Physical Therapy Plan Frequency and Duration Frequency of Treatment 2x/Week Plan of Care Start Date 11/28/23 Plan of Care End Date 01/29/24 Therapeutic Interventions Therapeutic Interventions Balance Training,Gait Training ,Home Exercise Program,Joint Mobilizations,Manual Therapy, Neuromuscular Re-education, Patient/Caregiver Education, Self-Care/Home Management,Soft Tissue Mobilization, Therapeutic Activities, Therapeutic Exercises Next Visit Focus/Plan Next Note Type Treatment Note Next Visit Plan Assess response to last treatment. Consider hurdles progression from 2 DIRECTOR OF INDUSTRIAL RELATIONS and/or upright posture with cue for distant focal point. Add STS to HEP, assess corner balance for HEP. POC: LE strengthening, static/ dynamic balance challenges, gait training with trekking poles
--- NOTE | 2024-01-09 11:57 | PT.OTN ---
Current Diagnoses Unsteadiness on feet (01/09/24) Unspecified abnormalities of gait and mobility (01/09/24) Repeated falls (01/09/24) Weakness (01/09/24) Physical Therapy Treatment Note PT-OP-A Visit Information Start: 11/28/23 17:38 Freq: Status: Active Protocol: Document 01/09/24 11:15 DCW (Rec: 01/09/24 11:56 DCW [id number]) Out-Patient Physical Therapy Visit Information Visit Information Visit Type Progress Note Visit Start Time 11:15 Visit Stop Time 12:00 Visit Number 11 Number of COLLEGE OR UNIVERSITY BUSINESS MANAGER Visits 0 Evaluation Information Evaluation Date 11/28/23 PT-OP-B Current Condition Start: 11/28/23 17:38 Freq: Status: Active Protocol: Document 11/28/23 14:00 DCW (Rec: 11/28/23 17:56 DCW [id number]) Current Condition History of Current Condition Onset Date Long-standing history Current Complaints Instability with walking, worsening posture, fatigue History of Current Condition Pt is an 82 year old male presenting with his to his PT initial evaluation today. Pt was previously treated in this clinic for ~3 months at this time last year for the same complaints of decreased stability, difficulty with functional mobility, weakness, and poor activity tolerance. Pt's notes he has significantly declined with his functional mobility since last year. Pt uses 4WW or trekking poles most of the time. reports he often has difficulty getting up out of chairs. Has had multiple falls recently, but none have been eventful or led to bad injuries. PT-OP-C Subjective Start: 11/28/23 17:38 Freq: Status: Active Protocol: Document 01/09/24 11:15 DCW (Rec: 01/09/24 11:56 DCW [id number]) OP-PT Subjective Patient Comments Patient Comments Pt notes he is doing pretty well today, no recent falls. Pt does admit he feels like he is declining functionally a bit, not sure what is going on . PT-OP-D Balance Start: 11/28/23 17:38 Freq: Status: Active Protocol: Document 01/09/24 11:15 DCW (Rec: 01/09/24 11:57 DCW [id number]) Ross Balance Assessment Evaluation Sitting to Standing Ability Independent w/out Hands Unsupported Stance Safely- 2 minutes Sitting Unsupported, Feet on Floor Safely- 2 minutes Standing to Sitting Ability Safely, Minimal Hand Use Transfer Ability Safely, Minimal Hand Use Unsupported Stance- Eyes Closed Safely, 10 seconds Unsupported Stance- Eyes Open Independent, 1 minute Reaching Forward Standing Safely, 5 inches Pick- Up Object From Floor Supervision Look Behind Shoulder - Standing Shifts Weight Unilateral Turning 360 Degrees Turns slowly, but safely Unsupported Stance, Alternating Feet on 4 Steps w/Supervision Stair Unsupported Tandem Stance Holds Tandem- 30 seconds Unilateral Leg Stance Lifts Leg/Unable to Hold Total Score Ross Total Score (out of 56 points) 45 Ross Impairment Rating 1 to 19% Impaired (Score 45-55 ) PT-OP-E Functional Tests Start: 11/28/23 17:38 Freq: Status: Active Protocol: Document 11/28/23 14:00 DCW (Rec: 11/28/23 17:50 DCW [id number]) Functional Tests 30 Second Sit to Stand Test Score x13 repetitions Comments low table, no UE use Timed Up and Go (TUG) Score 13.27 /s AD Comments Three-trial average (15.20, 13 .02, 11.59) PT-OP-J Posture/Palpation/Skin Start: 11/28/23 17:38 Freq: Status: Active Protocol: Document 11/28/23 14:00 DCW (Rec: 11/28/23 17:50 DCW [id number]) Posture Evaluation Comments Posture Comments Severely forward head, increased thoracic kyphosis, mild correction with cueing PT-OP-M Strength Start: 11/28/23 17:38 Freq: Status: Active Protocol: Document 11/28/23 14:00 DCW (Rec: 11/28/23 17:50 DCW [id number]) Hip Strength Hip Manual Muscle Testing Right Flexion (L2) 4- Good- Abduction 3+ Fair+ Adduction 4 Good External Rotation 4+ Good+ Internal Rotation 4+ Good+ Left Flexion (L2) 4- Good- Abduction 3+ Fair+ Adduction 4 Good External Rotation 4+ Good+ Internal Rotation 4+ Good+ Knee Strength Knee Manual Muscle Testing Right Flexion (S2) 4- Good- Extension (L3) 4 Good Left Flexion (S2) 4 Good Extension (L3) 4+ Good+ PT-OP-Q Treatments Start: 11/28/23 17:38 Freq: Status: Active Protocol: Document 01/09/24 11:15 DCW (Rec: 01/09/24 11:56 DCW [id number]) Cardio Equipment Recumbent Elliptical (Biodex) Duration (Minutes) 5 Resistance 5 Seat Position 12 Other visual cues for 20 RPMs and to push through heels, challenging Gym Equipment Shuttle Recovery Unilateral Squats Resistance 50# (Two new) Shuttle Recovery Platform Stable Reps/Time x10 ea Bilateral Squats Resistance 100# (Four new) Shuttle Recovery Platform Stable Reps/Time x20 Therapeutic Exercises Standing Exercises Step-ups Standing Exercise Name Step-ups Side bilateral Equipment Used 6 stairs Comments improved self-awareness for hip flexion vs circumduction PT-OP-T Assessment and Plan Start: 11/28/23 17:38 Freq: Status: Active Protocol: Document 01/09/24 11:15 DCW (Rec: 01/09/24 11:56 DCW [id number]) Physical Therapy Assessment Impairments Impairments Activity Tolerance,Balance, Functional Activities, Functional Mobility,Gait, Posture,Strength Goals Three Impairment Bilateral hip weakness, particularly flexion (4-/5) and abduction (3+/5) Anesthesiology Technologist Goal (LTG) Bilateral hip MMT of at least 4/5 in all tested planes in order to improve ability to safely perform sit->stands and improve stability during gait . LTG Duration 01/29/24 Two Impairment Pt at an increased risk of falls, per Ross score (42/56) Anesthesiology Technologist Goal (LTG) Pt to improve Ross score by at least 5 points to 47/56 in order to demonstrate a decreasing risk of falls. LTG Duration 01/29/24 One Impairment Pt does not have an appropriate home exercise program Short Term Goal (STG) Pt to be independent and compliant with an appropriate HEP 12/28/23: Added to HEP: sidesteps, step taps - HO and Lvl 1 Tb given. STG Duration 12/29/23 Assessment Summary Assessment Pt notes feeling worse is really a general weakness in the legs, as well as increased difficulty putting everything together. Ross Balance test of 45/56 does not indicate a decline in function, however also does not show that there has been much improvement. Continue to focus on balance, LE strength, and increasing activity tolerance. Physical Therapy Plan Frequency and Duration Frequency of Treatment 2x/Week Plan of Care Start Date 11/28/23 Plan of Care End Date 01/29/24 Therapeutic Interventions Therapeutic Interventions Balance Training,Gait Training ,Home Exercise Program,Joint Mobilizations,Manual Therapy, Neuromuscular Re-education, Patient/Caregiver Education, Self-Care/Home Management,Soft Tissue Mobilization, Therapeutic Activities, Therapeutic Exercises Next Visit Focus/Plan Next Note Type Treatment Note Next Visit Plan Assess response to last treatment. Consider hurdles progression from 2 BRUSHING OPERATOR and/or upright posture with cue for distant focal point. Add STS to HEP, assess corner balance for HEP. POC: LE strengthening, static/ dynamic balance challenges, gait training with trekking poles
--- NOTE | 2024-01-15 15:12 | PT.OTN ---
Current Diagnoses Unsteadiness on feet (01/15/24) Unspecified abnormalities of gait and mobility (01/15/24) Repeated falls (01/15/24) Weakness (01/15/24) Physical Therapy Treatment Note PT-OP-A Visit Information Start: 11/28/23 17:38 Freq: Status: Active Protocol: Document 01/15/24 14:29 SP (Rec: 01/15/24 15:48 SP [id number]) Out-Patient Physical Therapy Visit Information Visit Information Visit Type Treatment Note Visit Note 06/16 post pN Visit Start Time 14:30 Visit Stop Time 15:12 Visit Number 12 Number of FINAL OPERATIONS TECHNICIAN Visits 1 Evaluation Information Evaluation Date 11/28/23 PT-OP-B Current Condition Start: 11/28/23 17:38 Freq: Status: Active Protocol: Document 11/28/23 14:00 DCW (Rec: 11/28/23 17:56 DCW [id number]) Current Condition History of Current Condition Onset Date Long-standing history Current Complaints Instability with walking, worsening posture, fatigue History of Current Condition Pt is an 82 year old male presenting with his to his PT initial evaluation today. Pt was previously treated in this clinic for ~3 months at this time last year for the same complaints of decreased stability, difficulty with functional mobility, weakness, and poor activity tolerance. Pt's notes he has significantly declined with his functional mobility since last year. Pt uses 4WW or trekking poles most of the time. reports he often has difficulty getting up out of chairs. Has had multiple falls recently, but none have been eventful or led to bad injuries. PT-OP-C Subjective Start: 11/28/23 17:38 Freq: Status: Active Protocol: Document 01/15/24 14:29 SP (Rec: 01/15/24 15:48 SP [id number]) OP-PT Subjective Patient Comments Patient Comments Pt reports not as strong and as good balance as I would like to be. PT-OP-D Balance Start: 11/28/23 17:38 Freq: Status: Active Protocol: Document 01/09/24 11:15 DCW (Rec: 01/09/24 11:57 DCW [id number]) Ross Balance Assessment Evaluation Sitting to Standing Ability Independent w/out Hands Unsupported Stance Safely- 2 minutes Sitting Unsupported, Feet on Floor Safely- 2 minutes Standing to Sitting Ability Safely, Minimal Hand Use Transfer Ability Safely, Minimal Hand Use Unsupported Stance- Eyes Closed Safely, 10 seconds Unsupported Stance- Eyes Open Independent, 1 minute Reaching Forward Standing Safely, 5 inches Pick- Up Object From Floor Supervision Look Behind Shoulder - Standing Shifts Weight Unilateral Turning 360 Degrees Turns slowly, but safely Unsupported Stance, Alternating Feet on 4 Steps w/Supervision Stair Unsupported Tandem Stance Holds Tandem- 30 seconds Unilateral Leg Stance Lifts Leg/Unable to Hold Total Score Ross Total Score (out of 56 points) 45 Ross Impairment Rating 1 to 19% Impaired (Score 45-55 ) PT-OP-E Functional Tests Start: 11/28/23 17:38 Freq: Status: Active Protocol: Document 11/28/23 14:00 DCW (Rec: 11/28/23 17:50 DCW [id number]) Functional Tests 30 Second Sit to Stand Test Score x13 repetitions Comments low table, no UE use Timed Up and Go (TUG) Score 13.27 /s AD Comments Three-trial average (15.20, 13 .02, 11.59) PT-OP-J Posture/Palpation/Skin Start: 11/28/23 17:38 Freq: Status: Active Protocol: Document 11/28/23 14:00 DCW (Rec: 11/28/23 17:50 DCW [id number]) Posture Evaluation Comments Posture Comments Severely forward head, increased thoracic kyphosis, mild correction with cueing PT-OP-M Strength Start: 11/28/23 17:38 Freq: Status: Active Protocol: Document 11/28/23 14:00 DCW (Rec: 11/28/23 17:50 DCW [id number]) Hip Strength Hip Manual Muscle Testing Right Flexion (L2) 4- Good- Abduction 3+ Fair+ Adduction 4 Good External Rotation 4+ Good+ Internal Rotation 4+ Good+ Left Flexion (L2) 4- Good- Abduction 3+ Fair+ Adduction 4 Good External Rotation 4+ Good+ Internal Rotation 4+ Good+ Knee Strength Knee Manual Muscle Testing Right Flexion (S2) 4- Good- Extension (L3) 4 Good Left Flexion (S2) 4 Good Extension (L3) 4+ Good+ PT-OP-Q Treatments Start: 11/28/23 17:38 Freq: Status: Active Protocol: Document 01/15/24 14:29 SP (Rec: 01/15/24 15:48 SP [id number]) Cardio Equipment Recumbent Elliptical (Biodex) Duration (Minutes) 3 Resistance 5 Seat Position 12 Other cued 30 RPMs, challenge L knee clocking out Recumbent Stepper (Sci-Fit) Duration (Minutes) 3 Resistance 3>4 Seat Position 13 Other improved L knee flexion and ext, not locking- 35-38 RPMs Therapeutic Exercises Standing Exercises Step-ups Standing Exercise Name Step-ups Side bilateral Resistance * tends to lean R during RLE transitioning Equipment Used 6 stairs, light touch R HR PRN Reps/Minutes 2x10 each LE Comments cued wt shift over stance LE more L than R during RLe mobiltiy for stabilit Therapeutic Activity Therapeutic Activity safety pivot transfers between chairs Name 20 ft between chairs (mesh & lrge chair) Reps/Minutes x6 Comments cued bigger marching step foot clearance during pivot, fully back up to chair completely for BLE touch chair, then hip hinge slow descend to sit<> scoot fwd front chair, hip hinge ascend no UE support COG over RUSS, occasional cue wt shift over forefoot/keep toes down. STS Name discussed perform as HEP (no HO) Reps/Minutes x5 end tx (mesh chair) Comments cued hip hinge more during descend sit in chair, able to perform without UE support. Gait Training Gait Activity dynanamic gait Description Fwd HTs, bwd walking Device Used 0 Level of Assistance CGA-5%A Treatment Focus increase stride & foot clearance Comments pt tends to slow down and very short RLE advancement during head turns. Cues for elongated posture fwd wt shift into advanced LE Neuro Re-Education Treatment Balance Activities rocker board Details WBOS Surface CG-25%A Comments wt shift f/b/lateral HTs CG-Mod A cues for taller posture, head up Improved post cues for body mechanics of forward head posture. Hurdles Details 6 Hurdles x6 Surface firm Equipment // bars, gait belt, light glide back of hand on //bar Reps/Duration 6x10 ft (continue uneven next tx) Comments Forward receiprocal stepping: cues for wt shift over advanced LE, increased big step R more than L. Noted paul contact x3 total improved all cleared last laps . Self-Care/Home Management Treatment Education Patient Education Body Mechanics,Fall Risk, Posture,Safety Other Education Education on upright elongated posture, added wt on spine with gravity applied to head in flexed position and decreased core and LE activation potential causing balance deficits. Holding bowling ball out in front image Pt verbalize didn't realized how much poor posture contributes to challenge balance PT-OP-T Assessment and Plan Start: 11/28/23 17:38 Freq: Status: Active Protocol: Document 01/15/24 14:29 SP (Rec: 01/15/24 15:48 SP [id number]) Physical Therapy Assessment Goals Three Impairment Bilateral hip weakness, particularly flexion (4-/5) and abduction (3+/5) [place] [employer] Member Goal (LTG) Bilateral hip MMT of at least 4/5 in all tested planes in order to improve ability to safely perform sit->stands and improve stability during gait . LTG Duration 01/29/24 Two Impairment Pt at an increased risk of falls, per Ross score (42/56) [place] [employer] Member Goal (LTG) Pt to improve Ross score by at least 5 points to 47/56 in order to demonstrate a decreasing risk of falls. LTG Duration 01/29/24 One Impairment Pt does not have an appropriate home eexercise program Short Term Goal (STG) Pt to be independent and compliant with an appropriate HEP 12/28/23: Added to HEP: sidesteps, step taps - HO and Lvl 1 Tb given. STG Duration 12/29/23 Assessment Summary Assessment Pt required cues for elongated posture over advanced LE during step ups, which carried over into head turns fwd gait . Improved fwd stride and foot clearance after back stepping in hallway. Cues allow arm swing during dynamic gait, did not need use trek poles today . Time spent safety big step pivot and fully step back to chair with hip hinge slow descend for safety transfers, performs better with reps, discussed continue as HEP until next tx (no HO provided) . Physical Therapy Plan Frequency and Duration Frequency of Treatment 2x/Week Plan of Care Start Date 11/28/23 Plan of Care End Date 01/29/24 Therapeutic Interventions Therapeutic Interventions Balance Training,Gait Training ,Home Exercise Program,Joint Mobilizations,Manual Therapy, Neuromuscular Re-education, Patient/Caregiver Education, Self-Care/Home Management,Soft Tissue Mobilization, Therapeutic Activities, Therapeutic Exercises Next Visit Focus/Plan Next Note Type Treatment Note Next Visit Plan Update POC in 3 tx, 01/24. May need to add more appts. POC: Consider hurdles progression light 1 UE and upright posture with cue for distant focal point. Add STS HO to HEP, assess corner balance for HEP. POC: LE strengthening, static/ dynamic balance challenges, gait training with trekking poles
--- NOTE | 2024-01-18 16:48 | PT.OTN ---
Current Diagnoses Unsteadiness on feet (01/18/24) Unspecified abnormalities of gait and mobility (01/18/24) Repeated falls (01/18/24) Weakness (01/18/24) Physical Therapy Treatment Note PT-OP-A Visit Information Start: 11/28/23 17:38 Freq: Status: Active Protocol: Document 01/18/24 16:00 DCW (Rec: 01/18/24 16:48 DCW [id number]) Out-Patient Physical Therapy Visit Information Visit Information Visit Type Treatment Note Visit Note 07/14 post pN Visit Start Time 16:00 Visit Stop Time 16:45 Visit Number 13 Number of SPA CONCIERGE Visits 0 Evaluation Information Evaluation Date 11/28/23 PT-OP-B Current Condition Start: 11/28/23 17:38 Freq: Status: Active Protocol: Document 11/28/23 14:00 DCW (Rec: 11/28/23 17:56 DCW [id number]) Current Condition History of Current Condition Onset Date Long-standing history Current Complaints Instability with walking, worsening posture, fatigue History of Current Condition Pt is an 82 year old male presenting with his to his PT initial evaluation today. Pt was previously treated in this clinic for ~3 months at this time last year for the same complaints of decreased stability, difficulty with functional mobility, weakness, and poor activity tolerance. Pt's notes he has significantly declined with his functional mobility since last year. Pt uses 4WW or trekking poles most of the time. reports he often has difficulty getting up out of chairs. Has had multiple falls recently, but none have been eventful or led to bad injuries. PT-OP-C Subjective Start: 11/28/23 17:38 Freq: Status: Active Protocol: Document 01/18/24 16:00 DCW (Rec: 01/18/24 16:48 DCW [id number]) OP-PT Subjective Patient Comments Patient Comments Pt a little more optimistic overall, feeling that he;s making small amounts of progress. PT-OP-D Balance Start: 11/28/23 17:38 Freq: Status: Active Protocol: Document 01/09/24 11:15 DCW (Rec: 01/09/24 11:57 DCW [id number]) Ross Balance Assessment Evaluation Sitting to Standing Ability Independent w/out Hands Unsupported Stance Safely- 2 minutes Sitting Unsupported, Feet on Floor Safely- 2 minutes Standing to Sitting Ability Safely, Minimal Hand Use Transfer Ability Safely, Minimal Hand Use Unsupported Stance- Eyes Closed Safely, 10 seconds Unsupported Stance- Eyes Open Independent, 1 minute Reaching Forward Standing Safely, 5 inches Pick- Up Object From Floor Supervision Look Behind Shoulder - Standing Shifts Weight Unilateral Turning 360 Degrees Turns slowly, but safely Unsupported Stance, Alternating Feet on 4 Steps w/Supervision Stair Unsupported Tandem Stance Holds Tandem- 30 seconds Unilateral Leg Stance Lifts Leg/Unable to Hold Total Score Ross Total Score (out of 56 points) 45 Ross Impairment Rating 1 to 19% Impaired (Score 45-55 ) PT-OP-E Functional Tests Start: 11/28/23 17:38 Freq: Status: Active Protocol: Document 11/28/23 14:00 DCW (Rec: 11/28/23 17:50 DCW [id number]) Functional Tests 30 Second Sit to Stand Test Score x13 repetitions Comments low table, no UE use Timed Up and Go (TUG) Score 13.27 /s AD Comments Three-trial average (15.20, 13 .02, 11.59) PT-OP-J Posture/Palpation/Skin Start: 11/28/23 17:38 Freq: Status: Active Protocol: Document 11/28/23 14:00 DCW (Rec: 11/28/23 17:50 DCW [id number]) Posture Evaluation Comments Posture Comments Severely forward head, increased thoracic kyphosis, mild correction with cueing PT-OP-M Strength Start: 11/28/23 17:38 Freq: Status: Active Protocol: Document 11/28/23 14:00 DCW (Rec: 11/28/23 17:50 DC [id number]) Hip Strength Hip Manual Muscle Testing Right Flexion (L2) 4- Good- Abduction 3+ Fair+ Adduction 4 Good External Rotation 4+ Good+ Internal Rotation 4+ Good+ Left Flexion (L2) 4- Good- Abduction 3+ Fair+ Adduction 4 Good External Rotation 4+ Good+ Internal Rotation 4+ Good+ Knee Strength Knee Manual Muscle Testing Right Flexion (S2) 4- Good- Extension (L3) 4 Good Left Flexion (S2) 4 Good Extension (L3) 4+ Good+ PT-OP-Q Treatments Start: 11/28/23 17:38 Freq: Status: Active Protocol: Document 01/18/24 16:00 DCW (Rec: 01/18/24 16:48 DCW [id number]) Cardio Equipment Recumbent Elliptical (Biodex) Duration (Minutes) 5 Resistance 5 Seat Position 12 Other visual cues for 20 RPMs and to push through heels, challenging Gym Equipment Shuttle Recovery Unilateral Squats Resistance 50# (Two new) Shuttle Recovery Platform Stable Reps/Time x10 ea Bilateral Squats Resistance 100# (Four new) Shuttle Recovery Platform Stable Reps/Time x20 Therapeutic Exercises Standing Exercises Hip Extension Standing Exercise Name Hip Extension Side bilateral Resistance Lv 2 TB Other Exercises Resisted Ambulation Other Exercise Name Side-stepping Resistance Lvl 2 Tb Equipment Used handrail Reps/Minutes 4x10' Comments Maintaining L toes fwd w/ L sidestepping challenging Neuro Re-Education Treatment Balance Activities Retro Ambulation Details Retro Ambulation Equipment // bars Foam Details EO/EC, X1 SLS Details SLS Equipment // bars Tandem Stance Details Tandem Gait Equipment // bars Hurdles Details 6 Hurdles x6 Surface firm Equipment // bars, gait belt Reps/Duration 6x10 ft (continue uneven next tx) Comments Forward receiprocal, lateral stepping Uneven Surfaces Details Uneven surface Surface Blue pad with objects underneath Comments Forward PT-OP-T Assessment and Plan Start: 11/28/23 17:38 Freq: Status: Active Protocol: Document 01/18/24 16:00 DCW (Rec: 01/18/24 16:48 DCW [id number]) Physical Therapy Assessment Impairments Impairments Activity Tolerance,Balance, Functional Activities, Functional Mobility,Gait, Posture,Strength Goals Three Impairment Bilateral hip weakness, particularly flexion (4-/5) and abduction (3+/5) Custodial Goal (LTG) Bilateral hip MMT of at least 4/5 in all tested planes in order to improve ability to safely perform sit->stands and improve stability during gait . LTG Duration 01/29/24 Two Impairment Pt at an increased risk of falls, per Ross score (42/56) Pasting Inspector Goal (LTG) Pt to improve Ross score by at least 5 points to 47/56 in order to demonstrate a decreasing risk of falls. LTG Duration 01/29/24 One Impairment Pt does not have an appropriate home eexercise program Short Term Goal (STG) Pt to be independent and compliant with an appropriate HEP 12/28/23: Added to HEP: sidesteps, step taps - HO and Lvl 1 Tb given. STG Duration 12/29/23 Assessment Summary Assessment Pt a little more subdued functionally today, with slower movements and less overall stability. Admitted he was just a little off. Pt did fairly well with leg press , continue to focus on activity tolerance, balance, and LE strength Physical Therapy Plan Frequency and Duration Frequency of Treatment 2x/Week Plan of Care Start Date 11/28/23 Plan of Care End Date 01/29/24 Therapeutic Interventions Therapeutic Interventions Balance Training,Gait Training ,Home Exercise Program,Joint Mobilizations,Manual Therapy, Neuromuscular Re-education, Patient/Caregiver Education, Self-Care/Home Management,Soft Tissue Mobilization, Therapeutic Activities, Therapeutic Exercises Next Visit Focus/Plan Next Note Type Treatment Note Next Visit Plan Update POC in 2 tx, 01/24. May need to add more appts. POC: Consider hurdles progression light 1 UE and upright posture with cue for distant focal point. Add STS HO to HEP, assess corner balance for HEP. POC: LE strengthening, static/ dynamic balance challenges, gait training with trekking poles
--- NOTE | 2024-01-22 10:35 | PT.OTN ---
Current Diagnoses Unsteadiness on feet (01/22/24) Unspecified abnormalities of gait and mobility (01/22/24) Repeated falls (01/22/24) Weakness (01/22/24) Physical Therapy Treatment Note PT-OP-A Visit Information Start: 11/28/23 17:38 Freq: Status: Active Protocol: Document 01/22/24 09:50 DCW (Rec: 01/22/24 10:35 DCW [id number]) Out-Patient Physical Therapy Visit Information Visit Information Visit Type Treatment Note Visit Note 08/14 post pN Visit Start Time 09:50 Visit Stop Time 10:30 Visit Number 14 Number of GAS ENGINEER Visits 0 Evaluation Information Evaluation Date 11/28/23 PT-OP-B Current Condition Start: 11/28/23 17:38 Freq: Status: Active Protocol: Document 11/28/23 14:00 DCW (Rec: 11/28/23 17:56 DCW [id number]) Current Condition History of Current Condition Onset Date Long-standing history Current Complaints Instability with walking, worsening posture, fatigue History of Current Condition Pt is an 82 year old male presenting with his to his PT initial evaluation today. Pt was previously treated in this clinic for ~3 months at this time last year for the same complaints of decreased stability, difficulty with functional mobility, weakness, and poor activity tolerance. Pt's notes he has significantly declined with his functional mobility since last year. Pt uses 4WW or trekking poles most of the time. reports he often has difficulty getting up out of chairs. Has had multiple falls recently, but none have been eventful or led to bad injuries. PT-OP-C Subjective Start: 11/28/23 17:38 Freq: Status: Active Protocol: Document 01/22/24 09:50 DCW (Rec: 01/22/24 10:35 DCW [id number]) OP-PT Subjective Patient Comments Patient Comments Pt notes he had a really upset stomach earlier today, but is doing alright now. PT-OP-D Balance Start: 11/28/23 17:38 Freq: Status: Active Protocol: Document 01/09/24 11:15 DCW (Rec: 01/09/24 11:57 DCW [id number]) Ross Balance Assessment Evaluation Sitting to Standing Ability Independent w/out Hands Unsupported Stance Safely- 2 minutes Sitting Unsupported, Feet on Floor Safely- 2 minutes Standing to Sitting Ability Safely, Minimal Hand Use Transfer Ability Safely, Minimal Hand Use Unsupported Stance- Eyes Closed Safely, 10 seconds Unsupported Stance- Eyes Open Independent, 1 minute Reaching Forward Standing Safely, 5 inches Pick- Up Object From Floor Supervision Look Behind Shoulder - Standing Shifts Weight Unilateral Turning 360 Degrees Turns slowly, but safely Unsupported Stance, Alternating Feet on 4 Steps w/Supervision Stair Unsupported Tandem Stance Holds Tandem- 30 seconds Unilateral Leg Stance Lifts Leg/Unable to Hold Total Score Ross Total Score (out of 56 points) 45 Ross Impairment Rating 1 to 19% Impaired (Score 45-55 ) PT-OP-E Functional Tests Start: 11/28/23 17:38 Freq: Status: Active Protocol: Document 11/28/23 14:00 DCW (Rec: 11/28/23 17:50 DCW [id number]) Functional Tests 30 Second Sit to Stand Test Score x13 repetitions Comments low table, no UE use Timed Up and Go (TUG) Score 13.27 /s AD Comments Three-trial average (15.20, 13 .02, 11.59) PT-OP-J Posture/Palpation/Skin Start: 11/28/23 17:38 Freq: Status: Active Protocol: Document 11/28/23 14:00 DCW (Rec: 11/28/23 17:50 DCW [id number]) Posture Evaluation Comments Posture Comments Severely forward head, increased thoracic kyphosis, mild correction with cueing PT-OP-M Strength Start: 11/28/23 17:38 Freq: Status: Active Protocol: Document 11/28/23 14:00 DCW (Rec: 11/28/23 17:50 DCW [id number]) Hip Strength Hip Manual Muscle Testing Right Flexion (L2) 4- Good- Abduction 3+ Fair+ Adduction 4 Good External Rotation 4+ Good+ Internal Rotation 4+ Good+ Left Flexion (L2) 4- Good- Abduction 3+ Fair+ Adduction 4 Good External Rotation 4+ Good+ Internal Rotation 4+ Good+ Knee Strength Knee Manual Muscle Testing Right Flexion (S2) 4- Good- Extension (L3) 4 Good Left Flexion (S2) 4 Good Extension (L3) 4+ Good+ PT-OP-Q Treatments Start: 11/28/23 17:38 Freq: Status: Active Protocol: Document 01/22/24 09:50 DCW (Rec: 01/22/24 10:35 DCW [id number]) Cardio Equipment Recumbent Elliptical (Biodex) Duration (Minutes) 5 Resistance 5 Seat Position 11 Other visual cues for 20 RPMs and to push through heels, challenging Gym Equipment Cable Column (Body Solid) Hip Adduction Resistance 40# Hip Abduction Resistance 30# Shuttle Recovery Unilateral Squats Resistance 50# (Two new) Shuttle Recovery Platform Stable Reps/Time x10 ea Bilateral Squats Resistance 100# (Four new) Shuttle Recovery Platform Stable Reps/Time x20 Shuttle Balance Red Details WBOS, Staggered Neuro Re-Education Treatment Balance Activities Tandem Stance Details Tandem Gait Equipment // bars Hurdles Details Hurdles/Foam Surface firm Equipment // bars, gait belt Comments Forward receiprocal, lateral stepping PT-OP-T Assessment and Plan Start: 11/28/23 17:38 Freq: Status: Active Protocol: Document 01/22/24 09:50 DCW (Rec: 01/22/24 10:35 DCW [id number]) Physical Therapy Assessment Impairments Impairments Activity Tolerance,Balance, Functional Activities, Functional Mobility,Gait, Posture,Strength Goals Three Impairment Bilateral hip weakness, particularly flexion (4-/5) and abduction (3+/5) Change Management Lead Goal (LTG) Bilateral hip MMT of at least 4/5 in all tested planes in order to improve ability to safely perform sit->stands and improve stability during gait . LTG Duration 01/29/24 Two Impairment Pt at an increased risk of falls, per Ross score (42/56) Change Management Lead Goal (LTG) Pt to improve Ross score by at least 5 points to 47/56 in order to demonstrate a decreasing risk of falls. LTG Duration 01/29/24 One Impairment Pt does not have an appropriate home eexercise program Short Term Goal (STG) Pt to be independent and compliant with an appropriate HEP 12/28/23: Added to HEP: sidesteps, step taps - HO and Lvl 1 Tb given. STG Duration 12/29/23 Assessment Summary Assessment Pt feeling better today, did well with new activities on the BodySolid. Pt noting some improvement in overall stability. New POC next visit. Physical Therapy Plan Frequency and Duration Frequency of Treatment 2x/Week Plan of Care Start Date 11/28/23 Plan of Care End Date 01/29/24 Therapeutic Interventions Therapeutic Interventions Balance Training,Gait Training ,Home Exercise Program,Joint Mobilizations,Manual Therapy, Neuromuscular Re-education, Patient/Caregiver Education, Self-Care/Home Management,Soft Tissue Mobilization, Therapeutic Activities, Therapeutic Exercises Next Visit Focus/Plan Next Note Type Progress Note Next Visit Plan Update POC next visit. May need to add more appts. POC: Consider hurdles progression light 1 UE and upright posture with cue for distant focal point. Add STS HO to HEP, assess corner balance for HEP. POC: LE strengthening, static/ dynamic balance challenges, gait training with trekking poles
--- NOTE | 2024-01-25 10:26 | PT.OTN ---
Current Diagnoses Unsteadiness on feet (01/25/24) Unspecified abnormalities of gait and mobility (01/25/24) Repeated falls (01/25/24) Weakness (01/25/24) Physical Therapy Treatment Note PT-OP-A Visit Information Start: 11/28/23 17:38 Freq: Status: Active Protocol: Document 01/25/24 09:47 DCW (Rec: 01/25/24 10:25 DCW [id number]) Out-Patient Physical Therapy Visit Information Visit Information Visit Type Progress Note Visit Start Time 09:47 Visit Stop Time 10:30 Visit Number 15 Number of NURSE SPECIAL Visits 0 Evaluation Information Evaluation Date 11/28/23 PT-OP-B Current Condition Start: 11/28/23 17:38 Freq: Status: Active Protocol: Document 11/28/23 14:00 DCW (Rec: 11/28/23 17:56 DCW [id number]) Current Condition History of Current Condition Onset Date Long-standing history Current Complaints Instability with walking, worsening posture, fatigue History of Current Condition Pt is an 82 year old male presenting with his to his PT initial evaluation today. Pt was previously treated in this clinic for ~3 months at this time last year for the same complaints of decreased stability, difficulty with functional mobility, weakness, and poor activity tolerance. Pt's notes he has significantly declined with his functional mobility since last year. Pt uses 4WW or trekking poles most of the time. reports he often has difficulty getting up out of chairs. Has had multiple falls recently, but none have been eventful or led to bad injuries. PT-OP-C Subjective Start: 11/28/23 17:38 Freq: Status: Active Protocol: Document 01/25/24 09:47 DCW (Rec: 01/25/24 10:25 DCW [id number]) OP-PT Subjective Patient Comments Patient Comments Pt admits he is having vision problems today, left eye has worsened. Has appointment with eye doctor upcoming within the next two weeks. PT-OP-D Balance Start: 11/28/23 17:38 Freq: Status: Active Protocol: Document 01/25/24 09:47 DCW (Rec: 01/25/24 10:13 DCW [id number]) Balance Tests Ross Balance Test Ross Balance Test Score 47/56 Ross Balance Assessment Evaluation Sitting to Standing Ability Independent w/out Hands Unsupported Stance Safely- 2 minutes Sitting Unsupported, Feet on Floor Safely- 2 minutes Standing to Sitting Ability Safely, Minimal Hand Use Transfer Ability Safely, Minimal Hand Use Unsupported Stance- Eyes Closed Safely, 10 seconds Unsupported Stance- Eyes Open Independent, 1 minute Reaching Forward Standing Confidently, 10 inches Pick- Up Object From Floor Independent/Safe Look Behind Shoulder - Standing Shifts Weight Unilateral Turning 360 Degrees Turns slowly, but safely Unsupported Stance, Alternating Feet on (I)- 8 Steps in > 20 secs Stair Unsupported Tandem Stance Small Step- 30 seconds Unilateral Leg Stance Lifts Leg/Unable to Hold Total Score Ross Total Score (out of 56 points) 47 Ross Impairment Rating 1 to 19% Impaired (Score 45-55 ) PT-OP-E Functional Tests Start: 11/28/23 17:38 Freq: Status: Active Protocol: Document 01/25/24 09:47 DCW (Rec: 01/25/24 10:13 [facility] [id number]) Functional Tests 30 Second Sit to Stand Test Score x13 repetitions Comments chair, no UE use Timed Up and Go (TUG) Score 16.44 /s AD Comments Three-trial average (18.74, 16 .86, 13.72) PT-OP-J Posture/Palpation/Skin Start: 11/28/23 17:38 Freq: Status: Active Protocol: Document 01/25/24 09:47 DCW (Rec: 01/25/24 10:13 DC [id number]) Posture Evaluation Comments Posture Comments Severely forward head, increased thoracic kyphosis, mild correction with cueing PT-OP-M Strength Start: 11/28/23 17:38 Freq: Status: Active Protocol: Document 01/25/24 09:47 DCW (Rec: 01/25/24 10:13 DC [id number]) Hip Strength Hip Manual Muscle Testing Right Flexion (L2) 4 Good Abduction 4- Good- Adduction 4 Good External Rotation 4+ Good+ Internal Rotation 4+ Good+ Left Flexion (L2) 4+ Good+ Abduction 4 Good Adduction 4 Good External Rotation 4+ Good+ Internal Rotation 4+ Good+ Knee Strength Knee Manual Muscle Testing Right Flexion (S2) 4+ Good+ Extension (L3) 4+ Good+ Left Flexion (S2) 4+ Good+ Extension (L3) 4+ Good+ PT-OP-Q Treatments Start: 11/28/23 17:38 Freq: Status: Active Protocol: Document 01/25/24 09:47 DCW (Rec: 01/25/24 10:25 DCW [id number]) Neuro Re-Education Treatment Other Activities Testing Details TUG, Ross, MMT, 30sStS PT-OP-T Assessment and Plan Start: 11/28/23 17:38 Freq: Status: Active Protocol: Document 01/25/24 09:47 DCW (Rec: 01/25/24 10:25 DCW [id number]) Physical Therapy Assessment Impairments Impairments Activity Tolerance,Balance, Functional Activities, Functional Mobility,Gait, Posture,Strength Goals Three Impairment Bilateral hip weakness, particularly flexion (4-/5) and abduction (3+/5) Retirement Goal (LTG) Bilateral hip MMT of at least 4/5 in all tested planes in order to improve ability to safely perform sit->stands and improve stability during gait . LTG Duration 03/26/24 Two Impairment Pt at an increased risk of falls, per Ross score (42/56) Race Starter Goal (LTG) Pt to improve Ross score by at least 5 points to 47/56 in order to demonstrate a decreasing risk of falls. LTG Duration Met One Impairment Pt does not have an appropriate home eexercise program Short Term Goal (STG) Pt to be independent and compliant with an appropriate HEP 12/28/23: Added to HEP: sidesteps, step taps - HO and Lvl 1 Tb given. STG Duration 02/24/24 Assessment Summary Assessment Testing today showed some improvement since evaluation ( Ross improved five points from eval, 42/56 to 47/56), however gait looks worse and TUG score significantly declined. PT ambulating with much more of a shuffling gait pattern, poor foot clearance, and increased difficulty when turning, impacting his TUG. May be due to ongoing problems with vision, pt hopeful this will be assessed with upcoming eye appointment. Would likely benefit from continued skilled therapeutic intervention, focusing on balance, gait, and leg strength. Physical Therapy Plan Frequency and Duration Frequency of Treatment 2x/Week Plan of Care Start Date 01/25/24 Plan of Care End Date 03/26/24 Therapeutic Interventions Therapeutic Interventions Balance Training,Gait Training ,Home Exercise Program,Joint Mobilizations,Manual Therapy, Neuromuscular Re-education, Patient/Caregiver Education, Self-Care/Home Management,Soft Tissue Mobilization, Therapeutic Activities, Therapeutic Exercises Next Visit Focus/Plan Next Note Type Treatment Note Next Visit Plan POC: Consider hurdles progression light 1 UE and upright posture with cue for distant focal point. Add STS HO to HEP, assess corner balance for HEP. POC: LE strengthening, static/ dynamic balance challenges, gait training with trekking poles
--- NOTE | 2024-01-25 10:27 | PT.OPPOC ---
Physical, Occupational & Speech Therapy At [facility] Current Diagnoses Unsteadiness on feet (01/25/24) Unspecified abnormalities of gait and mobility (01/25/24) Repeated falls (01/25/24) Weakness (01/25/24) Visit Care Team Role Provider Type Saulo Diane MD Attending Provider Physician Family Provider Primary Care Provider Referring Provider Specialty: Internal Medicine Address: [address] [place] [address], [address], [facility] Email: [email or web address] Plan Of Care PT-OP-B Current Condition Start: 11/28/23 17:38 Freq: Status: Active Protocol: Document 11/28/23 14:00 DCW (Rec: 11/28/23 17:56 DCW [id number]) Current Condition History of Current Condition Onset Date Long-standing history Current Complaints Instability with walking, worsening posture, fatigue History of Current Condition Pt is an 82 year old male presenting with his to his PT initial evaluation today. Pt was previously treated in this clinic for ~3 months at this time last year for the same complaints of decreased stability, difficulty with functional mobility, weakness, and poor activity tolerance. Pt's notes he has significantly declined with his functional mobility since last year. Pt uses 4WW or trekking poles most of the time. reports he often has difficulty getting up out of chairs. Has had multiple falls recently, but none have been eventful or led to bad injuries. PT-OP-T Assessment and Plan Start: 11/28/23 17:38 Freq: Status: Active Protocol: Document 01/25/24 09:47 DCW (Rec: 01/25/24 10:25 DCW [id number]) Physical Therapy Assessment Impairments Impairments Activity Tolerance,Balance, Functional Activities, Functional Mobility,Gait, Posture,Strength Goals Three Impairment Bilateral hip weakness, particularly flexion (4-/5) and abduction (3+/5) Ribbon Weaver Goal (LTG) Bilateral hip MMT of at least 4/5 in all tested planes in order to improve ability to safely perform sit->stands and improve stability during gait . LTG Duration 03/26/24 Two Impairment Pt at an increased risk of falls, per Ross score (42/56) Assisted Goal (LTG) Pt to improve Ross score by at least 5 points to 47/56 in order to demonstrate a decreasing risk of falls. LTG Duration Met One Impairment Pt does not have an appropriate home eexercise program Short Term Goal (STG) Pt to be independent and compliant with an appropriate HEP 12/28/23: Added to HEP: sidesteps, step taps - HO and Lvl 1 Tb given. STG Duration 02/24/24 Assessment Summary Assessment Testing today showed some improvement since evaluation ( Rsos improved five points from eval, 42/56 to 47/56), however gait looks worse and TUG score significantly declined. PT ambulating with much more of a shuffling gait pattern, poor foot clearance, and increased difficulty when turning, impacting his TUG. May be due to ongoing problems with vision, pt hopeful this will be assessed with upcoming eye appointment. Would likely benefit from continued skilled therapeutic intervention, focusing on balance, gait, and leg strength. Physical Therapy Plan Frequency and Duration Frequency of Treatment 2x/Week Plan of Care Start Date 01/25/24 Plan of Care End Date 03/26/24 Therapeutic Interventions Therapeutic Interventions Balance Training,Gait Training ,Home Exercise Program,Joint Mobilizations,Manual Therapy, Neuromuscular Re-education, Patient/Caregiver Education, Self-Care/Home Management,Soft Tissue Mobilization, Therapeutic Activities, Therapeutic Exercises Next Visit Focus/Plan Next Note Type Treatment Note Next Visit Plan POC: Consider hurdles progression light 1 UE and upright posture with cue for distant focal point. Add STS HO to HEP, assess corner balance for HEP. POC: LE strengthening, static/ dynamic balance challenges, gait training with trekking poles Plan of Care Dates Plan of Care Start Date 01/25/24 Plan of Care End Date 03/26/24 Electronically Signed by: Tom Dill, PT 01/25/24 2476 If you are in agreement with this Plan of Care, please return a signed and dated copy. I have reviewed this Plan of Care and certify that the skilled therapy services above are required to meet the patient?s needs. Physician Signature Date Printed Name and Credentials Clinical Instructor Signature Printed Name and Credentials
--- NOTE | 2024-01-30 12:01 | PT.OTN ---
Current Diagnoses Unsteadiness on feet (01/30/24) Unspecified abnormalities of gait and mobility (01/30/24) Repeated falls (01/30/24) Weakness (01/30/24) Physical Therapy Treatment Note PT-OP-A Visit Information Start: 11/28/23 17:38 Freq: Status: Active Protocol: Document 01/30/24 11:15 DCW (Rec: 01/30/24 12:01 DCW [id number]) Out-Patient Physical Therapy Visit Information Visit Information Visit Type Treatment Note Visit Start Time 11:15 Visit Stop Time 12:00 Visit Number 16 Number of GUARD DRIVER Visits 0 Evaluation Information Evaluation Date 11/28/23 PT-OP-B Current Condition Start: 11/28/23 17:38 Freq: Status: Active Protocol: Document 11/28/23 14:00 DCW (Rec: 11/28/23 17:56 DCW [id number]) Current Condition History of Current Condition Onset Date Long-standing history Current Complaints Instability with walking, worsening posture, fatigue History of Current Condition Pt is an 82 year old male presenting with his to his PT initial evaluation today. Pt was previously treated in this clinic for ~3 months at this time last year for the same complaints of decreased stability, difficulty with functional mobility, weakness, and poor activity tolerance. Pt's notes he has significantly declined with his functional mobility since last year. Pt uses 4WW or trekking poles most of the time. reports he often has difficulty getting up out of chairs. Has had multiple falls recently, but none have been eventful or led to bad injuries. PT-OP-C Subjective Start: 11/28/23 17:38 Freq: Status: Active Protocol: Document 01/30/24 11:15 DCW (Rec: 01/30/24 12:01 DCW [id number]) OP-PT Subjective Patient Comments Patient Comments Admits his vision is still not good, moving a little slow today, but feels overall like he is walking better. PT-OP-D Balance Start: 11/28/23 17:38 Freq: Status: Active Protocol: Document 01/25/24 09:47 DCW (Rec: 01/25/24 10:13 DCW [id number]) Balance Tests Ross Balance Test Ross Balance Test Score 47/56 Ross Balance Assessment Evaluation Sitting to Standing Ability Independent w/out Hands Unsupported Stance Safely- 2 minutes Sitting Unsupported, Feet on Floor Safely- 2 minutes Standing to Sitting Ability Safely, Minimal Hand Use Transfer Ability Safely, Minimal Hand Use Unsupported Stance- Eyes Closed Safely, 10 seconds Unsupported Stance- Eyes Open Independent, 1 minute Reaching Forward Standing Confidently, 10 inches Pick- Up Object From Floor Independent/Safe Look Behind Shoulder - Standing Shifts Weight Unilateral Turning 360 Degrees Turns slowly, but safely Unsupported Stance, Alternating Feet on (I)- 8 Steps in > 20 secs Stair Unsupported Tandem Stance Small Step- 30 seconds Unilateral Leg Stance Lifts Leg/Unable to Hold Total Score Ross Total Score (out of 56 points) 47 Ross Impairment Rating 1 to 19% Impaired (Score 45-55 ) PT-OP-E Functional Tests Start: 11/28/23 17:38 Freq: Status: Active Protocol: Document 01/25/24 09:47 DCW (Rec: 01/25/24 10:13 DC [id number]) Functional Tests 30 Second Sit to Stand Test Score x13 repetitions Comments chair, no UE use Timed Up and Go (TUG) Score 16.44 /s AD Comments Three-trial average (18.74, 16 .86, 13.72) PT-OP-J Posture/Palpation/Skin Start: 11/28/23 17:38 Freq: Status: Active Protocol: Document 01/25/24 09:47 DCW (Rec: 01/25/24 10:13 DCW [id number]) Posture Evaluation Comments Posture Comments Severely forward head, increased thoracic kyphosis, mild correction with cueing PT-OP-M Strength Start: 11/28/23 17:38 Freq: Status: Active Protocol: Document 01/25/24 09:47 DCW (Rec: 01/25/24 10:13 DC [id number]) Hip Strength Hip Manual Muscle Testing Right Flexion (L2) 4 Good Abduction 4- Good- Adduction 4 Good External Rotation 4+ Good+ Internal Rotation 4+ Good+ Left Flexion (L2) 4+ Good+ Abduction 4 Good Adduction 4 Good External Rotation 4+ Good+ Internal Rotation 4+ Good+ Knee Strength Knee Manual Muscle Testing Right Flexion (S2) 4+ Good+ Extension (L3) 4+ Good+ Left Flexion (S2) 4+ Good+ Extension (L3) 4+ Good+ PT-OP-Q Treatments Start: 11/28/23 17:38 Freq: Status: Active Protocol: Document 01/30/24 11:15 DCW (Rec: 01/30/24 12:01 DCW [id number]) Cardio Equipment Recumbent Elliptical (Biodex) Duration (Minutes) 5 Resistance 5 Seat Position 11 Gym Equipment Cable Column (Body Solid) Hip Adduction Resistance 40# Hip Abduction Resistance 30# Shuttle Recovery Unilateral Squats Resistance 50# (Two new) Shuttle Recovery Platform Stable Reps/Time x10 ea Bilateral Squats Resistance 100# (Four new) Shuttle Recovery Platform Stable Reps/Time x20 Shuttle Balance Red Details WBOS, Staggered Gait Training Gait Activity dynanamic gait Description Ambulation in hallway Device Used None Level of Assistance CGA Comments Head turns Retro Ambulation PT-OP-T Assessment and Plan Start: 11/28/23 17:38 Freq: Status: Active Protocol: Document 01/30/24 11:15 DCW (Rec: 01/30/24 12:01 DCW [id number]) Physical Therapy Assessment Impairments Impairments Activity Tolerance,Balance, Functional Activities, Functional Mobility,Gait, Posture,Strength Goals Three Impairment Bilateral hip weakness, particularly flexion (4-/5) and abduction (3+/5) Custodial Goal (LTG) Bilateral hip MMT of at least 4/5 in all tested planes in order to improve ability to safely perform sit->stands and improve stability during gait . LTG Duration 03/26/24 Two Impairment Pt at an increased risk of falls, per Ross score (42/56) Blend Technician Goal (LTG) Pt to improve Ross score by at least 5 points to 47/56 in order to demonstrate a decreasing risk of falls. LTG Duration Met One Impairment Pt does not have an appropriate home eexercise program Short Term Goal (STG) Pt to be independent and compliant with an appropriate HEP 12/28/23: Added to HEP: sidesteps, step taps - HO and Lvl 1 Tb given. STG Duration 02/24/24 Assessment Summary Assessment Pt struggling again today due to difficulty with vision affecting his balance, but overall good tolerance to activity. Physical Therapy Plan Frequency and Duration Frequency of Treatment 2x/Week Plan of Care Start Date 01/25/24 Plan of Care End Date 03/26/24 Therapeutic Interventions Therapeutic Interventions Balance Training,Gait Training ,Home Exercise Program,Joint Mobilizations,Manual Therapy, Neuromuscular Re-education, Patient/Caregiver Education, Self-Care/Home Management,Soft Tissue Mobilization, Therapeutic Activities, Therapeutic Exercises Next Visit Focus/Plan Next Note Type Treatment Note Next Visit Plan POC: Consider hurdles progression light 1 UE and upright posture with cue for distant focal point. Add STS HO to HEP, assess corner balance for HEP. POC: LE strengthening, static/ dynamic balance challenges, gait training with trekking poles
--- NOTE | 2024-02-18 09:32 | PT.OPDS ---
Current Diagnoses Unsteadiness on feet (01/30/24) Unspecified abnormalities of gait and mobility (01/30/24) Repeated falls (01/30/24) Weakness (01/30/24) Visit Care Team Role Provider Type Saulo Diane MD Attending Provider Physician Family Provider Primary Care Provider Referring Provider Specialty: Internal Medicine Address: [address] [place] [address], [facility] Email: [email or web address] Visit Number Visit Number 16 Discharge Summary PT-OP-B Current Condition Start: 11/28/23 17:38 Freq: Status: Active Protocol: Document 11/28/23 14:00 DCW (Rec: 11/28/23 17:56 DCW [id number]) Current Condition History of Current Condition Onset Date Long-standing history Current Complaints Instability with walking, worsening posture, fatigue History of Current Condition Pt is an 82 year old male presenting with his to his PT initial evaluation today. Pt was previously treated in this clinic for ~3 months at this time last year for the same complaints of decreased stability, difficulty with functional mobility, weakness, and poor activity tolerance. Pt's notes he has significantly declined with his functional mobility since last year. Pt uses 4WW or trekking poles most of the time. reports he often has difficulty getting up out of chairs. Has had multiple falls recently, but none have been eventful or led to bad injuries. PT-OP-C Subjective Start: 11/28/23 17:38 Freq: Status: Active Protocol: Document 01/30/24 11:15 DCW (Rec: 01/30/24 12:01 DCW [id number]) OP-PT Subjective Patient Comments Patient Comments Admits his vision is still not good, moving a little slow today, but feels overall like he is walking better. PT-OP-D Balance Start: 11/28/23 17:38 Freq: Status: Active Protocol: Document 01/25/24 09:47 DCW (Rec: 01/25/24 10:13 DCW [id number]) Balance Tests Ross Balance Test Ross Balance Test Score 47/56 Ross Balance Assessment Evaluation Sitting to Standing Ability Independent w/out Hands Unsupported Stance Safely- 2 minutes Sitting Unsupported, Feet on Floor Safely- 2 minutes Standing to Sitting Ability Safely, Minimal Hand Use Transfer Ability Safely, Minimal Hand Use Unsupported Stance- Eyes Closed Safely, 10 seconds Unsupported Stance- Eyes Open Independent, 1 minute Reaching Forward Standing Confidently, 10 inches Pick- Up Object From Floor Independent/Safe Look Behind Shoulder - Standing Shifts Weight Unilateral Turning 360 Degrees Turns slowly, but safely Unsupported Stance, Alternating Feet on (I)- 8 Steps in > 20 secs Stair Unsupported Tandem Stance Small Step- 30 seconds Unilateral Leg Stance Lifts Leg/Unable to Hold Total Score Ross Total Score (out of 56 points) 47 Ross Impairment Rating 1 to 19% Impaired (Score 45-55 ) PT-OP-E Functional Tests Start: 11/28/23 17:38 Freq: Status: Active Protocol: Document 01/25/24 09:47 DCW (Rec: 01/25/24 10:13 [facility] [id number]) Functional Tests 30 Second Sit to Stand Test Score x13 repetitions Comments chair, no UE use Timed Up and Go (TUG) Score 16.44 /s AD Comments Three-trial average (18.74, 16 .86, 13.72) PT-OP-J Posture/Palpation/Skin Start: 11/28/23 17:38 Freq: Status: Active Protocol: Document 01/25/24 09:47 DCW (Rec: 01/25/24 10:13 [facility] [id number]) Posture Evaluation Comments Posture Comments Severely forward head, increased thoracic kyphosis, mild correction with cueing PT-OP-M Strength Start: 11/28/23 17:38 Freq: Status: Active Protocol: Document 01/25/24 09:47 DCW (Rec: 01/25/24 10:13 [facility] [id number]) Hip Strength Hip Manual Muscle Testing Right Flexion (L2) 4 Good Abduction 4- Good- Adduction 4 Good External Rotation 4+ Good+ Internal Rotation 4+ Good+ Left Flexion (L2) 4+ Good+ Abduction 4 Good Adduction 4 Good External Rotation 4+ Good+ Internal Rotation 4+ Good+ Knee Strength Knee Manual Muscle Testing Right Flexion (S2) 4+ Good+ Extension (L3) 4+ Good+ Left Flexion (S2) 4+ Good+ Extension (L3) 4+ Good+ PT-OP-T Assessment and Plan Start: 07/24/24 17:38 Freq: Status: Active Protocol: Document 02/18/24 09:30 DCW (Rec: 02/18/24 09:31 [facility] [id number]) Physical Therapy Assessment Assessment Summary Assessment Pt phoned clinic to cancel appointments and request discharge. Pt reports PCP told him he was not progressing enough. Pt will be discharged from skilled therapy at this time. Physical Therapy Plan Discharge Physical Therapy Discharge Reasons Patient Request
== END 2024-02-19 13:41 | disposition home or self-care (01) ==
LOC: PHYS 11:15
PROVIDERS: Family Provider Internal Medicine; PCP Internal Medicine; Referring Provider Internal Medicine; Visit Provider Internal Medicine
DX: R53.1 Weakness (principal); R26.9 Unspecified abnormalities of gait and mobility; R29.6 Repeated falls; R26.81 Unsteadiness on feet
CPT/HCPCS: 97110; 97112; 97140; 97163; 97530

== ENCOUNTER → 2024-03-03 12:14 | Outpatient (CLI) | payer MEDICARE, SELFPAY ==
[2022-08-23 10:30] VITALS: BMI 24.3
--- NOTE | 2024-03-03 13:08 | DI.RAD.S_ITS ---
PROCEDURE: XR ABDOMEN MIN 2V INDICATIONS: constipation TECHNIQUE: 2 views of the abdomen were acquired. COMPARISON: None. FINDINGS: Surgical changes and devices: Postsurgical changes are partially imaged from left hip arthroplasty and right proximal femoral fracture fixation. Prominent heterotopic calcifications are seen, greater on the left than on the right. Bowel: No pneumoperitoneum. The bowel gas pattern is normal. Mild stool burden most notable in the left colon and rectum. Soft tissues: No masses; visualized solid organ contours appear normal in size. No suspicious abdominal calcifications. Bones: No suspicious bony abnormalities. Multilevel degenerative changes in the included spine with dextroconvex curvature. IMPRESSION: Non-obstructive bowel gas pattern. Mild stool burden. Approved by: Sam Tejeda M.D. on 03/04/2024 at 8:31
[2024-03-03 13:36] LABS: Add Manual Diff / Slide Review NO; Basophils Absolute Auto 0 /uL (0-100); Basophils Percent Auto 0.4 % (0-2); Eosinophils Absolute Auto 100 /uL (0-450); Eosinophils Percent Auto 2.3 % (2-4); Hematocrit 39.8 % (41-53); Hemoglobin 13.7 g/dL (13.5-17.5); Lymphocytes Absolute Auto 1200 /uL (1100-4500); Lymphocytes Percent Auto 27.5 % (25-40); Mean Corpuscular HGB Conc 34.5 % (30-36); Mean Corpuscular Hemoglobin 31.6 PG (26-34); Mean Corpuscular Volume 91.7 fL (80-100); Monocytes Absolute Auto 400 /uL (0-900); Monocytes Percent Auto 9.6 % (3-14); Neutrophils Absolute Auto 2600 /uL (1500-7000); Neutrophils Percent Auto 60.2 % (50-75); Platelet Count 158 X10^3/uL (150-400); Red Blood Cell Count 4.34 X10^6/uL (4.5-5.9); Red Cell Distribution Width 13.6 % (11.6-14.8); White Blood Cell Count 4.4 X10^3/uL (4.5-11.0)
[2024-03-03 13:58] LABS: Alanine Aminotransferase 25 IU/L (<50); Albumin 4.3 g/dL (3.5-5.0); Albumin Globulin Ratio 1.8 (1.0-2.8); Alkaline Phosphatase 61 U/L (38-126); Aspartate Aminotransferase 40 IU/L (17-59); BUN Creatinine Ratio 29.8 (6-22); Bilirubin Total 0.8 mg/dL (0.2-1.3); Blood Urea Nitrogen 31 mg/dL (9-20); Calcium 9.7 mg/dL (8.4-10.2); Carbon Dioxide 28 mmol/L (22-32); Chloride 102 mmol/L (98-107); Estimated Glomerular Filt Rate > 60 mL/min (>60); Globulin 2.4 g/dL (1.7-4.1); Glucose 84 mg/dL (80-110); HEMOLYSIS 20 (0-50); Lipase 89 U/L (23-300); Sodium 136 mmol/L (137-145); Total Protein 6.7 g/dL (6.3-8.2)
[2024-03-03 14:13] LABS: Free T3, Triiodothyronine Free 4.15 pg/mL (2.77-5.27); Free T4, Direct Thyroxine 1.04 ng/dL (0.78-2.19)
== END ==
PROVIDERS: Family Provider Internal Medicine; PCP Internal Medicine; Referring Provider Internal Medicine; Visit Provider Internal Medicine
DX: E03.9 Hypothyroidism, unspecified (principal); R26.9 Unspecified abnormalities of gait and mobility; F41.9 Anxiety disorder, unspecified; F32.A Depression, unspecified; R63.4 Abnormal weight loss; K59.01 Slow transit constipation; E78.2 Mixed hyperlipidemia
CPT/HCPCS: 36415; 74019; 80053; 83690; 84439; 84443; 84481; 85025